=== PATIENT | male | born 1950 | race Caucasian/White ===

== ENCOUNTER 2022-04-19 06:43 | Day surgery (SDC) | payer MEDICARE, BC, SELFPAY ==
[2022-04-19] VITALS (8 sets, daily range): BP systolic 148–176; BP diastolic 84–102; PULSE 58–73; RESP 16; TEMP 36.7–36.9; O2SAT 95–98; BMI 40.1
[2022-04-19] MEDS: BUPIVACAINE 0.5% 30 ML 10 ML INJECTION (08:18)
[2022-04-19] MEDS: lidocaine HCL 2 % MULTIDOSE 20 ML VIAL 10 ML INJECTION (08:18)
--- NOTE | 2022-04-19 08:44 | PM.ORPRC ---
Procedure Note Date of procedure: 04/19/22 Procedure: Preop diagnosis: Right hand middle finger stenosing tenosynovitis Postop diagnosis: Right hand middle finger stenosing tenosynovitis Procedure: Right hand middle finger A1 rob release Anesthesia: Local Surgeon: Timbo Santacruz MD plant attendant or assistant operator: SADI Ronquillo EBL: 0 mL Complications: None Specimens: None Drains: None Preoperative antibiotics: None Indications: The patient has a history of right upper extremity middle finger painful catching and locking. Despite appropriate non operative management including flexor tendon sheath corticosteroid injections they continue to have symptoms. Operative intervention was recommended. The risks, benefits alternatives and expected outcomes were discussed in detail. These included but were not limited to: Infection, bleeding, injury to blood vessel or nerve, venous thromboembolism. All questions were answered to their satisfaction. The patient was placed supine on the operating room table. Local anesthesia was established with 0.5% Marcaine without epinephrine and 2% lidocaine without epinephrine. The hand was prepped and draped in usual sterile fashion. The limb was elevated the forearm pneumatic tourniquet was inflated to 250 mm of mercury. A transverse incision was made centered over the base of the middle finger in the distal palmar crease. Subcutaneous dissection was taken through the palmar fascia to the flexor tendons with the tenotomy scissors. The A1 rob was released with the 15 blade and a tenotomy scissors. Its edges were excised with the 15 blade. Active flexion and extension of the finger shows no catching or locking, no bowstringing of the flexor tendons. The wound was closed with interrupted nylon sutures. A dry dressing was applied the tourniquet was released. Sponge and needle counts were correct x 2. The patient tolerated the procedure well, there were no apparent complications. They were sent to same day surgery in satisfactory condition. Plan: Use of the hand as tolerates. Discontinue the intraoperative dressing on postoperative day 3 and may get the wound wet as tolerates. Follow up in the office in 2 weeks for a wound check and suture removal.
== END 2022-04-19 08:58 | disposition home or self-care (01) ==
PROVIDERS: PCP Physician Assistant Medical; Visit Provider Orthopaedic Surgery
PROC: (CPT 26055; principal; 2022-04-19 07:45)
DX: M65.841 Other synovitis and tenosynovitis, right hand (principal)
CPT/HCPCS: 26055; J3490

== ENCOUNTER 2022-11-08 13:07 | Outpatient (CLI) | payer MEDICARE, BC, SELFPAY | END 2022-11-08 13:08 | disposition home or self-care (01) | LOC: RAD 13:08 | PROVIDERS: PCP Family Medicine; Visit Provider Family Medicine | DX: I48.91 Unspecified atrial fibrillation (principal) | CPT/HCPCS: 93306 ==

== ENCOUNTER 2023-02-05 12:30 | Emergency (ER) | payer MEDICARE, BC, SELFPAY ==
[2023-02-05 12:33] VITALS: BP 156/83; PULSE 82; RESP 16; TEMP 36.1; O2SAT 95; BMI 39.5
[2023-02-05 12:46] LABS: Appearance Urine Cloudy (Clear); Bilirubin Urine Negative (Negative); Blood Urine 3+ (Negative); Color Urine Yellow (Yellow); Glucose Urine Negative (Negative); Ketones Urine Negative (Negative); Leukocyte Esterase Urine 3+ (Negative); Nitrite Urine Negative (Negative); Protein Urine 2+ (Negative); pH Urine 8.5 (5.0-8.5)
[2023-02-05 12:54] LABS: Bacteria Urine Moderate; RBC Urine 50-100 (0-2); WBC Urine >100 (0-5)
--- NOTE | 2023-02-05 14:02 | CRLHL7_ITS ---
For Patients: As a result of the Century Cures Act, medical imaging exams and procedure reports are released immediately into your electronic medical record. You may view this report before your referring provider. If you have questions, please contact your health care provider. INDICATION: Right-sided abdominal pain, infected urine. TECHNIQUE: CT abdomen and pelvis without contrast. COMPARISON: August 18, 2018. FINDINGS: Lower chest: Scattered atelectasis Liver: Normal in size and attenuation. No suspicious masses. Gallbladder and bile ducts: No stones or inflammation. No biliary dilatation. Pancreas: Unremarkable. No mass or inflammation. Spleen: Normal in size. No masses. Adrenal glands: Normal in size. No nodules. Kidneys: Tiny bilateral nonobstructing renal stones. Normal in size. No suspicious masses, or hydronephrosis. GI tract: Colonic diverticulosis without diverticulitis. Normal in caliber. No sign of mass or inflammation. Normal appendix. Vasculature: Abdominal aorta is normal in caliber. Lymph nodes: No lymphadenopathy. Peritoneum/Abdominal Wall: Small fat containing umbilical hernia. No sign of mass or infiltration. No free air or significant free fluid. Pelvis: Mildly distended bladder with circumferential wall thickened. Mild prostatomegaly. No pelvic masses. Bones: Bilateral hip arthroplasty causing streak artifact. Tiny peripherally sclerotic right iliac lesion, more pronounced than prior study. IMPRESSION: Circumferential bladder wall thickening consistent with known urinary tract infection. Prostatomegaly. Tiny bilateral nonobstructing renal stones. Colonic diverticulosis without diverticulitis. Otherwise, no acute intra-abdominal/pelvic abnormality including obstructive uropathy. Please note that all CT scans at this facility use dose modulation, iterative reconstruction, and/or weight-based dosing when appropriate to reduce radiation dose to as low as reasonably achievable. Dictated by Rodo Fiore MD @ 02/05/2023 3:59:59 PM (Electronically Signed)
--- NOTE | 2023-02-05 14:06 | ED_ITS ---
HPI - Abdominal Pain General Time Seen by Provider: 14:06 Date Seen: 02/05/23 Chief Complaint: Abdominal Pain Stated Complaint: R side abdominal pain Time Seen by Provider: 02/05/23 13:56 Source: patient and RN notes reviewed Mode of arrival: ambulatory Limitations: no limitations History of Present Illness HPI narrative: Patient is presenting with dysuria and right-sided abdominal pain. He has not had any fevers. He has history of kidney stones. No nausea or vomiting. Urinalysis was already collected by nursing staff and I am able to review it before talking to him, am able to share with him that it is showing urinary tract infection. Does have a sense of some obstructive symptoms or difficulty urinating. He still is able to urinate. Some discomfort with it. He does know that he has enlarged prostate issues as well. The urinary symptoms may be started about 2 days ago. MD elicited complaint: abdominal pain and flank pain Related Data Home Medications Medication Instructions Recorded Confirmed lisinopril 20 mg tablet 20 mg PO BID 03/15/22 02/05/23 metoprolol succinate 50 mg 50 mg PO DAILY 03/15/22 02/05/23 tablet,extended release 24 hr omeprazole 20 mg capsule,delayed 20 mg PO DAILY 03/15/22 02/05/23 release tadalafil 20 mg tablet 20 mg PO .as Direc as needed PRN 03/15/22 02/05/23 tamsulosin 0.4 mg capsule 0.8 mg PO DAILY 03/15/22 02/05/23 prazosin 2 mg capsule 2 mg PO QHS 12/14/22 02/05/23 sertraline 100 mg tablet 200 mg PO QDAY 12/14/22 02/05/23 Previous Rx's Medication Instructions Recorded ipratropium 20 mcg-albuterol 100 1 puff inhalation QID #4 grams 05/31/22 mcg/actuation mist for inhalation (Combivent Respimat) cephalexin 500 mg tablet 500 mg PO TID #21 tabs 02/05/23 Allergies Allergy/AdvReac Type Severity Reaction Status Date / Time doxycycline Allergy Severe Itching Verified 02/05/23 12:39 codeine Allergy Unknown Verified 02/05/23 12:39 Review of Systems Status of ROS Reports: 6 or more systems reviewed and unremarkable except as noted in History and below [facility] Medical History Knee osteoarthritis ?M17.9 - Osteoarthritis of knee, unspecified (ICD-10) Surgical History H/O arthroscopy of left knee (04/17/13) ?Z98.890 - Other specified postprocedural states (ICD-10) History of repair of right rotator cuff (03/14/18) ?Z98.890 - Other specified postprocedural states (ICD-10) Trigger finger, left little finger (06/20/21) ?M65.352 - Trigger finger, left little finger (ICD-10) History of total right hip replacement (02/24/13) ?Z96.641 - Presence of right artificial hip joint (ICD-10) History of total left hip replacement (08/27/14) ?Z96.642 - Presence of left artificial hip joint (ICD-10) History of tonsillectomy and adenoidectomy ?Z90.89 - Acquired absence of other organs (ICD-10) History of colonoscopy with polypectomy ?Z98.890 - Other specified postprocedural states (ICD-10) ?Z86.010 - Personal history of colonic polyps (ICD-10) History of arthroscopy of right shoulder (04/18/18) ?Z98.890 - Other specified postprocedural states (ICD-10) History of arthroscopy of right knee (06/21/17) ?Z98.890 - Other specified postprocedural states (ICD-10) Family History Mother Ovarian cancer Father Pancreatic cancer Uncle Testicular cancer Social History Narrative: alcohol ingestion, 1-4 drinks/week does not use illicit drugs nonsmoker Smoking Status: Former smoker What tobacco products do you use: cigarettes Smoking quit date/years: >15 years ago Do you use any of these nicotine containing products: None Second hand tobacco smoke exposure: No Exam Const: Vital Signs, click to edit/add: Vital Signs - 24 hr 02/05/23 12:33 02/05/23 15:39 Temperature 97.0 F L Pulse Rate [Right Pulse Oximeter] 82 83 Respiratory Rate 16 18 Blood Pressure [Ri ght Upper Arm] 156/83 H 156/94 H Pulse Oximetry 95 94 Oxygen Delivery Me thod Room Air Room Air Timbo is a 72-year-old male that is alert interactive no apparent distress. Saw him ambulating into room 8, gait is normal, no difficulty. Skin is frausto, no rash. Sclera clear, conjugate gaze. Lungs are clear with good air entry, no tachypnea, no wheezing. CV regular rate and rhythm, no murmur, normal S1-S2, no S3-S4. Abdomen is mildly obese but soft, nondistended. He has some mild right mid abdominal tenderness without rebound or guarding, do not feel any underlying mass. He has no CVA tenderness. No lower extremity edema noted. Documenting provider has reviewed patient's vital signs: yes Course Course Hospital Course: This is an afebrile hemodynamically stable patient with urine showing infection, history kidney stones. Reviewed with Rony that it is imperative that we rule out an infected obstructive kidney stone is that becomes a urologic emergency. Patients can get quite ill from that. Otherwise, this suggest infected urine with the possibility of Hale up into his kidney or pyelonephritis. Again, he is stable and I do think would tolerate trial of oral antibiotics outpatient if this is the case. He is aware that we would need transfer if he does need urologic intervention. Reevaluation(s) Time of Reevaluation #1: 16:10 Reevaluation #1: Have reviewed with patient the CT findings, lab reports. He is having symptoms of complicated UTI but is hemodynamically stable. I do think he meets discharge criteria for trial of outpatient management. Have reviewed with me needs to watch his symptoms closely and if any worsening return. There could be ascending infection given he is getting some right-sided symptoms. There is no definitive evidence on CT of pyelonephritis but this is done with out contrast. Clinically he does look stable in do feel confident that decision for outpatient management is appropriate at this time. Time of Reevaluation #2: 16:17 Reevaluation #2: Reviewed CT imaging with patient and given copy of report. Discussed ascending infection which would be pyelonephritis, he needs to watch for worsening with increased abdominal pain, fevers or vomiting. Needs to seek re-evaluation if he has worsening. Will start him on oral Keflex the morning, did get IV Rocephin here. We will let him know if the antibiotic selection is not adequate and he needs to be changed based on the urine culture. Vital Signs Vital signs: Initial Vital Signs Temperature 97.0 F L 02/05/23 12:33 Temperature Source Temporal Artery Scan 02/05/23 12:33 Pulse Rate 82 02/05/23 12:33 Respiratory Rate 16 02/05/23 12:33 Blood Pressure 156/83 H 02/05/23 12:33 Blood Pressure Mean 107 H 02/05/23 12:33 Blood Pressure Position Sitting 02/05/23 12:33 Pulse Oximetry 95 02/05/23 12:33 Oxygen Delivery Method Room Air 02/05/23 12:33 Vital Signs Temperature 97.0 F L 02/05/23 12:33 Pulse Rate 82 02/05/23 12:33 Respiratory Rate 16 02/05/23 12:33 Blood Pressure 156/83 H 02/05/23 12:33 Pulse Oximetry 95 02/05/23 12:33 Oxygen Delivery Method Room Air 02/05/23 12:33 Temperature 97.0 F L 02/05/23 12:33 Pulse Rate 83 02/05/23 15:39 Respiratory Rate 18 02/05/23 15:39 Blood Pressure 156/94 H 02/05/23 15:39 Pulse Oximetry 94 02/05/23 15:39 Oxygen Delivery Method Room Air 02/05/23 15:39 MDM - Abdominal Pain Lab Data Attestation: I reviewed the patient's lab results. Labs: Lab Results 02/05/23 02/05/23 Range/Units 12:35 14:14 WBC 12.57 H (4.50-11.00) K/uL RBC 5.06 (4.30-5.90) m/uL Hgb 14.8 (13.5-17.5) gm/dL Hct 46.4 (37.0-53.0) % MCV 92 (80-100) fL MCH 29 (26-34) pg MCHC 32 (32-36) gm/dL RDW Coeff of Silva 14.6 (11.5-15.5) % Plt Count 183 (140-440) K/uL Neut % (Auto) 76.4 H (42.0-72.0) % Lymph % (Auto) 13.6 L (20-44) % Richardson % (Auto) 8.2 (0.0-11.0) % Eos % (Auto) 1.4 (0.0-7.0) % Baso % (Auto) 0.2 (0.0-3.0) % Neut # (Auto) 9.60 H (1.7-7.0) K/uL Lymph # (Auto) 1.70 (0.90-2.90) K/uL Richardson # (Auto) 1.00 H (0.00-0.90) K/UL Eos # (Auto) 0.20 (0.00-0.50) K/uL Baso # (Auto) 0.00 (0.00-0.30) K/uL Abs Immat Gran (auto) 0.00 (0.00-0.30) K/uL Imm/Tot Granulo (auto) 0.2 % Sodium 137 (135-149) mmol/L Potassium 4.5 (3.6-5.1) mmol/L Chloride 100 (96-114) mmol/L Carbon Dioxide 29 (20-32) mmol/L Anion Gap 8 (7-15) mEq/L BUN 19 (7-30) mg/dL Creatinine 0.9 (0.5-1.5) mg/dL Estimated Creat Clear 67.93 Estimated GFR 90 ml/min Glucose 116 H (60-115) mg/dL Calcium 9.7 (8.4-10.6) mg/dL C-Reactive Protein 1.2 H (0.5-1.0) mg/dL Urine Color Yellow (Yellow) Urine Appearance Cloudy A (Clear) Urine pH 8.5 (5.0-8.5) Ur Specific Cameron 1.020 (1.000-1.030) Urine Protein 2+ A (Negative) Urine Glucose (UA) Negative (Negative) Urine Ketones Negative (Negative) Urine Blood 3+ A (Negative) Urine Nitrite Negative (Negative) Urine Bilirubin Negative (Negative) Urine Urobilinogen 1.0 (0.2-1.0) Ur Leukocyte Esterase 3+ A (Negative) Urine RBC 50-100 A (0-2) Urine WBC >100 A (0-5) Ur Squamous Epith Cells None (None-Few) Urine Bacteria Moderate A (None) Imaging Data CT scan - abdomen: Attestation: I have reviewed the pertinent imaging results. My impression: I do see bladder wall thickening, intraparenchymal kidney stones but no obstructive stones in my preliminary review. Certainly will be awaiting Radiology over-read. Radiologist's impression: IMPRESSION: Circumferential bladder wall thickening consistent with known urinary tract infection. Prostatomegaly. Tiny bilateral nonobstructing renal stones. Colonic diverticulosis without diverticulitis. Otherwise, no acute intra-abdominal/pelvic abnormality including obstructive uropathy. Please note that all CT scans at this facility use dose modulation, iterative reconstruction, and/or weight-based dosing when appropriate to reduce radiation dose to as low as reasonably achievable. Dictated by Rodo Fiore MD @ 02/05/2023 3:59:59 PM (Electronic Signature) Discharge Plan Discharge Clinical Impression: Complicated urinary tract infection Patient Disposition: Home, Self-Care Condition: Stable Instructions: Urinary Tract Infection in Men (ED), Kidney Infection (ED) Additional Instructions: Start oral antibiotics and take as prescribed in the morning. Need to monitor symptoms closely. If you develop increasing abdominal pain, have fever or vomiting with it, do need to be re-evaluated. If with treatment of the bladder infection you do not note improvement in your sense of obstructive urinary sy mptoms, need to be further evaluated by Urology. It is possible for people to develop urinary strictures which can put patient is at risk for infection. A cystoscopy with urology would need to be done to further evaluate this. I hope that your symptoms are coming from the bladder infection and resolve with treatment with antibiotics. If your urine culture does grow a bacteria that is not covered by the initial antibiotic selection, we will contact you and get you switch to an appropriate antibiotic. Activity Level: Activity as Tolerated Prescriptions: New cephalexin 500 mg tablet 500 mg PO TID Qty: 21 0RF No Action tadalafil 20 mg tablet 20 mg PO .as Direc as needed PRN omeprazole 20 mg capsule,delayed release(DR/EC) 20 mg PO DAILY tamsulosin 0.4 mg capsule 0.8 mg PO DAILY lisinopril 20 mg tablet 20 mg PO BID metoprolol succinate 50 mg tablet extended release 24 hr 50 mg PO DAILY sertraline 100 mg tablet 200 mg PO QDAY prazosin 2 mg capsule 2 mg PO QHS Combivent Respimat 20-100 mcg/actuation mist 1 puff inhalation QID Qty: 4 2RF Rx Instructions: space evenly during waking hours Follow Up/Referrals: Ilan Atwood MD [Primary Care Provider] - Stand Alone Forms: MyHealth Info Instructions
--- OUTSIDE RECORDS SUMMARY | 2023-02-05 14:35 | XMS_ITS | Continuity of Care Document ---
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 Role Phone Sophiris Bio Unavailable Unavailable Problems Problem Status Onset Date Classification Date Reported Comments Source Pain of joint of knee 03/18/2022 [facility] Essential hypertension (disorder) 03/18/2022 [facility] Osteoarthritis of knee (disorder) 03/18/2022 [facility] Care Benign prostatic hypertroph without outflow obstruction (disorder) 03/18/2022 [facility] Care Hip joint prosthesis present 03/18/2022 [facility] Medications Medication Details Route Status Patient Instructions Ordering Provider Order Date Source Percocet-5/325 oral tablet See Instructions, Tab, PRN, Pain, Qty: 15 Tab, Refills: 0, 1 Tab PO Q 4-6 hours, Maintenance, Route to Pharmacy Electronically , [facility]/pharmacy #[id number] Active 03/10/20 [facility] tamsulosin 0.4 mg oral capsule 1 Cap Cap, PO, qDay, Qty: 30 Cap, Refills: 0, Maintenance Active 03/10/20 22 [facility] Care lisinopril 10 mg, Tab, PO, qDay, Qty: 30 Tab, Refills: 0, Maintenance Active 03/10/20 [facility] Consultation Notes Results Value Date Source Discharge Instructions Document [facility] [address] [place] [address] TABITHA SANCHEZ :1950 (EV) Visit Date:03/10/2022 [facility] PRESCRIBING We care about you. Our goal is to treat your medical conditions, including pain, effectively, safely and in the right way. Pain relief treatment can be complicated. Mistakes or abuse of pain medicine can cause serious health problems and . Our emergency department will only provide pain relief options that are safe and correct. For your SAFETY, we routinely follow these rules when helping you with your pain. We look for and treat emergencies. We use our best judgement when treating pain. These recommendations follow legal and ethical advice. You should have only ONE provider and ONE pharmacy helping you with pain. We do not usually prescribe pain medication if you already receive pain medicine from another health care provider. If pain prescriptions are needed for pain, we will only give you a limited amount. We do not refill stolen or lost prescriptions for pain medication. We do not prescribe long-acting pain medicines such as: OxyContin, MSContin, Fentanyl (Duragesic), Methadone, Opana ER, Exalgo, and others. We do not provide missed doses of Methadone. We do not usually give shots for flare-ups of chronic pain. Health care laws, including HIPAA, allow us to ask for all of your medical records. These laws allow us to share information with other health providers who are treating you. We may ask you to show a photo ID when you receive a prescription for pain medicines. In [place], we use the [place] Prescription Drug Monitoring Program called [employer]. In [place] and [place], we use the Prescription Monitoring Program that has oversight by the [place] and [facility] boards of pharmacy. These statewide computer systems track opioid pain medications and other controlled substance prescriptions. If you need help with substance abuse or addiction, please call [phone] ([phone]) for confidential referral and treatment. Sponsored by: [employer] [facility] [employer] Safe Practice, Safe Care [facility] Emergency Department Patient Discharge Instructions If your symptoms continue or worsen, return to the emergency department or contact your physician. If you have questions about your discharge instructions, call the phone number above. Providers Attending Physician - Wiley Sanches MD Lifetime Physician(PCP) - PCP, No Provider Role Wiley Sanches MD ED Provider Reason for Visit UC - Knee Pain or Swelling Discharge Diagnosis Acute knee pain Discharge Vitals T: 36.5 ?C (Oral) HR: 76 RR: 18 BP: 157/91 SpO2: 98% HT: 177.8 cm WT: 128.798 kg WT: 284 lbs BMI: 40.74 Time patient left the ED These instructions are intended to provide general information and guidelines to follow at home to properly care for your particular medical problem. The following diagnostic tests and/or procedures were performed during your stay. Tests Performed Most Recent Lab Results Follow-up Instructions: All referrals for follow up medical care may require approval by your insurance carrier. Any provider contact information (below) is provided to assist you in getting the follow up we recommend. However, it's important that you first check with your insurance provider to assure that the provider is in yourinsurance provider to assure that the provider is in your network and such a visit will be covered. Some plans may require a Primary Care doctor to provide a referral for specialist appointments. You May Need to Schedule the Following Appointments Follow Up with Rest. Ice. You may continue the ibuprofen. Follow-up with your orthopedist in [place] as soon as possible. When Within 3 to 5 days We encourage you to sign up for My Portal, where you can easily access your medical records and test results from all [facility]. Please sign up in one of the following ways: 1. Email invitation. You may have a message in your inbox. Please click the link provided to create an account. OR 2. Request an invitation at your next clinic or hospital visit. Please ask a staff member and they will be happy to assist you. Medications What How Much When Instructions Next Dose New acetaminophen-oxyCODONE (Percocet-5/ 325 oral tablet) See instructions 1 Tab PO Q 4-6 hours Pickup at [facility]/pharmacy #[id number] Unchanged lisinopril 10 Milligram By mouth Once daily Unchanged tamsulosin (tamsulosin 0.4 mg oral capsule) 1 cap By mouth Once daily Pharmacy Information [facility]/pharmacy #[id number]: [address] [place], [place] [phone] Discharge Orders Discharge Orders: Discharge Now, Home or self care Education Materials Chronic Knee Pain, Adult Chronic knee pain is pain in one or both knees that lasts longer than 3 months. Symptoms of chronic knee pain may include swelling, stiffness, and discomfort. Age-related wear and tear (osteoarthritis) of the knee joint is the most common cause of chronic knee pain. Other possible causes include: A long-term immune-related disease that causes inflammation of the knee (rheumatoid arthritis). This usually affects both knees. Inflammatory arthritis, such as gout or pseudogout. An injury to the knee that causes arthritis. An injury to the knee that damages the ligaments. Ligaments are strong tissues that connect bones to each other. Runner's knee or pain behind the kneecap. Treatment for chronic knee pain depends on the cause. The main treatments for chronic knee pain are physical therapy and weight loss. This condition may also be treated with medicines, injections, a knee sleeve or brace, and by using crutches. Rest, ice, pressure (compression), and elevation, also known as RICE therapy, may also be recommended. Follow these instructions at home: If you have a knee sleeve or brace: Wear the knee sleeve or brace as told by your health care provider. Remove it only as told by your health care provider. Loosen it if your toes tingle, become numb, or turn cold and blue. Keep it clean. If the sleeve or brace is not waterproof: Do not let it get wet. Remove it if allowed by your health care provider, or cover it with a watertight covering when you take a bath or a shower. Managing pain, stiffness, and swelling If directed, apply heat to the affected area as often as told by your health care provider. Use the heat source that your health care provider recommends, such as a moist heat pack or a heating pad. If you have a removable knee sleeve or brace, remove it as told by your health care provider. Place a towel between your skin and the heat source. Leave the heat on for 20 3 0 minutes. Remove the heat if your skin turns bright red. This is especially important if you are unable to feel pain, heat, or cold. You may have a greater risk of getting burned. If directed, put ice on the affected area. To do this: If you have a removable knee sleeve or brace, remove it as told by your health care provider. Put ice in a plastic bag. Place a towel between your skin and the bag. Leave the ice on for 20 minutes, 2 3 times a day. Remove the ice if your skin turns bright red. This is very important. If you cannot feel pain, heat, or cold, you have a greater risk of damage to the area. Move your toes often to reduce stiffness and swelling. Raise (elevate) the injured area above the level of your heart while you are sitting or lying down. Activity Avoid high-impact activities or exercises, such as running, jumping rope, or doing jumping jacks. Follow the exercise plan that your health care provider designed for you. Your health care provider may suggest that you: Avoid activities that make knee pain worse. This may require you to change your exercise routines, sport participation, or job duties. Wear shoes with cushioned soles. Avoid sports that require running and sudden changes in direction. Do physical therapy. Physical therapy is planned to match your needs and abilities. It may include exercises for strength, flexibility, stability, and endurance. Do exercises that increase balance and strength, such as cuca chi and yoga. Do not use the injured limb to support your body weight until your health care provider says that you can. Use crutches as told by your health care provider. Return to your normal activities as told by your health care provider. Ask your health care provider what activities are safe for you. General instructions Take azcd-hzj-[id number] and prescription medicines only as told by your health care provider. Lose weight if you are overweight. Losing even a little weight can reduce knee pain. Ask your health care provider what your ideal weight is, and how to safely lose extra weight. A dietitian may be able to help you plan your meals. Do not use any products that contain nicotine or tobacco, such as cigarettes, e-cigarettes, and chewing tobacco. These can delay healing. If you need help quitting, ask your health care provider. Keep all follow-up visits. This is important. Contact a health care provider if: You have knee pain that is not getting better or gets worse. You are unable to do your physical therapy exercises due to knee pain. Get help right away if: Your knee swells and the swelling becomes worse. You cannot move your knee. You have severe knee pain. Summary Knee pain that lasts more than 3 months is considered chronic knee pain. The main treatments for chronic knee pain are physical therapy and weight loss. You may also need to take medicines, wear a knee sleeve or brace, use crutches, and apply ice or heat. Losing even a little weight can reduce knee pain. Ask your health care provider what your ideal weight is, and how to safely lose extra weight. A dietitian may be able to help you plan your meals. Follow the exercise plan that your health care provider designed for you. This information is not intended to replace advice given to you by your health care provider. Make sure you discuss any questions you have with your health care provider. Document Revised: 11/02/2020 Document Reviewed: 11/02/2020 Elsevier Patient Education ? 2021 [employer] I understand that [facility] is not responsible for any personal belongings/effects or valuables that have not been identified on the valuables and belongings list. Any personal effects brought into the facility and not recorded on the valuables and belongings form are the responsibility of the patient/family/significant other. I have received the indicated patient education materials/instructions and medication list and have verbalized understanding. Patient Name: TABITHA SANCHEZ Patient/Responsible Adult Signature: Date/Time: Provider Signature: Date/Time: 03/10/2022 [facility] ED Physician Notes Patient: TABITHA SANCHEZ (EV) Age: 71 years Sex: M : 1950 Associated Diagnoses: None Author: Wiley Sanches MD Basic Information Time seen: Provider Initial Contact Time 03/10/2022 12:13. Additional information: Chief Complaint (ST) Chief Complaint ED: left knee pain since yesterday. pt states 'stretching in bedand left knee started hurting' 03/10/22 12:11, Subjective Nursing Assessment: pt ao, resp even/unlabored 03/10/22 12:11 . History of Present Illness The patient presents with knee pain and This is a 71-year-old white male with a previous history of hypertension and BPH who presents for evaluation of left knee pain. He has a long history of left knee issues for which she is normally cared for in [place]. He has bilateral hip replacements and has significant arthritis of the knees. He has had multiple MRI scans in the past. He is typically treated with injections of corticosteroids. He flew to the [facility] days ago and felt entirely well. Yesterday morning, when he was going to get up, he stretched. He did this while laying down and noted some slight discomfort in the left knee which probably worsened when he attempted to move the knee. He now has persisting/worsening pain in the left knee with motion. There is no pain at rest. The pain is global and that it is both medially, laterally, posteriorly, and anteriorly. He notes no acute grinding. In the past he normally takes ibuprofen 800 mg and Tylenol for his symptoms. This is 'not touching' his pain. He will return to [place] in 2 days (Saturday, 03/12) and has an orthopedist who knows his case well. He primarily is seeking pain relief and an x-ray if indicated. He has no known medication allergies.. Review of Systems Constitutional symptoms: Negative except as documented in HPI. Skin symptoms: Negative except as documented in HPI. ENMT symptoms: Negative except as documented in HPI. Respiratory symptoms: Negative except as documented in HPI. Cardiovascular symptoms: Hypertension. Gastrointestinal symptoms: Negative except as documented in HPI. Musculoskeletal symptoms: Degenerative joint disease with bilateral knee arthritis. Status post bilateral hip replacement.. Neurologic symptoms: Negative except as documented in HPI. Endocrine symptoms: Negative except as documented in HPI. Hematologic/Lymphatic symptoms: Negative except as documented in HPI. Allergy/immunologic symptoms: Negative except as documented in HPI. Health Status Allergies: Allergic Reactions (Selected) No Known Medication Allergies. Medications: Include Documented Meds (Selected) Documented Medications Documented lisinopril: 10 mg, PO, qDay, 30 Tab, 0 Refill(s) tamsulosin 0.4 mg oral capsule: 1 Cap, PO, qDay, 30 Cap, 0 Refill(s). Past Medical/ Family/ Social History Surgical history: No active procedure history items have been selected or recorded.. Family history: No family history items have been selected or recorded.. Social history: Social and Psychosocial Habits Alcohol 03/10/2022 Use: Current Frequency: 1-2 times per month Home/Environment 03/10/2022 Yazidi restrictions/concerns: None Substance Abuse 03/10/2022 Use: Denies Tobacco 03/10/2022 Tobacco Use: Never (less than 100 in l . Physical Examination Vital Signs Vital-Signs 03/10/2022 12:11 MST SPO2 98 % Normal Heart Rate 76 bpm Normal NIBP Systolic 157 mm Hg H NIBP Diastolic 91 mm Hg H Resp Rate (Monitor) 18 Breaths/Min Normal Temperature PO 36.5 deg C Normal Pain Intensity 0 Pain Scale Used Numeric Rating Scale . Measurements 03/10/2022 12:11 MST Rattan Body Weight 73 kg Drug Calc Weight (kg) 128.798 kg BMI 40.74 kg/m2 Height 177.8 cm Height In 70 Inch Weight lb 284 lbs . SPO2 03/10/2022 12:11 [facility] SPO2 98 % Normal . General: Alert, He is in no obvious distress at rest. Motion is slow, careful, with attempts to not move the knee. He has less pain if it is kept in complete extension. He does have access to crutches but is not currently using them.. Skin: Warm, dry, pink. Musculoskeletal: No swelling, warmth, or significant tenderness is noted to exam of the left knee. Passive range of motion is minimally painful whereas similar active range of motion is markedly painful. No palpable grinding or grating is noted.. Neurological: Alert and oriented to person, place, time, and situation, normal speech observed. Psychiatric: Cooperative. Medical Decision Making Rationale: This is a 71-year-old male presenting with severe left knee pain. Clinically there is no acute injury other than 'stretching'. Whether or not he has fractured a bone spur or done something else is unclear. It is not felt that an x-ray is going to be beneficial given his previous issues. He will continue ibuprofen 600 to 800 mg 3 times daily/4 times daily and be prescribed Percocet to take 1 every 4-6 hours.. Impression and Plan Acute knee pain ([id number] M25.569, Discharge, Medical) Plan Condition: Stable. Prescriptions: [facility]: Percocet-5/325 oral tablet (Prescribe): See Instructions, 1 Tab PO Q 4-6 hours, PRN: Pain, 15 Tab, 0 Refill(s). Patient was given the following educational materials: Chronic Knee Pain, Adult, Chronic Knee Pain, Adult. Follow up with: Rest. Ice. You may continue the ibuprofen. Follow-up with your orthopedist in [place] as soon as possible. Within 3 to 5 days. Counseled: Patient, Regarding diagnosis, Regarding treatment plan, Regarding prescription, Patient indicated understanding of instructions. Orders: Launch Orders Admit/Transfer/Discharge: Discharge (Order Processing): 03/10/2022 13:10 MST, Now, Home or self care. Electronically Signed By: Wiley Sanches MD On 03/10/22 13:10 Co Signature By: Modify Signature By: Wiley Sanches MD On 03/10/22 13:10 03/10/2022 [facility] Triage - Text Urgent Care Tr iage Entered On: 03/10/2022 12:22 MST Performed On: 03/10/2022 12:11 MST by Apoorva Steele RN UC Triage (v2) PNED Chief Complaint ED : left knee pain since yesterday. pt states 'stretching in bedand left knee started hurting' Mode of Arrival : Ambulatory Arrival Time : 03/10/2022 12:09 MST Triage Assessment : pt ao, resp even/unlabored Reason for visit : Pain Historian : Patient Accompanied By - ED : Alone Sensory Deficits : None Assistive Device for Communication : No Preferred Language for Healthcare Discussions : [place] Temperature PO : 36.5 deg C(Converted to: 97.7 deg F) NIBP Systolic : 157 mm Hg (H) NIBP Diastolic : 91 mm Hg (H) Heart Rate : 76 bpm Respiratory Rate (Monitor) : 18 Breaths/Min SPO2 : 98 % Pain Intensity : 0 Pain Scale Used : Numeric Rating Scale Status : N/A Apoorva Steele RN - 03/10/2022 12:11 MST DCP GENERIC CODE Tracking Acuity : 4 - Non-urgent Tracking Group : [facility] ED Tracking Apoorva Steele RN - 03/10/2022 12:11 MST Pediatric Patient : N/A Height (cm) : 177.8 cm Height Measurement Used : inches Height in : 70 Inch Drug Calc Weight (kg) : 128.798 kg Weight Measurement Used : pounds Weight lb : 284 lbs BMI : 40.74 kg/m2 Rattan Body Weight : 73 kg Adjusted Body Weight : 95.32 kg Additional Info - ED : poc. mask on patient ABW Calc : 95.32 kg ABW Calc2 : 128.8 kg Apoorva Steele RN - 03/10/2022 12:11 MST (As Of: 03/10/2022 12:22:45 MST) [place] Suicide Severity Rating Scale (C-SSRS) 1. In the past 30 days have you wished you were or wished you could go to sleep and not wake up : No 2. In the past 30 days, have you had any actual thoughts about killing yourself : No 6. In your lifetime, have you ever done anything, started anything, or prepared to do anything to end your life : No Suicide Severity Rating Stratification : 0 Suicide Severity Rating : No additional care required at this time Suicide Prevention Interventions : No additional care required at this time Apoorva Steele RN - 03/10/2022 12:11 MST Allergies and Current Meds (v2) New 07/20 Polypharmacy (greater than 7 meds) : No Apoorva Steele RN - 03/10/2022 12:11 MST (As Of: 03/10/2022 12:22:45 [facility]) Allergies (Active) No Known Medication Allergies Estimated Onset Date: Unspecified ; Created By: Apoorva Steele RN; Reaction Status: Active ; Category: Drug ; Substance: No Known Medication Allergies ; Type: Allergy ; Updated By: Apoorva Steele RN; Reviewed Date: 03/10/2022 12:21 [facility] Medication List (As Of: 03/10/2022 12:22:45 [facility]) Home Meds lisinopril : lisinopril ; Status: Documented ; Ordered As Mnemonic: lisinopril ; Simple Display Line: 10 mg, PO, qDay, 30 Tab, 0 Refill(s) ; Catalog Code: lisinopril ; Order Dt/Tm: 03/10/2022 12:21:53 MST tamsulosin : tamsulosin ; Status: Documented ; Ordered As Mnemonic: tamsulosin 0.4 mg oral capsule ; Simple Display Line: 1 Cap, PO, qDay, 30 Cap, 0 Refill(s) ; Catalog Code: tamsulosin ; Order Dt/Tm: 03/10/2022 12:22:01 [facility] Social History Suicide Risk Screen : Yes Abuse Signs : Denies Red Flags of Human Trafficking : None observed Activated Human Trafficking Protocol : No Immunization Opt Out : Allow Apoorva Steele RN - 03/10/2022 12:11 [facility] Social History (As Of: 03/10/2022 12:22:45 MST) Tobacco: Never (less than 100 in lifetime) (Last Updated: 03/10/2022 12:22:05 MST by Apoorva Steele RN) Alcohol: Current, 1-2 times per month (Last Updated: 03/10/2022 12:22:10 MST by Apoorva Steele RN) Substance Abuse: Denies (Last Updated: 03/10/2022 12:22:14 MST by Apoorva Steele RN) Home/Environment: Yazidi restrictions/concerns: None. (Last Updated: 03/10/2022 12:22:18 MST by Apoorva Steele RN) Infectious Disease Risk Screening COVID19 Link to CDC Symptoms : Right click to and select reference text Does Pt Have Symptoms of COVID 19 : No Tested for COVID19 in the past 14 days : No, Patient stated Does the Patient state known exposure to a COVID-19 positive case in the last 14 days : No Patient Vaccinated for COVID-19 : Partially vaccinated or need booster Does Patient want a COVID-19 Vaccine : No Apoorva Steele RN - 03/10/2022 12:11 [facility] Infectious Disease Risk Screening Grid Cough < 2 wks of unknown origin : NO Cough > 2 weeks : NO Blood in Sputum : NO Fever or self-reported Fever : NO Rash of unknown origin : NO Headache : NO Stiff neck : NO Night Sweats : NO Unexplained Weight Loss : NO Diarrhea (3 episode per day) : NO Apoorva Steele RN - 03/10/2022 12:11 [facility] INF Disease Living Situation ST : Living Situation No qualifying data available. Patient Masked : Yes Travel to foreign country last 30 days : No INF Disease TB Screening Calc : 0 Apoorva Steele RN - 03/10/2022 12:11 [facility] Urgent Care Fall Risk Mental Status ED : Alert and oriented Physical/Clinical Status : No defects Current Treatments ED : None Apoorva Steele RN - 03/10/2022 12:11 MST 03/10/2022 [facility] Vital Signs Vital Sign Value Date Comments Source Sensory Deficits None (03/10/22 12:11 PM) 03/10/2022 [facility] Temperature (c) 36.5 03/10/2022 [facility] Systolic (mm Hg) 157 03/10/2022 [facility] Diastolic (mm Hg) 91 03/10/2022 [facility] Heart Rate (bpm) 76 03/10/2022 [facility] Respiratory Rate 18 Breaths/Min 03/10/2022 [facility] SPO2 98 03/10/2022 [facility] Height (cm) 177.8 03/10/2022 [facility] Drug Calc Weight (kg) 128.798 03/10/2022 [facility] BMI 40.74 03/10/2022 [facility] Encounters Location Location Details Encounter Type Encounter Number Reason For Visit Attending Provider ADM Date DC Date Status Source [facility] Emergency [id number] [facility] 03/10 [facility] Social History Social History Date Source Social History TypeResponse Smoking Status Never (less than 100 in lifetime) entered on: 03/10/22 Sex 03/10/2022 [facility] Assessment and Plan Result Assessment and Plan Date Source Assessment and Plan No data available for this section 03/10/2022 [facility]
[2023-02-05 14:57] LABS: Basophils Percent Auto 0.2 % (0.0-3.0); Eosinophils Percent Auto 1.4 % (0.0-7.0); Hematocrit 46.4 % (37.0-53.0); Hemoglobin* 14.8 gm/dL (13.5-17.5); Immature Granulocytes Pct Auto 0.2 %; Lymphocytes Percent Auto 13.6 % (20-44); Mean Corpuscular HGB Conc 32 gm/dL (32-36); Mean Corpuscular Hemoglobin 29 pg (26-34); Mean Corpuscular Volume 92 fL (80-100); Monocytes Percent Auto 8.2 % (0.0-11.0); Neutrophils Percent Auto 76.4 % (42.0-72.0); Platelet Count* 183 K/uL (140-440); RDW Coefficient of Variation % 14.6 % (11.5-15.5); Red Blood Count 5.06 m/uL (4.30-5.90); White Blood Count* 12.57 K/uL (4.50-11.00)
[2023-02-05 14:58] LABS: Slide Review Reflex No
[2023-02-05 15:09] LABS: Chloride* 100 mmol/L (96-114); Potassium* 4.5 mmol/L (3.6-5.1); Sodium* 137 mmol/L (135-149)
[2023-02-05 15:11] LABS: Creatinine* 0.9 mg/dL (0.5-1.5); Est. Creatinine Clearance* 67.93; Estimated Glomerular Filt Rate 90 ml/min
[2023-02-05 15:12] LABS: Anion Gap 8 mEq/L (7-15); Blood Urea Nitrogen* 19 mg/dL (7-30); Carbon Dioxide* 29 mmol/L (20-32)
[2023-02-05 15:13] LABS: Calcium* 9.7 mg/dL (8.4-10.6); Glucose* 116 mg/dL (60-115)
[2023-02-05 15:15] LABS: C Reactive Protein* 1.2 mg/dL (0.5-1.0)
[2023-02-05] MEDS: cefTRIAXone 1 GM in 0.9 % SODIUM CHLORIDE Mini-bag 100 ML IVPB (15:38)
[2023-02-05 15:39] VITALS: BP 156/94; PULSE 83; RESP 18; O2SAT 94
[2023-02-05 16:32] VITALS: BP 139/85; RESP 18; TEMP 36.6; O2SAT 95
== END 2023-02-05 16:30 | disposition home or self-care (01) ==
PROVIDERS: Emergency Provider Family Medicine; PCP Family Medicine
DX: N39.0 Urinary tract infection, site not specified (principal)
CPT/HCPCS: 36415; 74176; 80048; 81001; 85025; 86140; 87086; 87186; 96365; 99284; J0696

== ENCOUNTER 2023-02-21 04:40 | Observation (INO) | payer MEDICARE, BC, SELFPAY ==
[2023-02-21] VITALS (8 sets, daily range): BP systolic 102–183; BP diastolic 64–99; PULSE 81–106; RESP 16–18; TEMP 36.2–38.1; O2SAT 93–98; BMI 38.7
--- NOTE | 2023-02-21 04:51 | ED_ITS ---
HPI - General Adult General Time Seen by Provider: 04:51 Date Seen: 02/21/23 Chief complaint: Urogenital Problems, Male Stated complaint: poss bladder infection Time Seen by Provider: 02/21/23 04:42 History of Present Illness HPI narrative: This is a very pleasant 72-year-old gentleman with a past medical history including atrial fibrillation, osteoarthritis, previous joint replacements, hypertension, hyperlipidemia, hep B infection, and recent urinary tract infection. He presents to the ER tonight with his . He has been sick for about 2 or 3 days with symptoms of UTI including urinary urgency and frequency. He is feeling the need to void about every hour so but when he urinates only a few tsp or tbsp of urine,. No hematuria. He is having mild abdominal discomfort in the suprapubic region. Also since that he is also having right upper quadrant pain. Overnight tonight he began to run fever that have chills. He was nauseous but not vomiting. Most of these symptoms are similar to a couple of weeks ago when he was seen in the ER for UTI. However last time he did not have a fever. Was in the ER on 02/05. He was diagnosed with UTI. He was treated with a 7 day course of cephalexin. Results of the workup during that visit included: UA showed 50-100 RBC, greater than 100 WBC Urine culture grew E coli, pansensitive. Creatinine 0.9 [address]BC [address] abdomen pelvisIMPRESSION: Circumferential bladder wall thickening consistent with known urinary tract infection. Prostatomegaly. Tiny bilateral nonobstructing renal stones. Colonic diverticulosis without diverticulitis. Otherwise, no acute intra-abdominal/pelvic abnormality including obstructive uropathy. Related Data Home Medications Medication Instructions Recorded Confirmed lisinopril 20 mg tablet 20 mg PO BID 03/15/22 02/05/23 metoprolol succinate 50 mg 50 mg PO DAILY 03/15/22 02/05/23 tablet,extended release 24 hr omeprazole 20 mg capsule,delayed 20 mg PO DAILY 03/15/22 02/05/23 release tadalafil 20 mg tablet 20 mg PO .as Direc as needed PRN 03/15/22 02/05/23 tamsulosin 0.4 mg capsule 0.8 mg PO DAILY 03/15/22 02/05/23 prazosin 2 mg capsule 2 mg PO QHS 12/14/22 02/05/23 sertraline 100 mg tablet 200 mg PO QDAY 12/14/22 02/05/23 Previous Rx's Medication Instructions Recorded ipratropium 20 mcg-albuterol 100 1 puff inhalation QID #4 grams 05/31/22 mcg/actuation mist for inhalation (Combivent Respimat) cephalexin 500 mg tablet 500 mg PO TID #21 tabs 02/05/23 Allergies Allergy/AdvReac Type Severity Reaction Status Date / Time doxycycline Allergy Severe Itching Verified 02/05/23 12:39 codeine Allergy Unknown Verified 02/05/23 12:39 [facility] Medical History Knee osteoarthritis ?M17.9 - Osteoarthritis of knee, unspecified (ICD-10) Surgical History H/O arthroscopy of left knee (04/17/13) ?Z98.890 - Other specified postprocedural states (ICD-10) History of repair of right rotator cuff (03/14/18) ?Z98.890 - Other specified postprocedural states (ICD-10) Trigger finger, left little finger (06/20/21) ?M65.352 - Trigger finger, left little finger (ICD-10) History of total right hip replacement (02/24/13) ?Z96.641 - Presence of right artificial hip joint (ICD-10) History of total left hip replacement (08/27/14) ?Z96.642 - Presence of left artificial hip joint (ICD-10) History of tonsillectomy and adenoidectomy ?Z90.89 - Acquired absence of other organs (ICD-10) History of colonoscopy with polypectomy ?Z98.890 - Other specified postprocedural states (ICD-10) ?Z86.010 - Personal history of colonic polyps (ICD-10) History of arthroscopy of right shoulder (04/18/18) ?Z98.890 - Other specified postprocedural states (ICD-10) History of arthroscopy of right knee (06/21/17) ?Z98.890 - Other specified postprocedural states (ICD-10) Family History Mother Ovarian cancer Father Pancreatic cancer Uncle Testicular cancer Social History Narrative: alcohol ingestion, 1-4 drinks/week does not use illicit drugs nonsmoker Smoking Status: Former smoker What tobacco products do you use: cigarettes Smoking quit date/years: >15 years ago Do you use any of these nicotine containing products: None Second hand tobacco smoke exposure: No How often do you have a drink containing alcohol: never AUDIT-C Alcohol total score: 0 Non-prescribed substance use: denies use Exam Narrative: Exam Narrative: Constitutional: Appears well-developed and well-nourished. Alert. Conversant. Feels warm to the touch but is not febrile here. Had taken Aleve at home. Non toxic. HENT: Head: Atraumatic. Nose: Nose normal. Mouth/Throat: Oral mucosa is clear and moist. no trismus. Pharynx normal. Tonsils symmetric. No tonsillar enlargement, erythema, or exudate. Eyes: Conjunctivae normal. EOM normal. Pupils equal, round, and reactive to light. No scleral icterus. Neck: Normal range of motion. Neck supple. No tracheal deviation present. Cardiovascular: Normal rate, regular rhythm. No gallop. No friction rub. No murmur heard. Symmetric radial artery pulses Pulmonary/Chest: Effort normal. No stridor. No respiratory distress. No wheezes. No rales. No rhonchi . No tenderness. Abdominal: Soft. Bowel sounds normal. No distension. No mass. He had been endorsing some right upper quadrant pain at home but has not resolved. No CVA or right upper quadrant or epigastric tenderness. He does have mild suprapubic tender No rebound. No guarding. Musculoskeletal: RUE: Normal range of motion. No tenderness. No deformity LUE: Normal range of motion. No tenderness. No deformity RLE: Normal range of motion. No edema. No tenderness. No deformity LLE: Normal range of motion. No edema. No tenderness. No deformity Neurological: Alert and oriented to person, place, and time. Normal strength. CN II-VII intact. No sensory deficit. GCS eye subscore is 4. GCS verbal subscore is 5. GCS motor subscore is 6. Normal coordination Skin: Skin is warm and dry. No rash noted. No pallor. Normal capillary refill. Psychiatric: Normal mood. Normal affect. Const: Vital Signs, click to edit/add: Vital Signs - 24 hr 02/21/23 04:48 02/21/23 06:43 Temperature 97.1 F L Pulse Rate [Left P ulse Oximeter] 106 H Respiratory Rate 16 Blood Pressure [Ri ght Upper Arm] 183/99 H Pulse Oximetry 96 98 Oxygen Delivery Me thod Room Air Course Vital Signs Vital signs: Initial Vital Signs Temperature 97.1 F L 02/21/23 04:48 Temperature Source Temporal Artery Scan 02/21/23 04:48 Pulse Rate 106 H 02/21/23 04:48 Respiratory Rate 16 02/21/23 04:48 Blood Pressure 183/99 H 02/21/23 04:48 Blood Pressure Mean 127 H 02/21/23 04:48 Blood Pressure Position Sitting 02/21/23 04:48 Pulse Oximetry 96 02/21/23 04:48 Oxygen Delivery Method Room Air 02/21/23 04:48 Vital Signs Temperature 97.1 F L 02/21/23 04:48 Pulse Rate 106 H 02/21/23 04:48 Respiratory Rate 16 02/21/23 04:48 Blood Pressure 183/99 H 02/21/23 04:48 Pulse Oximetry 96 02/21/23 04:48 Oxygen Delivery Method Room Air 02/21/23 04:48 Temperature 97.1 F L 02/21/23 04:48 Pulse Rate 106 H 02/21/23 04:48 Respiratory Rate 16 02/21/23 04:48 Blood Pressure 183/99 H 02/21/23 04:48 Pulse Oximetry 98 02/21/23 06:43 Oxygen Delivery Method Room Air 02/21/23 04:48 Medical Decision Making MDM Narrative Medical decision making narrative: This is a pleasant 72-year-old gentleman presenting to the ER with 3 day history of recurring urinary tract infection symptoms now evolving into fever, chills, and nausea overnight tonight. He was recently treated for another urinary tract infection (pansensitive E coli treated with 7 days of cephalexin beginning on 02/05, finishing on 02/13). Urinalysis tonight is again abnormal and symptoms would be indicative of UTI, probably also complicated by right-sided pyelonephritis. He was febrile at home but is not febrile here. He presented with tachycardia but has had stable blood pressure here in the ER. Venous lactate is normal at 1.5. Given the patient's presenting symptoms were concerned about possible early sepsis or possible bacteremia. He is started on IV Rocephin to treat for likely urinary pathogens. Urine and blood cultures were obtained prior to antibiotic initiation here in the ER. He received 1L of saline here in the ER and Zofran. He is symptomatically improved and heart rate is improved after fluids. Lab workup today shows leukocytosis with a white count of 18. This is an increase from on the 5th when his white count was 12. With fever and chills, leukocytosis, tachycardia, or concerned about potential for evolving sepsis. We will admit the patient for hemodynamic monitoring and ongoing antibiotics, pending culture results. Patient and his are agreeable. Differential for his right upper quadrant pain would also include other pathology such as gallstones. He has a history of H pylori many years ago but no other recent stomach upset. No symptoms of GI bleeding. No anemia. Recent CT scan of his abdomen pelvis is reviewed. There was no sign of any radiopaque gallstones or other gallbladder inflammation on that imaging. At this point low likelihood for cholecystitis or biliary colic. Patient may require gallbladder ultrasound if he does have recurrent right upper quadrant pain while in the hospital. Discussed with our overnight tele hospitalist at 6:40 a.m. who accepts for admission. Lab Data Labs: Lab Results 02/21/23 02/21/23 02/21/23 Range/Units 04:49 05:05 05:10 WBC 18.84 H (4.50-11.00) K/uL RBC 5.19 (4.30-5.90) m/uL Hgb 15.3 (13.5-17.5) gm/dL Hct 46.6 (37.0-53.0) % MCV 90 (80-100) fL MCH 30 (26-34) pg MCHC 33 (32-36) gm/dL RDW Coeff of Silva 15.0 (11.5-15.5) % Plt Count 198 (140-440) K/uL Neut % (Auto) 85.8 H (42.0-72.0) % Lymph % (Auto) 7.4 L (20-44) % [place] % (Auto) 5.9 (0.0-11.0) % Eos % (Auto) 0.4 (0.0-7.0) % Baso % (Auto) 0.2 (0.0-3.0) % Neut # (Auto) 16.20 H (1.7-7.0) K/uL Lymph # (Auto) 1.40 (0.90-2.90) K/uL [place] # (Auto) 1.10 H (0.00-0.90) K/UL Eos # (Auto) 0.10 (0.00-0.50) K/uL Baso # (Auto) 0.00 (0.00-0.30) K/uL Abs Immat Gran (auto) 0.10 (0.00-0.30) K/uL Imm/Tot Granulo (auto) 0.3 % Sodium 139 (135-149) mmol/L Potassium 4.3 (3.6-5.1) mmol/L Chloride 102 (96-114) mmol/L Carbon Dioxide 29 (20-32) mmol/L Anion Gap 8 (7-15) mEq/L BUN 22 (7-30) mg/dL Creatinine 1.1 (0.5-1.5) mg/dL Estimated Creat Clear 61.76 Estimated GFR 71 ml/min Glucose 159 H (60-115) mg/dL Lactate 1.5 (0.5-1.9) mmol/L Calcium 9.8 (8.4-10.6) mg/dL Urine Color Yellow (Yellow) Urine Appearance Cloudy A (Clear) Urine pH 6.5 (5.0-8.5) Ur Specific [place] 1.020 (1.000-1.030) Urine Protein 1+ A (Negative) Urine Glucose (UA) Negative (Negative) Urine Ketones Negative (Negative) Urine Blood 2+ A (Negative) Urine Nitrite Positive A (Negative) Urine Bilirubin Negative (Negative) Urine Urobilinogen 1.0 (0.2-1.0) Ur Leukocyte Esterase 3+ A (Negative) Urine RBC 5-10 A (0-2) Urine WBC 25-50 A (0-5) Ur Squamous Epith Cells Few (None-Few) Urine Bacteria Moderate A (None) Discharge Plan Discharge Prescriptions: No Action tadalafil 20 mg tablet 20 mg PO .as Direc as needed PRN omeprazole 20 mg capsule,delayed release(DR/EC) 20 mg PO DAILY tamsulosin 0.4 mg capsule 0.8 mg PO DAILY lisinopril 20 mg tablet 20 mg PO BID metoprolol succinate 50 mg tablet extended release 24 hr 50 mg PO DAILY sertraline 100 mg tablet 200 mg PO QDAY prazosin 2 mg capsule 2 mg PO QHS cephalexin 500 mg tablet 500 mg PO TID Qty: 21 0RF Combivent Respimat 20-100 mcg/actuation mist 1 puff inhalation QID Qty: 4 2RF Rx Instructions: space evenly during waking hours Follow Up/Referrals: Ilan Atwood MD [Primary Care Provider] -
[2023-02-21 04:53] LABS: Appearance Urine Cloudy (Clear); Bilirubin Urine Negative (Negative); Blood Urine 2+ (Negative); Color Urine Yellow (Yellow); Glucose Urine Negative (Negative); Ketones Urine Negative (Negative); Leukocyte Esterase Urine 3+ (Negative); Nitrite Urine Positive (Negative); Protein Urine 1+ (Negative); pH Urine 6.5 (5.0-8.5)
[2023-02-21 05:19] LABS: Bacteria Urine Moderate; Squamous Epithelial Cell Urine Few (None-Few); WBC Urine 25-50 (0-5)
[2023-02-21] MEDS: 0.9 % SODIUM CHLORIDE 1000 ml 1,000 ML IV (05:20)
[2023-02-21] MEDS: ONDANSETRON 2 MG/ML inj 4 MG IVP (05:20)
[2023-02-21 05:21] LABS: Basophils Percent Auto 0.2 % (0.0-3.0); Eosinophils Percent Auto 0.4 % (0.0-7.0); Hematocrit 46.6 % (37.0-53.0); Hemoglobin* 15.3 gm/dL (13.5-17.5); Immature Granulocytes Pct Auto 0.3 %; Lymphocytes Percent Auto 7.4 % (20-44); Mean Corpuscular HGB Conc 33 gm/dL (32-36); Mean Corpuscular Hemoglobin 30 pg (26-34); Mean Corpuscular Volume 90 fL (80-100); Monocytes Percent Auto 5.9 % (0.0-11.0); Neutrophils Percent Auto 85.8 % (42.0-72.0); Platelet Count* 198 K/uL (140-440); Red Blood Count 5.19 m/uL (4.30-5.90); White Blood Count* 18.84 K/uL (4.50-11.00)
[2023-02-21 05:29] LABS: Lactate* 1.5 mmol/L (0.5-1.9)
--- OUTSIDE RECORDS SUMMARY | 2023-02-21 05:39 | XMS_ITS | Continuity of Care Document ---
Author Name [employer] Care Team Providers Care Rent And Housing Investigator Name Role Phone [employer] Unavailable Unavailable Problems Problem Status Onset Date Classification Date Reported Comments Source Pain of joint of knee 03/18/2022 [facility] Essential hypertension (disorder) 03/18/2022 [facility] Osteoarthritis of knee (disorder) 03/18/2022 [facility] Care Benign prostatic hypertroph without outflow obstruction (disorder) 03/18/2022 [facility] Care Hip joint prosthesis present 03/18/2022 [facility] Medications Medication Details Route Status Patient Instructions Ordering Provider Order Date Source Percocet-5/325 oral tablet See Instructions, Tab, PRN, Pain, Qty: 15 Tab, Refills: 0, 1 Tab PO Q 4-6 hours, Maintenance, Route to Pharmacy Electronically , [facility]/pharmacy #[id number] Active 03/10/20 [facility] tamsulosin 0.4 mg oral capsule 1 Cap Cap, PO, qDay, Qty: 30 Cap, Refills: 0, Maintenance Active 03/10/20 22 [facility] Care lisinopril 10 mg, Tab, PO, qDay, Qty: 30 Tab, Refills: 0, Maintenance Active 03/10/20 [facility] Consultation Notes Results Value Date Source Discharge Instructions Document [facility] [address] [place] [address] TABITHA SANCHEZ :1950 (EV) Visit Date:03/10/2022 [facility] [...] receive a prescription for pain medicines. In [place], we use the [place] Prescription Drug Monitoring Program called [employer]. In [place] and [place], we use the Prescription Monitoring Program that has oversight by the [place] [facility] boards of pharmacy. These statewide computer systems track opioid pain medications and other controlled substance prescriptions. If you need help with substance abuse or addiction, please call [phone] ([phone] for confidential referral and treatment. Sponsored by: [employer] [facility] [employer] [facility] [employer] Safe Practice, Safe Care [facility] Emergency Department Patient Discharge Instructions If your [...] the ibuprofen. Follow-up with your orthopedist in [place] as soon as possible. When Within 3 to 5 days We encourage you to sign up for My Portal, where you can easily access your medical records and test results from all [facility]. Please sign up in one [...] Tab PO Q 4-6 hours Pickup at [facility]/pharmacy #[id number] Unchanged lisinopril 10 Milligram By mouth Once daily Unchanged tamsulosin (tamsulosin 0.4 mg oral capsule) 1 cap By mouth Once daily Pharmacy Information [facility]/pharmacy #[id number]: [address] [place], [place] [phone] Discharge Orders Discharge Orders: Discharge Now, Home [...] are safe for you. General instructions Take [id number]-mjinibm and prescription medicines only as told by [...] Reviewed: 11/02/2020 [employer] Patient Education ? 2021 [employer] I understand that [facility] is not responsible for any personal belongings/effects [...] Adult Signature: Date/Time: Provider Signature: Date/Time: 03/10/2022 [facility] ED Physician Notes Patient: [...] which she is normally cared for in [place]. He has bilateral hip replacements and has significant arthritis of the knees. He has had multiple MRI scans in the past. He is typically treated with injections of corticosteroids. He flew to the [facility] 2 days ago and felt [...] touching' his pain. He will return to [place] in 2 days (Saturday, 03/12) and has [...] Frequency: 1-2 times per month Home/Environment 03/10/2022 [facility] restrictions/concerns: None Substance Abuse 03/10/2022 Use: Denies [...] Rating Scale . Measurements 03/10/2022 12:11 [facility] [place] Body Weight 73 kg Drug Calc Weight (kg) 128.798 kg BMI 40.74 kg/m2 Height 177.8 cm Height In 70 Inch Weight lb 284 lbs . SPO2 03/10/2022 12:11 [facility] SPO2 98 % Normal . General: Alert, [...] hours.. Impression and Plan Acute knee pain (GID50-NP M25.569, Discharge, Medical) Plan Condition: Stable. Prescriptions: [facility] Pharmacy: Percocet-5/325 oral tablet (Prescribe): See Instructions, 1 Tab PO Q 4-6 hours, PRN: Pain, 15 Tab, 0 Refill(s). Patient was given the following educational materials: Chronic Knee Pain, Adult, Chronic Knee Pain, Adult. Follow up with: Rest. Ice. You may continue the ibuprofen. Follow-up with your orthopedist in [place] as soon as possible. Within 3 to 5 days. Counseled: Patient, Regarding diagnosis, Regarding treatment plan, Regarding prescription, Patient indicated understanding of instructions. Orders: Launch Orders Admit/Transfer/Discharge: Discharge (Order Processing): 03/10/2022 13:10 MST, Now, Home or self care. Electronically Signed By: Wiley Sanches MD On 03/10/22 13:10 Co Signature By: Modify Signature By: Wiley Sanches MD On 03/10/22 13:10 03/10/2022 [facility] [place] [facility] Triage [...] No Preferred Language for Healthcare Discussions : [place] Temperature PO : 36.5 deg C(Converted to: [...] : 4 - Non-urgent Tracking Group : [facility] [place] ED Tracking Apoorva Steele RN - 03/10/2022 12:11 MST Pediatric Patient : N/A Height (cm) : 177.8 cm Height Measurement Used : inches Height in : 70 Inch Drug Calc Weight (kg) : 128.798 kg Weight Measurement Used : pounds Weight lb : 284 lbs BMI : 40.74 kg/m2 [place] Body Weight : 73 kg Adjusted Body Weight : 95.32 kg Additional Info - ED : poc. mask on patient ABW Calc : 95.32 kg ABW Calc2 : 128.8 kg Apoorva Steele RN - 03/10/2022 12:11 MST (As Of: 03/10/2022 12:22:45 MST) [place] Suicide Severity Rating Scale (C-SSRS) 1. In [...] 03/10/2022 12:11 MST (As Of: 03/10/2022 12:22:45 [facility]) Allergies (Active) No Known Medication Allergies Estimated Onset Date: Unspecified ; Created By: Apoorva Steele RN; Reaction Status: Active ; Category: Drug ; Substance: No Known Medication Allergies ; Type: Allergy ; Updated By: Apoorva Steele RN; Reviewed Date: 03/10/2022 12:21 [facility] Medication List (As Of: 03/10/2022 12:22:45 [facility]) Home Meds lisinopril : lisinopril ; Status: [...] Code: tamsulosin ; Order Dt/Tm: 03/10/2022 12:22:01 [facility] Social History Suicide Risk Screen : Yes Abuse Signs : Denies Red Flags of Human Trafficking : None observed Activated Human Trafficking Protocol : No Immunization Opt Out : Allow Apoorva Steele RN - 03/10/2022 12:11 [facility] Social History (As Of: 03/10/2022 12:22:45 MST) Tobacco: Never (less than 100 in lifetime) (Last Updated: 03/10/2022 12:22:05 MST by Apoorva Steele RN) Alcohol: Current, 1-2 times per month (Last Updated: 03/10/2022 12:22:10 MST by Apoorva Steele RN) Substance Abuse: Denies (Last Updated: 03/10/2022 12:22:14 MST by Apoorva Steele RN) Home/Environment: [place] restrictions/concerns: None. (Last Updated: 03/10/2022 12:22:18 MST [...] No Apoorva Steele RN - 03/10/2022 12:11 [facility] Infectious Disease Risk Screening Grid Cough < [...] NO Apoorva Steele RN - 03/10/2022 12:11 [facility] INF Disease Living Situation ST : Living Situation No qualifying data available. Patient Masked : Yes Travel to foreign country last 30 days : No INF Disease TB Screening Calc : 0 Apoorva Steele RN - 03/10/2022 12:11 [facility] Urgent Care Fall Risk Mental Status ED : Alert and oriented Physical/Clinical Status : No defects Current Treatments ED : None Apoorva Steele RN - 03/10/2022 12:11 MST 03/10/2022 [facility] Vital Signs Vital Sign Value Date Comments Source Sensory Deficits None (03/10/22 12:11 PM) 03/10/2022 [facility] Temperature (c) 36.5 03/10/2022 [facility] Systolic (mm Hg) 157 03/10/2022 [facility] Diastolic (mm Hg) 91 03/10/2022 [facility] Heart Rate (bpm) 76 03/10/2022 [facility] Respiratory Rate 18 Breaths/Min 03/10/2022 [facility] SPO2 98 03/10/2022 [facility] Height (cm) 177.8 03/10/2022 [facility] Drug Calc Weight (kg) 128.798 03/10/2022 [facility] BMI 40.74 03/10/2022 [facility] Encounters Location Location Details Encounter Type Encounter Number Reason For Visit Attending Provider ADM Date DC Date Status Source [facility] Emergency [id number] [facility] 03/10 [facility] Social History Social History Date Source Social History TypeResponse Smoking Status Never (less than 100 in lifetime) entered on: 03/10/22 Sex 03/10/2022 [facility] Assessment and Plan Result Assessment and Plan Date Source Assessment and Plan No data available for this section 03/10/2022 [facility]
--- OUTSIDE RECORDS SUMMARY | 2023-02-21 05:39 | XMS_ITS | Continuity of Care Document ---
Author Name Unknown Organization [facility] Address [address] [address] [place] [address] Phone Care Team Providers Care Salary And Wage Administrator Name Role Phone Damián Allison MD Unavailable Unavailable Allergies, Adverse Reactions, Alerts Substance Reaction Status Criticality No Known allergies Medications Medication Instructions Dosage Effective Dates (start - stop) Status Comments omeprazole 20 mg Cap, Delayed Release Take one capsule by mouth daily - Active Prilosec 20 mg Cap Take one tablet by mouth twice a day - Active omeprazole 20 mg Cap, Delayed Release Take one capsule by mouth daily - No Longer Active Procedures Procedure Date Ugi Endo; W/bx /mx Level Iv-surg Path Gross/micro 09 Ugi Endo; W/bx /mx Init Inpt Cons New/est Mod-hi 9 Advance Directives Directive Yes / No Effective Date File Name No Information Encounters Encounter Description Practice Location Reason(s) For Visit Diagnoses Date Provider Providers Copied on Encounter [facility], [address] [address], [place], [place], [id number], [place] tel:[phone] [facility] No Information 0 Keegan Steel. [address] [facility] [facility] [address], [place], [place], [id number], [place]. tel:[phone] [facility], [address] [address], [place], [place], [id number], [place] tel:[phone] [facility] Hiatal HerniaPolyp- intes/rect/s yesika-unc BehGastric Polyp-benign Hiatal Hernia 0 9 Keegan Steel. [address] [facility] [facility] [address], [place], [place], [id number], [place]. tel:[phone] Referring Provider: Emmanuel Fortune MD D, [address] [facility] [address], [place], [address]. tel:[phone] [facility], [address] [address], [place], [place], [id number], [place] tel:[phone] [place] [address] No Information Feb-0 9 Keegan Steel. [address] [facility] [facility] [address], [place], [place], [id number], [place]. tel:[phone] Referring Provider: Selin Covarrubias, [address] [place], [address]. tel:[phone] Init Inpt Cons New/est Mod-hi [facility], [address] [address], [place], [place], [address], [place] tel:[phone] [facility] No Information 0 9 No Information Referring Provider: Selin Covarrubias, [address] [place], [address]. tel:[phone] Family History Family Member Type Diagnosis Age At Onset No Information Payers Payer name Insurance type Covered republican ID Authorbk head(s) Axel Cross [facility] CI [id number] Social History Type Description Quantity Date Captured Comments Sex Male Smoking Status No Information Chief Complaint And Reason For Visit No Information Reason For Referral Reason For Referral No Information History Of Present Illness Encounter Date Complaint History Of Prese nt Illness No Information Functional Status Date Functional Assessmen t No Information Instructions Date Instruction Additional Infor mation No Information Assessments Type Assessment Date No Information Patient Care Teams Name Effective Dates (start - stop) Status Members No Information
[2023-02-21 05:45] LABS: Chloride* 102 mmol/L (96-114); Potassium* 4.3 mmol/L (3.6-5.1); Sodium* 139 mmol/L (135-149)
[2023-02-21] MEDS: cefTRIAXone 1 GM in 0.9 % SODIUM CHLORIDE Mini-bag 100 ML IVPB ×2 (05:46→10:18)
[2023-02-21 05:47] LABS: Creatinine* 1.1 mg/dL (0.5-1.5); Est. Creatinine Clearance* 61.76; Estimated Glomerular Filt Rate 71 ml/min
[2023-02-21 05:48] LABS: Anion Gap 8 mEq/L (7-15); Blood Urea Nitrogen* 22 mg/dL (7-30); Calcium* 9.8 mg/dL (8.4-10.6); Carbon Dioxide* 29 mmol/L (20-32); Glucose* 159 mg/dL (60-115)
[2023-02-21 06:14] LABS: Slide Review Reflex No
[2023-02-21] MEDS: ACETAMINOPHEN 500 MG TABLET 1000 MG PO (07:19)
[2023-02-21 07:22] LABS: PCR FLU A Negative PCR FLU A (Negative); PCR FLU B Negative PCR FLU B (Negative); PCR RSV Negative PCR RSV (Negative)
[2023-02-21 07:37] LABS: Albumin* 3.9 g/dL (3.3-5.0)
[2023-02-21 07:40] LABS: Alkaline Phosphatase* 59 U/L (40-150); Aspartate Amino Transferase* 34 U/L (12-35); Bilirubin Direct* 0.2 mg/dL (0.0-0.5); Bilirubin Total* 0.7 mg/dL (0.1-1.5); Lipase* 79 U/L (23-300); Total Protein* 6.9 g/dL (6.0-8.3)
[2023-02-21 07:41] LABS: Alanine Aminotransferase* 34 U/L (4-50)
[2023-02-21 07:43] LABS: C Reactive Protein* 1.6 mg/dL (0.5-1.0)
[2023-02-21 07:57] LABS: Procalcitonin* 0.12 ng/mL (<0.50)
[2023-02-21 08:03] LABS: SARS PCR* Negative SARS-CoV-2 (Negative)
--- NOTE | 2023-02-21 08:22 | CRLHL7_ITS ---
For Patients: As a result of the Century Cures Act, medical imaging exams and procedure reports are released immediately into your electronic medical record. You may view this report before your referring provider. If you have questions, please contact your health care provider. INDICATION: Urinary tract infection, concern for pyelonephritis COMPARISON: CT 02/05/2023 TECHNIQUE: CT of the abdomen and pelvis after the administration of intravenous contrast. Multiplanar axial, coronal, and sagittal reformats were reconstructed. Contrast: 132 mL Isovue 370 intravenously. Oral contrast was not administered. FINDINGS: Lung bases: Normal. Liver: Few subcentimeter low-attenuation hepatic lesions, likely. These are similar compared to previous. No worrisome hepatic masses. Patent hepatic vasculature. Gallbladder and biliary tree: Normal gallbladder. No biliary duct dilation. Pancreas: Normal. Spleen: Normal. Normal size. Adrenal glands: Normal. No nodules. Kidneys and bladder: Normal size and position. Normal parenchymal enhancement. No cyst or mass. Few small nonobstructing calculi. No urinary tract dilation. The urinary bladder is normal. GI: Diverticulosis. No dilated segments. No abnormal bowel wall thickening or hyperenhancement. Small stool burden. The appendix is normal. Vessels: Aorta and major branches, including the mesenteric vessels: Patent. Normal caliber. Few atherosclerotic plaques. IVC and tributaries: Normal. Mesenteric and portal veins: Normal. Peritoneum: No free fluid. Lymph nodes: No adenopathy. Pelvis: Bladder is only partially filled. However there is severe circumferential bladder wall thickening with some adjacent inflammatory edema.. Bones: No fractures. No focal bone lesions. Normal for age. Bilateral total hip arthroplasty. Abdominal wall: Benign subcutaneous nodule right lower back. IMPRESSION: Cystitis. No pyelonephritis. Unchanged nephrolithiasis without urinary tract dilatation/obstruction. Please note that all CT scans at this facility use dose modulation, iterative reconstruction, and/or weight-based dosing when appropriate to reduce radiation dose to as low as reasonably achievable. Dictated by Jennie Randolph MD @ 02/21/2023 11:28:11 AM (Electronically Signed)
--- OUTSIDE RECORDS SUMMARY | 2023-02-21 08:35 | XMS_ITS | Continuity of Care Document ---
Author Name [facility] Care Team Providers Care Carpentry Specialist Name Role Phone VuCOMP Unavailable Unavailable Problems Problem Status Onset Date Classification Date Reported Comments Source Pain of joint of knee 03/18/2022 [facility] Essential hypertension (disorder) 03/18/2022 [facility] Osteoarthritis of knee (disorder) 03/18/2022 [facility] Benign prostatic hypertroph without outflow obstruction (disorder) 03/18/2022 [facility] Hip joint prosthesis present 03/18/2022 [facility] Medications Medication Details Route Status Patient Instructions Ordering Provider Order Date Source Percocet-5/325 oral tablet See Instructions, Tab, PRN, Pain, Qty: 15 Tab, Refills: 0, 1 Tab PO Q 4-6 hours, Maintenance, Route to Pharmacy Electronically , [facility]/pharmacy #[id number] Active 03/10/20 [facility] tamsulosin 0.4 mg oral capsule 1 Cap Cap, PO, qDay, Qty: 30 Cap, Refills: 0, Maintenance Active 03/10/20 22 [facility] Care lisinopril 10 mg, Tab, PO, qDay, Qty: 30 Tab, Refills: 0, Maintenance Active 03/10/20 [facility] Consultation Notes Results Value Date Source Discharge Instructions Document [facility] [address] [place] [address] TABITHA SANCHEZ :1950 (EV) Visit Date:03/10/2022 [facility] [...] receive a prescription for pain medicines. In [place], we use the [place] Prescription Drug Monitoring Program called [employer]. In [place] and [place], we use the Prescription Monitoring Program that has oversight by the [place] and [facility] boards of pharmacy. These statewide computer systems track opioid pain medications and other controlled substance prescriptions. If you need help with substance abuse or addiction, please call 5-698-341-EOTM ([phone]) for confidential referral and treatment. Sponsored by: [employer] [facility] STAMP REDEMPTION CLERK [facility] [employer] Safe Practice, Safe Care [facility] Emergency Department Patient Discharge Instructions [...] the ibuprofen. Follow-up with your orthopedist in [place] as soon as possible. When Within 3 to 5 days We encourage you to sign up for My Portal, where you can easily access your medical records and test results from all [facility]. Please sign up in one [...] Tab PO Q 4-6 hours Pickup at [facility]/pharmacy #[id number] Unchanged lisinopril 10 Milligram By mouth Once daily Unchanged tamsulosin (tamsulosin 0.4 mg oral capsule) 1 cap By mouth Once daily Pharmacy Information [facility]/pharmacy #[id number]: [address] [place], [place] [id number] [phone] Discharge Orders Discharge Orders: Discharge Now, Home [...] are safe for you. General instructions Take [id number] and prescription medicines only as told by [...] Reviewed: 11/02/2020 Elsevier Patient Education ? 2021 [employer] I understand that [facility] is not responsible for any personal [...] Adult Signature: Date/Time: Provider Signature: Date/Time: 03/10/2022 [facility] ED Physician Notes Patient: TABITHA [...] which she is normally cared for in [place]. He has bilateral hip replacements and has significant arthritis of the knees. He has had multiple MRI scans in the past. He is typically treated with injections of corticosteroids. He flew to the [facility] days ago and felt [...] touching' his pain. He will return to [place] in 2 days (Saturday, 03/12) and has [...] Frequency: 1-2 times per month Home/Environment 03/10/2022 [facility] restrictions/concerns: None Substance Abuse 03/10/2022 Use: Denies [...] Rating Scale . Measurements 03/10/2022 12:11 [facility] [place] Body Weight 73 kg Drug Calc Weight (kg) 128.798 kg BMI 40.74 kg/m2 Height 177.8 cm Height In 70 Inch Weight lb 284 lbs . SPO2 03/10/2022 12:[address] [facility] SPO2 98 % Normal [...] hours.. Impression and Plan Acute knee pain ([id number] M25.569, Discharge, Medical) Plan Condition: Stable. Prescriptions: [facility] Chemical Unit Operator Pharmacy: Percocet-5/325 oral tablet (Prescribe): See Instructions, 1 Tab PO Q 4-6 hours, PRN: Pain, 15 Tab, 0 Refill(s). Patient was given the following educational materials: Chronic Knee Pain, Adult, Chronic Knee Pain, Adult. Follow up with: Rest. Ice. You may continue the ibuprofen. Follow-up with your orthopedist in [place] as soon as possible. Within 3 to 5 days. Counseled: Patient, Regarding diagnosis, Regarding treatment plan, Regarding prescription, Patient indicated understanding of instructions. Orders: Launch Orders Admit/Transfer/Discharge: Discharge (Order Processing): 03/10/2022 13:10 [facility], Now, Home or self care. Electronically Signed By: Wiley Sanches MD On 03/10/22 13:10 Co Signature By: Modify Signature By: Wiley Sanches MD On 03/10/22 13:10 03/10/2022 [facility] Care Triage [...] No Preferred Language for Healthcare Discussions : Nauruan Temperature PO : 36.5 deg C(Converted to: [...] : 4 - Non-urgent Tracking Group : [facility] Apoorva Steele RN - 03/10/2022 12:11 [facility] Pediatric Patient : N/A Height (cm) : 177.8 cm Height Measurement Used : inches Height in : 70 Inch Drug Calc Weight (kg) : 128.798 kg Weight Measurement Used : pounds Weight lb : 284 lbs BMI : 40.74 kg/m2 [place] Body Weight : 73 kg Adjusted Body Weight : 95.32 kg Additional Info - ED : poc. mask on patient ABW Calc : 95.32 kg ABW Calc2 : 128.8 kg Apoorva Steele RN - 03/10/2022 12:11 [facility] (As Of: 03/10/2022 12:22:45 MST) [place] Suicide Severity Rating Scale (C-SSRS) 1. In [...] 03/10/2022 12:11 [facility] (As Of: 03/10/2022 12:22:[address] [facility]) Allergies (Active) No Known Medication Allergies Estimated Onset Date: Unspecified ; Created By: Apoorva Steele RN; Reaction Status: Active ; Category: Drug ; Substance: No Known Medication Allergies ; Type: Allergy ; Updated By: Apoorva Steele RN; Reviewed Date: 03/10/2022 12:[address] [facility] Medication List (As Of: 03/10/2022 12:22:[address] [facility]) Home Meds lisinopril : [...] Code: tamsulosin ; Order Dt/Tm: 03/10/2022 12:22:[address] [facility] Social History Suicide Risk Screen : Yes Abuse Signs : Denies Red Flags of Human Trafficking : None observed Activated Human Trafficking Protocol : No Immunization Opt Out : Allow Apoorva Steele RN - 03/10/2022 12:[address] [facility] Social History (As Of: 03/10/2022 12:22:45 MST) Tobacco: Never (less than 100 in lifetime) (Last Updated: 03/10/2022 12:22:05 MST by Apoorva Steele RN) Alcohol: Current, 1-2 times per month (Last Updated: 03/10/2022 12:22:10 MST by Apoorva Steele RN) Substance Abuse: Denies (Last Updated: 03/10/2022 12:22:14 [facility]ST by Apoorva Steele RN) Home/Environment: [facility] restrictions/concerns: None. (Last Updated: 03/10/2022 12:22:18 MST [...] No Apoorva Steele RN - 03/10/2022 12:[address] [facility] Infectious Disease Risk Screening [...] NO Apoorva Steele RN - 03/10/2022 12:[address] [facility] INF Disease Living Situation ST : Living Situation No qualifying data available. Patient Masked : Yes Travel to foreign country last 30 days : No INF Disease TB Screening Calc : 0 Apoorva Steele RN - 03/10/2022 12:[address] [facility] Urgent Care Fall Risk Mental Status ED : Alert and oriented Physical/Clinical Status : No defects Current Treatments ED : None Apoorva Steele RN - 03/10/2022 12:11 MST 03/10/2022 [facility] Vital Signs Vital Sign Value Date Comments Source Sensory Deficits None (03/10/22 12:11 PM) 03/10/2022 [facility] Temperature (c) 36.5 03/10/2022 [facility] Systolic (mm Hg) 157 03/10/2022 [facility] Diastolic (mm Hg) 91 03/10/2022 [facility] Heart Rate (bpm) 76 03/10/2022 [facility] Respiratory Rate 18 Breaths/Min 03/10/2022 [facility] SPO2 98 03/10/2022 [facility] Height (cm) 177.8 03/10/2022 [facility] Drug Calc Weight (kg) 128.798 03/10/2022 [facility] BMI 40.74 03/10/2022 [facility] Encounters Location Location Details Encounter Type Encounter Number Reason For Visit Attending Provider ADM Date DC Date Status Source [facility] Emergency [id number] [facility] 03/10 [facility] Social History Social History Date Source Social History TypeResponse Smoking Status Never (less than 100 in lifetime) entered on: 03/10/22 Sex 03/10/2022 [facility] Assessment and Plan Result Assessment and Plan Date Source Assessment and Plan No data available for this section 03/10/2022 [facility]
[2023-02-21] MEDS: LACTATED RINGERS 1000 ML 1,000 ML 125 ML IV ×2 (10:55→18:32)
--- NOTE | 2023-02-21 13:54 | PM.IMHP1 ---
Hospitalist- H&P: HPI History of Present Illness Date Seen: 02/21/23 Chief complaint: poss bladder infection Narrative: ADMISSION HISTORY AND PHYSICAL - HOSPITALIST Chief Complaint: I feel terrible. I feel like I have the flu and I am weak and feverish HPI: Rony is 72 years old and presents to the emergency room with the acute onset of weakness, chills, fever. He has been treated most recently for UTI, his 1st. He was treated appropriately with a sensitive antibiotic. He grew pansensitive E coli and was given Keflex. He stated that he never felt 100% he felt much better pain he completed his antibiotics a couple days ago. Then this hit him last night kind of out of the blue. He is reporting nausea, weakness, chills. He is having dysuria. Hematuria. ER COURSE: Labs, IV fluids, Zofran and 1 g of ceftriaxone. Given the close proximity of infections this is likely a failure of outpatient oral antibiotics. Hospital medicine team was asked to evaluate and admit for inpatient care. CODE STATUS: Full code EMERGENCY CONTACT PLAN: Primary Contact? Rainer,Romana? ?Rel to Merged With [facility]? [phone]?Cell Phone? I've updated the PFSH, medications and allergies in the Expanse tabs. INVESTIGATIONS: LABS/MICRO/ECG/IMAGING T-max 100.6?, current 97.7. 102/64, 115/74 Heart rate initially was 106 in the ED. Currently 81. Respiratory rate 16 Pulse ox 95% on room air CBC reflects a up trending white blood cell count. When he was initially diagnosed with his UTI back on the 05 of February his white count was 12.5, today is 18.8. 85.8% neutrophils. Electrolytes are all normal. Glucose is 159. LFTs are normal, lipase is normal. C reactive protein has only jumped a little from the initial infection. UA this morning shows positive nitrite, 2+ blood, 3+ leukocyte esterase and 5-10 red blood cells. Negative quad screen. CT abdomen pelvis Cystitis. No pyelonephritis. Unchanged nephrolithiasis without urinary tract dilatation/obstruction. Blood culture x2 pending Urine culture is pending REVIEW OF SYSTEMS: 12-point ROS completed with patient and negative unless otherwise stated in HPI or below. PHYSICAL EXAM: CONSTITUTIONAL: Conversive, good historian. A/O. Knows setting and context. VITAL SIGNS: see record. HEENT: Normocephalic, atraumatic. PERRL, EOMI, conjunctivae pink, no scleral icterus. Ears and nose externally normal. Pharynx normal. NECK: No JVD. No carotid bruit, no thyromegaly, no adenopathy. CHEST: Clear to auscultation bilaterally HEART: S1 and S2 normal. No harsh murmurs. Edema MUSCULOSKELETAL: No gross joint deformity or swelling. NEURO: Cranial nerves intact. Grossly intact. No asymmetric findings. SKIN: No rashes, petechiae, concerning changes PSYCHIATRIC: Euthymic. ADMIT TO MEDSURG: FLOOR CARE DVT: Lovenox GI: PO intake Time spent: Today I spent 75 minutes seeing the patient, discussing the patient with ER staff, reviewing Expanse and EPIC notes/diagnostics, discussing the care plan with our care time that includes social work, PT/OT, pharmacy, RT, [place] [facility] and documenting my impressions and plan in the medical record. [facility] Medical History (Updated 02/21/23 @ 14:13 by Alexia Raymundo MD) Complicated urinary tract infection ?N39.0 - Urinary tract infection, site not specified (ICD-10) Benign prostatic hyperplasia ?N40.0 - Benign prostatic hyperplasia without lower urinary tract symptoms (ICD-10) Paroxysmal A-fib ?I48.0 - Paroxysmal atrial fibrillation (ICD-10) Bilateral primary osteoarthritis of knee ?M17.0 - Bilateral primary osteoarthritis of knee (ICD-10) Tubular adenoma ?D36.9 - Benign neoplasm, unspecified site (ICD-10) Peptic ulcer associated with Helicobacter pylori infection ?K27.9 - Peptic ulcer, site unspecified, unspecified as acute or chronic, without hemorrhage or perforation (ICD-10) ?B96.81 - Helicobacter pylori [H. pylori] as the cause of diseases classified elsewhere (ICD-10) Lipoma of abdominal wall ?D17.1 - Benign lipomatous neoplasm of skin and subcutaneous tissue of trunk (ICD-10) Hyperlipidemia ?E78.5 - Hyperlipidemia, unspecified (ICD-10) History of renal calculi ?Z87.442 - Personal history of urinary calculi (ICD-10) Hepatitis B virus infection ?B19.10 - Unspecified viral hepatitis B without hepatic coma (ICD-10) Anxiety and depression ?F41.9 - Anxiety disorder, unspecified (ICD-10) ?F32.A - Depression, unspecified (ICD-10) Allergic rhinitis ?J30.9 - Allergic rhinitis, unspecified (ICD-10) Abscess or cellulitis of shoulder Surgical History (Updated 02/21/23 @ 14:06 by Alexia Raymundo MD) S/P trigger finger release (04/19/22) ?Z98.890 - Other specified postprocedural states (ICD-10) H/O arthroscopy of left knee (04/17/13) ?Z98.890 - Other specified postprocedural states (ICD-10) History of repair of right rotator cuff (03/14/18) ?Z98.890 - Other specified postprocedural states (ICD-10) Trigger finger, left little finger (06/20/21) ?M65.352 - Trigger finger, left little finger (ICD-10) History of total right hip replacement (02/24/13) ?Z96.641 - Presence of right artificial hip joint (ICD-10) History of total left hip replacement (08/27/14) ?Z96.642 - Presence of left artificial hip joint (ICD-10) History of tonsillectomy and adenoidectomy ?Z90.89 - Acquired absence of other organs (ICD-10) History of colonoscopy with polypectomy ?Z98.890 - Other specified postprocedural states (ICD-10) ?Z86.010 - Personal history of colonic polyps (ICD-10) History of arthroscopy of right shoulder (04/18/18) ?Z98.890 - Other specified postprocedural states (ICD-10) History of arthroscopy of right knee (06/21/17) ?Z98.890 - Other specified postprocedural states (ICD-10) Family History Mother Ovarian cancer Father Pancreatic cancer Uncle Testicular cancer Social History Narrative: alcohol ingestion, 1-4 drinks/week does not use illicit drugs nonsmoker What is your current living situation?: I presently have a place to live Problems where you live: no known problems Problems where you live details: none In the past 12 months, utilities in danger of being shut off: no In past 12 months, lack of transportation kept you from medical appts, meetings, work, or getting things needed for daily living: no In the past 12 mos, have been you worried that your food would run out before you had money to buy more?: never true In the past 12 mos, the food you bought just didn't last and you didn't have money to buy more?: never true Highest level of school completed/degree received: Associate degree: occupational, technical, vocational program Smoking Status: Former smoker What tobacco products do you use: cigarettes Smoking quit date/years: >15 years ago Do you use any of these nicotine containing products: None Second hand tobacco smoke exposure: No How often do you have a drink containing alcohol: never AUDIT-C Alcohol total score: 0 Non-prescribed substance use: denies use Caffeine: Yes (Coffee in AM) How often does anyone, including family, friends and others, physically hurt you: never How often does anyone, including family, friends and others, insult or talk down to you: never How often does anyone, including family, friends and others, threaten you with harm: never How often does anyone, including family, friends and others, scream or curse at you: never service: Yes Meds Home Medications and Allergies Home Medications Medication Instructions Recorded Confirmed Type lisinopril 20 mg tablet 20 mg PO BID 03/15/22 02/21/23 History metoprolol succinate 50 mg 50 mg PO DAILY 03/15/22 02/21/23 History tablet,extended release 24 hr omeprazole 20 mg capsule,delayed 20 mg PO DAILY 03/15/22 02/21/23 History release tadalafil 20 mg tablet 20 mg PO .as Direc as needed PRN 03/15/22 02/21/23 History tamsulosin 0.4 mg capsule 0.8 mg PO DAILY 03/15/22 02/21/23 History prazosin 2 mg capsule 2 mg PO QHS 12/14/22 02/21/23 History sertraline 100 mg tablet 200 mg PO DAILY 12/14/22 02/21/23 History Allergies Allergy/AdvReac Type Severity Reaction Status Date / Time doxycycline Allergy Severe Itching Verified 02/05/23 12:39 codeine Allergy Unknown Verified 02/05/23 12:39 Exam Const: Vital Signs, click to edit/add: Vital Signs - 24 hr 02/21/23 04:48 02/21/23 06:43 02/21/23 06:49 Temperature 97.1 F L 100.6 F H Pulse Rate [Left P ulse Oximeter] 106 H 81 Respiratory Rate 16 16 Blood Pressure [Ri ght Arm] Blood Pressure [Ri ght Upper Arm] 183/99 H 124/71 Pulse Oximetry 96 98 96 Oxygen Delivery Me thod Room Air Room Air 02/21/23 08:09 02/21/23 08:09 02/21/23 08:43 Temperature 98 F 98 F Pulse Rate [Left P ulse Oximeter] Respiratory Rate 16 16 16 Blood Pressure [Ri ght Arm] 115/74 115/74 Blood Pressure [Ri ght Upper Arm] Pulse Oximetry 98 98 98 Oxygen Delivery Me thod Room Air Room Air Room Air 02/21/23 11:00 Temperature 97.7 F Pulse Rate [Left P ulse Oximeter] Respiratory Rate 16 Blood Pressure [Ri ght Arm] 102/64 Blood Pressure [Ri ght Upper Arm] Pulse Oximetry 95 Oxygen Delivery Me thod Room Air Hospitalist - H&P: Result Labs Labs: Short CBC 02/21/23 Range/Units 05:10 WBC 18.84 H (4.50-11.00) K/uL Hgb 15.3 (13.5-17.5) gm/dL Hct 46.6 (37.0-53.0) % Plt Count 198 (140-440) K/uL BMP 02/21/23 05:10 Sodium 139 Potassium 4.3 Chloride 102 Carbon Dioxide 29 BUN 22 Creatinine 1.1 Glucose 159 H Calcium 9.8 Liver Function 02/21/23 Range/Units 05:10 Total Bilirubin 0.7 (0.1-1.5) mg/dL Direct Bilirubin 0.2 (0.0-0.5) mg/dL AST 34 (12-35) U/L ALT 34 (4-50) U/L Alkaline Phosphatase 59 (40-150) U/L Albumin 3.9 (3.3-5.0) g/dL Urine 02/21/23 Range/Units 04:49 Urine Color Yellow (Yellow) Urine Appearance Cloudy A (Clear) Urine pH 6.5 (5.0-8.5) Ur Specific Gordon 1.020 (1.000-1.030) Urine Protein 1+ A (Negative) Urine Glucose (UA) Negative (Negative) Assessment and Plan Assessment and plan (1) Complicated UTI (urinary tract infection): Problem comment: -Rocephin 2 g on admission, 1 g Q 24 until we have new cultures. -IV fluids Status: Acute (2) Paroxysmal A-fib: Problem comment: -p.o. Scheduled and p.o. p.r.n. metoprolol for rate control -continue anticoagulation november 2022 echo Final Impressions: 1. Normal LV size, mildly increased wall thickness, normal function with an estimated EF of 55 - 60%. 2. Right ventricular cavity size is normal, global systolic RV function is normal. 3. No significant valve disease detected. Status: Acute (3) Benign prostatic hyperplasia: Problem comment: -continue home meds Status: Acute (4) Hypertension: Problem comment: -blood pressures are soft secondary to being ill. I will continue his metoprolol but hold lisinopril at this time. Status: Acute
[2023-02-21] MEDS: TAMSULOSIN HCL 0.4 MG CAPSULE 0.8 MG PO (13:57)
[2023-02-21] MEDS: METOPROLOL SUCCINATE (XL) 50 MG TAB PO (13:57)
[2023-02-21] MEDS: SERTRALINE 100 MG TABLET 200 MG PO (13:57)
[2023-02-21] MEDS: OMEPRAZOLE 20 MG CAPSULE DR PO (13:57)
--- NOTE | 2023-02-21 19:23 | PC.NURSE ---
End of Shift: Pt admitted to unit via ED for tx of a UTI. Pleasant and cooperative. Tolerating regular diet well. Denies pain, slept on and off throughout shift. Independent in room, continent with bladder, no BM during shift. Reports last BM this AM. at bedside for most of shift. IV patent.
[2023-02-21] MEDS: PRAZOSIN HCL 1 MG CAPSULE 2 MG PO (21:27)
[2023-02-21] MEDS: ENOXAPARIN 40 MG/0.4 ML INJ SUBCUT (21:27)
[2023-02-21] MEDS: SODIUM CHLORIDE 0.9 % (FLUSH) 10 ML SYRINGE 5 ML IVF (21:27)
--- NOTE | 2023-02-21 22:49 | PC.NURSE ---
Shift [id number]- Patient up independently. He notes some right side/abdominal discomfort, but denies need for pain medication. He is voiding.
[2023-02-22 00:15] VITALS: PULSE 72; RESP 18
[2023-02-22] MEDS: LACTATED RINGERS 1000 ML 1,000 ML 125 ML IV ×3 (00:23→17:04)
[2023-02-22 03:00] VITALS: BP 105/67; PULSE 61; RESP 16; TEMP 36.4; O2SAT 93
[2023-02-22 06:11] LABS: HCO3 VBG 29 mmol/L (21-28); PCO2 VBG 52 mmHG (40-50); PO2 VBG 54.3 mmHG (25-47)
--- NOTE | 2023-02-22 06:20 | PC.NURSE ---
END OF SHIFT NOTE: PT PLEASANT AND COOPERATIVE. A&Ox3. DENIES CP, SOB, N/V. AMBULATES WITHIN ROOM INDEPENDENTLY. VSS ON RA; AFEBRILE. IV PATENT WITH LR@125ML/HR. BED ALARM ON AND CALL LIGHT WITHIN PT?S REACH.?UNEVENTFUL NIGHT.
[2023-02-22 06:26] LABS: Basophils Percent Auto 0.2 % (0.0-3.0); Eosinophils Percent Auto 1.3 % (0.0-7.0); Hemoglobin* 12.9 gm/dL (13.5-17.5); Lymphocytes Percent Auto 20.4 % (20-44); Mean Corpuscular HGB Conc 32 gm/dL (32-36); Mean Corpuscular Hemoglobin 30 pg (26-34); Mean Corpuscular Volume 93 fL (80-100); Monocytes Percent Auto 8.4 % (0.0-11.0); Neutrophils Percent Auto 68.7 % (42.0-72.0); Platelet Count* 166 K/uL (140-440); RDW Coefficient of Variation % 15.2 % (11.5-15.5); Red Blood Count 4.32 m/uL (4.30-5.90); White Blood Count* 11.37 K/uL (4.50-11.00)
[2023-02-22 06:27] LABS: Slide Review Reflex No
[2023-02-22 07:00] VITALS: BP 113/71; PULSE 61; PULSE 69; RESP 18; TEMP 36.5; O2SAT 93
[2023-02-22 07:10] LABS: Albumin* 3.5 g/dL (3.3-5.0)
[2023-02-22 07:11] LABS: Chloride* 105 mmol/L (96-114); Potassium* 4.4 mmol/L (3.6-5.1); Sodium* 138 mmol/L (135-149)
[2023-02-22 07:13] LABS: Alkaline Phosphatase* 49 U/L (40-150); Anion Gap 4 mEq/L (7-15); Aspartate Amino Transferase* 27 U/L (12-35); Bilirubin Total* 0.6 mg/dL (0.1-1.5); Carbon Dioxide* 29 mmol/L (20-32); Creatinine* 0.9 mg/dL (0.5-1.5); Est. Creatinine Clearance* 67.93; Estimated Glomerular Filt Rate 90 ml/min; Total Protein* 6.4 g/dL (6.0-8.3)
[2023-02-22 07:14] LABS: Alanine Aminotransferase* 28 U/L (4-50); Blood Urea Nitrogen* 21 mg/dL (7-30); Calcium* 9.1 mg/dL (8.4-10.6); Glucose* 108 mg/dL (60-115); Lipase* 104 U/L (23-300)
[2023-02-22 07:30] LABS: Procalcitonin* 0.65 ng/mL (<0.50)
[2023-02-22] MEDS: cefTRIAXone 1 GM in 0.9 % SODIUM CHLORIDE Mini-bag 100 ML IVPB (07:48)
[2023-02-22] MEDS: TAMSULOSIN HCL 0.4 MG CAPSULE 0.8 MG PO (08:16)
[2023-02-22] MEDS: OMEPRAZOLE 20 MG CAPSULE DR PO (08:16)
[2023-02-22] MEDS: SERTRALINE 100 MG TABLET 200 MG PO (08:16)
[2023-02-22] MEDS: METOPROLOL SUCCINATE (XL) 50 MG TAB PO (08:16)
[2023-02-22 08:27] LABS: C Reactive Protein* 7.3 mg/dL (0.5-1.0)
[2023-02-22 11:00] VITALS: BP 107/68; PULSE 75; RESP 18; TEMP 36.3; O2SAT 92
--- NOTE | 2023-02-22 11:55 | P.IMPN_ITS ---
Progress Note: A&P Assessment and plan (1) Complicated UTI (urinary tract infection): Problem details: -Rocephin 2 g on admission, 1 g Q 24 until we have new cultures. -IV fluids Status: Acute (2) Paroxysmal A-fib: Problem details: -p.o. Scheduled and p.o. p.r.n. metoprolol for rate control -continue anticoagulation november 2022 echo Final Impressions: 1. Normal LV size, mildly increased wall thickness, normal function with an estimated EF of 55 - 60%. 2. Right ventricular cavity size is normal, global systolic RV function is normal. 3. No significant valve disease detected. Status: Acute (3) Benign prostatic hyperplasia: Problem details: -continue home meds Status: Acute (4) Hypertension: Problem details: -blood pressures are soft secondary to being ill. I will continue his metoprolol but hold lisinopril at this time. Status: Acute Subjective Date Seen: 02/22/23 Interval history: Daily Progress Note - Hospital Medicine Day #: 2 CC: UTI, weakness OVERNIGHT UPDATES FROM STAFF & MED, LAB, IMAGING UPDATES Rony is much improved overnight. He did not rest well but otherwise feels well. He received 2 g of IV Rocephin yesterday and 1 g this morning which will now be Q 24 Last fever was 0 7 yesterday morning at 100.6 otherwise he has been afebrile Blood pressures are still little soft 107/68,105/67, 113/71 Pulse is 60s to 70s Pulse ox 92% on room air with respiratory rate 16 to 18 and unlabored. Leukocytosis continues to down trend. 18.8 down to 11.3. Electrolytes are all within normal limits. CRP and procalcitonin did bump up overnight. Procalcitonin is 0.6 and C reactive protein is up to 7.3. A CT abdomen pelvis yesterday did not demonstrate any evidence of pyelonephritis or impacted obstructing stones. Two blood cultures are negative to date. Greater than 100,000 gram-negative rods are growing in his urine culture, not surprisingly. Id and sensitivities are pending. Objective: Vitals: see above Lungs: Clear. Cardiac: S1S2. Disposition/Potential discharge - Likely to return to previous living situation. Today I spent 50minutes seeing the patient, reviewing Expanse and EPIC notes/diagnostics, discussing the care plan with our care time that includes social work, PT/OT, pharmacy, RT, intermediate and documenting my impressions and plan in the medical record. Prolonged Physician Services [id number] ([facility]) in conjunction with: 70528 (subsequent visit; 50 mins + 15 mins prolonged services = 65 mins total) I then went back for 15 mins to discuss the findings of ..... Alcohol 93228 >30 mins. We went over all the stigmata of alcoholism I see in this patient. I discussed the effects of chronic alcohol on the brain, liver, and heart. I recommended complete abstinence from alcohol and instructed on programs available at discharge from acute care. Smoking/Tobacco 32188 >10 mins. I went over the clinical stigmata of chronic tobacco use on the body. I explained the effect on the vasculature, lungs, heart, skin. I recommended complete abstinence from tobacco products and instructed on programs available at discharge from acute care. ACP first 30 mins 94522 I went over options for care during this current hospitalization and explained the difference between palliative care and hospice care. I described the likelihood of returning to previous functioning and what the options are going forward for care. Exam Const: Vital Signs, click to edit/add: Vital Signs - 24 hr 02/21/23 15:00 02/21/23 15:00 02/21/23 21:20 Temperature 97.6 F 97.8 F Pulse Rate [Pulse Oximeter] 82 Respiratory Rate 16 16 18 Blood Pressure [Ri ght Arm] 128/81 146/75 H Pulse Oximetry 94 93 Oxygen Delivery Me thod Room Air Room Air 02/22/23 00:15 02/22/23 03:00 02/22/23 07:00 Temperature 97.5 F L Pulse Rate [Pulse Oximeter] 72 61 61 Respiratory Rate 18 16 18 Blood Pressure [Ri ght Arm] 105/67 Pulse Oximetry 93 Oxygen Delivery Me thod Room Air 02/22/23 07:00 02/22/23 11:00 Temperature 97.7 F 97.4 F L Pulse Rate [Pulse Oximeter] 69 75 Respiratory Rate 18 18 Blood Pressure [Ri ght Arm] 113/71 107/68 Pulse Oximetry 93 92 Oxygen Delivery Me thod Room Air Room Air Labs Labs: Laboratory Results - last 24 hr 02/22/23 05:40 WBC 11.37 H RBC 4.32 Hgb 12.9 L Hct 40.0 MCV 93 MCH 30 MCHC 32 RDW Coeff of Silva 15.2 Plt Count 166 Neut % (Auto) 68.7 Lymph % (Auto) 20.4 [place] % (Auto) 8.4 Eos % (Auto) 1.3 Baso % (Auto) 0.2 Neut # (Auto) 7.80 H Lymph # (Auto) 2.30 [place] # (Auto) 1.00 H Eos # (Auto) 0.10 Baso # (Auto) 0.00 Abs Immat Gran (auto) 0.10 Imm/Tot Granulo (auto) 1.0 VBG pH 7.350 VBG pCO2 52 H VBG pO2 54.3 H VBG HCO3 29 H Sodium 138 Potassium 4.4 Chloride 105 Carbon Dioxide 29 Anion Gap 4 L BUN 21 Creatinine 0.9 Estimated Creat Clear 67.93 Estimated GFR 90 Glucose 108 Calcium 9.1 Total Bilirubin 0.6 AST 27 ALT 28 Alkaline Phosphatase 49 C-Reactive Protein 7.3 H Total Protein 6.4 Albumin 3.5 Lipase 104 Procalcitonin 0.65 H Lab Acknowledgement Test Added
[2023-02-22 15:00] VITALS: BP 127/77; PULSE 84; RESP 18; TEMP 36.5; O2SAT 92
[2023-02-22 19:07] LABS: Hemoglobin* 13.2 gm/dL (13.5-17.5)
--- NOTE | 2023-02-22 19:37 | PC.NURSE ---
Nursing Care Hours: [id number] Pt this shift calm and cooperative with cares, independent in room. VSS. Drinking and voiding frequently. C/o pain to RLQ 310, no treatment given. Pt reported scant amount of bright red blood coming from urethra post void. Spouter observed blood in pad of underwear. No trauma or wound present on penis, no active bleeding noted. Hospitalist informed, labs ordered and enoxaparin held. SCD's started.
[2023-02-22 20:45] VITALS: BP 151/85; PULSE 75; RESP 18; TEMP 36.7; O2SAT 92
[2023-02-22] MEDS: PRAZOSIN HCL 1 MG CAPSULE 2 MG PO (20:51)
[2023-02-22] MEDS: SODIUM CHLORIDE 0.9 % (FLUSH) 10 ML SYRINGE 5 ML IVF (20:51)
[2023-02-22] MEDS: ACETAMINOPHEN 500 MG TABLET 1000 MG PO (22:42)
[2023-02-23] VITALS: BP 165/76; PULSE 78; RESP 18; TEMP 36.7; O2SAT 92
[2023-02-23] MEDS: LACTATED RINGERS 1000 ML 1,000 ML 125 ML IV (00:08)
[2023-02-23] MEDS: MELATONIN 3 MG TABLET PO (00:27)
[2023-02-23 03:52] VITALS: BP 126/80; PULSE 60; RESP 16; TEMP 36.4; O2SAT 95
--- NOTE | 2023-02-23 06:25 | PC.NURSE ---
END OF SHIFT NOTE: PT PLEASANT AND COOPERATIVE. A&Ox3. DENIES CP, SOB, N/V. AMBULATES INDEPENDENTLY WITHIN ROOM. VSS ON RA; AFEBRILE. C/O HEADACHE THAT WAS RELIEVED WITH PRN TYLENOL. CALL LIGHT WITHIN PT?S REACH.?
[2023-02-23 06:58] LABS: Hemoglobin* 12.6 gm/dL (13.5-17.5); Mean Corpuscular HGB Conc 32 gm/dL (32-36); Mean Corpuscular Hemoglobin 30 pg (26-34); Mean Corpuscular Volume 92 fL (80-100); Platelet Count* 184 K/uL (140-440); Red Blood Count 4.23 m/uL (4.30-5.90); White Blood Count* 7.57 K/uL (4.50-11.00)
[2023-02-23 07:06] LABS: Chloride* 104 mmol/L (96-114); Sodium* 140 mmol/L (135-149)
[2023-02-23 07:08] LABS: Est. Creatinine Clearance* 67.93; Estimated Glomerular Filt Rate 79 ml/min
[2023-02-23 07:09] LABS: Anion Gap 5 mEq/L (7-15); Blood Urea Nitrogen* 20 mg/dL (7-30); Carbon Dioxide* 31 mmol/L (20-32); Glucose* 124 mg/dL (60-115)
[2023-02-23 07:10] LABS: Calcium* 9.3 mg/dL (8.4-10.6)
[2023-02-23 07:12] LABS: C Reactive Protein* 4.6 mg/dL (0.5-1.0)
[2023-02-23 07:14] LABS: Slide Review Reflex No
[2023-02-23 07:25] LABS: Procalcitonin* 0.41 ng/mL (<0.50)
[2023-02-23 08:44] VITALS: BP 130/89; PULSE 71; RESP 16; TEMP 36.6; O2SAT 92
[2023-02-23] MEDS: METOPROLOL SUCCINATE (XL) 50 MG TAB PO (08:50)
[2023-02-23] MEDS: SERTRALINE 100 MG TABLET 200 MG PO (08:50)
[2023-02-23] MEDS: TAMSULOSIN HCL 0.4 MG CAPSULE 0.8 MG PO (08:50)
[2023-02-23] MEDS: cefTRIAXone 1 GM in 0.9 % SODIUM CHLORIDE Mini-bag 100 ML IVPB (08:51)
[2023-02-23] MEDS: SODIUM CHLORIDE 0.9 % (FLUSH) 10 ML SYRINGE 5 ML IVF (08:51)
[2023-02-23] MEDS: OMEPRAZOLE 20 MG CAPSULE DR PO (08:51)
--- NOTE | 2023-02-23 13:32 | PC.NURSE ---
Discharge note: Pt is pleasant, all discharge instructions were reviewed with him and his . Ambulated out of the unit. No reports of UTI symptoms. No pain reported this shift. Discharged home on PO ABX. IV was removed. Follow up appointment scheduled.
--- NOTE | 2023-02-23 16:53 | P.DS_ITS ---
DS: Providers Provider Time Seen by Provider: 10:30 Date Seen: 02/23/23 Date of admission: 02/21/23 08:05 Primary care physician: Ilan Atwood MD Admitting Clinician: lAexia Raymundo MD Attending Physician on discharge: Edison Cuellar MD Date of Discharge: 02/23/23 DS: Diagnosis Discharge Diagnosis (1) Complicated UTI (urinary tract infection): Status: Acute Problem details: -Rocephin 2 g on admission, 1 g Q 24 until we have new cultures. -IV fluids (2) Benign prostatic hyperplasia: Status: Acute Problem details: -continue home meds (3) Hypertension: Status: Acute Problem details: -blood pressures are soft secondary to being ill. I will continue his metoprolol but hold lisinopril at this time. (4) Paroxysmal A-fib: Status: Acute Problem details: -p.o. Scheduled and p.o. p.r.n. metoprolol for rate control -continue anticoagulation november 2022 echo Final Impressions: 1. Normal LV size, mildly increased wall thickness, normal function with an estimated EF of 55 - 60%. 2. Right ventricular cavity size is normal, global systolic RV function is normal. 3. No significant valve disease detected. DS: Summary Hospital Course Hospital Course: Chief Complaint: I feel terrible. I feel like I have the flu and I am weak and feverish HPI: Rony is 72 years old and presents to the emergency room with the acute onset of weakness, chills, fever. He has been treated most recently for UTI, his 1st. He was treated appropriately with a sensitive antibiotic. He grew pansensitive E coli and was given Keflex. He stated that he never felt 100% he felt much better pain he completed his antibiotics a couple days ago. Then this hit him last night kind of out of the blue. He is reporting nausea, weakness, chills. He is having dysuria. Hematuria. ER COURSE: Labs, IV fluids, Zofran and 1 g of ceftriaxone. Given the close proximity of infections this is likely a failure of outpatient oral antibiotics. Hospital medicine team was asked to evaluate and admit for inpatient care. In the hospital he responded very well to the antibiotics that were administered in IV fluids. Urine culture again grew out pansensitive E coli. This time patient was discharged on ciprofloxacin 250 mg twice daily for a 2 week course, hopefully with better tissue penetration than the cephalexin that he had received previously. Urged patient to work on maintaining adequate hydration for the remainder of his life. Discussed follow-up with his primary care physician and consider follow-up with Urology in regard to his ongoing, evolving benign prostatic hyperplasia with lower urinary tract symptoms. Status at Discharge Functional status at discharge: independent ambulation Overall status at discharge: patient is back to baseline Time Spent with Patient Time attestation: Total time spent providing and/or coordinating discharge services: Time spent: Greater than 30 minutes Exam Narrative: Exam Narrative: Objective: Vitals: see above Lungs: Clear. Cardiac: S1S2. Independent transfer, station, and gait. No focal motor neurologic deficits. Back to baseline. Const: Vital Signs, click to edit/add: Vital Signs - 24 hr 02/22/23 20:45 02/23/23 00:00 02/23/23 00:00 Temperature 98.1 F 98.1 F Pulse Rate [Pulse Oximeter] 75 78 78 Respiratory Rate 18 18 18 Blood Pressure [Ri ght Arm] 151/85 H 165/76 H Pulse Oximetry 92 92 Oxygen Delivery Me thod Room Air Room Air 02/23/23 03:52 02/23/23 08:44 Temperature 97.5 F L 97.9 F Pulse Rate [Pulse Oximeter] 60 71 Respiratory Rate 16 16 Blood Pressure [Ri ght Arm] 126/80 130/89 Pulse Oximetry 95 92 Oxygen Delivery Me thod Room Air Room Air Documenting provider has reviewed patient's vital signs: yes DS: Data Data Completed and Pending Labs on day of discharge: Labs from last 24 hours 02/23/23 02/22/23 06:03 17:00 WBC 7.57 RBC 4.23 L Hgb 12.6 L 13.2 L Hct 39.0 MCV 92 MCH 30 MCHC 32 Plt Count 184 Sodium 140 Potassium 4.0 Chloride 104 Carbon Dioxide 31 Anion Gap 5 L BUN 20 Creatinine 1.0 Estimated Creat Clear 67.93 Estimated GFR 79 Glucose 124 H Calcium 9.3 C-Reactive Protein 4.6 H Procalcitonin 0.41 Preliminary micro results at discharge 02/21/23 05:05 Blood Culture - Preliminary Blood - Venipuncture NO GROWTH AFTER 48 HOURS 02/21/23 05:10 Blood Culture - Preliminary Blood - Venipuncture NO GROWTH AFTER [address] scan of abdomen and pelvis: Attestation: I have reviewed the pertinent imaging results. Radiologist's impression: IMPRESSION: Cystitis. No pyelonephritis. Unchanged nephrolithiasis without urinary tract dilatation/obstruction. Discharge Plan Discharge Disposition: Home, Self-Care Date of Admission: 02/21/23 08:05 Attending Provider on Discharge: Edison Cuellar Primary Care Provider: Ilan Atwood Condition: Improved Anticipated Discharge Date/Time: 02/23/23 13:30 Discharge Medications: New ciprofloxacin HCl 250 mg tablet 250 mg PO BID Qty: 28 0RF Continued tadalafil 20 mg tablet 20 mg PO .as Direc as needed PRN omeprazole 20 mg capsule,delayed release(DR/EC) 20 mg PO DAILY tamsulosin 0.4 mg capsule 0.8 mg PO DAILY lisinopril 20 mg tablet 20 mg PO BID metoprolol succinate 50 mg tablet extended release 24 hr 50 mg PO DAILY sertraline 100 mg tablet 200 mg PO DAILY prazosin 2 mg capsule 2 mg PO QHS Discharge Orders: Discharge Order (Routine); Ordered 02/23/23 Ordered By: Edison Cuellar Patient Education: Ciprofloxacin (By mouth), Dehydration (DC), Enlarged Prostate (BPH) (DC), Urinary Tract Infection in Men (DC) Additional Instructions: 1. Follow-up in clinic with Dr. Atwood in 10-14 days, with pre-visit urine analysis and urine culture and to discuss additional assessment and treatment options for benign prostatic hyperplasia. 2. Adequate hydration during the course of every day. Activity Level: No Restrictions and Activity as Tolerated Discharge Diet: Regular Follow Up Appointments: Ilan Atwood MD [Primary Care Provider] - 03/04/23 11:15 am ([facility] for follow up.) Forms: [facility] Info Instructions
== END 2023-02-23 13:21 | disposition home or self-care (01) ==
LOC: ED 05:37 → MEDSURG 08:34
PROVIDERS: Hospitalist; Admitting Provider Family Medicine; Emergency Provider Emergency Medicine; PCP Family Medicine; Visit Provider Family Medicine
DX: N39.0 Urinary tract infection, site not specified (principal); N40.1 Benign prostatic hyperplasia with lower urinary tract symptoms; D72.829 Elevated white blood cell count, unspecified; B96.20 Unspecified Escherichia coli [E. coli] as the cause of diseases classified elsewhere; K21.9 Gastro-esophageal reflux disease without esophagitis; I48.0 Paroxysmal atrial fibrillation; I10 Essential (primary) hypertension; R39.15 Urgency of urination; R39.12 Poor urinary stream; R35.0 Frequency of micturition; E78.5 Hyperlipidemia, unspecified; R00.0 Tachycardia, unspecified; E86.0 Dehydration; R31.9 Hematuria, unspecified; R30.0 Dysuria; R68.83 Chills (without fever); R11.0 Nausea; R53.1 Weakness; R10.11 Right upper quadrant pain; Z98.890 Other specified postprocedural states; Z96.643 Presence of artificial hip joint, bilateral; Z90.89 Acquired absence of other organs; Z86.010 Personal history of colon polyps; Z87.891 Personal history of nicotine dependence
CPT/HCPCS: 36415; 74177; 80048; 80053; 80076; 81001; 82803; 83605; 83690; 84145; 85018; 85025; 85027; 86140; 87040; 87086; 87186; 87631; 94761; 96361; 96365; 96366; 96368; 96372; 96375; 99283; 99284; A9270; G0378; J0696; J1650; J2405; J7030; J7120; Q9967

== ENCOUNTER 2023-03-07 14:03 | Outpatient (CLI) | payer MEDICARE, BC, SELFPAY ==
--- OUTSIDE RECORDS SUMMARY | 2023-03-07 14:05 | XMS_ITS | Continuity of Care Document ---
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 Name Role Phone IR Diagnostyx Unavailable Unavailable Problems Problem Status Onset Date Classification Date Reported Comments Source Pain of joint of knee 03/18/2022 [facility] Essential hypertension (disorder) 03/18/2022 [facility] Osteoarthritis of knee (disorder) 03/18/2022 [facility] Benign prostatic hypertroph without outflow obstruction (disorder) 03/18/2022 [facility] Hip joint prosthesis present 03/18/2022 [facility] [place] [facility] Medications Medication Details Route Status Patient Instructions Ordering Provider Order Date Source Percocet-5/325 oral tablet See Instructions, Tab, PRN, Pain, Qty: 15 Tab, Refills: 0, 1 Tab PO Q 4-6 hours, Maintenance, Route to Pharmacy Electronically , [facility]/pharmacy #[id number] Active 03/10/20 [facility] tamsulosin 0.4 mg oral capsule 1 Cap Cap, PO, qDay, Qty: 30 Cap, Refills: 0, Maintenance Active 03/10/20 22 [facility] Care lisinopril 10 mg, Tab, PO, qDay, Qty: 30 Tab, Refills: 0, Maintenance Active 03/10/20 [facility] Consultation Notes Results Value Date Source Discharge Instructions Document [facility] [address] [place] [address] TABITHA SANCHEZ :1950 (EV) Visit Date:03/10/2022 SAFE [...] the [place] Prescription Drug Monitoring Program called [employer]. In [place] and [place], we use the Prescription Monitoring Program that has oversight by the [place] and [facility] boards of pharmacy. These statewide computer systems track opioid pain medications and other controlled substance prescriptions. If you need help with substance abuse or addiction, please call [phone] ([phone] for confidential referral and treatment. Sponsored by: [employer] [facility] [employer] [facility] [employer] Safe Practice, Safe Care [facility] Emergency Department Patient Discharge Instructions If [...] the ibuprofen. Follow-up with your orthopedist in [place] as soon as possible. When Within 3 to 5 days We encourage you to sign up for My Portal, where you can easily access your medical records and test results from all [facility]. Please sign up in one of [...] Tab PO Q 4-6 hours Pickup at [facility]/pharmacy #[id number] Unchanged lisinopril 10 Milligram By mouth Once daily Unchanged tamsulosin (tamsulosin 0.4 mg oral capsule) 1 cap By mouth Once daily Pharmacy Information [facility]/pharmacy #[id number]: [address] [place], [place] [phone] Discharge Orders Discharge Orders: Discharge Now, Home [...] are safe for you. General instructions Take [id number] and prescription medicines only as told by [...] Reviewed: 11/02/2020 Else[employer] Patient Education ? 2021 [employer] I understand that [facility] is not responsible for any personal belongings/effects [...] Adult Signature: Date/Time: Provider Signature: Date/Time: 03/10/2022 [facility] ED Physician Notes Patient: [...] which she is normally cared for in [place]. He has bilateral hip replacements and has significant arthritis of the knees. He has had multiple MRI scans in the past. He is typically treated with injections of corticosteroids. He flew to the [facility] 2 days ago and [...] touching' his pain. He will return to [place] in 2 days (Saturday, 03/12) and has [...] Frequency: 1-2 times per month Home/Environment 03/10/2022 [employer]ae[employer] restrictions/concerns: None Substance Abuse 03/10/2022 Use: Denies [...] Rating Scale . Measurements 03/10/2022 12:11 [facility] [place] Body Weight 73 kg Drug Calc Weight (kg) 128.798 kg BMI 40.74 kg/m2 Height 177.8 cm Height In 70 Inch Weight lb 284 lbs . SPO2 03/10/2022 12:11 [facility] SPO2 98 % Normal [...] hours.. Impression and Plan Acute knee pain ([id number] M25.569, Discharge, Medical) Plan Condition: Stable. Prescriptions: [facility] [employer] Pharm[facility]: Percocet-5/325 oral tablet (Prescribe): See Instructions, 1 Tab PO Q 4-6 hours, PRN: Pain, 15 Tab, 0 Refill(s). Patient was given the following educational materials: Chronic Knee Pain, Adult, Chronic Knee Pain, Adult. Follow up with: Rest. Ice. You may continue the ibuprofen. Follow-up with your orthopedist in [place] as soon as possible. Within 3 to 5 days. Counseled: Patient, Regarding diagnosis, Regarding treatment plan, Regarding prescription, Patient indicated understanding of instructions. Orders: Launch Orders Admit/Transfer/Discharge: Discharge (Order Processing): 03/10/2022 13:10 MST, Now, Home or self care. Electronically Signed By: Wiley Sanches MD On 03/10/22 13:10 Co Signature By: Modify Signature By: Wiley Sanches MD On 03/10/22 13:10 03/10/2022 [facility] [place] [...] No Preferred Language for Healthcare Discussions : [place]i Temperature PO : 36.5 deg C(Converted to: [...] : 4 - Non-urgent Tracking Group : [facility] [place] Apoorva Steele RN - 03/10/2022 12:11 [facility] Pediatric Patient : N/A Height (cm) : 177.8 cm Height Measurement Used : inches Height in : 70 Inch Drug Calc Weight (kg) : 128.798 kg Weight Measurement Used : pounds Weight lb : 284 lbs BMI : 40.74 kg/m2 [place] Body Weight : 73 kg Adjusted Body Weight : 95.32 kg Additional Info - ED : poc. mask on patient ABW Calc : 95.32 kg ABW Calc2 : 128.8 kg Apoorva Steele RN - 03/10/2022 12:11 MST (As Of: 03/10/2022 12:22:45 MST) [place] Suicide Severity Rating Scale (C-SSRS) 1. In [...] 03/10/2022 12:11 MST (As Of: 03/10/2022 12:22:45 [facility]) Allergies (Active) No Known Medication Allergies Estimated Onset Date: Unspecified ; Created By: Apoorva Steele RN; Reaction Status: Active ; Category: Drug ; Substance: No Known Medication Allergies ; Type: Allergy ; Updated By: Apoorva Steele RN; Reviewed Date: 03/10/2022 12:21 [facility] Medication List (As Of: 03/10/2022 12:22:45 [facility]) Home Meds lisinopril : [...] Code: tamsulosin ; Order Dt/Tm: 03/10/2022 12:22:01 [facility] Social History Suicide Risk Screen : Yes Abuse Signs : Denies Red Flags of Human Trafficking : None observed Activated Human Trafficking Protocol : No Immunization Opt Out : Allow Apoorva Steele RN - 03/10/2022 12:11 [facility] Social History (As Of: 03/10/2022 12:22:45 MST) Tobacco: Never (less than 100 in lifetime) (Last Updated: 03/10/2022 12:22:05 MST by Apoorva Steele RN) Alcohol: Current, 1-2 times per month (Last Updated: 03/10/2022 12:22:10 MST by Apoorva Steele RN) Substance Abuse: Denies (Last Updated: 03/10/2022 12:22:14 MST by Apoorva Steele RN) Home/Environment: Mandaeism restrictions/concerns: None. (Last Updated: 03/10/2022 12:22:18 MST [...] No Apoorva Steele RN - 03/10/2022 12:11 [facility] Infectious Disease Risk Screening [...] NO Apoorva Steele RN - 03/10/2022 12:11 [facility] INF Disease Living Situation ST : Living Situation No qualifying data available. Patient Masked : Yes Travel to foreign country last 30 days : No INF Disease TB Screening Calc : 0 Apoorva Steele RN - 03/10/2022 12:11 [facility] Urgent Care Fall Risk Mental Status ED : Alert and oriented Physical/Clinical Status : No defects Current Treatments ED : None Apoorva Steele RN - 03/10/2022 12:11 MST 03/10/2022 [id number] Vital Signs Vital Sign Value Date Comments Source Sensory Deficits None (03/10/22 12:11 PM) 03/10/2022 [facility] Temperature (c) 36.5 03/10/2022 [facility] Systolic (mm Hg) 157 03/10/2022 [facility] Diastolic (mm Hg) 91 03/10/2022 [facility] Heart Rate (bpm) 76 03/10/2022 [facility] Respiratory Rate 18 Breaths/Min 03/10/2022 [facility] SPO2 98 03/10/2022 [facility] Height (cm) 177.8 03/10/2022 [facility] Drug Calc Weight (kg) 128.798 03/10/2022 [facility] BMI 40.74 03/10/2022 [facility] Encounters Location Location Details Encounter Type Encounter Number Reason For Visit Attending Provider ADM Date DC Date Status Source [facility] Emergency [id number] [facility] 03/10 [facility] Social History Social History Date Source Social History TypeResponse Smoking Status Never (less than 100 in lifetime) entered on: 03/10/22 Sex 03/10/2022 [facility] Assessment and Plan Result Assessment and Plan Date Source Assessment and Plan No data available for this section 03/10/2022 [facility]
== END 2023-03-07 14:04 | disposition home or self-care (01) ==
LOC: LKVREF 14:03
PROVIDERS: PCP Family Medicine; Visit Provider Family Medicine
DX: N39.0 Urinary tract infection, site not specified (principal); I48.0 Paroxysmal atrial fibrillation
CPT/HCPCS: 84443; 87086

== ENCOUNTER 2024-01-16 15:46 | Outpatient (CLI) | payer MEDICARE, BC, SELFPAY ==
--- OUTSIDE RECORDS SUMMARY | 2024-01-16 15:51 | XMS_ITS | Encounter Summary ---
Author Name [facility] [place] [facility] [place] Address [address] [place] [address] Care Team Providers Care Boot Trimmer Name Role Phone LUCRETIA HUGHES Primary Care Provider SHIRLEY Javier Unavailable Unavailable Insurance Providers: All historical and current Section Date Range: From patient's date of to the date document was created. This section includes the names of all active insurance providers for the patient. Insurance Provider Type of Coverage Plan Name Start of Policy Coverage End of Policy Coverage Group Number Member ID Insurance Provider's Telephone Number Policy Gross's Name Patient's Relationship to Policy Gross [facility] MEDICARE SUPPLEMEN AMANDA MEDIC ARE SUPPL EMENT Jun 03, 2018 [id number] [phone] ANALI SANCHEZ PATIENT [facility] MEDICARE SUPPLEMEN AMANDA MEDIC ARE SUPPL EMENT Jun 03, 2018 [id number] [phone] ANALI SANCHEZ PATIENT MEDICARE (WNR) MEDICARE (M) PART B Nov 01, 2017 PART B [id number] [phone] ANALI SANCHEZ PATIENT MEDICARE (WNR) MEDICARE (M) PART B Nov 01, 2017 PART B [id number] ANALI SANCHEZ PATIENT MEDICARE (WNR) MEDICARE (M) PART A Mar 03, 2015 PART A [id number] [phone] ANALI SANCHEZ PATIENT MEDICARE (WNR) MEDICARE (M) PART A Mar 03, 2015 PART A [id number] ANALI SANCHEZ PATIENT MEDICARE PART D (WNR) MEDICARE (M) PART D Nov 01, 2017 PART D [id number] ANALI SANCHEZ PATIENT Selected Encounter This section includes the information on record at [place] for the Encounter. Date/Time Encounter Type Encounter Description Reason Provider Source Apr 08, 2023 09:00 AM OFFICE O/P NEW LOW 30-44 MIN PRIMARY CARE/MEDICINE ICD-10-CM Z77.028 Contact w and exposure to oth hazardous aromatic compounds SHIRLEY LOAIZA JR [facility] Encounter Template Text not used by [place] Assessments - Encounter Diagnoses This section includes the primary and secondary diagnoses documented for the Encounter. Date/Time Primary/Secondary Diagnosis Diagnosis Name Provider Source Apr 08, 2023 12:18 PM PRIMARY Contact w and exposure to oth hazardous aromatic compounds SHIRLEY LOAIZA JR [facility] Apr 08, 2023 12:18 PM SECONDARY Encounter for immunization DELFINOHIREN GAYLE [facility] Plan of Treatment: Future Appointments (+ 6 months) and Future Tests (+/- 45 days) The Plan of Treatment section includes future care activities for the [facility] [place] [facility] This section includes future appointments and future orders which are active, pending or scheduled. Future Appointments This section includes appointments that were scheduled to occur 6 months from the date of the Encounter, up to a maximum of 20 appointments. The data comes from all [place] treatment facilities. Appointment Date/Time Appointment Type Appointme nt Facility Name Apr 09, 2023 01:15 PM AMBULATORY - NONE [place] [facility] Apr 09, 2023 02:00 PM AMBULATORY - PS[place]CHIATRY [place] [facility] Apr 22, 2023 07:30 AM AMBUL[place]ORY - [place] [facility] May 28, 2023 02:00 PM [facility] May 28, 2023 03:00 PM AMBULATORY - NONE [place] [facility] Jun 26, 2023 08:30 AM AMBULATORY - NONE [facility] Jun 26, 2023 12:00 PM [facility] [place] [place] [facility] Jul 23, 2023 10:00 AM [facility] [place] [facility] [facility] Sep 12, 2023 07:20 PM AMBULATORY - NONE [facility] Lab Results: +/- 30 days of the encounter This section includes the Chemistry and Hematology Lab Results on record with [place] for the patient. Radiology Reports and Pathology Reports are provided separately, in subsequent sections. Lab Results This section contains the Chemistry/Hematology Results that were resulted 30 days before or 30 daysafter the date of the Encounter. Date/Time Source Result Type Result - Unit Interpretation Reference Range Comment Apr 09, 2023 01:20 PM [facility] CBC Specimen Type: BLOOD No comment entered. Ordering Provider: KELLY KERR Report Released Date/Time: Apr 16, 2022 03:03 PM Reporting Lab: [facility] [id number] Performing Lab: [facility] [id number] WBC 7.69 10*3/uL 4.0-11.0 RBC 5.01 10*6/uL 4.6-6.2 HGB 14.9 g/dL 13.5-17.9 HCT 45.3 41-54 MCV 90.4 fL 80-100 MCH 29.7 pg 27-33 MCHC 32.9 g/dL 32.0-37.5 PLT 202 10*3/uL 150-400 MPV 10.4 fL 7.4-10.4 RDW 14.6 H 11.5-14.5 Apr 09, 2023 01:20 PM [facility] LIPID PANEL,NON-FASTING Specimen Type: PLASMA No comment entered. Ordering Provider: KELLY KERR Report Released Date/Time: Apr 16, 2022 03:03 PM Reporting Lab: [facility] [id number] Performing Lab: [facility] [id number] CHOLESTEROL 135 mg/dL <199 .HDL 37 mg/dL L >40 LDL CALCULATION 78 mg/dL <99 VLDL CALCULATION 20 mg/dL <29 NON HDL CHOLESTEROL 98 mg/dL <129 TRIG(NON FASTING) 100 mg/dL <149 Apr 09, 2023 01:20 PM [facility] COMPREHENSIVE METABOLIC PANEL+MG Specimen Type: PLASMA No comment entered. Ordering Provider: KELLY KERR Report Released Date/Time: Apr 16, 2022 03:03 PM Reporting Lab: [facility] [id number] Performing Lab: [facility] [id number] CREATININE 1.1 mg/dL 0.7-1.2 UREA NITROGEN 17 mg/dL 8-26 GLUCOSE 112 mg/dL H 70-100 SODIUM 140 mmol/L 136-145 POTASSIUM 4.2 mmol/L 3.5-5.1 CHLORIDE 106 mmol/L 98-107 CO2 25 mmol/L 22-29 CALCIUM 9.4 mg/dL 8.4-10.2 PROTEIN,TOTAL 7.6 g/dL 6.0-8.3 ALBUMIN 4.3 g/dL 3.5-5.2 BILIRUBIN, TOTAL 0.7 mg/dL 0.2-1.2 MAGNESIUM 1.9 mg/dL 1.6-2.6 ANION GAP 9 mmol/L 5-15 ALKALINE PHOSPHATASE 75 U/L 40-150 ALT/SGPT 29 U/L <55 AST/SGOT 26 U/L <34 .CREAT EGFR(CKD-EPI) 71 >60 Vital Signs: All taken on the encounter date This section contains inpatient and outpatient Vital Signs collected on the date of the Encounter. Date/Time Temperature Pulse Blood Pressure Respiratory Rate SP02 Pain Height Weight Body Mass Index Source Apr 08, 2023 08:33 AM 121/79 mm[Hg] [facility] Apr 08, 2023 08:18 AM 72 /min 143/85 mm[Hg] 16 /min 92 % 0 70 in 278 lb 40 [facility] Immunizations: All administered on the encounter date This section contains immunizations associated to the Encounter. Immunization Series Date Issued Reaction Comments COVID-19 (PFIZER), MRNA, LNP -S, PF, CARLOS-SUCROSE, 30 MCG/0.3 ML (AGES 12+ YEARS) 1 Apr 08, 2023 Social History: Smoking Status (Most current) and Tobacco Use (All prior to encounter date) This section includes the most current, and the historical, smoking and tobacco- related health factors from the [place] facility where the Encounter took place. Current Smoking Status This section includes the most current smoking, or tobacco-related health factor, from the [place] facility where the Encounter took place. Date/Time Current Smoking Status Comment Denilson vargas Apr 08, 2023 09:00 AM VA-TOBACCO FORMER USER [facility] Tobacco Use History This section includes a history of the smoking, or tobacco-related health factors, that were collected on or before the date of the Encounter. The data comes from the [place] facility where the Encounter took place. Date/Time Smoking Status/Tobacco Use Comment Tanja ackam Apr 08, 2023 09:00 AM VA-TOBACCO QUIT 15 YRS OR MORE [facility] Mar 15, 2022 08:30 AM VA-TOBACCO FORMER USER [facility] Mar 15, 2022 08:30 AM VA-TOBACCO QUIT 15 YRS OR MORE [facility] Jan 24, 2021 10:00 AM VA-TOBACCO FORMER USER [facility] Jan 24, 2021 10:00 AM VA-TOBACCO QUIT 15 YRS OR MORE [facility] Aug 10, 2018 06:09 PM VA-TOBACCO FORMER USER [facility] Aug 10, 2018 06:09 PM VA-TOBACCO QUIT 15 YRS OR MORE [facility] Encounter Notes: All associated encounter notes This section contains the clinical notes associated to the Encounter. Date/Time Encounter Note(s) Provider Source May 29, 2023 08:43 AM ADDENDUM: LOCAL TITLE: Addendum STANDARD TITLE: ADDENDUM DATE OF NOTE: MAY 29, 2023@08:43:50 ENTRY DATE: MAY 29, 2023@08:43:51 AUTHOR: GABRIEL MUSE EXP COSIGNER: URGENCY: STATUS: COMPLETED flagging PCP for tamsulosin refill request /stephan/ GABRIEL MUSE RESIDENT PHYSICIAN Signed: 05/29/2023 08:44 Receipt Acknowledged By: 06/13/2023 07:42 /es/ Lucretia Hughes MD STAFF PHYSICIAN for SHIRLEY LOAIZA --- Original Document --- 04/08/23 MEDICINE CLINIC NOTE: ANALI SANCHEZ is a 72 year old MALE with the following chief complaint: Nurse's Note Reviewed. Follow up for anual exam. HPI/ROS:Mr. Sanchez is a 72 yoM presenting for his annual wellness visit. He has a CC of HBV antigen + labs of unknown etiology, along w/ multiple skin lesions on his back. 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 He has attempted to have these service covered in the past, and is reattempting to have them covered at this time. He is concerned about HBV transmission and if he could pass it to his family, as well as if it increases his risk for malignancy. He is followed by GI w/ regular 6 month abdominal ultrasounds. Most recent US in 10/2022 was notable for hepatic steatosis, with no other significant findings. He also endorses a 3 month hx of numbnes on his middle 3 toes of his right foot. There is sensation to pressure, but no pain. He has no hx of vitamin insufficiency, DM, alcohol abuse, or anemia. He has no fall history, and no numbness or paresthesia anywhere else. He is followed by non-VA dermatology for annual skin exams for his BCC. He said when he left [place] there was a rash on his back. Since then, the rash has progressed to multiple outbreaks of sebhorreic keratoses and BCC, which have been confirmed via Derm biopsy. He is looking to establish w/ [facility]. He also endorses tinnitues, and is encouraegd to see audiology. Past medical history/Active Problems: Active problems - Computerized Problem List is the source for the followin. HTN - Hypertension ([facility] [id number]) 2. GERD - Gastro-Esophageal Reflux Disease ([facility] [id number]) 3. Anxiety ([facility] [id number]) 4. Benign Prostatic Hypertrophy With Outflow Obstruction ([facility] [id number]) 5. Hepatitis B 6. Polyp of colon - 2mm TA 2017; due 2022 7. Exposure to potentially hazardous substance 8. Asthma 9. Obstructive sleep apnea of adult EXAM: VS: Temp: 96.3 F [35.7 C] (11/22/2022 15:09) BP: 121/79 (04/08/2023 08:33) Pulse:72 (04/08/2023 08:18) Resp: 16 (04/08/2023 08:18) Pain: 0 (04/08/2023 08:18) Weight: WEIGHTS IN LAST 6 MONTHS: 278 (APR 08, 2023@08:18:47) 278.1 (NOV 22, 2022@15:09:05) O2 sat: 92% (04/08/2023 08:18) General: well appearing Lungs: clear to auscultation, no crackles wheezes, rales CV: normal s1 s2, no murmurs rubs gallops Abdomen: soft, nontender. non distended Extremities: strength 5/5 Skin: multiple seborrheic keratoses and skin tags noted on back, along w/ scars from past excisions Neuro: NFD Data/Labs: LAB RESULTS LAST 48 HRS - NONE FOUND Assessment and Plan: Mr. Diaz is a 72 yoM presenting for his annual wellness exam. He has a hx of HBV ab+ that he is concerned about, along with multiple skin lesions on his back that he attributes to his service and agent orange exposure. #HTN - Hypertension ([facility] [id number]) Continue lisinopril 20mg/d and metoprolol 50mg/d #GERD - Gastro-Esophageal Reflux Disease ([facility] [id number]) Continue omeprazole 20mg/d #Anxiety ([facility] [id number]) Continue sertraline 200mg/d #Benign Prostatic Hypertrophy With Outflow Obstruction ([facility] [id number]) Continue 0.4mg tamsulosin and 2mg prazosin #Hepatitis B 6. Polyp of colon - 2mm TA 2017; due 2022 7. Exposure to potentially hazardous substance Patient instructed and encouraged to reach out to [facility] to re-attempt service connected coverage #Asthma #Obstructive sleep apnea of adult Continue symibcort prn #BCC [facility]ed [facility] care #Tinnitus Consulted audiology Patient staffed with Dr. Flores Education on Treatment Plan: Patient indicates readiness to learn, verbalizes understanding, agreement and satisfaction with the treatment plan. Denies further questions. Patient indicates readiness to learn and has been instructed on action, dose, frequency, and side effects of medications. Patient verbalizes understanding. The medication list above was reviewed with the patient at today's visit. I have indicated discrepancies under each medication that is not being taken as prescribed. I have updated the medicines under the med tab as appropriate. Medication Reconciliation: Education Evaluations *Was medication education provided for NEW medications or CHANGES to medications? (including medication name, dose, route, reason for use, and potential side effects). No new medications or medication changes during this encounter. TERATOGENIC MED & CONTRACEPTION REVIEW (Optional)... ======= MEDICATION RECONCILIATION ======= Review Done: The medication list shown below was verified for accuracy and it includes all pending medications/active medications/all medications or discontinued within the last 90 days/all remote medications and non-VA medications. If a given category (i.e. remote meds) is not shown, that means that a patient doesn't have a medication(s) in that category. Allergies listed below were also reviewed/updated for accuracy. Allergies/ADR from [facility] may not display in CPRS. Use JLV MRT5 - Allergies/ADRs FACILITY ALLERGY/ADR -------- No Remote Allergy/ADR Data available for this patient [place] [facility] CODEINE Active and Recently Outpatient Medications (including Supplies): Issue Date Status Last Fill Active Outpatient Medications Refills Expiration 1) BUDESONIDE 160/FORMOTER 4.5MCG 120D INH ACTIVE Issu:05-31-22 Qty: 3 for 90 days Sig: INHALE 1 PUFF Refills: 2 Last:11-05-22 BY INHALATION EVERY 2 HOURS NEEDED Expr:06-01-23 FOR ASTHMA MAX 12 PUFFS PER DAY 2) CETIRIZINE HCL 10MG TAB Qty: 90 for 90 ACTIVE (S) Issu:02-28-23 days Sig: TAKE ONE TABLET BY MOUTH Refills: 2 Last:05-19-23 EVERY DAY Expr:02-29-24 3) LISINOPRIL 20MG TAB Qty: 90 for 90 days ACTIVE Issu:05-01-22 Sig: TAKE ONE TABLET BY MOUTH EVERY Refills: 0 Last:02-11-23 DAY FOR BLOOD PRESSURE Expr:05-02-23 4) METOPROLOL SUCCINATE 50MG SA TAB Qty: ACTIVE Issu:05-07-22 90 for 90 days Sig: TAKE ONE TABLET Refills: 0 Last:02-11-23 BY MOUTH EVERY MORNING FOR BLOOD Expr:05-08-23 PRESSURE 5) OMEPRAZOLE 20MG EC CAP Qty: 90 for 90 ACTIVE Issu:11-12-22 days Sig: TAKE ONE CAPSULE BY MOUTH Refills: 3 Last:01-01-23 EVERY DAY TO DECREASE STOMACH ACID Expr:11-13-23 -TAKE ON AN EMPTY STOMACH, AT LEAST 30 MINUTES BEFORE A MEAL 6) PRAZOSIN HCL 2MG CAP Qty: 30 for 30 ACTIVE Issu:11-20-22 days Sig: TAKE ONE CAPSULE BY MOUTH Refills: 0 Last:03-11-23 AT BEDTIME FOR NIGHTMARES Expr:11-21-23 7) SERTRALINE HCL 100MG TAB Qty: 180 for ACTIVE Issu:07-26-22 90 days Sig: TAKE TWO TABLETS BY Refills: 1 Last:03-22-23 MOUTH EVERY MORNING FOR MOOD Expr:07-27-23 8) TAMSULOSIN HCL 0.4MG CAP Qty: 30 for 30 ACTIVE Issu:02-12-23 days Sig: TAKE ONE CAPSULE BY MOUTH Refills: 4 Last:03-22-23 EVERY DAY FOR URINARY SYMPTOMS OF BPH Expr:02-13-24 Issue Date Status Last Fill Inactive Outpatient Medications Refills Expiration 1) ATORVASTATIN CALCIUM 80MG TAB Qty: 45 Issu:03-11-22 for 90 days Sig: TAKE ONE-HALF TABLET Refills: 0 Last:01-01-23 BY MOUTH AT BEDTIME FOR CHOLESTEROL Expr:03-12-23 2) CETIRIZINE HCL 10MG TAB Qty: 90 for 90 DISCONTINUED Issu:11-22-22 days Sig: TAKE ONE TABLET BY MOUTH Refills: 2 Last:02-14-23 EVERY DAY FOR ALLERGIES Expr:11-23-23 3) FLUOXETINE HCL 20MG CAP Qty: 263 for 90 DISCONTINUED Issu:03-15-22 days Sig: TAKE TWO CAPSULES BY MOUTH Refills: 3 Last:03-18-22 EVERY MORNING FOR 7 DAYS, THEN TAKE Expr:03-16-23 THREE CAPSULES EVERY MORNING FOR ANXIETY 4) FLUOXETINE HCL 20MG CAP Qty: 90 for 90 DISCONTINUED Issu:03-11-22 days Sig: TAKE ONE CAPSULE BY MOUTH (EDIT) Last:03-15-22 EVERY MORNING FOR ANXIETY Refills: 3 Expr:03-12-23 5) METOPROLOL SUCCINATE 100MG SA TAB Qty: DISCONTINUED Issu:05-03-22 45 for 90 days Sig: TAKE ONE-HALF (EDIT) Last:05-07-22 TABLET BY MOUTH EVERY MORNING FOR Refills: 3 Expr:05-04-23 BLOOD PRESSURE 6) NYSTATIN [id number] UNT/ML SUSP Qty: 480 Issu:02-28-23 for 7 days Sig: TAKE 1 TEASPOONFUL Refills: 0 Last:03-01-23 (500,000 UNITS) BY MOUTH FOUR TIMES A Expr:03-30-23 DAY FOR ORAL THRUSH 7) OMEPRAZOLE 20MG EC CAP Qty: 90 for 90 DISCONTINUED Issu:02-07-22 days Sig: TAKE ONE CAPSULE BY MOUTH Refills: 0 Last:10-26-22 EVERY DAY TO DECREASE STOMACH ACID Expr:02-08-23 -TAKE ON AN EMPTY STOMACH, AT LEAST 30 MINUTES BEFORE A MEAL 8) PREDNISONE 20MG TAB Qty: 10 for 5 days Issu:11-22-22 Sig: TAKE TWO TABLETS BY MOUTH EVERY Refills: 0 Last:11-26-22 MORNING FOR ASTHMA EXACERBATION Expr:12-22-22 9) SERTRALINE HCL 100MG TAB Qty: 42 for 30 DISCONTINUED Issu:05-03-22 days Sig: TAKE ONE TABLET BY MOUTH (EDIT) Last:05-07-22 EVERY DAY FOR 7 DAYS, THEN TAKE ONE Refills: 4 Expr:05-04-23 AND ONE-HALF TABLETS EVERY DAY 10) TAMSULOSIN HCL 0.4MG CAP Qty: 90 for 90 DISCONTINUED Issu:06-25-22 days Sig: TAKE ONE CAPSULE BY MOUTH Refills: 1 Last:03-02-23 EVERY DAY FOR URINARY SYMPTOMS OF BPH Expr:06-26-23 18 Total Medications /stephan/ SHIRLEY LOAIZA JR RESIDENT PHYSICIAN Signed: 04/08/2023 12:18 Receipt Acknowledged By: 04/08/2023 14:00 /stephan/ LUNA AARON MD Staff Physician GABRIEL MUSE [facility] Apr 08, 2023 09:25 AM INTERNAL MEDICINE NOTE: LOCAL TITLE: MEDICINE CLINIC NOTE STANDARD TITLE: INTERNAL MEDICINE NOTE DATE OF NOTE: APR 08, 2023@09:25 ENTRY DATE: APR 08, 2023@09:25:27 AUTHOR: LUNA AARON EXP COSIGNER: URGENCY: STATUS: COMPLETED I have reviewed this patient's history, pertinent physical examination, laboratory, and (when obtained) radiologic or other diagnostic tests with the Internal Medicine Resident evaluating this patient. I agree with the treatment plan as outlined. This plan was reviewed with the resident on the date of this note. History of positive Hep B + in the past - not sure when he is reapplying for service connection. followed by GI clinic Rash on his back- back lesions wants to transition to [place] dermat[place] tinnitus: audiology evaluation /stephan/ LUNA AARON MD Staff Physician Signed: 04/08/2023 09:30 LUNA AARON [facility] Apr 08, 2023 09:00 AM INTERNAL MEDICINE NOTE: LOCAL TITLE: MEDICINE CLINIC NOTE STANDARD TITLE: INTERNAL MEDICINE NOTE DATE OF NOTE: APR 08, 2023@09:00 ENTRY DATE: APR 08, 2023@09:00:37 AUTHOR: SHIRLEY LOAIZA JR EXP COSIGNER: URGENCY: STATUS: COMPLETED MEDICINE CLINIC NOTE Has ADDENDA ANALI SANCHEZ is a 72 year old MALE with the following chief complaint: Nurse's Note Reviewed. Follow up for anual exam. HPI/ROS:Mr. Sanchez is a 72 yoM presenting for his annual wellness visit. He has a CC of HBV antigen + labs of unknown etiology, along w/ multiple skin lesions on his back. 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 He has attempted to have these service covered in the past, and is reattempting to have them covered at this time. He is concerned about HBV transmission and if he could pass it to his family, as well as if it increases his risk for malignancy. He is followed by GI w/ regular 6 month abdominal ultrasounds. Most recent US in 10/2022 was notable for hepatic steatosis, with no other significant findings. He also endorses a 3 month hx of numbnes on his middle 3 toes of his right foot. There is sensation to pressure, but no pain. He has no hx of vitamin insufficiency, DM, alcohol abuse, or anemia. He has no fall history, and no numbness or paresthesia anywhere else. He is followed by non-[facility] dermatology for annual skin exams for his BCC. He said when he left [place] there was a rash on his back. Since then, the rash has progressed to multiple outbreaks of sebhorreic keratoses and BCC, which have been confirmed via Derm biopsy. He is [facility]. He also endorses tinnitues, and is encouraegd to see audiology. Past medical history/Active Problems: Active problems - Computerized Problem List is the source for the followin. HTN - Hypertension ([facility] [id number]) 2. GERD - Gastro-Esophageal Reflux Disease ([facility] [id number]) 3. Anxiety ([facility] [id number]) 4. Benign Prostatic Hypertrophy With Outflow Obstruction ([facility] [id number]) 5. Hepatitis B 6. Polyp of colon - 2mm TA 2017; due 2022 7. Exposure to potentially hazardous substance 8. Asthma 9. Obstructive sleep apnea of adult EXAM: VS: Temp: 96.3 F [35.7 C] (11/22/2022 15:09) BP: 121/79 (04/08/2023 08:33) Pulse:72 (04/08/2023 08:18) Resp: 16 (04/08/2023 08:18) Pain: 0 (04/08/2023 08:18) Weight: WEIGHTS IN LAST 6 MONTHS: 278 (APR 08, 2023@08:18:47) 278.1 (NOV 22, 2022@15:09:05) O2 sat: 92% (04/08/2023 08:18) General: well appearing Lungs: clear to auscultation, no crackles wheezes, rales CV: normal s1 s2, no murmurs rubs gallops Abdomen: soft, nontender. non distended Extremities: strength 5/5 Skin: multiple seborrheic keratoses and skin tags noted on back, along w/ scars from past excisions Neuro: NFD Data/Labs: LAB RESULTS LAST 48 HRS - NONE FOUND Assessment and Plan: Mr. Diaz is a 72 yoM presenting for his annual wellness exam. He has a hx of HBV ab+ that he is concerned about, along with multiple skin lesions on his back that he attributes to his service and agent orange exposure. #HTN - Hypertension ([facility] [id number]) Continue lisinopril 20mg/d and metoprolol 50mg/d #GERD - Gastro-Esophageal Reflux Disease ([facility] [id number]) Continue omeprazole 20mg/d #Anxiety ([facility] [id number]) Continue sertraline 200mg/d #Benign Prostatic Hypertrophy With Outflow Obstruction ([facility] [id number]) Continue 0.4mg tamsulosin and 2mg prazosin #Hepatitis B 6. Polyp of colon - 2mm TA 2017; due 2022 7. Exposure to potentially hazardous substance Patient instructed and encouraged to reach out to [facility] to re-attempt service connected coverage #Asthma #Obstructive sleep apnea of adult Continue symibcort prn #BCC [facility] #Tinnitus Consulted audiology Patient staffed with Dr. Flores Education on Treatment Plan: Patient indicates readiness to learn, verbalizes understanding, agreement and satisfaction with the treatment plan. Denies further questions. Patient indicates readiness to learn and has been instructed on action, dose, frequency, and side effects of medications. Patient verbalizes understanding. The medication list above was reviewed with the patient at today's visit. I have indicated discrepancies under each medication that is not being taken as prescribed. I have updated the medicines under the med tab as appropriate. Medication Reconciliation: Education Evaluations *Was medication education provided for NEW medications or CHANGES to medications? (including medication name, dose, route, reason for use, and potential side effects). No new medications or medication changes during this encounter. TERATOGENIC MED & CONTRACEPTION REVIEW (Optional)... ======= MEDICATION RECONCILIATION ======= Review Done: The medication list shown below was verified for accuracy and it includes all pending medications/active medications/all medications or discontinued within the last 90 days/all remote medications and non-VA medications. If a given category (i.e. remote meds) is not shown, that means that a patient doesn't have a medication(s) in that category. Allergies listed below were also reviewed/updated for accuracy. Allergies/ADR from [facility] may not display in CPRS. Use JLV MRT5 - Allergies/ADRs FACILITY ALLERGY/ADR -------- No Remote Allergy/ADR Data available for this patient [facility] CODEINE Active and Recently Outpatient Medications (including Supplies): Issue Date Status Last Fill Active Outpatient Medications Refills Expiration 1) BUDESONIDE 160/FORMOTER 4.5MCG 120D INH ACTIVE Issu:05-31-22 Qty: 3 for 90 days Sig: INHALE 1 PUFF Refills: 2 Last:11-05-22 BY INHALATION EVERY 2 HOURS NEEDED Expr:06-01-23 FOR ASTHMA MAX 12 PUFFS PER DAY 2) CETIRIZINE HCL 10MG TAB Qty: 90 for 90 ACTIVE (S) Issu:02-28-23 days Sig: TAKE ONE TABLET BY MOUTH Refills: 2 Last:05-19-23 EVERY DAY Expr:02-29-24 3) LISINOPRIL 20MG TAB Qty: 90 for 90 days ACTIVE Issu:05-01-22 Sig: TAKE ONE TABLET BY MOUTH EVERY Refills: 0 Last:02-11-23 DAY FOR BLOOD PRESSURE Expr:05-02-23 4) METOPROLOL SUCCINATE 50MG SA TAB Qty: ACTIVE Issu:05-07-22 90 for 90 days Sig: TAKE ONE TABLET Refills: 0 Last:02-11-23 BY MOUTH EVERY MORNING FOR BLOOD Expr:05-08-23 PRESSURE 5) OMEPRAZOLE 20MG EC CAP Qty: 90 for 90 ACTIVE Issu:11-12-22 days Sig: TAKE ONE CAPSULE BY MOUTH Refills: 3 Last:01-01-23 EVERY DAY TO DECREASE STOMACH ACID Expr:11-13-23 -TAKE ON AN EMPTY STOMACH, AT LEAST 30 MINUTES BEFORE A MEAL 6) PRAZOSIN HCL 2MG CAP Qty: 30 for 30 ACTIVE Issu:11-20-22 days Sig: TAKE ONE CAPSULE BY MOUTH Refills: 0 Last:03-11-23 AT BEDTIME FOR NIGHTMARES Expr:11-21-23 7) SERTRALINE HCL 100MG TAB Qty: 180 for ACTIVE Issu:07-26-22 90 days Sig: TAKE TWO TABLETS BY Refills: 1 Last:03-22-23 MOUTH EVERY MORNING FOR MOOD Expr:07-27-23 8) TAMSULOSIN HCL 0.4MG CAP Qty: 30 for 30 ACTIVE Issu:02-12-23 days Sig: TAKE ONE CAPSULE BY MOUTH Refills: 4 Last:03-22-23 EVERY DAY FOR URINARY SYMPTOMS OF BPH Expr:02-13-24 Issue Date Status Last Fill Inactive Outpatient Medications Refills Expiration 1) ATORVASTATIN CALCIUM 80MG TAB Qty: 45 Issu:03-11-22 for 90 days Sig: TAKE ONE-HALF TABLET Refills: 0 Last:01-01-23 BY MOUTH AT BEDTIME FOR CHOLESTEROL Expr:03-12-23 2) CETIRIZINE HCL 10MG TAB Qty: 90 for 90 DISCONTINUED Issu:11-22-22 days Sig: TAKE ONE TABLET BY MOUTH Refills: 2 Last:02-14-23 EVERY DAY FOR ALLERGIES Expr:11-23-23 3) FLUOXETINE HCL 20MG CAP Qty: 263 for 90 DISCONTINUED Issu:03-15-22 days Sig: TAKE TWO CAPSULES BY MOUTH Refills: 3 Last:03-18-22 EVERY MORNING FOR 7 DAYS, THEN TAKE Expr:03-16-23 THREE CAPSULES EVERY MORNING FOR ANXIETY 4) FLUOXETINE HCL 20MG CAP Qty: 90 for 90 DISCONTINUED Issu:03-11-22 days Sig: TAKE ONE CAPSULE BY MOUTH (EDIT) Last:03-15-22 EVERY MORNING FOR ANXIETY Refills: 3 Expr:03-12-23 5) METOPROLOL SUCCINATE 100MG SA TAB Qty: DISCONTINUED Issu:05-03-22 45 for 90 days Sig: TAKE ONE-HALF (EDIT) Last:05-07-22 TABLET BY MOUTH EVERY MORNING FOR Refills: 3 Expr:05-04-23 BLOOD PRESSURE 6) NYSTATIN [id number] UNT/ML SUSP Qty: 480 Issu:02-28-23 for 7 days Sig: TAKE 1 TEASPOONFUL Refills: 0 Last:03-01-23 (500,000 UNITS) BY MOUTH FOUR TIMES A Expr:03-30-23 DAY FOR ORAL THRUSH 7) OMEPRAZOLE 20MG EC CAP Qty: 90 for 90 DISCONTINUED Issu:02-07-22 days Sig: TAKE ONE CAPSULE BY MOUTH Refills: 0 Last:10-26-22 EVERY DAY TO DECREASE STOMACH ACID Expr:02-08-23 -TAKE ON AN EMPTY STOMACH, AT LEAST 30 MINUTES BEFORE A MEAL 8) PREDNISONE 20MG TAB Qty: 10 for 5 days Issu:11-22-22 Sig: TAKE TWO TABLETS BY MOUTH EVERY Refills: 0 Last:11-26-22 MORNING FOR ASTHMA EXACERBATION Expr:12-22-22 9) SERTRALINE HCL 100MG TAB Qty: 42 for 30 DISCONTINUED Issu:05-03-22 days Sig: TAKE ONE TABLET BY MOUTH (EDIT) Last:05-07-22 EVERY DAY FOR 7 DAYS, THEN TAKE ONE Refills: 4 Expr:05-04-23 AND ONE-HALF TABLETS EVERY DAY 10) TAMSULOSIN HCL 0.4MG CAP Qty: 90 for 90 DISCONTINUED Issu:06-25-22 days Sig: TAKE ONE CAPSULE BY MOUTH Refills: 1 Last:03-02-23 EVERY DAY FOR URINARY SYMPTOMS OF BPH Expr:06-26-23 18 Total Medications /es/ SHIRLEY LOAIZA JR RESIDENT PHYSICIAN Signed: 04/08/2023 12:18 Receipt Acknowledged By: 04/08/2023 14:00 /es/ LUNA AARON MD Staff Physician 05/29/2023 ADDENDUM STATUS: COMPLETED flagging PCP for tamsulosin refill request /es/ GABRIEL MUSE RESIDENT PHYSICIAN Signed: 05/29/2023 08:44 Receipt Acknowledged By: * AWAITING SIGNATURE * SHIRLEY LOAIZA JR, KEITH B JR [facility] Apr 08, 2023 08:20 AM INTERNAL MEDICINE OUTPATIENT NOTE: LOCAL TITLE: MEDICINE CLINIC NURSING NOTE STANDARD TITLE: INTERNAL MEDICINE OUTPATIENT NOTE DATE OF NOTE: APR 08, 2023@08:20 ENTRY DATE: APR 08, 2023@08:21:04 AUTHOR: SHENG SALEH COSIGNER: URGENCY: STATUS: COMPLETED TYPE OF VISIT: Appointment Check In Type of appointment: In-person appointment REASON FOR VISIT: Annual check up. ALLERGIES: CODEINE (Aug 11, 2018) VITAL SIGNS: Blood Pressure: 143/85 (04/08/2023 08:18) re check 121/79 Pulse: 72 (04/08/2023 08:18) Respiration: 16 (04/08/2023 08:18) Temperature: 96.3 F [35.7 C] (11/22/2022 15:09) Weight: 278 lb [126.10 kg] (04/08/2023 08:18) Height: 70 in [177.8 cm] (04/08/2023 08:18) BMI: 40.0 O2 Sat: 92% (04/08/2023 08:18) Pain: 0 (04/08/2023 08:18) PAIN SCREEN: Patient is not having significant pain that they wish to discuss with their provider today. MEDICATION Over the Counter/Herbal Medications: The patient states that they take some outside medications and/or herbals. Suicide Screen: C-SSRS Screening [place] Suicide Severity Rating Scale (C-SSRS) screener 1. Over the past month, have you wished you were or wished you could go to sleep and not wake up? Yes 2. Over the past month, have you had any actual thoughts of killing yourself? No 3. Over the past month, have you been thinking about how you might do this? Response not required due to responses to other questions. 4. Over the past month, have you had these thoughts and had some intention of acting on them? Response not required due to responses to other questions. 5. Over the past month, have you started to work out or worked out the details of how to kill yourself? Response not required due to responses to other questions. 6. If yes, at any time in the past month did you intend to carry out this plan? Response not required due to responses to other questions. 7. In your lifetime, have you ever done anything, started to do anything, or prepared to do anything to end your life (for example, collected pills, obtained a gun, gave away valuables, went to the roof but didn't jump)? Yes 8. If YES, was this within the past 3 months? No Alcohol Use Screen (AUDIT-C): Alcohol Screen: SCREEN FOR ALCOHOL (AUDIT-C) An alcohol screening test (AUDIT-C) was positive (score=5). 1. How often did you have a drink containing alcohol in the past year? Two to four times a month 2. How many drinks containing alcohol did you have on a typical day when you were drinking in the past year? Three or four drinks 3. How often did you have six or more drinks on one occasion in the past year? Monthly Nursing Annual Screening: Fall History Screen During the past 12 months, have you had any falls? Patient does not report any falls in the past 12 months. MEDICATIONS: Patient is on one of the following medication classes: Antihypertensives, Antidepressants, Antipsychotics, Diuretics, or Controlled substance medication used for pain. FALL RISK ADVICE: Fall Risk Advice provided. Handout entitled Fall Prevention At Home reviewed and given to patient and/or significant other. Script Talk Screen Are you able to read your prescription bottles with your glasses, magnifiers or other aids? Yes or patient not taking any prescriptions. Skin Screen Patient reports any current pressure ulcers, a history of pressure ulcers, or a wound from a product manager medical device or Patient is bed-confined or a wheelchair-user or Patient requires assistance to transfer/change position No, Skin Screen is Negative Home Abuse/Violence Screen Is your home free of abuse and violence? Yes MOVE! Program Screen Body Mass Index (BMI)= 40.0 [place]: Collection DT Specimen Test Name Result Units Ref Range 10/08/2022 09:54 BLOOD !! HEMOGLOBIN A1C 5.8 % 4.0 - 6.0 !! Indicates COMMENTS AVAILABLE...Refer to Interim Lab Report. [place] Hgb A1C: No data available [place] Hgb A1C: No data available Point of Care Hgb A1C: POC HGB A1C____ Outpatient Nutrition Screen Body Mass Index (BMI)= 40.0 [place]: Collection DT Specimen Test Name Result Units Ref Range 10/08/2022 09:54 BLOOD !! HEMOGLOBIN A1C 5.8 % 4.0 - 6.0 !! Indicates COMMENTS AVAILABLE...Refer to Interim Lab Report. [place] Hgb A1C: No data available [place] Hgb A1C: No data available Point of Care Hgb A1C: POC HGB A1C____ Is patient's BMI less than 18.5? No Does patient have swallowing, coughing, or chewing problems affecting oral intake? No Has patient experienced unplanned weight loss or gain greater than 10 pounds over the last 2 months? No Is patient's Hgb A1C (Glycosylated Hemoglobin) greater than 9.5? No Is patient receiving Total Parenteral Nutrition (TPN) or Tube Feedings? No Patient Health Education Screen BARRIERS/SPECIAL NEEDS: No barriers identified PREFERRED STYLE OF LEARNING: No preference stated Client Assistive Service (CARMELA) Screen Does the patient require assistance with outpatient visit? No Tobacco Use Screening: The patient is a former tobacco user. The patient quit fifteen or more years ago. COVID-19 Immunization: Pfizer Monovalent (Comirnaty) Vaccine information reviewed with the patient. The patient denied any prior severe reaction to this vaccine or its components or a severe allergic reaction such as anaphylaxis to any vaccine or to any injectable therapy. The patient gave verbal consent to receive vaccine. Administered: COVID-19 (PFIZER), MRNA, LNP-S, PF, CARLOS-SUCROSE, 30 MCG/0.3 ML (AGES 12+ YEARS) Date Administered: Apr 08, 2023 08:30 Series: Series 1 Director Of Event Marketing: [employer] Lot: [id number] Exp Date: Jul 03, 2024 [facility]: [id number] Admin Route/Site: INTRAMUSCULAR/RIGHT DELTOID Dosage: 0.3mL Vaccine Information Statement(s): COVID-19 MRNA VACCINE (12+ YRS) VACCINE VIS Mar 21, 2023 (BELARUSIAN) Order By: Shirley Loaiza Jr Administered By: Sheng Saleh Vaccine administered without complications. The patient was advised to remain in the facility for 15 minutes post vaccination. /stephan/ SHENG SALEH LPN STAFF MALTED MILK SUPERVISOR Signed: 04/08/2023 08:33 SHENG SALEH [facility]
--- OUTSIDE RECORDS SUMMARY | 2024-01-16 15:51 | XMS_ITS | Encounter Summary ---
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 Name Role Phone NICANOR HUGHES Primary Care Provider SHIRLEY Javier Unavailable [...] Gross's Name Patient's Relationship to Policy Gross [facility] MEDICARE SUPPLEMEN AMANDA MEDIC ARE SUPPL EMENT Jun 03, 2018 [id number] [phone] ANALI SANCHEZ PATIENT [facility] MEDICARE SUPPLEMEN AMANDA MEDIC ARE SUPPL EMENT Jun 03, 2018 [id number] [phone] ANALI SANCHEZ PATIENT MEDICARE (WNR) MEDICARE (M) PART B Nov 01, 2017 PART B [id number] [phone] ANLAI SANCHEZ PATIENT MEDICARE (WNR) MEDICARE (M) PART B Nov 01, 2017 PART B [id number] [phone] ANALI SANCHEZ PATIENT MEDICARE (WNR) MEDICARE (M) PART A Mar 03, 2015 PART A [id number] [phone] ANALI SANCHEZ PATIENT MEDICARE (WNR) MEDICARE (M) PART A Mar 03, 2015 PART A [id number] [phone] ANALI SANCHEZ PATIENT MEDICARE PART D (WNR) MEDICARE (M) PART D Nov 01, 2017 PART D [id number] ANALI SANCHEZ PATIENT Selected Encounter This section includes the information on record at OR for the Encounter. Date/Time Encounter Type Encounter Description Reason Provider Source Feb 28, 2023 02:00 PM OFFICE O/P EST MOD 30-39 MIN PULMONARY/CHEST ICD-10-CM J45.40 Moderate persistent asthma, uncomplicated RUBINA CASTILLO IHBettina Encounter Template Text not used by OR Assessments - Encounter Diagnoses This section includes the primary and secondary diagnoses documented for the Encounter. 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 This section includes future appointments and future orders which are active, pending or scheduled. Future Appointments This section includes appointments that were scheduled to occur 6 months from the date of the Encounter, up to a maximum of 20 appointments. The data comes from all [place] treatment facilities. Appointment Date/Time Appointment Type Appointme nt Facility Name Apr 08, 2023 09:00 AM [facility] Apr 09, 2023 01:15 PM [facility] - NONE [facility] Apr 09, 2023 02:00 PM AMBULATORY - PSYCHIATRY [facility] Apr 22, 2023 07:30 AM AMBULATORY - [place] [facility] May 28, 2023 02:00 PM [facility] May 28, 2023 03:00 PM AMBUL[place]ORY - NONE [place] [facility] Jun 26, 2023 08:30 AM [place]UL[place]ORY - NONE [place] [facility] Jun 26, 2023 12:00 PM [facility] Jul 23, 2023 10:00 AM AMBULATORY - PSYCHIATRY [facility] Social History: Smoking Status (Most current) and Tobacco Use (All prior to encounter date) This section includes the most current, and the historical, smoking and tobacco- related health factors from the VA facility where the Encounter took place. Current Smoking Status This section includes the most current smoking, or tobacco-related health factor, from the [facility] where the Encounter took place. Date/Time Current Smoking Status Comment Denilson sainiy Mar 15, 2022 08:30 AM VA-TOBACCO QUIT 15 YRS OR MORE [facility] Tobacco Use History This section includes a history of the smoking, or tobacco-related health factors, that were collected on or before the date of the Encounter. The data comes from the [facility] where the Encounter took place. Date/Time Smoking Status/Tobacco Use Comment F sharath Mar 15, 2022 08:30 AM VA-TOBACCO QUIT 15 YRS OR MORE [facility] Jan 24, 2021 10:00 AM VA-TOBACCO FORMER USER [facility] Jan 24, 2021 10:00 AM VA-TOBACCO QUIT 15 YRS OR MORE [facility] Aug 10, 2018 06:09 PM VA-TOBACCO FORMER USER [facility] Aug 10, 2018 06:09 PM VA-TOBACCO QUIT 15 YRS OR MORE [facility] Encounter Notes: All associated encounter notes This section contains the clinical notes associated to the Encounter. Date/Time Encounter Note(s) Provider Source Feb 28, 2023 02:15 PM INTERNAL MEDICINE OUTPATIENT NOTE: LOCAL TITLE: MEDICINE CLINIC NURSING NOTE STANDARD TITLE: INTERNAL MEDICINE OUTPATIENT NOTE DATE OF NOTE: FEB 28, 2023@14:15 ENTRY DATE: FEB 28, 2023@14:15:35 AUTHOR: KATLYN GRAF EXP COSIGNER: URGENCY: STATUS: COMPLETED TYPE OF VISIT: Appointment Check In Type of appointment: In-person appointment REASON FOR VISIT: Pulmonary visit ALLERGIES: CODEINE (Aug 11, 2018) VITAL SIGNS: Blood Pressure: 110/74 (11/22/2022 15:09) Pulse: 79 (11/22/2022 15:09) Respiration: 16 (11/22/2022 15:09) Temperature: 96.3 F [35.7 C] (11/22/2022 15:09) Weight: 278.1 lb [126.14 kg] (11/22/2022 15:09) Height: 70 in [177.8 cm] (05/31/2022 09:57) BMI: 40.0 O2 Sat: 95% (11/22/2022 15:09) Pain: 0 (11/22/2022 15:09) PAIN SCREEN: Patient is not having significant pain that they wish to discuss with their provider today. MEDICATION Active Outpatient Medications (including Supplies): ATORVASTATIN CALCIUM 80MG TAB TAKE ONE-HALF TABLET BY ACTIVE MOUTH AT BEDTIME FOR CHOLESTEROL BUDESONIDE 160/FORMOTER 4.5MCG 120D INH INHALE 1 PUFF BY ACTIVE INHALATION EVERY 2 HOURS NEEDED FOR ASTHMA MAX 12 PUFFS PER DAY CETIRIZINE HCL 10MG TAB TAKE ONE TABLET BY MOUTH EVERY DAY ACTIVE FOR ALLERGIES LISINOPRIL 20MG TAB TAKE ONE TABLET BY MOUTH EVERY DAY FOR ACTIVE BLOOD PRESSURE METOPROLOL SUCCINATE 50MG SA TAB TAKE ONE TABLET BY MOUTH ACTIVE EVERY MORNING FOR BLOOD PRESSURE OMEPRAZOLE 20MG EC CAP TAKE ONE CAPSULE BY MOUTH EVERY DAY ACTIVE TO DECREASE STOMACH ACID -TAKE ON AN EMPTY STOMACH, AT LEAST 30 MINUTES BEFORE A MEAL PRAZOSIN HCL 2MG CAP TAKE ONE CAPSULE BY MOUTH AT BEDTIME ACTIVE FOR NIGHTMARES SERTRALINE HCL 100MG TAB TAKE TWO TABLETS BY MOUTH EVERY ACTIVE MORNING FOR MOOD TAMSULOSIN HCL 0.4MG CAP TAKE ONE CAPSULE BY MOUTH EVERY ACTIVE DAY FOR URINARY SYMPTOMS OF BPH Over the Counter/Herbal Medications: The patient denies taking any outside medications or herbals. Pulmonary Clinic General Appearance: No acute distress Respiratory Assessment Is this a change from your last visit to Pulmonary? No /es/ KATLYN GRAF LPN LICENSED PRACTICAL NURSE Signed: 02/28/2023 14:18 KATLYN GRAF [facility] Feb 28, 2023 11:23 AM PULMONARY ATTENDIN G OUTPATIENT NOTE: LOCAL TITLE: PULMONARY CLINIC NOTE STANDARD TITLE: PULMONARY ATTENDING OUTPATIENT NOTE DATE OF NOTE: FEB 28, 2023@11:23 ENTRY DATE: FEB 28, 2023@11:23:20 AUTHOR: APOORVA GONZALEZ EXP COSIGNER: URGENCY: STATUS: COMPLETED PULMONARY CLINIC NOTE Has ADDENDA PULMONARY CLINIC NOTE HPI: 72 yom w/ hx of HTN, BPH, hepatitis B, allergic rhinitis and chronic wheezing/productive cough 2/2 likely moderate persistent asthma presenting for follow-up. Last visit 11/2022 notable for patient being diagnosed with moderate persistent asthma as his chronic cough/exertional wheezing/dyspnea improved with symbicort use, however, he stopped these medications and his symptoms recurred. His symptoms at last visit were consistent with acute exacerbation, he was prescribed a steroid burst, and switched to symbicort for scheduled and as needed use. Today he reports that his respiratory symptoms related to asthma have completely resolved with symbicort use. However, he has been having issues with burning sensation on the roof of his mouth while using only water to rinse his mouth after initiation of symbicort. He also notes issues with post nasal drainage that slightly improves with flonase, but does not completely go away. Past medical history: Computerized Problem List is the source for the followin. HTN - Hypertension ([facility] [id number]) ACTIVE 2. GERD - Gastro-Esophageal Reflux Disease ([facility] [id number] ACTIVE 3. Anxiety ([facility] [id number]) ACTIVE 4. Benign Prostatic Hypertrophy With Outflow Obstruct ACTIVE 5. Hepatitis B ACTIVE 6. Polyp of colon ACTIVE 2mm TA 2017; due 2022 7. Exposure to potentially hazardous substance ACTIVE 8. Asthma ACTIVE 9. Obstructive sleep apnea of adult ACTIVE Medications: Active Outpatient Medications (including Supplies): Active Outpatient Medications Status 1) ATORVASTATIN CALCIUM 80MG TAB TAKE ONE-HALF TABLET BY ACTIVE MOUTH AT BEDTIME FOR CHOLESTEROL 2) BUDESONIDE 160/FORMOTER 4.5MCG 120D INH INHALE 1 PUFF ACTIVE BY INHALATION EVERY 2 HOURS NEEDED FOR ASTHMA MAX 12 PUFFS PER DAY 3) CETIRIZINE HCL 10MG TAB TAKE ONE TABLET BY MOUTH ACTIVE EVERY DAY FOR ALLERGIES 4) LISINOPRIL 20MG TAB TAKE ONE TABLET BY MOUTH EVERY ACTIVE DAY FOR BLOOD PRESSURE 5) METOPROLOL SUCCINATE 50MG SA TAB TAKE ONE TABLET BY ACTIVE MOUTH EVERY MORNING FOR BLOOD PRESSURE 6) OMEPRAZOLE 20MG EC CAP TAKE ONE CAPSULE BY MOUTH ACTIVE EVERY DAY TO DECREASE STOMACH ACID -TAKE ON AN EMPTY STOMACH, AT LEAST 30 MINUTES BEFORE A MEAL 7) PRAZOSIN HCL 2MG CAP TAKE ONE CAPSULE BY MOUTH AT ACTIVE BEDTIME FOR NIGHTMARES 8) SERTRALINE HCL 100MG TAB TAKE TWO TABLETS BY MOUTH ACTIVE EVERY MORNING FOR MOOD 9) TAMSULOSIN HCL 0.4MG CAP TAKE ONE CAPSULE BY MOUTH ACTIVE EVERY DAY FOR URINARY SYMPTOMS OF BPH Allergies: CODEINE (Aug 11, 2018) IM - Immunizations Immunization Series Date Facility Reaction Info COVID-19 ([place]), MRNA, LNP-S, B* 1 03/02/2022 [place] <C> COVID-19 (PFIZER), MRNA, LNP-S, P* 3 03/27/2021 [place] <C> 2 07/17/2020 [place] <C> 1 06/26/2020 [place] <C> HEP A, ADULT 02/13/2019 [place] 08/14/2018 [place] INFLUENZA VACCINE, QUADRIVALENT,* 02/28/2022 [place] INFLUENZA, HIGH DOSE SEASONAL 03/06/2018 [facility] [facility] [employer] 02/15/2017 [facility] [facility] 03/05/2016 [facility] [facility] INFLUENZA, HIGH-DOSE, QUADRIVALEN* 03/09/2021 [facility] [facility] 03/21/2020 [facility] [facility] INFLUENZA, INJECTABLE, QUADRIVALE* 03/24/2015 [facility] [facility] INFLUENZA, INJECTABLE, QUADRIVALE* 06/14/2009 [facility] [facility] INFLUENZA, SEASONAL, INJECTABLE 06/22/2013 [facility] [facility] 03/05/2011 [facility] [facility] 03/16/2010 [facility] [facility] 02/18/2009 [facility] [facility] INFLUENZA, UNSPECIFIED FORMULATIO* Employer NOVEL [id number], ALL FORM* 06/14/2009 [facility] [facility] PNEUMOCOCCAL CONJUGATE PCV 13 [employer] 02/15/2017 [facility] [facility] 03/17/2014 [facility] [facility] PNEUMOCOCCAL POLYSACCHARIDE PPV23 01/24/2021 [place] 03/20/2016 [facility] [facility] TD (ADULT), 2 LF TETANUS TOXOID,* 12/10/1997 [facility] [facility] 08/19/1995 [facility] [facility] TDAP 01/24/2021 [place] 10/12/2016 [facility] [facility] 06/18/2007 [facility] [facility] ZOSTER LIVE 02/07/2012 [facility] [facility] ZOSTER RECOMBINANT 2 10/15/2018 [place] 1 08/11/2018 [place] Family history: Noncontributory Physical exam: Vitals: Blood pressure: 110/74 (11/22/2022 15:09) Pulse: 79 (11/22/2022 15:09) Respiration: 16 (11/22/2022 15:09) Temperature: 96.3 F [35.7 C] (11/22/2022 15:09) Weight: 278.1 lb [126.14 kg] (11/22/2022 15:09) Pulse Oximetry: 95% (11/22/2022 15:09) Gen: nondistressed ENT: no rhinorrhea Pulm: normal work of breathing, no wheezing CV: RRR Abd: nondistended Ext: no peripheral edema Neuro: no gross focal deficits Psych: appropriate mood Impression/diagnosis: MODERATE PERSISTENT ASTHMA (well controlled) ACTIVE ORAL THRUSH 2/2 ICS USE ALLERGIC RHINITIS W/ POST NASAL DRAINAGE At this point in time the patient's asthma is well controlled with scheduled and prn symbicort. He has ongoing symptoms of post nasal drainage so will plan to start cetirizine today in addition to prn flonase. He is having symptoms of oral thrush so will treat this and recommend oral hygeine w/ an OTC mouth wash after each symbicort use. - Continue symbicort use 2 puffs BID and up to 12 additional puffs PRN - Recommend starting daily cetirizine - Continue PRN flonase - Start nystatin solution swish/swallow for oral thrush 2/2 ICS - Start OTC mouth wash for oral rinse after each symbicort use - Follow-up PRN I have discussed the patient with my supervising/collaborating practitioner, Dr. Sai Castillo, and they agree with my assessment/plan. If you have questions or urgent need to contact the pulmonary service, please refer to the transmission engineer-calendar. For pertinent literature, please refer to Pulmonary in [address]. /es/ APOORVA GONZALEZ MD PACCS FELLOW Signed: 02/28/2023 17:07 Receipt Acknowledged By: 03/01/2023 16:20 /es/ SAI CASTILLO MD Pulmonary Nailing Machine Operator Automatic 03/01/2023 ADDENDUM STATUS: COMPLETED Patient was seen, examined, and discussed with the fellow and the above note reflects our mutual assessment and recommendations. Patient was informed of all the above labs during this visit. Pt with good control of his asthma with symbicort, but has thrush - will treat thrush and instructed on oral hygiene with inhaler. If worsens then needs eos and IgE measured. total time 30 min /es/ SAI CASTILLO MD Pulmonary Nailing Machine Operator Automatic Signed: 03/01/2023 16:21 APOORVA GONZALEZ [facility]
--- OUTSIDE RECORDS SUMMARY | 2024-01-16 15:51 | XMS_ITS | Continuity of Care Document ---
Author Name [facility] Organization [facility] Care Team Providers Care Mine Engineering Manager Name Role Phone [facility] Unavailable Unavailable Problems Combined list of problems from Department of Defense and [facility] Affairs facilities. It does not include entries that were removed or entered in error. Problem Status Onset Date Problem Type Date of Resolution Comments Source Anxiety ([facility] [id number]) Active Condition [facility] Asthma Active Condition [facility] Benign Prostatic Hypertrophy With Outflow Obstruction ([facility] [id number]) Active Condition [facility] Exposure to potentially hazardous substance Active Condition [facility] - Gastro-Esophageal Reflux Disease ([facility] [id number]) Active Condition [facility] Hepatitis B Active Condition [facility] HTN - Hypertension ([facility] [id number]) Active Condition [facility] Obstructive sleep apnea of adult Active Condition [facility] Polyp of colon Active Condition Jan 022020 Entered By: SHASTA ORTIZ Comment: 2mm TA 2017; due 2022 [facility] Diagnosis: ICD-10-CM F41.9 Anxiety disorder, unspecified Active Diagnosis [facility] Diagnosis: ICD-10-CM N40.1 Benign prostatic hyperplasia with lower urinary tract symp Active Diagnosis [facility] Diagnosis: ICD-10-CM L02.424 Furuncle of left upper limb Active Diagnosis [facility] Diagnosis: ICD-10-CM F43.12 Post-traumatic stress disorder, chronic Active Diagnosis [facility] Diagnosis: ICD-10-CM Z71.9 Counseling, unspecified Active Diagnosis [facility] Diagnosis: ICD-10-CM B16.9 Acute hepatitis B w/o delta-agent and without hepatic coma Active Diagnosis [facility] Diagnosis: ICD-10-CM L57.0 Actinic keratosis Active Diagnosis [facility] Diagnosis: ICD-10-CM Z77.028 Contact w and exposure to oth hazardous aromatic compounds Active Diagnosis [facility] Diagnosis: ICD-10-CM J45.40 Moderate persistent asthma, uncomplicated Active Diagnosis [facility] Diagnosis: ICD-10-CM Z23 Encounter for immunization Active Diagnosis [facility] Diagnosis: ICD-10-CM G47.33 Obstructive sleep apnea (adult) (pediatric) Active Diagnosis [facility] Diagnosis: ICD-10-CM J45.41 Moderate persistent asthma with (acute) exacerbation Active Diagnosis [facility] Diagnosis: ICD-10-CM R06.83 Snoring Active Diagnosis [facility] Diagnosis: ICD-10-CM F33.1 Major depressive disorder, recurrent, moderate Active Diagnosis [facility] Diagnosis: ICD-10-CM I10 Essential (primary) hypertension Active Diagnosis [facility] Diagnosis: ICD-10-CM Z12.11 Encounter for screening for malignant neoplasm of colon Active Diagnosis [facility] Medications Combined list of outpatient medications from Department of Defense and Veterans Affairs facilities.Medications provided include 1) outpatient medications from the last 15 months, and 2) patient-reported medications. Medication Details Route Status Patient Instructions Prescription Expires Prescription Number Last Dispense Date Ordering Provider Order Date Order Qty Source ATORVASTATI N CA 40MG TAB ATORVAST ATIN CA 40MG TAB Active TAKE ONE TABLET BY MOUTH AT BEDTIME FOR CHOLESTE ROL October 16, 2023 90 Jun 11, 2024 [id number] Dec 16, 2023 NICHOLE HUGHES [facility] ORAL ACTIVE 06/11/2024 [id number] NICANOR HUGHES 2023 90 [facility] ATORVASTATI N CA 80MG TAB ATORVAST ATIN CA 80MG TAB Disconti nued TAKE ONE-HALF TABLET BY MOUTH AT BEDTIME FOR CHOLESTE ROL Jun 11, 2023 45 Jun 11, 2024 [id number] D Sep 16, 2023 NICHOLE HUGHES [facility] ORAL DISCONT INUED 06/11/2024 [id number] NICANOR HUGHES 2023 45 [facility] ATORVASTATI N CA 80MG TAB ATORVAST ATIN CA 80MG TAB Disconti nued TAKE ONE-HALF TABLET BY MOUTH AT BEDTIME FOR CHOLESTE ROL Mar 09, 2022 45 Mar 12, 2023 [id number] C Jan 01, 2023 MEHNAZ,AD INAN A [facility] ORAL DISCONT INUED 03/12/2023 [id number] MEHNAZ,SUJATHA NAN A 2021 45 [place] BUDESONIDE 160MCG/FORM OTEROL FUM 4.5MCG/SPRA Y INHL,ORAL,1 0.2GM BUDESONI DE 160MCG/F ORMOTERO L FUM 4.5MCG/S PRAY INHL,ORA L,10.2GM INHALE 1 PUFF BY INHALATI ON EVERY 2 HOURS NEEDED FOR ASTHMA MAX 12 PUFFS PER DAY FOR ASTHMA May 31, 2022 3 Jun 01, 2023 [id number] Nov 05, 2022 BERNADETTE SHOEMAKER [facility] RESPIR ATORY (INHAL ATION) 06/01/2023 [id number] BERNADETTE SHOEMAKER 2021 3 [place] [facility] CETIRIZINE HCL 10MG TAB CETIRIZI NE HCL 10MG TAB Active TAKE ONE TABLET BY MOUTH EVERY DAY RHINITIS AND POST NASAL DRAINAGE Feb 28, 2023 90 Feb 29, 2024 [id number] May 19, [address] [facility] ORAL ACTIVE 02/29/2024 [id number] NICKO GONZALEZ 2022 90 [facility] CETIRIZINE HCL 10MG TAB CETIRIZI NE HCL 10MG TAB Disconti nued TAKE ONE TABLET BY MOUTH EVERY DAY FOR ALLERGIE S FOR ALLERGIE S Nov 22, 2022 90 Nov 23, 2023 [id number] Feb 14, [address] [facility] ORAL DISCONT INUED 11/23/2023 [id number] NICKO GONZALEZ 2022 90 [facility] HYDROCORTIS ONE 2.5% CREAM,TOP HYDROCOR TISONE 2.5% CREAM,TO P Active APPLY THIN LAYER TOPICALL Y TWICE A DAY FOR RASH *CAN MIX WITH KETOCONA ZOLE CREAM FOR RASH Apr 22, 2023 30 Apr 22, 2024 [id number] Apr 22, 2023 PRANAV MARSHALL [facility] TOPICA L ACTIVE 04/22/2024 [id number] Safia MARSHALL 2022 30 [place] [facility] KETOCONAZOL E 2% CREAM,TOP KETOCONA ZOLE 2% CREAM,TO P Active APPLY THIN LAYER TOPICALL Y TWICE A DAY FOR RASH CAN MIX WITH HYDROCOR TISONE FOR RASH Apr 22, 2023 60 Apr 22, 2024 [id number] Apr 23, [address] [facility] TOPICA L ACTIVE 04/22/2024 [id number] Safai MARSHALL 2022 60 [place] [facility] LISINOPRIL 20MG TAB LISINOPR [place] 20MG TAB Active TAKE ONE TABLET BY MOUTH EVERY DAY FOR BLOOD PRESSURE May 29, 2023 90 May 29, 2024 [id number] Sep 16, [address] [facility] ORAL ACTIVE 05/29/2024 [id number] Cookie AARON 2022 90 [place] [facility] LISINOPRIL 20MG TAB LISINOPR [place] 20MG TAB TAKE ONE TABLET BY MOUTH EVERY DAY FOR BLOOD PRESSURE May 01, 2022 90 May 02, 2023 [id number] Feb 11, [address] [facility] ORAL 05/02/2023 [id number] SANDI VU 2021 90 [facility] METOPROLOL SUCCINATE 100MG TAB,SA METOPROL OL SUCCINAT E 100MG TAB,SA Disconti nued TAKE ONE-HALF TABLET BY MOUTH EVERY MORNING FOR BLOOD PRESSURE May 29, 2023 45 May 29, 2024 [id number] Sep 16, [address] [facility] ORAL DISCONT INUED 05/29/2024 [id number] Cookie AARON 2022 45 [place] [facility] METOPROLOL SUCCINATE 50MG TAB,SA METOPROL OL SUCCINAT E 50MG TAB,SA Active TAKE ONE TABLET BY MOUTH EVERY MORNING FOR BLOOD PRESSURE October 16, 2023 90 May 29, 2024 [id number] Dec 16, [address] [facility] ORAL ACTIVE 05/29/2024 [id number] Cookie AARON EUT 2023 90 [place] [facility] METOPROLOL SUCCINATE 50MG TAB,SA METOPROL OL SUCCINAT E 50MG TAB,SA Disconti nued TAKE ONE TABLET BY MOUTH EVERY MORNING FOR BLOOD PRESSURE May 07, 2022 90 May 08, 2023 [id number] Feb 11, 2023 ROSEMARY KERRE-AUD TANJA ALLEN [facility] ORAL DISCONT INUED 05/08/2023 [id number] MARY KERR WILLAM-ANN-MARIERE Y ALLEN 2021 90 [place] [facility] NYSTATIN 205383DIT/M L SUSP,ORAL NYSTATIN [id number] T/ML SUSP,ORA L TAKE 1 TEASPOON FUL (500,000 UNITS) BY MOUTH FOUR TIMES A DAY FOR ORAL THRUSH FOR ORAL THRUSH Feb 28, 2023 480 Mar 30, 2023 [id number] Mar 01, 2023 Gianluca GONZALEZ [facility] ORAL 03/30/2023 [id number] NICKO GONZALEZ 2022 480 [place] [facility] OMEPRAZOLE 20MG CAP,EC OMEPRAZO LE 20MG CAP,EC Active TAKE ONE CAPSULE BY MOUTH EVERY DAY TO DECREASE STOMACH ACID -TAKE ON AN EMPTY STOMACH, AT LEAST 30 MINUTES BEFORE A MEAL Dec 17, 2023 90 Dec 17, 2024 [id number] E Dec 18, 2023 CANDY,AM Y E [facility] ORAL ACTIVE 12/17/2024 [id number] CANDY,NICANOR E 2023 90 [facility] [facility] OMEPRAZOLE 20MG CAP,EC OMEPRAZO LE 20MG CAP,EC Disconti nued TAKE ONE CAPSULE BY MOUTH EVERY DAY TO DECREASE STOMACH ACID -TAKE ON AN EMPTY STOMACH, AT LEAST 30 MINUTES BEFORE A MEAL Nov 12, 2022 90 Nov 13, 2023 [id number] D Sep 16, 2023 CANDY,AM Y E [place] [facility] ORAL DISCONT INUED 11/13/2023 [id number] CANDY,NICANOR E 2022 90 [facility] OMEPRAZOLE 20MG CAP,EC OMEPRAZO LE 20MG CAP,EC Disconti nued TAKE ONE CAPSULE BY MOUTH EVERY DAY TO DECREASE STOMACH ACID -TAKE ON AN EMPTY STOMACH, AT LEAST 30 MINUTES BEFORE A MEAL Jan 31, 2022 90 Feb 08, 2023 [id number] C October 26, 2022 MEHNAZ,AD INAN A [facility] ORAL DISCONT INUED 02/08/2023 [id number] MEHNAZ,SUJATHA NAN A 2021 90 [facility] PRAZOSIN HCL 2MG CAP PRAZOSIN HCL 2MG CAP Active TAKE TWO CAPSULES BY MOUTH AT BEDTIME FOR NIGHTMAR ES FOR NIGHTMAR ES Nov 05, 2023 180 Nov 05, 2024 [id number] Nov 05, 2023 DASIA KILGORE [facility] ORAL ACTIVE 11/05/2024 [id number] Lynn KILGORE R 2023 180 [facility] PRAZOSIN HCL 2MG CAP PRAZOSIN HCL 2MG CAP Disconti nued TAKE TWO CAPSULES BY MOUTH AT BEDTIME FOR NIGHTMAR ES FOR NIGHTMAR ES Apr 09, 2023 60 Apr 09, 2024 [id number] May 28, 2023 DASIA KILGORE [facility] ORAL DISCONT INUED (EDIT) 04/09/2024 [id number] Lynn KILGORE R 2022 60 [facility] PRAZOSIN HCL 2MG CAP PRAZOSIN HCL 2MG CAP Disconti nued TAKE ONE CAPSULE BY MOUTH AT BEDTIME FOR NIGHTMAR ES FOR NIGHTMAR ES Nov 20, 2022 30 Nov 21, 2023 [id number] Mar 11, 2023 DASIA KILGORE [facility] ORAL DISCONT INUED (EDIT) 11/21/2023 [id number] Lynn KILGORE R 2022 30 [facility] PREDNISONE 20MG TAB PREDNISO NE 20MG TAB TAKE TWO TABLETS BY MOUTH EVERY MORNING FOR ASTHMA EXACERBA TION ASTHMA EXACERBA TION Nov 22, 2022 10 Dec 22, 2022 [id number] Nov 26, [address] [facility] ORAL 12/22/2022 [id number] NICKO GONZALEZ BABATUNDE Hough 2022 10 [facility] SERTRALINE HCL 100MG TAB SERTRALI NE HCL 100MG TAB Active: Susp TAKE 2 TABLETS (200 MG) BY MOUTH EVERY MORNING FOR PTSD FOR PTSD Dec 17, 2023 180 Dec 17, 2024 [id number] Mar 07, [address] [facility] ORAL SUSPEND ED 12/17/2024 [id number] Lynn KILGORE R 2023 180 [facility] SERTRALINE HCL 100MG TAB SERTRALI NE HCL 100MG TAB Disconti nued TAKE ONE-HALF TABLET BY MOUTH EVERY MORNING FOR 7 DAYS, THEN TAKE ONE TABLET (100 MG) EVERY MORNING FOR 7 DAYS, THEN TAKE 2 TABLETS (200 MG) EVERY MORNING FOR PTSD FOR PTSD Nov 05, 2023 43 Nov 05, 2024 [id number] Nov 05, [address] [facility] ORAL DISCONT INUED 11/05/2024 [id number] Lynn KILGORE R 2023 43 [facility] SERTRALINE HCL 100MG TAB SERTRALI NE HCL 100MG TAB Disconti nued TAKE 2 TABLETS (200 MG) BY MOUTH EVERY MORNING FOR PTSD FOR PTSD Dec 17, 2023 60 Nov 05, 2024 [id number] Dec 17, [address] [facility] ORAL DISCONT INUED (EDIT) 11/05/2024 [id number] Lynn KILGORE R 2023 60 [facility] SERTRALINE HCL 100MG TAB SERTRALI NE HCL 100MG TAB Disconti nued TAKE TWO TABLETS BY MOUTH EVERY MORNING FOR MOOD FOR MOOD Apr 09, 2023 180 Apr 09, 2024 [id number] A Jun 10, [address] [facility] ORAL DISCONT INUED BY PROVIDE R 04/09/2024 [id number] Lynn KILGORE R 2023 180 [facility] SERTRALINE HCL 100MG TAB SERTRALI NE HCL 100MG TAB Disconti nued TAKE TWO TABLETS BY MOUTH EVERY MORNING FOR MOOD FOR MOOD Jul 26, 2022 180 Jul 27, 2023 [id number] Mar 22, 2023 DASIA KILGOREO [facility] ORAL DISCONT INUED 07/27/2023 [id number] Lynn KILGORE 2022 180 [place] [facility] TAMSULOSIN HCL 0.4MG CAP TAMSULOS IN HCL 0.4MG CAP Active: Susp TAKE ONE CAPSULE BY MOUTH EVERY DAY FOR URINARY SYMPTOMS FOR URINARY SYMPTOMS Nov 06, 2023 90 Nov 06, 2024 [id number] Feb 11, 2024 NICHOLE HUGHES [facility] ORAL SUSPEND ED 11/06/2024 [id number] NICANOR HUGHES 2023 90 [place] [facility] TAMSULOSIN HCL 0.4MG CAP TAMSULOS IN HCL 0.4MG CAP Disconti nued TAKE ONE CAPSULE BY MOUTH EVERY DAY FOR URINARY SYMPTOMS October 25, 2023 30 October 25, 2024 [id number] A October 27, 2023 NICHOLE HUGHES [facility] ORAL DISCONT INUED (EDIT) 10/25/2024 [id number] NICANOR HUGHES 2023 30 [place] [facility] TAMSULOSIN HCL 0.4MG CAP TAMSULOS IN HCL 0.4MG CAP Disconti nued TAKE ONE CAPSULE BY MOUTH EVERY DAY FOR URINARY SYMPTOMS OF BPH Feb 12, 2023 30 Feb 13, 2024 [id number] Sep 16, [address] [facility] ORAL DISCONT INUED 02/13/2024 [id number] NETTIE CHEEMA 2022 30 [place] [facility] TAMSULOSIN HCL 0.4MG CAP TAMSULOS IN HCL 0.4MG CAP Disconti nued TAKE ONE CAPSULE BY MOUTH EVERY DAY FOR URINARY SYMPTOMS OF BPH Jun 25, 2022 90 Jun 26, 2023 [id number] Mar 02, [address] [facility] ORAL DISCONT INUED 06/26/2023 [id number] ANETTE,NETTIE GARCIA 2022 90 [facility] VENLAFAXINE HCL 75MG 24HR CAP,SA VENLAFAX INE HCL 75MG 24HR CAP,SA Disconti nued TAKE ONE CAPSULE BY MOUTH EVERY MORNING FOR 7 DAYS, THEN TAKE TWO CAPSULES EVERY MORNING FOR PTSD FOR PTSD Jul 23, 2023 53 Jul 23, 2024 [id number] Jul 24, [address] [facility] ORAL DISCONT INUED BY PROVIDE R 07/23/2024 [id number] Lynn KILGORE R 2023 53 [facility] Allergies, Adverse Reactions, Alerts Combined list of allergies from Department of Defense and Veterans Affairs facilities. It does not include entries that were removed or entered in error. Substance Category Reaction Severity Reaction type Status Date Reported Comments Source CODEINE Propensity to adverse reactions to drug (finding) Eruption active 9 [facility] CODEINE Propensity to adverse reactions to drug (finding) Eruption MILD active 4 [facility] Immunizations Combined list of available immunizations from the Department of Defense and Veterans Affairs facilities. Immunization Series Date Given Administered By Site Reaction Lot Number CVX Code Drug Esthetician Makeup Artist Status Comments Source COVID-19 (Validroid), MRNA, LNP-S, PF, CARLOS-SUCROSE, 30 MCG/0.3 ML (AGES 12+ YEARS) 1 2022 HIREN SALEH RIGHT DELTO ID [id number] 309 complet ed [facility] INFLUENZA, HIGH-DOSE, QUADRIVALENT 2022 HUNTER COREA LEFT DELTO ID [id number] A 197 complet ed [facility] COVID-19, MRNA, LNP-S, BIVALENT BOOSTER, PF, 30 MCG/0.3 ML DOSE 1 2021 300 complet ed PFR; [id number]; 3 [facility] INFLUENZA VACCINE, QUADRIVALENT, ADJUVANTED 2021 205 complet ed [facility] COVID-19 (PFIZER), MRNA, LNP-S, PF, 30 MCG/0.3 ML DOSE 3 2020 208 complet ed PFR; [id number]; 2 [facility] INFLUENZA, HIGH-DOSE, QUADRIVALENT 2020 197 complet ed [facility] PNEUMOCOCCAL POLYSACCHARID E PPV23 2020 33 complet ed [facility] TDAP 2020 115 complet ed [facility] COVID-19 (PFIZER), MRNA, LNP-S, PF, 30 MCG/0.3 ML DOSE 2 2020 208 complet ed PFR; [id number]; 1 [facility] COVID-19 (PFIZER), MRNA, LNP-S, PF, 30 MCG/0.3 ML DOSE 1 2020 208 complet ed PFR; [id number]; 1 [facility] INFLUENZA, HIGH-DOSE, QUADRIVALENT 2019 197 complet ed [facility] INFLUENZA, UNSPECIFIED FORMULATION 2019 88 complet ed [facility] HEP A, ADULT 2018 52 complet ed [facility] ZOSTER RECOMBINANT 2 2018 187 complet ed [facility] HEP A, ADULT 2018 52 complet ed [facility] ZOSTER RECOMBINANT 1 2018 187 complet ed [facility] INFLUENZA, HIGH DOSE SEASONAL 2017 135 complet ed [facility] INFLUENZA, HIGH DOSE SEASONAL 2017 135 complet ed [facility] PNEUMOCOCCAL CONJUGATE PCV 13 2017 133 complet ed [facility] INFLUENZA, HIGH DOSE SEASONAL 2016 135 complet ed [facility] PNEUMOCOCCAL CONJUGATE PCV 13 2016 133 complet ed [facility] TDAP 2016 115 complet ed [facility] PNEUMOCOCCAL POLYSACCHARID E PPV23 2015 33 complet ed [facility] INFLUENZA, HIGH DOSE SEASONAL 2015 135 complet ed [facility] INFLUENZA, INJECTABLE, QUADRIVALENT 2014 158 complet ed [facility] PNEUMOCOCCAL CONJUGATE PCV 13 2013 133 complet ed [facility] INFLUENZA, SEASONAL, INJECTABLE 2013 141 complet [facility] ZOSTER LIVE 2011 121 complet ed [facility] INFLUENZA, SEASONAL, INJECTABLE 2010 141 complet ed [facility] INFLUENZA, SEASONAL, INJECTABLE 2009 141 complet [facility] INFLUENZA, INJECTABLE, QUADRIVALENT, PRESERVATIVE FREE 2009 150 complet [facility] NOVEL INFLUENZA-H1N 1-09, ALL FORMULATIONS 2009 128 complet [facility] INFLUENZA, SEASONAL, INJECTABLE 2008 141 complet [facility] TDAP 2007 115 complet [facility] TD (ADULT), 2 LF TETANUS TOXOID, PRESERVATIVE FREE, ADSORBED 1997 09 complet [facility] TD (ADULT), 2 LF TETANUS TOXOID, PRESERVATIVE FREE, ADSORBED 1995 09 complet [facility] Results Combined list of recent chemistry, hematology and other laboratory results from Department of Defense and Veterans Affairs, ranging from 15 months to all on record, depending upon the facility. Order Name Results Value Reference Range Date Interpretation Specimen Comments Source CT PANEL CREATININE [MASS/VOLU ME] IN SERUM OR PLASMA 1.0 mg/dL 0.7 - 1.3 09/08 Specimen Type: PLASMA No comment entered. Ordering Provider: KELLY AYERS Report Released Date/Time: Sep 09, 2023 02:12 PM Reporting Lab: [place] [phone] Performing Lab: [place] [phone] [place] [address] CT PANEL UREA NITROGEN [MASS/VOLU ME] IN SERUM OR PLASMA 17 mg/dL 7 - 20.6 09/08 Specimen Type: PLASMA No comment entered. Ordering Provider: KELLY AYERS Report Released Date/Time: Sep 09, 2023 02:12 PM Reporting Lab: [address] [address] Performing Lab: [place] [phone] [facility] CT PANEL GLOMERULAR FILTRATION RATE/1.73 SQ M.PREDICTE D [VOLUME RATE/AREA] IN SERUM, PLASMA OR BLOOD BY CREATININE -BASED FORMULA (CKD-EPI 2020) 79 mL/min 90 09/08 Specimen Type: PLASMA No comment entered. Ordering Provider: KELLY AYERS Report Released Date/Time: Sep 09, 2023 02:12 PM Reporting Lab: [address] [address] Performing Lab: [address] [address] [facility] HBsAg HEPATITIS B VIRUS SURFACE AG [PRESENCE] IN SERUM POSITIVE 05/28 H Specimen Type: SERUM No comment entered. Ordering Provider: OPAL JOSEPH Report Released Date/Time: May 28, 2023 02:45 PM Reporting Lab: [facility] [address] Performing Lab: [facility] [id number] [place] [facility] HEPATITI S B e ANTIBODY HEPATITIS B VIRUS E AB [PRESENCE] IN SERUM Reactive 05/28 Specimen Type: SERUM Comment: normalcy status - Abnormal NOTE: THIS RESULT IS FLAGGED ABNORMAL Reference range: Nonreactive For additional information , please refer to https://[employer]/faq/F AQ202 (This link is being provided for information al/ educational purposes only.) Test Performed by [facility], [facility][1], [address] [place] [address] Bryan Patel M.D., Ph.D., Director of Laboratorie s , CLIA [id number] Ordering Provider: OPAL JOSEPH Report Released Date/Time: May 28, 2023 02:45 PM Reporting Lab: [facility] [phone] Performing Lab: [address] [place] [facility] HEPATITI S B e ANTIGEN HEPATITIS B VIRUS E AG [PRESENCE] IN SERUM Nonreact ana maria 05/28 Specimen Type: SERUM Comment: Reference range: Nonreactive For additional information , please refer to [email or web address]/faq/F AQ202 (This link is being provided for information al/ educational purposes only.) Test Performed by [employer], [address] [place] [address] Bryan Patel M.D., Ph.D., Director of Laboratorie s , CLIA [id number] Ordering Provider: OPAL JOSEPH Report Released Date/Time: May 28, 2023 02:45 PM Reporting Lab: [facility] [phone] Performing Lab: [address] [facility] IS [facility] HEPATITI S B VIRAL LOAD HEPATITIS B VIRUS DNA [#/VOLUME] (VIRAL LOAD) IN SERUM OR PLASMA BY AMINTA WITH PROBE DETECTION [facility] 05/28 Specimen Type: SERUM Comment: Test not performed. Initial testing necessitate d a repeat, but there was insufficien t sample to perform repeat. Test Performed by [email or web address], [address] [place] [address] Bryan Patel M.D., Ph.D., Director of Laboratorie s , CLIA [id number] Cancellatio n reported to: Dr. Yara Joseph @0949 06/04/2023 [facility] Ordering Provider: OPAL JOSEPH Report Released Date/Time: May 28, 2023 02:45 PM Reporting Lab: [facility] [phone] Performing Lab: [address] [facility] IS [facility] HEPATITI S B VIRAL LOAD HEPATITIS B VIRUS DNA [UNITS/VOL UME] (VIRAL LOAD) IN SERUM OR PLASMA BY AMINTA WITH PROBE DETECTION [facility] 05/28 Specimen Type: SERUM Comment: Test not performed. Initial testing necessitate d a repeat, but there was insufficien t sample to perform repeat. Test Performed by [facility], [employer], [address] [place] [address] Bryan Patel M.D., Ph.D., Director of Laboratorie s , CLIA [id number] Cancellatio n reported to: Dr. Yara Joseph @0949 06/04/2023 DJ Ordering Provider: OPAL JOSEPH Report Released Date/Time: May 28, 2023 02:45 PM Reporting Lab: [facility] [address] Performing Lab: [address] [place] [facility] CBC LEUKOCYTES [#/VOLUME] IN BLOOD BY AUTOMATED COUNT 7.69 10*3/uL 4.0 - 11.0 04/09 Specimen Type: BLOOD No comment entered. Ordering Provider: ZOE KERR Report Released Date/Time: Apr 16, 2022 03:03 PM Reporting Lab: [facility] [address] Performing Lab: [facility] [address] [place] [facility] CBC ERYTHROCYT ES [#/VOLUME] IN BLOOD BY AUTOMATED COUNT 5.01 10*6/uL 4.6 - 6.2 04/09 Specimen Type: BLOOD No comment entered. Ordering Provider: ZOE KERR Report Released Date/Time: Apr 16, 2022 03:03 PM Reporting Lab: [facility] [address] Performing Lab: [facility] [address] [place] [facility] CBC HEMOGLOBIN [MASS/VOLU ME] IN BLOOD 14.9 g/dL 13.5 - 17.9 04/09 Specimen Type: BLOOD No comment entered. Ordering Provider: ZOE KERR Report Released Date/Time: Apr 16, 2022 03:03 PM Reporting Lab: [facility] [address] Performing Lab: [facility] [address] [place] [facility] CBC HEMATOCRIT [VOLUME FRACTION] OF BLOOD BY AUTOMATED COUNT 45.3 41 - 54 04/09 Specimen Type: BLOOD No comment entered. Ordering Provider: ZOE KERR Report Released Date/Time: Apr 16, 2022 03:03 PM Reporting Lab: [facility] [address] Performing Lab: [facility] [address] [place] [facility] CBC MCV [ENTITIC VOLUME] BY AUTOMATED COUNT 90.4 fL 80 - 100 04/09 Specimen Type: BLOOD No comment entered. Ordering Provider: ZEO KERR Report Released Date/Time: Apr 16, 2022 03:03 PM Reporting Lab: [facility] [address] Performing Lab: [facility] [address] [place] [facility] CBC MCH [ENTITIC MASS] BY AUTOMATED COUNT 29.7 pg 27 - 33 04/09 Specimen Type: BLOOD No comment entered. Ordering Provider: ZOE KERR Report Released Date/Time: Apr 16, 2022 03:03 PM Reporting Lab: [facility] [address] Performing Lab: [facility] [address] [place] [facility] CBC MCHC [MASS/VOLU ME] BY AUTOMATED COUNT 32.9 g/dL 32.0 - 37.5 04/09 Specimen Type: BLOOD No comment entered. Ordering Provider: ZOE KERR Report Released Date/Time: Apr 16, 2022 03:03 PM Reporting Lab: [facility] [address] Performing Lab: [facility] [address] [place] [facility] CBC PLATELETS [#/VOLUME] IN BLOOD BY AUTOMATED COUNT 202 10*3/uL 150 - 400 04/09 Specimen Type: BLOOD No comment entered. Ordering Provider: ZOE KERR Report Released Date/Time: Apr 16, 2022 03:03 PM Reporting Lab: [facility] [address] Performing Lab: [facility] [address] [place] [facility] CBC PLATELET MEAN VOLUME [ENTITIC VOLUME] IN BLOOD BY AUTOMATED COUNT 10.4 fL 7.4 - 10.4 04/09 Specimen Type: BLOOD No comment entered. Ordering Provider: ZOE KERR Report Released Date/Time: Apr 16, 2022 03:03 PM Reporting Lab: [facility] [address] Performing Lab: [facility] [address] [place] [facility] CBC ERYTHROCYT E DISTRIBUTI ON WIDTH [RATIO] BY AUTOMATED COUNT 14.6 11.5 - 14.5 04/09 H Specimen Type: BLOOD No comment entered. Ordering Provider: ZOE KERR Report Released Date/Time: Apr 16, 2022 03:03 PM Reporting Lab: [facility] [address] Performing Lab: [facility] [address] [place] [facility] COMPREHE NSIVE METABOLI C PANEL+MG CREATININE [MASS/VOLU ME] IN SERUM OR PLASMA 1.1 mg/dL 0.7 - 1.2 04/09 Specimen Type: PLASMA No comment entered. Ordering Provider: ZOE KERR Report Released Date/Time: Apr 16, 2022 03:03 PM Reporting Lab: [facility] [address] Performing Lab: [facility] [address] [place] [facility] COMPREHE NSIVE METABOLI C PANEL+MG UREA NITROGEN [MASS/VOLU ME] IN SERUM OR PLASMA 17 mg/dL 8 - 26 04/09 Specimen Type: PLASMA No comment entered. Ordering Provider: ZOE KERR Report Released Date/Time: Apr 16, 2022 03:03 PM Reporting Lab: [facility] [address] Performing Lab: [facility] [address] [place] [facility] COMPREHE NSIVE METABOLI C PANEL+MG GLUCOSE [MASS/VOLU ME] IN SERUM OR PLASMA 112 mg/dL 70 - 100 04/09 H Specimen Type: PLASMA No comment entered. Ordering Provider: ZOE KERR Report Released Date/Time: Apr 16, 2022 03:03 PM Reporting Lab: [facility] [address] Performing Lab: [facility] [address] [place] [facility] COMPREHE NSIVE METABOLI C PANEL+MG SODIUM [MOLES/VOL UME] IN SERUM OR PLASMA 140 mmol/L 136 - 145 04/09 Specimen Type: PLASMA No comment entered. Ordering Provider: ZOE KERR Report Released Date/Time: Apr 16, 2022 03:03 PM Reporting Lab: [facility] [address] Performing Lab: [facility] [address] [place] [facility] COMPREHE NSIVE METABOLI C PANEL+MG POTASSIUM [MOLES/VOL UME] IN SERUM OR PLASMA 4.2 mmol/L 3.5 - 5.1 04/09 Specimen Type: PLASMA No comment entered. Ordering Provider: ZOE KERR Report Released Date/Time: Apr 16, 2022 03:03 PM Reporting Lab: [facility] [address] Performing Lab: [facility] [address] [place] [facility] COMPREHE NSIVE METABOLI C PANEL+MG CHLORIDE [MOLES/VOL UME] IN SERUM OR PLASMA 106 mmol/L 98 - 107 04/09 Specimen Type: PLASMA No comment entered. Ordering Provider: ZOE KERR Report Released Date/Time: Apr 16, 2022 03:03 PM Reporting Lab: [facility] [address] Performing Lab: [facility] [address] [place] [facility] COMPREHE NSIVE METABOLI C PANEL+MG CARBON DIOXIDE, TOTAL [MOLES/VOL UME] IN SERUM OR PLASMA 25 mmol/L 22 - 29 04/09 Specimen Type: PLASMA No comment entered. Ordering Provider: ZOE KERR Report Released Date/Time: Apr 16, 2022 03:03 PM Reporting Lab: [facility] [address] Performing Lab: [facility] [address] [place] [facility] COMPREHE NSIVE METABOLI C PANEL+MG CALCIUM [MASS/VOLU ME] IN SERUM OR PLASMA 9.4 mg/dL 8.4 - 10.2 04/09 Specimen Type: PLASMA No comment entered. Ordering Provider: ZOE KERR Report Released Date/Time: Apr 16, 2022 03:03 PM Reporting Lab: [facility] [address] Performing Lab: [facility] [address] [place] [facility] COMPREHE NSIVE METABOLI C PANEL+MG PROTEIN [MASS/VOLU ME] IN SERUM OR PLASMA 7.6 g/dL 6.0 - 8.3 04/09 Specimen Type: PLASMA No comment entered. Ordering Provider: ZOE KERR Report Released Date/Time: Apr 16, 2022 03:03 PM Reporting Lab: [facility] [address] Performing Lab: [facility] [address] [place] [facility] COMPREHE NSIVE METABOLI C PANEL+MG ALBUMIN [MASS/VOLU ME] IN SERUM OR PLASMA 4.3 g/dL 3.5 - 5.2 04/09 Specimen Type: PLASMA No comment entered. Ordering Provider: ZOE KERR Report Released Date/Time: Apr 16, 2022 03:03 PM Reporting Lab: [facility] [address] Performing Lab: [facility] [address] [place] [facility] COMPREHE NSIVE METABOLI C PANEL+MG BILIRUBIN. TOTAL [MASS/VOLU ME] IN SERUM OR PLASMA 0.7 mg/dL 0.2 - 1.2 04/09 Specimen Type: PLASMA No comment entered. Ordering Provider: ZOE KERR Report Released Date/Time: Apr 16, 2022 03:03 PM Reporting Lab: [facility] [address] Performing Lab: [facility] [address] [place] [facility] COMPREHE NSIVE METABOLI C PANEL+MG MAGNESIUM [MASS/VOLU ME] IN SERUM OR PLASMA 1.9 mg/dL 1.6 - 2.6 04/09 Specimen Type: PLASMA No comment entered. Ordering Provider: ZOE KERR Report Released Date/Time: Apr 16, 2022 03:03 PM Reporting Lab: [facility] [address] Performing Lab: [facility] [address] [place] [facility] COMPREHE NSIVE METABOLI C PANEL+MG ANION GAP IN SERUM OR PLASMA 9 mmol/L 5 - 15 04/09 Specimen Type: PLASMA No comment entered. Ordering Provider: ZOE KERR Report Released Date/Time: Apr 16, 2022 03:03 PM Reporting Lab: [facility] [address] Performing Lab: [facility] [address] [place] [facility] COMPREHE NSIVE METABOLI C PANEL+MG ALKALINE PHOSPHATAS E [ENZYMATIC ACTIVITY/V OLUME] IN SERUM OR PLASMA 75 U/L 40 - 150 04/09 Specimen Type: PLASMA No comment entered. Ordering Provider: ZOE KERR Report Released Date/Time: Apr 16, 2022 03:03 PM Reporting Lab: [facility] [address] Performing Lab: [facility] [address] [place] [facility] COMPREHE NSIVE METABOLI C PANEL+MG ALANINE AMINOTRANS FERASE [ENZYMATIC ACTIVITY/V OLUME] IN SERUM OR PLASMA 29 U/L <55 - 55 04/09 Specimen Type: PLASMA No comment entered. Ordering Provider: ZOE KERR Report Released Date/Time: Apr 16, 2022 03:03 PM Reporting Lab: [facility] [address] Performing Lab: [facility] [address] [place] [facility] COMPREHE NSIVE METABOLI C PANEL+MG ASPARTATE AMINOTRANS FERASE [ENZYMATIC ACTIVITY/V OLUME] IN SERUM OR PLASMA 26 U/L <34 - 34 04/09 Specimen Type: PLASMA No comment entered. Ordering Provider: ZOE KERR Report Released Date/Time: Apr 16, 2022 03:03 PM Reporting Lab: [facility] [address] Performing Lab: [facility] [address] [place] [facility] COMPREHE NSIVE METABOLI C PANEL+MG GLOMERULAR FILTRATION RATE/1.73 SQ M.PREDICTE D [VOLUME RATE/AREA] IN SERUM, PLASMA OR BLOOD BY CREATININE -BASED FORMULA (CKD-EPI 2020) 71 60 04/09 Specimen Type: PLASMA No comment entered. Ordering Provider: ZOE KERR Report Released Date/Time: Apr 16, 2022 03:03 PM Reporting Lab: [facility] [address] Performing Lab: [facility] [address] [place] [facility] LIPID PANEL,NO N-FASTIN G CHOLESTERO L [MASS/VOLU ME] IN SERUM OR PLASMA 135 mg/dL <199 - 199 04/09 Specimen Type: PLASMA No comment entered. Ordering Provider: ZOE KERR Report Released Date/Time: Apr 16, 2022 03:03 PM Reporting Lab: [facility] [address] Performing Lab: [facility] [address] [place] [facility] LIPID PANEL,NO N-FASTIN G CHOLESTERO L IN HDL [MASS/VOLU ME] IN SERUM OR PLASMA 37 mg/dL 40 04/09 L Specimen Type: PLASMA No comment entered. Ordering Provider: ZOE KERR Report Released Date/Time: Apr 16, 2022 03:03 PM Reporting Lab: [facility] [address] Performing Lab: [facility] [address] [place] [facility] LIPID PANEL,NO N-FASTIN G CHOLESTERO L IN LDL [MASS/VOLU ME] IN SERUM OR PLASMA BY CALCULATIO N 78 mg/dL <99 - 99 04/09 Specimen Type: PLASMA No comment entered. Ordering Provider: ZOE KERR Report Released Date/Time: Apr 16, 2022 03:03 PM Reporting Lab: [facility] [address] Performing Lab: [facility] [address] [place] [facility] LIPID PANEL,NO N-FASTIN G CHOLESTERO L IN VLDL [MASS/VOLU ME] IN SERUM OR PLASMA BY CALCULAZURDO N 20 mg/dL <29 - 29 04/09 Specimen Type: PLASMA No comment entered. Ordering Provider: ZOE KERR Report Released Date/Time: Apr 16, 2022 03:03 PM Reporting Lab: [facility] [address] Performing Lab: [place] [address] [place] [facility] LIPID PANEL,NO N-FASTIN G CHOLESTERO L NON HDL [MASS/VOLU ME] IN SERUM OR PLASMA 98 mg/dL <129 - 129 04/09 Specimen Type: PLASMA No comment entered. Ordering Provider: ZOE KERR Report Released Date/Time: Apr 16, 2022 03:03 PM Reporting Lab: [facility] [address] Performing Lab: [place] [address] [place] [facility] LIPID PANEL,NO N-FASTIN G TRIGLYCERI DE [MASS/VOLU ME] IN SERUM OR PLASMA 100 mg/dL <149 - 149 04/09 Specimen Type: PLASMA No comment entered. Ordering Provider: ZOE KERR Report Released Date/Time: Apr 16, 2022 03:03 PM Reporting Lab: [facility] [address] Performing Lab: [facility] [address] [facility] HEPATITI S B e ANTIBODY HEPATITIS B VIRUS E AB [PRESENCE] IN SERUM Reactive 10/08 Specimen Type: SERUM Comment: normalcy status - Abnormal NOTE: THIS RESULT IS FLAGGED ABNORMAL Reference range: Nonreactive For additional information , please refer to [email or web address] Education Systems/faq/F [email or web address] (This link is being provided for information al/ educational purposes only.) Test Performed by [facility], [facility][1], [address] [place] [address] Bryan Patel M.D., Ph.D., Director of Laboratorie s , CLIA [id number] Ordering Provider: OPAL JOSEPH Report Released Date/Time: May 31, 2022 10:08 AM Reporting Lab: [facility] [address] Performing Lab: [address] [facility] HEPATITI S D AB TOTAL HEPATITIS D VIRUS AB [UNITS/VOL UME] IN SERUM BY IMMUNOASSA Y NEGATIVE 10/08 Specimen Type: SERUM Comment: REFERENCE RANGE: NEGATIVE INTERPRETIV E CRITERIA: NEGATIVE: Antibody not detected POSITIVE: Antibody detected HDV infection occurs only in association with HBV infection. Detection of HDV total antibody may indicate acute infection, chronic infection, or past infection with recovery. Measurement of HDV IgM may help distinguish among these three infection categories; however, because HDV IgM may persist in chronic infection, HDV RNA PCR testing can also be considered as an aid in the diagnosis and staging of infection. This test was developed and its analytical performance characteris tics have been determined by [employer] . It has not been cleared or approved by FDA. This assay has been validated pursuant to the CLIA regulations and is used for clinical purposes. Test performed by [facility] [address] [place] [address] Phone: [place] Attendant: Selma Storm MD,PHD,AVERY Test Reported by [facility], [facility], [address] [place] [address] Bryan Patel M.D., Ph.D., Director of Laboratorie s , CLIA [id number] Ordering Provider: OPAL JOSEPH Report Released Date/Time: May 31, 2022 02:15 PM Reporting Lab: [facility] [address] Performing Lab: [address] [facility] Vital Signs Combined list of inpatient and outpatient Vital Signs from Department of Defense and Veterans Affairs, ranging from 12 months to all on record, depending upon the facility. Vital Sign Value Date Comments Source Encounters Combined list of: 1) Encounters from Department of Veterans Affairs facilities going back up to thelast 18 months. 2) Encounters from the Department of Defense facilities going back up to 280 months. Location Location Details Encounter Type Encounter Number Reason For Visit Attending Provider ADM Date DC Date Status Disposition Source [facility] Outpatient Encounter [id number] Diagnos is: ICD-10- CM F43.12 Post-tr aumatic stress disorde r, chronic
ARTURO KILGORE ULO R 07/26 [facility] Outpatient Encounter [id number] 07/27 [facility] Outpatient Encounter [id number] Diagnos is: ICD-10- CM Z77.028 Contact w and exposur e to oth hazardo us aromati c compoun ds
TARYN CASTANEDA P 08/23 [facility] Outpatient Encounter [id number] 10/05 [facility] INJ [place] [id number] Diagnos is: ICD-10- CM Z12.11 Encount er for screeni ng for maligna nt neoplas m of colon<b r/> NOHEMI LEWIS 10/08 [facility] Outpatient Encounter [id number] NOAH GARCIA 10/11 [facility] Outpatient Encounter [id number] 10/12 [facility] Outpatient Encounter [id number] Diagnos is: ICD-10- CM I10 Essenti al (primar y) hyperte nsion<b r/> ALESSIO SOTELO 10/22 [facility] OFFICE O/P EST MOD 30-39 MIN [id number] Diagnos is: ICD-10- CM F33.1 Major depress ana maria disorde r, recurre nt, moderat e
ARTURO KILGORE ULO R 11/20 [facility] Outpatient Encounter [id number] Diagnos is: ICD-10- CM R06.83 Snoring
SAVAGE DUBON J 11/21 [facility] OFFICE O/P EST MOD 30-39 MIN [id number] Diagnos is: ICD-10- CM J45.41 Moderat e persist ent asthma with (acute) exacerb ation<b r/> SUSANABEATRIZ ALEX H 11/22 [facility] Outpatient Encounter [id number] 12/10 [facility] Outpatient Encounter [id number] 12/11 [facility] Outpatient Encounter [id number] 12/18 [facility] UNLISTED PULMONARY SVC/PX [id number] Diagnos is: ICD-10- CM G47.33 Obstruc tive sleep apnea (adult) (pediat sunitha)
NICANOR MITCHELL 12/21 [facility] Outpatient Encounter [id number] Diagnos is: ICD-10- CM G47.33 Obstruc tive sleep apnea (adult) (pediat sunitha)
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
Ko FARAH 01/04 [facility] PRO PHONE CALL 11-20 MIN [id number] Diagnos is: ICD-10- CM G47.33 Obstruc tive sleep apnea (adult) (pediat sunitha)
JUDY VASQUEZ ICA S 01/09 [facility] Outpatient Encounter [id number] JUDY VASQUEZ ICA S 01/09 [facility] HC PRO PHONE CALL 5-10 MIN [id number] Diagnos is: ICD-10- CM G47.33 Obstruc tive sleep apnea (adult) ([facility] sunitha)
JUDY VASQUEZ ICA S 01/16 [facility] IMMUNIZATI ON ADMIN [id number] Diagnos is: ICD-10- CM Z23 Encount er for immuniz ation<b r/> DE CRISTINA 02/28 [facility] OFFICE O/P EST MOD 30-39 MIN [id number] Diagnos is: ICD-10- CM J45.40 Moderat e persist ent asthma, uncompl icated< br/> BEATRIZ MEZA H 02/28 [facility] OFFICE O/P NEW LOW 30-44 MIN [id number] Diagnos is: ICD-10- CM Z77.028 Contact w and exposur e to oth hazardo us aromati c compoun ds
SHARRON MAGAÑA JR 04/08 [facility] OFFICE O/P EST MOD 30-39 MIN [id number] Diagnos is: ICD-10- CM F41.9 Anxiety disorde r, unspeci fied
SHIRARTURO ALCOCER ULO R 04/09 [facility] OFFICE O/P NEW MOD 45-59 MIN [id number] Diagnos is: ICD-10- CM L57.0 Actinic keratos is
EMIGDIO MARSHALL 04/22 [facility] OFFICE O/P EST MOD 30-39 MIN [id number] Diagnos is: ICD-10- CM B16.9 Acute hepatit is B w/o delta-a gent and without hepatic coma
NICKO JOSEPH W 05/28 [place] [facility] [place] [facility] Outpatient Encounter [id number] 06/26 [place] [place] [id number] Diagnos is: ICD-10- CM B16.9 Acute hepatit is B w/o delta-a gent and without hepatic coma
JESE DOUGLASS 06/26 [facility] Outpatient Encounter [id number] 07/04 [facility] Outpatient Encounter [id number] ABIOLA MILAGRO A 07/[address] [place] [facility] TARGETED CASE MANAGEMENT [id number] KAREN RODRIGUEZ 07/05 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
FLACO CANDELARIO 07/[address] [facility] Outpatient Encounter [id number] 07/10 [facility] TARGETED CASE MANAGEMENT [id number] MICHAELKAREN STEINER L 07/10 [facility] Outpatient Encounter [id number] 07/10 [facility] [place] [facility] Outpatient Encounter [id number] ROXANA CULVER MILAGRO A 07/12 [place] [facility] TARGETED CASE MANAGEMENT [id number] KAREN RODRIGUEZ JATIN L 07/12 [facility] [place] [facility] OFFICE O/P EST MOD 30 MIN [id number] Diagnos is: ICD-10- CM F43.12 Post-tr aumatic stress disorde r, chronic
SHIRARTURO ALCOCER ULO R 07/23 [facility] Outpatient Encounter [id number] MANI TORRES R 08/11 [place] [facility] Outpatient Encounter [id number] KELLY AYERS 09/08 [facility] Outpatient Encounter [id number] KELLY AYERS 09/08 [facility] Outpatient Encounter [id number] 09/11 [place] [facility] Outpatient Encounter [id number] 09/11 [facility] [place] [facility] Outpatient Encounter [id number] Gianluca RIDDLE 09/12 [place] [facility] Outpatient Encounter [id number] ROXANA CULVER A 09/15 [place] [facility] Outpatient Encounter [id number] KELLY AYERS 09/15 [facility] Outpatient Encounter [id number] ARMENSILVINAKELLY C 09/15 [facility] OFFICE O/P EST LOW 20 MIN [id number] Diagnos is: ICD-10- CM L02.424 Furuncl e of left upper limb
Fernando KELLY IMBERLY 10/09 [facility] Outpatient Encounter [id number] 10/21 [facility] Outpatient Encounter [id number] 10/24 [facility] PRO PHONE CALL 5-10 MIN [phone] Diagnos is: ICD-10- CM N40.1 Benign prostat ic hyperpl dash with lower urinary tract symp
FLACO LANDRY P 10/24 [facility] OFFICE O/P EST MOD 30 MIN [id number] [phone] Diagnos is: ICD-10- CM F41.9 Anxiety disorde r, unspeci fied
ARTURO KILGORE R 11/04 [facility] Social History Combined list of available smoking, tobacco, and other social history from Department of Defense and Veterans Affairs facilities. Social History Type Response Date Comment Sour e Tobacco smoking status HIIS VA-TOBACCO FORMER USER 04/08/2023 [facility] History of tobacco use AL-TOBACCO QUIT 1 5 YRS OR MORE 04/08/2023 [facility] History of tobacco use AL-TOBACCO QUIT 1 5 YRS OR MORE 03/15/2022 [facility] History of tobacco use AL-TOBACCO FORMER USER 01/24/2021 [facility] History of tobacco use AL-TOBACCO FORMER USER 08/10/2018 [facility] Plan of Care List of future care activities from Department of Veterans Affairs facilities. Additional future care activities may be listed in the Assessment and Plan section. Date/Time Care Activity Care Activity Detail Facili ty 02/11/2024 AMBULATORY - PSYCHIATRY AMBULATORY - PSYC HIATRY [facility] 04/06/2024 AMBULATORY - SURGERY AMBULATORY - SURGERY [facility]
--- OUTSIDE RECORDS SUMMARY | 2024-01-16 15:51 | XMS_ITS | Encounter Summary ---
Author Name [facility] [place] [facility] [place] Address [address] [place] [address] Care Team Providers Care Cafe Assistant Name Role Phone NICANOR HUGHES Primary Care [...] Gross's Name Patient's Relationship to Policy Gross [facility] MEDICARE SUPPLEMEN AMANDA MEDIC ARE SUPPL EMENT Jun 03, 2018 [id number] [phone] ANALI SANCHEZ PATIENT [facility] MEDICARE SUPPLEMEN AMANDA MEDIC ARE SUPPL EMENT Jun 03, 2018 [id number] [phone] ANALI SANCHEZ PATIENT MEDICARE (WNR) MEDICARE (M) PART B Nov 01, 2017 PART B [id number] ANALI SANCHEZ PATIENT MEDICARE (WNR) MEDICARE (M) PART B Nov 01, 2017 PART B [id number] ANALI SANCHEZ PATIENT MEDICARE (WNR) MEDICARE (M) PART A Mar 03, 2015 PART A [id number] ANALI SANCHEZ PATIENT MEDICARE (WNR) MEDICARE (M) PART A Mar 03, 2015 PART A [id number] [phone] ANALI SANCHEZ PATIENT MEDICARE PART D (WNR) MEDICARE (M) PART D Nov 01, 2017 PART D [id number] ANALI SANCHEZ PATIENT Selected Encounter This section includes the information on record at [place] for the Encounter. Date/Time Encounter Type Encounter Description Reason Provider Source Apr 09, 2023 02:00 PM OFFICE O/P EST MOD 30-39 MIN PSYCHOGERIATRIC - INDIVIDUAL ICD-10-CM F41.9 Anxiety disorder, unspecified SHIROMA,DASIA R IHE Encounter Template Text not used by [place] Assessments - Encounter Diagnoses This section includes the primary and secondary diagnoses documented for the Encounter. Date/Time Primary/Secondary Diagnosis Diagnosis Name Provider Source Apr 09, 2023 04:01 PM PRIMARY Anxiety disorder, unspecified SHIROMA,DASIA R [facility] Plan of Treatment: Future Appointments (+ 6 months) and Future Tests (+/- 45 days) The Plan of Treatment section includes future care activities for the [facility] [place] [facility] This section includes future appointments and future orders which are active, pending or scheduled. Future Appointments This section includes appointments that were scheduled to occur 6 months from the date of the Encounter, up to a maximum of 20 appointments. The data comes from all [place] treatment facilities. Appointment Date/Time Appointment Type Appointme nt Facility Name Apr 22, 2023 07:30 AM AMBULATORY - SURGERY [facility] May 28, 2023 02:00 PM AMBULATORY - MEDICINE [facility] May 28, 2023 03:00 PM AMBULATORY - NONE [facility] Jun 26, 2023 08:30 AM AMBULATORY - NONE [facility] Jun 26, 2023 12:00 PM AMBULATORY - MEDICINE [facility] Jul 23, 2023 10:00 AM AMBULATORY - PSYCHIATRY [facility] Sep 12, 2023 07:20 PM AMBULATORY - NONE [facility] Lab Results: +/- 30 days of the encounter This section includes the Chemistry and Hematology Lab Results on record with [place] for the patient. Radiology Reports and Pathology Reports are provided separately, in subsequent sections. Lab Results This section contains the Chemistry/Hematology Results that were resulted 30 days before or 30 daysafter the date of the Encounter. Date/Time Source Result Type Result - Unit Interpretation Reference Range Comment Apr 09, 2023 01:20 PM [facility] CBC Specimen Type: BLOOD No comment entered. Ordering Provider: KELLY KERR Report Released Date/Time: Apr 16, 2022 03:03 PM Reporting Lab: [facility] [id number] Performing Lab: [facility] [id number] WBC 7.69 10*3/uL 4.0-11.0 RBC 5.01 10*6/uL 4.6-6.2 HGB 14.9 g/dL 13.5-17.9 HCT 45.3 41-54 MCV 90.4 fL 80-100 MCH 29.7 pg 27-33 MCHC 32.9 g/dL 32.0-37.5 PLT 202 10*3/uL 150-400 MPV 10.4 fL 7.4-10.4 RDW 14.6 H 11.5-14.5 Apr 09, 2023 01:20 PM [facility] LIPID PANEL,NON-FASTING Specimen Type: PLASMA No comment entered. Ordering Provider: KELLY KERR Report Released Date/Time: Apr 16, 2022 03:03 PM Reporting Lab: [facility] [id number] Performing Lab: [facility] [id number] CHOLESTEROL 135 mg/dL <199 .HDL 37 mg/dL L >40 LDL CALCULATION 78 mg/dL <99 VLDL CALCULATION 20 mg/dL <29 NON HDL CHOLESTEROL 98 mg/dL <129 TRIG(NON FASTING) 100 mg/dL <149 Apr 09, 2023 01:20 PM [facility] COMPREHENSIVE METABOLIC PANEL+MG Specimen Type: PLASMA No comment entered. Ordering Provider: KELLY KERR Report Released Date/Time: Apr 16, 2022 03:03 PM Reporting Lab: [facility] [id number] Performing Lab: [facility] [id number] CREATININE 1.1 mg/dL 0.7-1.2 UREA NITROGEN 17 [...] 26 U/L <34 .CREAT EGFR(CKD-EPI) 71 >60 Social History: Smoking Status (Most current) and Tobacco Use (All prior to encounter date) This section includes the most current, and the historical, smoking and tobacco- related health factors from the [facility] where the Encounter took place. Current Smoking Status This section includes the most current smoking, or tobacco-related health factor, from the [place] facility where the Encounter took place. Date/Time Current Smoking Status Comment Facil ity Apr 08, 2023 09:00 AM VA-TOBACCO FORMER USER [facility] Tobacco Use History This section includes a history of the smoking, or tobacco-related health factors, that were collected on or before the date of the Encounter. The data comes from the [facility] where the Encounter took place. Date/Time Smoking Status/Tobacco Use Comment F acility Apr 08, 2023 09:00 AM VA-TOBACCO QUIT 15 YRS OR MORE [facility] Mar 15, 2022 08:30 AM VA-TOBACCO FORMER USER [facility] Mar 15, 2022 08:30 AM VA-TOBACCO QUIT 15 YRS OR MORE [facility] Jan 24, 2021 10:00 AM VA-TOBACCO FORMER USER [facility] Jan 24, 2021 10:00 AM VA-TOBACCO QUIT 15 YRS OR MORE [facility] Aug 10, 2018 06:09 PM VA-TOBACCO FORMER USER [facility] Aug 10, 2018 06:09 PM VA-TOBACCO QUIT 15 YRS OR MORE [facility] Encounter Notes: All associated encounter notes This section contains the clinical notes associated to the Encounter. Date/Time Encounter Note(s) Provider Source Apr 09, 2023 02:36 PM PSYCHIATRY E & M N OTE: LOCAL TITLE: PSYCHIATRIC EVALUATION & MANAGEMENT STANDARD TITLE: PSYCHIATRY E & M NOTE DATE OF NOTE: APR 09, 2023@14:36 ENTRY DATE: APR 09, 2023@14:36:17 AUTHOR: DASIA KILGORE COSIGNER: URGENCY: STATUS: COMPLETED PSYCHIATRIC EVALUATION AND MANAGEMENT FOLLOW UP VISIT MOST RECENT VITALS: Blood Pressure: 121/79 (04/08/2023 08:33) Pulse: 72 (04/08/2023 08:18) Temperature: 96.3 F [35.7 C] (11/22/2022 15:09) Weight: 278 lb [126.10 kg] (04/08/2023 08:18) Body Mass Index: 40.0 IDENTIFICATION: 72 yo retired male [place] who sought care for anxiety and depression. ACTIVE PROBLEMS: Active problems - Computerized Problem List is the source for the followin. HTN - Hypertension ([facility] [id number]) 2. GERD - Gastro-Esophageal Reflux Disease ([facility] [id number]) 3. Anxiety ([facility] [id number] 4. Benign Prostatic Hypertrophy With Outflow Obstruction ([facility] [id number]) 5. Hepatitis B 6. Polyp of colon - 2mm TA 2017; due 2022 INTERVAL HISTORY: Patient was seen for 30-min in person for med management regarding depression and PTSD. Patient is currently on sertraline 200 mg qd and prazosin 2 mg qhs for nightmares. Pt said he did not develop side effects from prazosin and has helped some in term of nightmares; still has at least once a week nightmare that wake him up. He reported reminders for intrusive memories that not always can be pushed away. He is for instance reading a book about chopper during VN and some of the pics bring unpleasant memories back. He is trying to desensitize himself. Not ready yet to commit to trauma based therapy. Pt also reported that he was diagnosed with severe MARILYN but is not wearing CPAP as he is having a hard time adjusting. He claimed he was not counseled on the medical consequences of untreated MARILYN. Pt has HTN,hyperlipidemia, and BMI 39.9 Pt also reported that he is trying to reapply for [place] regarding some medical conditions including B cell carcinoma, HTN and especially HBV. He claimed he never had risk factors to adquire HBV and suspected he got it when he was injected serum with a needleless pneumatic syringe during VN. He said the idea of potentially getting sick from HBV has created a lot of anxiety throughout the years. No psychosis, liz/hypomania or panic attacks. MENTAL STATUS EXAM: General: NAD Ambulation: normal Dress: appropriate Grooming: normal Eye Contact: good Psychomotor Activity: none Abnormal Involuntary Movements: none Speech: Latency: nl Rate: nl Other: Mood: intermittently dysphoric Affect: mildly constricted Thought Process: linear and logical Thought Content: Delusions: none Suicidal Ideation: none Homicidal Ideation: none Perceptual Disturbance: none Insight: fair about illness and need for treatment Judgment: fair Sensorium: intact Attention: normal Suicide risk assessment: Acute: low Chronic: low Risks: older, , male, chronic depression and PTSD. Protective factors: access to health care; support from family; able to follow recommendations and establish therapeutic alliance; on medications; financially stable; future oriented; cognitive intact. EDUCATION / SAFETY / MH TREATMENT PLAN: Treatment goals include minimizing and managing medication side effects, decreasing problematic symptoms and optimizing wellness. Patient's overall Mental Health Treatment reviewed. Patient continues to benefit from psychiatric medications as documented. Medication reconciliation for all medications managed by this prescriber was conducted at current visit. The patient has been told the purpose and side effects of the prescribed psychiatric medications. Informed consent obtained from patient and/or substitute medical decision maker where appropriate. Supportive therapy to optimize wellness, including medications, will be done as indicated during visits by MD, and RN. Patient agrees to contact this clinic with any concerns prior to next appointment. Patient is aware of additional MH services that are available, including emergency room and [facility] options. This plan will be reviewed yearly with patient, or sooner if needs change. This plan was discussed with the patient who acknowledges agreement and understanding. 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 Mood is better with sertraline 200 mg qd (good tolerability). Still intermittent. Tolerated prazosin 2 mg qhs with partial response. Side effects discussed again especially orthostatic hypotension. Continue with sertraline 200 mg qam. Increase prazosin to 4 mg qhs. Education provided about benefits of psychotherapy provided again. F/U in 3 months or PRN phone (pt will be in [place]). /stephan/ DASIA KILGORE MD STAFF PHYSICIAN Signed: 04/09/2023 16:01 DASIA KILGORE [facility]
--- OUTSIDE RECORDS SUMMARY | 2024-01-16 15:52 | XMS_ITS | Encounter Summary ---
Author Name [facility] [place] Organization [facility] [place] Address [address] [place] [address] Care Team Providers Care Body Builder Name Role Phone NICANOR HUGHES Primary Care [...] Gross's Name Patient's Relationship to Policy Gross [facility] MEDICARE SUPPLEMEN AMANDA MEDIC ARE SUPPL EMENT Jun 03, 2018 [id number] [phone] ANALI SANCHEZ PATIENT [facility] MEDICARE SUPPLEMEN AMANDA MEDIC ARE SUPPL EMENT Jun 03, 2018 [id number] [phone] ANALI SANCHEZ PATIENT MEDICARE (WNR) MEDICARE (M) PART B Nov 01, 2017 PART B [id number] ANALI SANCHEZ PATIENT MEDICARE (WNR) MEDICARE (M) PART B Nov 01, 2017 PART B [id number] ANALI SANCHEZ PATIENT MEDICARE (WNR) MEDICARE (M) PART A Mar 03, 2015 PART A [id number] ANALI SANCHEZ PATIENT MEDICARE (WNR) MEDICARE (M) PART A Mar 03, 2015 PART A [id number] ANALI SANCHEZ PATIENT MEDICARE PART D (WNR) MEDICARE (M) PART D Nov 01, 2017 PART D [id number] ANALI SANCHEZ PATIENT Selected Encounter This section includes the information on record at [place] for the Encounter. Date/Time Encounter Type Encounter Description Reason Provider Source Sep 13, 2023 07:54 AM Outpatient Encounter ADMIN PAT ACTIVTIES (RUSTYNONJACOBO) ESTEFANY RIDDLE Bettina Encounter Template Text not used by [place] Plan of Treatment: Future Appointments (+ 6 months) and Future Tests (+/- 45 days) The Plan of Treatment section includes future care activities for the patient from all [place] treatmentfacilities. This section includes future appointments and future orders which are active, pending or scheduled. Future Appointments This section includes appointments that were scheduled to occur 6 months from the date of the Encounter, up to a maximum of 20 appointments. The data comes from all [place] treatment facilities. Appointment Date/Time Appointment Type Appointme nt Facility Name October 10, 2023 03:40 PM AMBULATORY - SURGERY [facility] October 22, 2023 02:30 PM AMBULATORY - PSYCHIATRY [facility] Nov 05, 2023 02:30 PM AMBULATORY - PSYCHIATRY [facility] Feb 11, 2024 02:30 PM AMBULATORY - PSYCHIATRY [facility] Lab Results: +/- 30 days of the encounter This section includes the Chemistry and Hematology Lab Results on record with [place] for the patient. Radiology Reports and Pathology Reports are provided separately, in subsequent sections. Lab Results This section contains the Chemistry/Hematology Results that were resulted 30 days before or 30 daysafter the date of the Encounter. Date/Time Source Result Type Result - Unit Interpretation Reference Range Comment Sep 09, 2023 02:17 PM [facility] CT PANEL Specimen Type: PLASMA No comment entered. Ordering Provider: KELLY AYERS Report Released Date/Time: Sep 09, 2023 02:12 PM Reporting Lab: [facility] [address] [facility] [address] Performing Lab: [facility] [address] [facility] [address] CREATININE 1.0 mg/dL 0.7-1.3 UREA NITROGEN 17 mg/dL 7-20.6 EGFR (2020) 79 mL/min >90 Social History: Smoking Status (Most current) and Tobacco Use (All prior to encounter date) This section includes the most current, and the historical, smoking and tobacco- related health factors from the [place] facility where the Encounter took place. Current Smoking Status This section includes the most current smoking, or tobacco-related health factor, from the [place] facility where the Encounter took place. Date/Time Current Smoking Status Comment Denilson ity Apr 08, 2023 09:00 AM VA-TOBACCO FORMER USER [facility] Tobacco Use History This section includes a history of the smoking, or tobacco-related health factors, that were collected on or before the date of the Encounter. The data comes from the [place] facility where the Encounter took place. Date/Time Smoking Status/Tobacco Use Comment F acility Apr 08, 2023 09:00 AM VA-TOBACCO QUIT 15 YRS OR MORE [facility] Mar 15, 2022 08:30 AM VA-TOBACCO FORMER USER [facility] Mar 15, 2022 08:30 AM VA-TOBACCO QUIT 15 YRS OR MORE [facility] Jan 24, 2021 10:00 AM VA-TOBACCO FORMER USER [facility] Jan 24, 2021 10:00 AM VA-TOBACCO QUIT 15 YRS OR MORE [facility] Aug 10, 2018 06:09 PM VA-TOBACCO FORMER USER [facility] Aug 10, 2018 06:09 PM VA-TOBACCO QUIT 15 YRS OR MORE [facility] Radiology Reports: +/- 30 days of the encounter Radiology Reports For cases when an order for radiology services may have been completed prior to the date of the Encounter, the report list includes the Radiology Reports that were completed up to 30 days before dateof the Encounter. For cases when an order for radiology services may have been completed after the date of the Encounter, the report list also includes the Radiology Reports that were completed up to30 days after date of the Encounter. The data comes from all [place] treatment facilities. 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 NO Do you currently have or suspect you might have a metallic object or fragment in your eye(s) due to a previous occupational or combat related injury(e.g. from welding or grinding of metal)? NO Are you claustrophobic; have a fear of tight or enclosed spaces or need sedation for pain? NO Do you have any of the following in your body? -Cardiac (heart) pacemaker or implanted heart defibrillator NO -Implanted pacing leads, internal electrodes, or wires NO -Aneurysm clip(s)in brain (or prior surgery for cerebral aneurysm) NO -Any type of stimulator (neurostimulation, spinal cord, or bone growth/bone fusion, etc.) NO -Any electronic or magnetically activated implant, pump, or device inside you (e.g. insulin pump or other medication infusion pump) NO -Penile implant NO -Ocular (eye) implant, spring, or wire NO -Cochlear (ear) implant or implanted hearing device NO -Shrapnel, bullets, BBs, metallic object, or other foreign body NO Location: -[place] acupuncture or acupuncture needles NO -Coronary artery (heart) stents NO -Any other stent, filter, or coil NO -Shunt (spinal or intraventricular) NO -Vascular access port and/or catheter NO -Any other implanted device not listed above? NO Details: Has the [place] had a reaction to the MRI contrast/dye (Gadolinium)? NO Does the [place] have a systemic nephrogenic fibrosis/kidney disease? NO 1)Does the patient have any implanted electronic device (AICD, Pacemaker, spinal cord stimulator, pump or similar device): No 2)Does the patient have surgical brain aneurysm clip(s) or other metal in the brain: No 3)Does the patient have known metal fragments in the orbits/eyes: No 4)Does the patient have a history of allergy or adverse reaction to IV MRI contrast agents: No 5)Has the patient had any surgery or GI procedures in the past 6 weeks? No Patient Wt: Report Status: Verified Date Reported: SEP 16, 2023 Date Verified: SEP 16, 2023 Corrosion Control Fitter E-Sig:/ES/OUTSIDE SERVICE RADIOLOGY Report: MRI ABDOMEN Technique: Multiplanar, multisequence MR imaging of the abdomen before and after intravenous contrast administration. MRCP was also performed. Number of images: 1796 Intravenous contrast volume (mL): 9 Intravenous contrast type: Gadavist Comparison: 06/26/2023, 10/12/[address] or MRI available for comparison. History: US for hepatoma screening new liver mass FINDINGS: Liver is normal in size and morphology. There is fatty infiltration. Multiple cysts, the largest 1.1 cm in the lateral left lobe. A 0.9 cm lesion in segment 7 (series 401 image 27) shows T1-hypointense, T2-bright signal and follows blood pool, and is compatible with a hemangioma. A 0.6 cm enhancing lesion in segment 7/6 (series 903 image 63). No contrast washout or capsule. No intrinsic signal alteration or diffusion restriction. This is nonspecific. No suspicious liver mass. Gallbladder, biliary, pancreas, spleen, and adrenal glands are normal. Right kidney is normal. Left kidney contains small simple cysts and is otherwise normal. No ascites or lymphadenopathy. Large vessels are patent. No abdominal aortic aneurysm. Impression: No suspicious liver mass. Small enhancing focus is nonspecific. Hepatic steatosis. READING PHYSICIAN: Otilio Rios M.D. -[id number] 09/16/2023 11:54 PDT [facility] National Teleradiology Program [phone] (For Medical Practitioner Use Only) Attention Patients / Veterans: If you have questions or concerns about these test results, please contact your ordering provider or primary care team. 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 NO Do you currently have or suspect you might have a metallic object or fragment in your eye(s) due to a previous occupational or combat related injury(e.g. from welding or grinding of metal)? NO Are you claustrophobic; have a fear of tight or enclosed spaces or need sedation for pain? NO Do you have any of the following in your body? -Cardiac (heart) pacemaker or implanted heart defibrillator NO -Implanted pacing leads, internal electrodes, or wires NO -Aneurysm clip(s)in brain (or prior surgery for cerebral aneurysm) NO -Any type of stimulator (neurostimulation, spinal cord, or bone growth/bone fusion, etc.) NO -Any electronic or magnetically activated implant, pump, or device inside you (e.g. insulin pump or other medication infusion pump) NO -Penile implant NO -Ocular (eye) implant, spring, or wire NO -Cochlear (ear) implant or implanted hearing device NO -Shrapnel, bullets, BBs, metallic object, or other foreign body NO Location: -[place] acupuncture or acupuncture needles NO -Coronary artery (heart) stents NO -Any other stent, filter, or coil NO -Shunt (spinal or intraventricular) NO -Vascular access port and/or catheter NO -Any other implanted device not listed above? NO Details: Has the [place] had a reaction to the MRI contrast/dye (Gadolinium)? NO Does the [place] have a systemic nephrogenic fibrosis/kidney disease? NO 1)Does the patient have any implanted electronic device (AICD, Pacemaker, spinal cord stimulator, pump or similar device): No 2)Does the patient have surgical brain aneurysm clip(s) or other metal in the brain: No 3)Does the patient have known metal fragments in the orbits/eyes: No 4)Does the patient have a history of allergy or adverse reaction to IV MRI contrast agents: No 5)Has the patient had any surgery or GI procedures in the past 6 weeks? No Patient Wt: Report Status: Verified Date Reported: SEP 16, 2023 Date Verified: SEP 16, 2023 Corrosion Control Fitter E-Sig:/ES/OUTSIDE SERVICE RADIOLOGY Report: MRI ABDOMEN Technique: Multiplanar, multisequence MR imaging of the abdomen before and after intravenous contrast administration. MRCP was also performed. Number of images: 1796 Intravenous contrast volume (mL): 9 Intravenous contrast type: Gadavist Comparison: 06/26/2023, 10/12/[address] or MRI available for comparison. History: US for hepatoma screening new liver mass FINDINGS: Liver is normal in size and morphology. There is fatty infiltration. Multiple cysts, the largest 1.1 cm in the lateral left lobe. A 0.9 cm lesion in segment 7 (series 401 image 27) shows T1-hypointense, T2-bright signal and follows blood pool, and is compatible with a hemangioma. A 0.6 cm enhancing lesion in segment 7/6 (series 903 image 63). No contrast washout or capsule. No intrinsic signal alteration or diffusion restriction. This is nonspecific. No suspicious liver mass. Gallbladder, biliary, pancreas, spleen, and adrenal glands are normal. Right kidney is normal. Left kidney contains small simple cysts and is otherwise normal. No ascites or lymphadenopathy. Large vessels are patent. No abdominal aortic aneurysm. Impression: No suspicious liver mass. Small enhancing focus is nonspecific. Hepatic steatosis. READING PHYSICIAN: Otilio Rios M.D. -[id number] 09/16/2023 11:54 PDT [facility] [employer] Teleradiology Program [phone] (For Medical Practitioner Use Only) Attention Patients / Veterans: If you have questions or concerns about these test results, please contact your ordering provider or primary care team. Primary Diagnostic Code: NO ALERT REQUIRED Primary Interpreting Staff: OUTSIDE SERVICE RADIOLOGY, Staff Physician / RADIOLOGY,OUTSIDE SERVICE [facility] Encounter Notes: All associated encounter notes This section contains the clinical notes associated to the Encounter. Date/Time Encounter Note(s) Provider Source Sep 13, 2023 07:54 AM BED AND BREAKFAST COOK REFER RAL NOTE: LOCAL TITLE: TRAVELING/RELOCATING COORDINATOR NOTE STANDARD TITLE: BED AND BREAKFAST COOK REFERRAL NOTE DATE OF NOTE: SEP 13, 2023@07:54 ENTRY DATE: SEP 13, 2023@07:54:41 AUTHOR: ESTEFANY RIDDLE EXP COSIGNER: URGENCY: STATUS: COMPLETED Traveling Vet consult activity for: incoming/outgoing consult care coordination, communication &/or chart review. /stephan/ MICHAEL FRANK TRAVELING COORDINATOR Signed: 09/13/2023 07:55 ESTEFANY RIDDLE [facility]
--- OUTSIDE RECORDS SUMMARY | 2024-01-16 15:52 | XMS_ITS | Encounter Summary ---
Author Name [facility] [place] Organization [facility] [place] Address [address] [place] [address] Care Team Providers Care Rope Cutter Name Role Phone NICANOR HUGHES Primary Care [...] Gross's Name Patient's Relationship to Policy Gross BCBS [place] MEDICARE SUPPLEMEN AMANDA MEDIC ARE SUPPL EMENT Jun 03, 2018 [id number] [phone] ANALI SANCHEZ PATIENT [place] MED[place] SUPPLEMEN AMANDA MEDIC ARE SUPPL EMENT Jun 03, 2018 [id number] [phone] ANALI SANCHEZ PATIENT MEDICARE (WNR) MEDICARE (M) PART B Nov 01, 2017 PART B [id number] ANALI SANCHEZ PATIENT MEDICARE (WNR) MEDICARE (M) PART B Nov 01, 2017 PART B [id number] ANALI SANCHEZ PATIENT MEDICARE (WNR) MEDICARE (M) PART A Mar 03, 2015 PART A [id number] ANALI SANCHEZ PATIENT MEDICARE (WNR) MEDICARE (M) PART A Mar 03, 2015 PART A [id number] ANALI SANCHEZ PATIENT MEDICARE PART D (WNR) MEDICARE (M) PART D Nov 01, 2017 PART D [id number] DANIEL, ANALI PATIENT Selected Encounter This section includes the information on record at [place] for the Encounter. Date/Time Encounter Type Encounter Description Reason Provider Source Jul 12, 2023 01:37 PM TARGETED CASE MANAGEMENT ADMIN SOLE PACE (ANAMARIA) RUCHI RODRIGUEZ Bettina Encounter Template Text not used by [place] Plan of Treatment: Future Appointments (+ 6 months) and Future Tests (+/- 45 days) The Plan of Treatment section includes future care activities for the [facility] [place] [facility] This section includes future appointments and future orders which are active, pending or scheduled. Future Appointments This section includes appointments that were scheduled to occur 6 months from the date of the Encounter, up to a maximum of 20 appointments. The data comes from all [facility]. Appointment Date/Time Appointment Type Appointme nt Facility Name Jul 23, 2023 10:00 AM AMBULATORY - PSYCHIATRY [facility] Sep 12, 2023 07:20 PM AMBULATORY - NONE [facility] October 10, 2023 03:40 PM AMBULATORY - SURGERY [facility] October 22, 2023 02:30 PM AMBULATORY - PSYCHIATRY [facility] Nov 05, 2023 02:30 PM AMBULATORY - PSYCHIATRY [facility] Radiology Reports: +/- 30 days of the [...] the Encounter. The data comes from all [facility]. Date/Time Radiology Report Provider Source Jun 26, 2023 08:29 AM HCC SCREENING US A BDOMEN LTD: DANIELANALI Chhaya [id number] -1950 M Exm Date: JUN 26, 2023@08:29 Req Phys: DOROTHY ALDRIDGE Loc: [facility] GI LIVER ELZBIETA 3V (Req'g Img Loc: Ultrasound Imaging Service: Unknown (Case [id number] COMPLETE) HCC SCREENING US ABDOMEN LTD (US Detailed) CPT:73439 Reason for Study: [facility] hepatoma screening + met-ALD Clinical History: IS NOT under investigation for COVID-19 or is COVID-19 negative hepatoma screening [facility] Responsible provider name and phone number to notify for critical findings if other than user placing the order and pager listed below: User placing orders pager: [phone] elzbieta LAST CREATININE 1.1 (04/09/23) Report Status: Verified Date Reported: JUN 26, 2023 Date Verified: JUN 26, 2023 [facility] E-Sig:/ES/APOORVA FERNANDEZ MD Report: Right upper quadrant ultrasound for HCC screening 06/26/2023 History: [facility] hepatoma screening + met-ALD Comparison: 10/12/2022, 02/22/2022, 01/26/2021 Technique: Ultrasound of the right upper abdominal quadrant, including color Doppler evaluation of the main portal vein. Findings: Liver: Visualization score: B - Moderate limitations. Limitations may obscure small masses. Overall appearance: Liver demonstrates a heterogeneous and coarsened appearance with diffuse increased echogenicity. Focal observation(s): Observation 1: Located within the inferolateral right hepatic lobe, there is an echogenic 1.0 x 1.4 x 1.3 cm observation. Echogenic focus within the inferolateral right hepatic lobe may correspond to a 9 mm echogenic focus on prior ultrasound 10/12/2022 (image 37, frame 304 on prior exam 10/12/2022). Observation 2: Stable 1.4 cm left hepatic lobe cyst. Main portal vein: Main portal vein is patent with flow towards the liver. Gallbladder: Stable 3 mm of bladder polyp. No shadowing gallstones. No gallbladder wall thickening or pericholecystic fluid. Biliary tree: No intra or extrahepatic biliary dilation. Common duct measures 4 mm. Pancreas: Visualized portions of pancreatic head and body appear within normal limits. Right Kidney: Stable 4 mm echogenic focus within the right lower pole. Otherwise, normal appearance of the right kidney measuring up to 12.0 cm. Ascites: None Impression: 1. US LI-RADS Category: 3 - Positive. Recommend further characterization with multiphase contrast-enhanced MRI or CT. Indeterminate 1.4 cm echogenic focus within the inferolateral right hepatic lobe. Recommend follow-up with MRI liver mass protocol for further characterization. 2. US LI-RADS Visualization Score: B - Moderate limitations. Limitations may obscure small masses. 3. Stable 3 mm gallbladder polyp, extremely low risk. No further follow up indicated. 4. Stable nonobstructing 4 mm right lower pole renal calculus. Primary Interpreting Staff: APOORVA FERNANDEZ MD, RADIOLOGIST ([facility]) /APOORVA RUFFIN [facility] Encounter Notes: All associated encounter notes This section contains the clinical notes associated to the Encounter. Date/Time Encounter Note(s) Provider Source Jul 12, 2023 01:37 PM CONSULT: LOCAL TITLE: TRAVELING CARE COORDINATION (TVC) CONSULT STANDARD TITLE: CONSULT DATE OF NOTE: JUL 12, 2023@13:37 ENTRY DATE: JUL 12, 2023@13:37:27 AUTHOR: RUCHI RODRIGUEZ EXP COSIGNER: URGENCY: STATUS: COMPLETED TVCC Update Scheduled 09/12/2023 19:20 [facility] RAD MRI AFTERNOON TV[facility] has been administratively completed, Results will be alerted on this consult when available. Preferred [place] Provider to manage results. TV[facility] care coordination completed /es/ RUCHI RODRIGUEZMSN,RN REGISTERED NURSE Signed: 07/12/2023 13:38 RUCHI RODRIGUEZ [facility]
--- OUTSIDE RECORDS SUMMARY | 2024-01-16 15:52 | XMS_ITS | Encounter Summary ---
Author Name [facility] [place] Organization [place] Address [address] [place] [address] Care Team Providers Care Development Representative Name Role Phone NICANOR HUGHES Primary Care [...] Gross's Name Patient's Relationship to Policy Gross [facility] MEDICARE SUPPLEMEN AMANDA MEDIC ARE SUPPL EMENT Jun 03, 2018 [id number] ANALI SANCHEZ PATIENT [facility] MEDICARE SUPPLEMEN AMANDA MEDIC ARE SUPPL EMENT Jun 03, 2018 [id number] [phone] ANALI SANCHEZ PATIENT MEDICARE (WNR) MEDICARE (M) PART B Nov 01, 2017 PART B [id number] ANALI SANCHEZ PATIENT MEDICARE (WNR) MEDICARE (M) PART B Nov 01, 2017 PART B [id number] ANALI SANCHEZ PATIENT MEDICARE (WNR) MEDICARE (M) PART A Mar 03, 2015 PART A [id number] ANALI SANCHEZ PATIENT MEDICARE (WNR) MEDICARE (M) PART A Mar 03, 2015 PART A [id number] ANALI SANCHEZ PATIENT MEDICARE PART D (WNR) MEDICARE (M) PART D Nov 01, 2017 PART D [id number] ANALI SANCHEZ PATIENT Selected Encounter This section includes the information on record at [place] for the Encounter. Date/Time Encounter Type Encounter Description Reason Provider Source May 28, 2023 02:00 PM OFFICE O/P EST MOD 30-39 MIN [facility]PATOLOGY CLINIC ICD-10-CM B16.9 Acute hepatitis B w/o delta-agent and without hepatic coma SUSAN JOSEPH Bettina Encounter Template Text not used by [place] Assessments - Encounter Diagnoses This section includes the primary and secondary diagnoses documented for the Encounter. Date/Time Primary/Secondary Diagnosis Diagnosis Name Provider Source Jun 07, 2023 07:37 AM PRIMARY Acute hepatitis B w/o delta-agent and without hepatic coma JESSICA JOSEPH [facility] Jun 07, 2023 07:37 AM SECONDARY Alcohol use, unspecified, uncomplicated [facility] Jun 07, 2023 07:37 AM SECONDARY Hepatic fibrosis, unspecified ELZBIETA,[facility] Jun 07, 2023 07:37 AM SECONDARY Metabolic syndrome ELZBIETA,[facility] Jun 07, 2023 07:37 AM SECONDARY Polyp of colon ELZBIETA,[facility] Plan of Treatment: Future Appointments (+ 6 months) and Future Tests (+/- 45 days) The Plan of Treatment section includes future care activities for the patient [facility] [place] [facility]. This section includes future appointments and future orders which are active, pending or scheduled. Future Appointments This section includes appointments that were scheduled to occur 6 months from the date of the Encounter, up to a maximum of 20 appointments. The data comes from all [place] treatment facilities. Appointment Date/Time Appointment Type Appointme nt Facility Name Jun 26, 2023 08:30 AM AMBULATORY - NONE [facility] Jun 26, 2023 12:00 PM [facility] Jul 23, 2023 10:00 AM [facility] Sep 12, 2023 07:20 PM AMBULATORY - NONE [facility] October 10, 2023 03:40 PM AMBULATORY - SURGERY [facility] October 22, 2023 02:30 PM AMBULATORY - PSYCHIATRY [facility] Nov 05, 2023 02:30 PM AMBULATORY - PSYCHIATRY [facility] Lab Results: +/- 30 days of the encounter This section includes the Chemistry and Hematology Lab Results on record with [place] for the patient. Radiology Reports and Pathology Reports are provided separately, in subsequent sections. Lab Results This section contains the Chemistry/Hematology Results that were resulted 30 days before or 30 daysafter the date of the Encounter. Date/Time Source Result Type Result - Unit Interpretation Reference Range Comment May 28, 2023 02:47 PM [facility] HEPATITIS B VIRAL LOAD Specimen Type: SERUM Comment: Test not performed. Initial testing necessitated a repeat, but there was insufficient sample to perform repeat. Test Performed by [facility], [address] [place] [address] Bryan Patel M.D., Ph.D., Director of Laboratories , CLIA [id number] Cancellation reported to: Dr. Yara Joseph @0949 06/04/2023 [facility] Ordering Provider: SUSAN JOSEPH Report Released Date/Time: May 28, 2023 02:45 PM Reporting Lab: [facility] [address] Performing Lab: [address] .HBV,PCR LOG IU/ML canc .HBV,PCR IU/ML TNP May 28, 2023 02:47 PM [facility] HEPATITIS B e ANTIBODY Specimen Type: SERUM Comment: normalcy status - Abnormal NOTE: THIS RESULT IS FLAGGED ABNORMAL Reference range: Nonreactive For additional information, please refer to https://educat ion.[email or web address]/faq /[email or web address] (This link is being provided for informational/ educational purposes only.) Test Performed by [facility], [address] [place] [address] Bryan Patel M.D., Ph.D., Director of Laboratories , CLIA [id number] Ordering Provider: SUSAN JOSEPH Report Released Date/Time: May 28, 2023 02:45 PM Reporting Lab: [facility] [address] Performing Lab: [address] [address] HEPATITIS B e ANTIBODY Reactive May 28, 2023 02:47 PM [facility] HEPATITIS B e ANTIGEN Specimen Type: SERUM Comment: Reference range: Nonreactive For additional information, please refer to https://educat [email or web address]/faq /[email or web address] (This link is being provided for informational/ educational purposes only.) Test Performed by [facility], [facility], [address] [place] [address] Bryan Patel M.D., Ph.D., Director of Laboratories , [place] [id number] Ordering Provider: SUSAN JOSEPH Report Released Date/Time: May 28, 2023 02:45 PM Reporting Lab: [facility] [address] Performing Lab: [address] HEPATITIS B e ANTIGEN Nonreactive May 28, 2023 02:47 PM [facility] HBsAg Specimen Type: SERUM No comment entered. Ordering Provider: SUSAN JOSEPH Report Released Date/Time: May 28, 2023 02:45 PM Reporting Lab: [facility] [address] Performing Lab: [facility] [address] HBsAg POSITIVE H NEGATIVE Vital Signs: All taken on the encounter date This section contains inpatient and outpatient Vital Signs collected on the date of the Encounter. Date/Time Temperature Pulse Blood Pressure Respiratory Rate SP02 Pain Height Weight Body Mass Index Source May 28, 2023 02:25 PM 132/92 mm[Hg] [facility] May 28, 2023 02:17 PM 96.5 F 72 /min 16 /min 96 % 0 275.6 lb 40 [facility] Social History: Smoking Status (Most current) and Tobacco Use (All prior to encounter date) This section includes the most current, and the historical, smoking and tobacco- related health factors from the [place] facility where the Encounter took place. Current Smoking Status This section includes the most current smoking, or tobacco-related health factor, from the [place] facility where the Encounter took place. Date/Time Current Smoking Status Comment Denilson vargas Apr 08, 2023 09:00 AM VA-TOBACCO FORMER USER [facility] Tobacco Use History This section includes a history of the smoking, or tobacco-related health factors, that were collected on or before the date of the Encounter. The data comes from the [place] facility where the Encounter took place. Date/Time Smoking Status/Tobacco Use Comment F acility Apr 08, 2023 09:00 AM VA-TOBACCO QUIT 15 YRS OR MORE [facility] Mar 15, 2022 08:30 AM VA-TOBACCO FORMER USER [facility] Mar 15, 2022 08:30 AM VA-TOBACCO QUIT 15 YRS OR MORE [facility] Jan 24, 2021 10:00 AM VA-TOBACCO FORMER USER [facility] Jan 24, 2021 10:00 AM VA-TOBACCO QUIT 15 YRS OR MORE [facility] Aug 10, 2018 06:09 PM VA-TOBACCO FORMER USER [facility] Aug 10, 2018 06:09 PM VA-TOBACCO QUIT 15 YRS OR MORE [facility] Radiology Reports: +/- 30 days of the [...] the Encounter. The data comes from all [place] treatment facilities. Date/Time Radiology Report Provider Source Jun 26, 2023 08:29 AM [facility] SCREENING US A BDOMEN LTD: ANALI SANCHEZ Chhaya [id number] -[id number] M Ex Date: JUN 26, 2023@08:29 Req Phys: YARA JOSEPH Pat Loc: [facility] GI LIVER ELZBIETA 3V (Req'g Img Loc: Ultrasound Imaging Service: Unknown (Case [id number] COMPLETE) HCC SCREENING US ABDOMEN LTD (US Detailed) CPT:13000 Reason for Study: CHB hepatoma screening + met-ALD Clinical History: [place] IS NOT under investigation for COVID-19 or is COVID-19 negative hepatoma screening CHB Responsible provider name and phone number to notify for critical findings if other than user placing the order and pager listed below: User placing orders pager: [phone] elzbieta LAST CREATININE 1.1 (04/09/23) Report Status: Verified Date Reported: JUN 26, 2023 Date Verified: JUN 26, 2023 Ratings Analyst E-Sig:/ES/APOORVA FERNANDEZ MD Report: Right upper quadrant [...] Primary Interpreting Staff: APOORVA FERNANDEZ MD, RADIOLOGIST (Ratings Analyst) /APOORVA RUFFIN [facility] Encounter Notes: All associated encounter notes This section contains the clinical notes associated to the Encounter. Date/Time Encounter Note(s) Provider Source Jul 04, 2023 02:41 PM LETTERS: LOCAL TITLE: FOLLOW UP RESULTS LETTER STANDARD TITLE: LETTERS DATE OF NOTE: JUL 04, 2023@14:41 ENTRY DATE: JUL 04, 2023@14:41:56 AUTHOR: YARA JOSEPH EXP COSIGNER: URGENCY: STATUS: COMPLETED [facility] [place] [address] Jul ANALI SANCHEZ [id number] [facility] [id number] Dear : I am writing to inform you of the results of testing that you had done recently at the [facility]. I am also trying to call you with these results. FIBROSCAN- non invasive assessment of scar tissue in liver FibroScan Value (median, kPa): 7.9 FibroScan IQR: 1.6 Liver Steatosis: Controlled Attenuation Parameter CAP Score: 378 This most recent estimate of scar tissue in your liver shows perhaps some progression of scar tissue to moderate amount- 2 out of 4. This also shows some fat (steatosis) in the liver. Both of these things are in part from the Hepatitis B, but also due to alcohol. *It is still recommended that you abstain completely from alcohol. ULTRASOUND FOR LIVER CANCER SCREENING Impression: 1. US LI-RADS Category: 3 - [...] low risk. No further follow up indicated. I recommend you get an MRI done. This area is most likely a nodule that we need to follow, but we should be sure it is not an (early) cancer. If you have any further questions or problems, please contact our nursing staff or provider at the following number: [phone]. Sincerely, Yara Joseph MD Hepatology Staff Physician YARA JOSEPH [facility] May 28, 2023 02:27 PM INTERNAL MEDICINE OUTPATIENT NOTE: LOCAL TITLE: MEDICINE CLINIC NURSING NOTE STANDARD TITLE: INTERNAL MEDICINE OUTPATIENT NOTE DATE OF NOTE: MAY 28, 2023@14:27 ENTRY DATE: MAY 28, 2023@14:27:20 AUTHOR: SANDRINE DOUGLASS EXP COSIGNER: URGENCY: STATUS: COMPLETED TYPE OF VISIT: Appointment Check In Type of appointment: In-person appointment REASON FOR VISIT: SCHEDULED VISIT ALLERGIES: CODEINE (Aug 11, 2018) VITAL SIGNS: Blood Pressure: 132/92 (05/28/2023 14:25) Pulse: 72 (05/28/2023 14:17) Respiration: 16 (05/28/2023 14:17) Temperature: 96.5 F [35.8 C] (05/28/2023 14:17) Weight: 275.6 lb [125.01 kg] (05/28/2023 14:17) Height: 70 in [177.8 cm] (04/08/2023 08:18) BMI: 39.6 O2 Sat: 96% (05/28/2023 14:17) Pain: 0 (05/28/2023 14:17) PAIN SCREEN: Patient is not having significant pain that they wish to discuss with their provider today. /stephan/ SANDRINE DOUGLASS LPN DENTAL THERAPIST Signed: 05/28/2023 14:28 SANDRINE DOUGLASS [facility] May 28, 2023 02:19 PM GASTROENTEROLOGY ATTENDING NOTE: LOCAL TITLE: GI CLINIC NOTE STANDARD TITLE: GASTROENTEROLOGY ATTENDING NOTE DATE OF NOTE: MAY 28, 2023@14:19 ENTRY DATE: MAY 28, 2023@14:19:27 AUTHOR: YARA JOSEPH EXP COSIGNER: URGENCY: STATUS: COMPLETED Type of Visit: Follow up Reason for Visit: eAg negative CHB Since we last saw Mr. Sanchez, he has been doing well from a liver standpoint. No hospitalizations. Questions regarding service connections. He continues to drink EtOH as below. He denies s/s referrable to liver disease. Last colon 10/2022 with 7 x <1cm polyps (3 x TAs). Recommended repeat 5 years. HPI: Please see prior notes for further details. Now 72yo M initially seen in consultation 2018, transferring care to [facility], for chronic HBV. Sounds as if contracted HBV at age 18 with asymptomatic acute infection, developing chronic infection (?). No prior liver bx. MR elastography ([facility]) c/w liver stiffness range: 2.0-2.4 kPa (normal/no fibrosis); and hepatic steatosis, with additional risk for other CLD (MASLD + EtOH). Never required antiviral therapy. Vital Signs: reviewed Medications: reviewed Alcohol use: drinks 3-4 beers 3+ times/week (total 9-16 beers/week) Physical Exam: General: No apparent distress, Well developed, well nourished HEENT: no scleral icterus Lymph: No cervical andenopathy Cardiac: RRR Chest/Lungs: non labored, no clubbing Abdominal: Soft, Non-tender, Non-distended no hernias Extremities: Skin:No Spider Angiomata, No Palmar Erythema Other exam: no asterixis, no tremor Labs: reviewed 04/2023 no HBV serologies IMAGING: no new IMPRESSION/PLAN: 1)eAg negative CHB, no fibrosis: somewhat unclear horizontal transmission likely age <20yo. Normal stiffnes by MR elastography ([facility]) 2019. Very low level viremia with historically normal ALT; never on antiviral therapy. Hep A- immune Hep C- negative HIV- negative Underlying liver function: intact Hepatoma Screening: screening for liver cancer in patients of descent (incl ) should begin at age 40 for men and 50 for women; for patients of descent, screening should begin at age 20 for both men and women, unless there is a family history of liver cancer (in which case it should begin immediately). - Overdue for hepatoma screening (April). - We discussed other RF for CLD, incl progression of fibrosis. - It is again recommended to completely abstain from EtOH. - Updated non invasive assessment of fibrosis (Fibroscan)- reports completed over the summer, but no documentation to this effect (in [facility], [facility], [facility]). 2)Routine Health Care in Patient with Chronic Liver Disease: - All patients with liver disease are at an increased risk for osteoporosis. We strongly recommend screening for Vitamin D deficiency with aggressive supplementation/replacement , as indicated. Screening for all fat soluble vitamin deficiencies should be performed in those patients with cholestatic liver disease. - Baseline DEXA scan should be performed to evaluate for decreased bone mineral density. If present, Ca/Vit D +/- bisphosphonate therapy should be considered. Follow up DEXA scans shall be based on prior scans as well as therapies. It is not uncommon for our patients to be referred to an Screw Driver Operator/bone health specialist. - The preferred analgesic in cirrhosis and liver disease is Tylenol, up to 2g daily. - Recommend age appropriate vaccination including yearly influenza and Pneumovax prior to OLT in cirrhotic patients. Follow Up: yearly with interval labs and imaging Labs: Hep B serologies, DNA Imaging/biopsy: US for hepatoma screening overdue now Fibroscan likely due HEP B EDUCATION- Family members and sexual contacts should be screened and vaccinated as appropriate. Patients should not share personal items that might have blood on them. We discussed safe sexual practice, including use of barrier protection. Risk factors for flare: Patients should avoid or report use of corticosteroids, immunosuppressive agents, chemotherapy or biologic response modifiers as these can lead to severe reactivation of Hepatitis B. Please contact our Hepatology Clinic immediately if you require any of these medications. /stephan/ Yara Joseph MD Hepatology Staff Physician Signed: 05/28/2023 14:44 YARA JOSEPH [facility]
--- OUTSIDE RECORDS SUMMARY | 2024-01-16 15:52 | XMS_ITS | Encounter Summary ---
Author Name [place] Address [address] [place] [address] Care Team Providers Care Psychologist Personnel Name Role Phone NICANOR HUGHES Primary Care [...] Gross's Name Patient's Relationship to Policy Gross [facility] MEDICARE SUPPLEMEN AMANDA MEDIC ARE SUPPL EMENT Jun 03, 2018 [id number] [phone] ANALI SANCHEZ PATIENT [facility] MEDICARE SUPPLEMEN AMANDA MEDIC ARE SUPPL EMENT Jun 03, 2018 [id number] [phone] ANALI SANCHEZ PATIENT MEDICARE (WNR) MEDICARE (M) PART B Nov 01, 2017 PART B [id number] ANALI SANCHEZ PATIENT MEDICARE (WNR) MEDICARE (M) PART B Nov 01, 2017 PART B [id number] ANALI SANCHEZ PATIENT MEDICARE (WNR) MEDICARE (M) PART A Mar 03, 2015 PART A [id number] ANALI SANCHEZ PATIENT MEDICARE (WNR) MEDICARE (M) PART A Mar 03, 2015 PART A [id number] ANALI SANCHEZ PATIENT MEDICARE PART D (WNR) MEDICARE (M) PART D Nov 01, 2017 PART D [id number] ANALI SANCHEZ PATIENT Selected Encounter This section includes the information on record at [place] for the Encounter. Date/Time Encounter Type Encounter Description Reason Provider Source Sep 16, 2023 02:19 PM Outpatient Encounter ADMIN PAT ACTIVTIES (MASNONCT) JOSE ANTONIO CULVER Bettina Encounter Template Text not used by [place] Plan of Treatment: Future Appointments (+ 6 months) and Future Tests (+/- 45 days) The Plan of Treatment section includes future care activities for the patient from all [place] treatmentfacilities. This section includes future appointments and future orders which are active, pending or scheduled. Future Appointments This section includes appointments that were scheduled to occur 6 months from the date of the Encounter, up to a maximum of 20 appointments. The data comes from all [place] treatment facilities. Appointment Date/Time Appointment Type Appointme nt Facility Name October 10, 2023 03:40 PM AMBULATORY - SURGERY [facility] October 22, 2023 02:30 PM AMBULATORY - PSYCHIATRY [facility] Nov 05, 2023 02:30 PM AMBULATORY - PSYCHIATRY [facility] Feb 11, 2024 02:30 PM AMBULATORY - PSYCHIATRY [facility] Lab Results: +/- 30 days of the encounter This section includes the Chemistry and Hematology Lab Results on record with [place] for the patient. Radiology Reports and Pathology Reports are provided separately, in subsequent sections. Lab Results This section contains the Chemistry/Hematology Results that were resulted 30 days before or 30 daysafter the date of the Encounter. Date/Time Source Result Type Result - Unit Interpretation Reference Range Comment Sep 09, 2023 02:17 PM [facility] CT PANEL Specimen Type: PLASMA No comment entered. Ordering Provider: KELLY AYERS Report Released Date/Time: Sep 09, 2023 02:12 PM Reporting Lab: [facility] [address] [facility] [address] Performing Lab: [facility] [address] [facility] [address] CREATININE 1.0 mg/dL 0.7-1.3 UREA NITROGEN 17 mg/dL 7-20.6 EGFR (2020) 79 mL/min >90 Social History: Smoking Status (Most current) and Tobacco Use (All prior to encounter date) This section includes the most current, and the historical, smoking and tobacco- related health factors from the [place] facility where the Encounter took place. Current Smoking Status This section includes the most current smoking, or tobacco-related health factor, from the [place] facility where the Encounter took place. Date/Time Current Smoking Status Comment Denilson ity Apr 08, 2023 09:00 AM VA-TOBACCO FORMER USER [facility] Tobacco Use History This section includes a history of the smoking, or tobacco-related health factors, that were collected on or before the date of the Encounter. The data comes from the [place] facility where the Encounter took place. Date/Time [...] 15 YRS OR MORE [facility] Radiology Reports: +/- 30 days of the [...] the Encounter. The data comes from all [place] treatment facilities. Date/Time Radiology Report Provider Source Sep 12, 2023 07:13 PM 3D RENDERING: ANALI SANCHEZ [id number] -1950 M Ex Date: SEP 12, 2023@19:13 Req Phys: KELLY AYERS Pat Loc: [facility]AMP [facility] (Req'g Loc) Img Loc: [facility] MRI 1 Service: Unknown (Case [id number] COMPLETE) 3D RENDERING (MRI Detailed) CPT:17992 Reason for Study: hepatoma screening new liver [...] object, or other foreign body NO Location: -[place] acupuncture or acupuncture needles NO -Coronary artery (heart) stents NO -Any other stent, filter, or coil NO -Shunt (spinal or intraventricular) NO -Vascular access port and/or catheter NO -Any other implanted device not listed above? NO Details: Has the [place] had a reaction to the MRI contrast/dye (Gadolinium)? NO Does the [place] have a systemic nephrogenic fibrosis/kidney disease? NO [...] 16, 2023 Date Verified: SEP 16, 2023 Author'S Agent E-Sig:/ES/OUTSIDE SERVICE RADIOLOGY Report: MRI ABDOMEN Technique: [...] Hepatic steatosis. READING PHYSICIAN: Otilio Rios M.D. -[id number] 09/16/2023 11:54 PDT [facility] National Teleradiology Program [phone] (For Medical Practitioner Use Only) Attention Patients / Veterans: If you have questions or concerns about these test results, please contact your ordering provider or primary care team. Primary Diagnostic Code: NO ALERT REQUIRED Primary Interpreting Staff: OUTSIDE SERVICE RADIOLOGY, Staff Physician / RADIOLOGY,OUTSIDE SERVICE [facility] Sep 12, 2023 07:13 PM MRI ABDOMEN W/C & W/O CON: ANALI SANCHEZ [id number] -1950 M [facility] Date: SEP 12, 2023@19:13 Req Phys: KELLY AYERS Pat Loc: [facility] TVC [facility]AMP [place] (Req'g Loc) Img Loc: [facility] MRI 1 Service: Unknown (Case [id number] COMPLETE) MRI ABDOMEN W/C & W/O CON (MRI Detailed) CPT:28704 Contrast Media : Gadolinium Reason for Study: [...] object, or other foreign body NO Location: -[place] acupuncture or acupuncture needles NO -Coronary artery (heart) stents NO -Any other stent, filter, or coil NO -Shunt (spinal or intraventricular) NO -Vascular access port and/or catheter NO -Any other implanted device not listed above? NO Details: Has the [place] had a reaction to the MRI contrast/dye (Gadolinium)? NO Does the [place] have a systemic nephrogenic fibrosis/kidney disease? NO [...] 16, 2023 Date Verified: SEP 16, 2023 Author'S Agent E-Sig:/ES/OUTSIDE SERVICE RADIOLOGY Report: MRI ABDOMEN Technique: [...] Hepatic steatosis. READING PHYSICIAN: Otilio Rios M.D. -[id number] 09/16/2023 11:54 PDT [facility] National Teleradiology Program [phone] (For Medical Practitioner Use Only) Attention Patients / Veterans: If you have questions or concerns about these test results, please contact your ordering provider or primary care team. Primary Diagnostic Code: NO ALERT REQUIRED Primary Interpreting Staff: OUTSIDE SERVICE RADIOLOGY, Staff Physician / RADIOLOGY,OUTSIDE SERVICE [facility] Encounter Notes: All associated encounter notes This section contains the clinical notes associated to the Encounter. Date/Time Encounter Note(s) Provider Source Sep 16, 2023 02:19 PM BATTERY PLATE REMOVER REFER RAL NOTE: LOCAL TITLE: TRAVELING/RELOCATING COORDINATOR NOTE STANDARD TITLE: BATTERY PLATE REMOVER REFERRAL NOTE DATE OF NOTE: SEP 16, 2023@14:19 ENTRY DATE: SEP 16, 2023@14:19:51 AUTHOR: JOSE ANTONIO CULVER EXP COSIGNER: URGENCY: STATUS: COMPLETED Traveling [place] Consult MRI request complete and results available in [employer]. /es/ JOSE ANTONIO CULVER RN UTILIZATIONMANAGEMENT Signed: 09/16/2023 14:20 Receipt Acknowledged By: 11/08/2023 16:23 /stephan/ Yara Joseph MD Hepatology Staff Physician JOSE ANTONIO CULVER [facility]
--- OUTSIDE RECORDS SUMMARY | 2024-01-16 15:52 | XMS_ITS | Encounter Summary ---
Author Name [facility] [place] Address [address] [place] [address] Care Team Providers Care Neurology Epilepsy Physician Name Role Phone NICANOR HUGHES Primary Care [...] Gross's Name Patient's Relationship to Policy Gross [facility] MEDICARE SUPPLEMEN AMANDA MEDIC ARE SUPPL EMENT Jun 03, 2018 [id number] ANALI SANCHEZ PATIENT [facility] MEDICARE SUPPLEMEN AMANDA MEDIC ARE SUPPL EMENT Jun 03, 2018 [id number] ANALI SANCHEZ PATIENT MEDICARE (WNR) MEDICARE (M) PART B Nov 01, 2017 PART B [id number] ANALI SANCHEZ PATIENT MEDICARE (WNR) MEDICARE (M) PART B Nov 01, 2017 PART B [id number] ANALI SANCHEZ PATIENT MEDICARE (WNR) MEDICARE (M) PART A Mar 03, 2015 PART A [id number] ANALI SANCHEZ PATIENT MEDICARE (WNR) MEDICARE (M) PART A Mar 03, 2015 PART A [id number] ANALI SANCHEZ PATIENT MEDICARE PART D (WNR) MEDICARE (M) PART D Nov 01, 2017 PART D [id number] ANALI SANCHEZ PATIENT Selected Encounter This section includes the information on record at [place] for the Encounter. Date/Time Encounter Type Encounter Description Reason Provider Source Jul 12, 2023 12:31 PM Outpatient Encounter ADMIN PAT ACTIVTIES (RUSTYNONCT) JOSE ANTONIO CULVER Bettina Encounter Template Text not used by [place] Plan of Treatment: Future Appointments (+ 6 months) and Future Tests (+/- 45 days) The Plan of Treatment section includes future care activities for the patient from all [place] [facility] This section includes future appointments and future orders which are active, pending or scheduled. Future Appointments This section includes appointments that were scheduled to occur 6 months from the date of the Encounter, up to a maximum of 20 appointments. The data comes from all [place] treatment facilities. Appointment Date/Time Appointment Type Appointme nt Facility Name Jul 23, 2023 10:00 AM AMBULATORY - [facility]RY [facility] Sep 12, 2023 07:20 PM AMBULATORY - NONE [facility] October 10, 2023 03:40 PM AMBULATORY - SURGERY [facility] October 22, 2023 02:30 PM AMBULATORY - PSYCHIATRY [facility] Nov 05, 2023 02:30 PM AMBULATORY - PSYCHIATRY [facility] Social History: Smoking Status (Most current) and Tobacco Use (All prior to encounter date) This section includes the most current, and the historical, smoking and tobacco- related health factors from the [place] facility where the Encounter took place. Current Smoking Status This section includes the most current smoking, or tobacco-related health factor, from the [place] facility where the Encounter took place. Date/Time Current Smoking Status Comment Denilson ity Apr 08, 2023 09:00 AM [place] 15 YRS OR MORE [facility] Tobacco Use History This section includes a history of the smoking, or tobacco-related health factors, that were collected on or before the date of the Encounter. The data comes from the [place] facility where the Encounter took place. Date/Time Smoking Status/Tobacco Use Comment F ackam Apr 08, 2023 09:00 AM [place] 15 YRS OR MORE [facility] Mar 15, 2022 08:30 AM VA-TOBACCO FORMER USER [facility] Mar 15, 2022 08:30 AM [place] 15 YRS OR MORE [facility] Jan 24, 2021 10:00 AM VA-TOBACCO FORMER USER [facility] Jan 24, 2021 10:00 AM VA-TOBACCO QUIT 15 YRS OR MORE [facility] Aug 10, 2018 06:09 PM VA-TOBACCO FORMER USER [facility] Aug 10, 2018 06:09 PM VA-TOBACCO QUIT 15 YRS OR MORE [facility] Radiology Reports: +/- 30 days of the [...] the Encounter. The data comes from all [place] treatment facilities. Date/Time Radiology Report Provider Source Jun 26, 2023 08:29 AM [facility] SCREENING US A BDOMEN LTD: ANALI SANCHEZ [id number] -1950 M Exm Date: JUN 26, 2023@08:29 Req Phys: DOROTHY ALDRIDGE Loc: [facility] GI LIVER ELZBIETA 3V (Req'g Img Loc: Ultrasound Imaging Service: Unknown (Case [id number] COMPLETE) [facility] SCREENING US ABDOMEN LTD (US Detailed) CPT:25176 Reason for Study: [facility] hepatoma screening + met-ALD Clinical History: IS NOT under investigation for COVID-19 or is COVID-19 negative hepatoma screening [facility] Responsible provider name and phone number to notify for critical findings if other than user placing the order and pager listed below: User placing orders pager: [phone] elzbieta LAST CREATININE 1.1 (04/09/23) Report Status: Verified Date Reported: JUN 26, 2023 Date Verified: JUN 26, 2023 Processing Archivist E-Sig:/ES/APOORVA FERNANDEZ MD Report: Right upper quadrant [...] Primary Interpreting Staff: APOORVA FERNANDEZ MD, RADIOLOGIST (Processing Archivist) /APOORVA RUFFIN [facility] Encounter Notes: All associated encounter notes This section contains the clinical notes associated to the Encounter. Date/Time Encounter Note(s) Provider Source Jul 12, 2023 12:31 PM PHYSICAL PLANT EMPLOYEE REFER RAL NOTE: LOCAL TITLE: TRAVELING COORDINATOR NOTE STANDARD TITLE: PHYSICAL PLANT EMPLOYEE REFERRAL NOTE DATE OF NOTE: JUL 12, 2023@12:31 ENTRY DATE: JUL 12, 2023@12:31:58 AUTHOR: JOSE ANTONIO CULVER EXP COSIGNER: URGENCY: STATUS: COMPLETED Traveling Vet consult activity for: incoming/outgoing consult care coordination, communication &/or chart review. /stephan/ JOSE ANTONIO CULVER RN UTILIZATIONMANAGEMENT Signed: 07/12/2023 12:32 JOSE ANTONIO CULVER [facility]
--- OUTSIDE RECORDS SUMMARY | 2024-01-16 15:52 | XMS_ITS | Encounter Summary ---
Author Name [facility] [place] [facility] Address [address] [place] [address] Care Team Providers Care Senior Business Intelligence Analyst Name Role Phone NICANOR HUGHES Primary Care [...] Name Patient's Relationship to Policy [place] SUPPLE[place] AMANDA MEDIC ARE SUPPL EMENT Jun 03, 2018 [id number] [phone] ANALI SANCHEZ PATIENT [employer] [place] MEDICARE SUPPLEMEN AMANDA MEDIC ARE SUPPL EMENT Jun 03, 2018 [id number] ANALI SANCHEZ PATIENT MEDICARE (WNR) MEDICARE (M) PART B Nov 01, 2017 PART B [id number] ANALI SANCHEZ PATIENT MEDICARE (WNR) MEDICARE (M) PART B Nov 01, 2017 PART B [id number] ANALI SANCHEZ PATIENT MEDICARE (WNR) MEDICARE (M) PART A Mar 03, 2015 PART A [id number] ANALI SANCHEZ PATIENT MEDICARE (WNR) MEDICARE (M) PART A Mar 03, 2015 PART A [id number] ANALI SANCHEZ PATIENT MEDICARE PART D (WNR) MEDICARE (M) PART D Nov 01, 2017 PART D [id number] DANIEL, ANALI PATIENT Selected Encounter This section includes the information on record at [place] for the Encounter. Date/Time Encounter Type Encounter Description Reason Provider Source Jul 10, 2023 11:58 AM TARGETED CASE MANAGEMENT ADMIN [place] (ANAMARIA) RUCHI RODRIGUEZ Bettina Encounter Template Text not used by [place] Plan of Treatment: Future Appointments (+ 6 months) and Future Tests (+/- 45 days) The Plan of Treatment section includes future care activities for the patient from all [place] [facility]. This section includes future appointments and future orders which are active, pending or scheduled. Future Appointments This section includes appointments that were scheduled to occur 6 months from the date of the Encounter, up to a maximum of 20 appointments. The data comes from all [facility]. Appointment Date/Time Appointment Type Appointme nt Facility Name Jul 23, 2023 10:00 AM AMBULATORY - PS[facility]CHIATRY [facility] Sep 12, 2023 07:20 PM AMBULATORY - NONE [facility] October 10, 2023 03:40 PM AMBULATORY - SURGERY [facility] October 22, 2023 02:30 PM AMBULATORY - PSYCHIATRY [facility] Nov 05, 2023 02:30 PM AMBULATORY - PSYCHIATRY [facility] Radiology Reports: +/- 30 days of [...] the Encounter. The data comes from all [facility]. Date/Time Radiology Report Provider Source Jun 26, 2023 08:29 AM HCC SCREENING US A BDOMEN LTD: DANIELANALI Chhaya [id number] -1950 M Exm Date: JUN 26, 2023@08:29 Req Phys: DOROTHY ALDRIDGE Loc: [facility] GI LIVER ELZBIETA 3V (Req'g Img Loc: Ultrasound Imaging Service: Unknown (Case [id number] COMPLETE) [facility] SCREENING US ABDOMEN LTD (US Detailed) CPT:23234 Reason for Study: [facility] hepatoma screening + met-ALD Clinical History: IS NOT under investigation for COVID-19 or is COVID-19 negative hepatoma screening [facility] Responsible provider name and phone number to notify for critical findings if other than user placing the order and pager listed below: User placing orders pager: [phone] elzbieta LAST CREATININE 1.1 (04/09/23) Report Status: Verified Date Reported: JUN 26, 2023 Date Verified: JUN 26, 2023 Shearing Machine Operator E-Sig:/ES/APOORVA FERNANDEZ MD Report: Right upper quadrant [...] Primary Interpreting Staff: APOORVA FERNANDEZ MD, RADIOLOGIST (Shearing Machine Operator) /APOORVA RUFFIN [facility] Encounter Notes: All associated encounter notes This section contains the clinical notes associated to the Encounter. Date/Time Encounter Note(s) Provider Source Jul 10, 2023 11:58 AM PRIMARY CARE NOTE: LOCAL TITLE: TRAVELING CARE COORDINATION (TVC) NOTE STANDARD TITLE: PRIMARY CARE NOTE DATE OF NOTE: JUL 10, 2023@11:58 ENTRY DATE: JUL 10, 2023@11:58:47 AUTHOR: RUCHI RODRIGUEZ EXP COSIGNER: URGENCY: STATUS: COMPLETED TEAMS and CPRS Alert received Vet requesting Derm Consult No TVCC received No TVCC in J[facility] TEAMS alert plced to PAVT Derm Provider and MIN TVC. ADDED COMMENT 07/10/23 11:37 DANILO SANCHEZ VERONICA Veteran is requesting Dermatology consult and would like to speak with TVC. Please call him at [phone] /es/ RUCHI RODRIGUEZ,MSN,RN REGISTERED NURSE Signed: 07/10/2023 12:01 RUCHI RODRIGUEZ [facility]
--- OUTSIDE RECORDS SUMMARY | 2024-01-16 15:52 | XMS_ITS | Encounter Summary ---
Author Name [place] Address [address] [place] [address] Care Team Providers Care Biology Teacher Name Role Phone NICANOR HUGHES Primary Care [...] Gross's Name Patient's Relationship to Policy Gross [facility] MEDICARE SUPPLEMEN AMANDA MEDIC ARE SUPPL EMENT Jun 03, 2018 [id number] [phone] ANALI SANCHEZ PATIENT [facility] MEDICARE SUPPLEMEN AMANDA MEDIC ARE SUPPL EMENT Jun 03, 2018 [id number] [phone] ANALI SANCHEZ PATIENT MEDICARE (WNR) MEDICARE (M) PART B Nov 01, 2017 PART B [id number] ANALI SANCHEZ PATIENT MEDICARE (WNR) MEDICARE (M) PART B Nov 01, 2017 PART B [id number] ANALI SANCHEZ PATIENT MEDICARE (WNR) MEDICARE (M) PART A Mar 03, 2015 PART A [id number] ANALI SANCHEZ PATIENT MEDICARE (WNR) MEDICARE (M) PART A Mar 03, 2015 PART A [id number] ANALI SANCHEZ PATIENT MEDICARE PART D (WNR) MEDICARE (M) PART D Nov 01, 2017 PART D [id number] ANALI SANCHEZ PATIENT Selected Encounter This section includes the information on record at [place] for the Encounter. Date/Time Encounter Type Encounter Description Reason Provider Source Jul 05, 2023 09:38 AM Outpatient Encounter ADMIN PAT ACTIVTIES (RUSTYNONCT) JOSE ANTONIO CULVER Bettina Encounter Template Text not used by [place] Plan of Treatment: Future Appointments (+ 6 months) and Future Tests (+/- 45 days) The Plan of Treatment section includes future care activities for the patient from all [place] [facility]. This section includes future appointments and future orders which are active, pending or scheduled. Future Appointments This section includes appointments that were scheduled to occur 6 months from the date of the Encounter, up to a maximum of 20 appointments. The data comes from all [place] treatment facilities. Appointment Date/Time Appointment Type Appointme nt Facility Name Jul 23, 2023 10:00 AM AMBULATORY - PSYCHIATRY [facility] Sep 12, 2023 07:20 PM AMBULATORY - NONE [facility] October 10, 2023 03:40 PM AMBULATORY - SURGERY [facility] October 22, 2023 02:30 PM AMBULATORY - PSYCHIATRY [facility] Nov 05, 2023 02:30 PM AMBULATORY - PSYCHIATRY [facility] Social History: Smoking Status (Most current) and Tobacco Use (All prior to encounter date) This section includes the most current, and the historical, smoking and tobacco- related health factors from the [place] facility where the Encounter took place. Current Smoking Status This section includes the most current smoking, or tobacco-related health factor, from the [place] facility where the Encounter took place. Date/Time Current Smoking Status Comment Denilson ity Apr 08, 2023 09:00 AM VA-TOBACCO FORMER USER [facility] Tobacco Use History This section includes a history of the smoking, or tobacco-related health factors, that were collected on or before the date of the Encounter. The data comes from the [place] facility where the Encounter took place. Date/Time Smoking Status/Tobacco Use Comment F acility Apr 08, 2023 09:00 AM VA-TOBACCO QUIT 15 YRS OR MORE [facility] Mar 15, 2022 08:30 AM VA-TOBACCO FORMER USER [facility] Mar 15, 2022 08:30 AM VA-TOBACCO QUIT 15 YRS OR MORE [facility] Jan 24, 2021 10:00 AM VA-TOBACCO FORMER USER [facility] Jan 24, 2021 10:00 AM VA-TOBACCO QUIT 15 YRS OR MORE [facility] Aug 10, 2018 06:09 PM VA-TOBACCO FORMER USER [facility] Aug 10, 2018 06:09 PM VA-TOBACCO QUIT 15 YRS OR MORE [facility] Radiology Reports: +/- 30 days of the [...] the Encounter. The data comes from all [place] treatment facilities. Date/Time Radiology Report Provider Source Jun 26, 2023 08:29 AM HCC SCREENING US A BDOMEN LTD: ANALI SANCHEZ Chhaya [id number] -1950 M Exm Date: JUN 26, 2023@08:29 Req Phys: DOROTHY ALDRIDGE Loc: [facility] GI LIVER ELZBIETA 3V (Req'g Img Loc: Ultrasound Imaging Service: Unknown (Case [id number] COMPLETE) HCC SCREENING US ABDOMEN LTD (US Detailed) CPT:64982 Reason for Study: [facility] hepatoma screening + met-ALD Clinical History: IS NOT under investigation for COVID-19 or is COVID-19 negative hepatoma screening [facility] Responsible provider name and phone number to notify for critical findings if other than user placing the order and pager listed below: User placing orders pager: [phone] elzbieta LAST CREATININE 1.1 (04/09/23) Report Status: Verified Date Reported: JUN 26, 2023 Date Verified: JUN 26, 2023 Vulcanizer Operator E-Sig:/ES/APOORVA FERNANDEZ MD Report: Right upper [...] Primary Interpreting Staff: APOORVA FERNANDEZ MD, RADIOLOGIST (Vulcanizer Operator) /APOORVA RUFFIN [facility] Encounter Notes: All associated encounter notes This section contains the clinical notes associated to the Encounter. Date/Time Encounter Note(s) Provider Source Jul 05, 2023 09:38 AM WIDE LOAD ESCORT REFER RAL NOTE: LOCAL TITLE: TRAVELING COORDINATOR NOTE STANDARD TITLE: WIDE LOAD ESCORT REFERRAL NOTE DATE OF NOTE: JUL 05, 2023@09:38 ENTRY DATE: JUL 05, 2023@09:39:05 AUTHOR: JOSE ANTONIO CULVER EXP COSIGNER: URGENCY: STATUS: COMPLETED Local consult received for this [place] requesting care coordination through the [facility] process. Consult reviewed by this coordinator and forwarded via [facility]. /stephan/ JOSE ANTONIO CULVER RN UTILIZATIONMANAGEMENT Signed: 07/05/2023 09:39 JOSE ANTONIO CULVER [facility]
--- OUTSIDE RECORDS SUMMARY | 2024-01-16 15:52 | XMS_ITS | Encounter Summary ---
Author Name Department [place] Organization [place] Address [address] [place] [address] Care Team Providers Care Police Justice Name Role Phone NICANOR HUGHES Primary Care [...] Gross's Name Patient's Relationship to Policy Gross [facility] MEDICARE SUPPLEMEN AMANDA MEDIC ARE SUPPL EMENT Jun 03, 2018 [id number] [phone] ANALI SANCHEZ PATIENT [facility] MEDICARE SUPPLEMEN AMANDA MEDIC ARE SUPPL EMENT Jun 03, 2018 [id number] [phone] ANALI SANCHEZ PATIENT MEDICARE (WNR) MEDICARE (M) PART B Nov 01, 2017 PART B [id number] ANALI SANCHEZ PATIENT MEDICARE (WNR) MEDICARE (M) PART B Nov 01, 2017 PART B [id number] ANALI SANCHEZ PATIENT MEDICARE (WNR) MEDICARE (M) PART A Mar 03, 2015 PART A [id number] ANALI SANCHEZ PATIENT MEDICARE (WNR) MEDICARE (M) PART A Mar 03, 2015 PART A [id number] ANALI SANCHEZ PATIENT MEDICARE PART D (WNR) MEDICARE (M) PART D Nov 01, 2017 PART D [id number] ANALI SANCHEZ PATIENT Selected Encounter This section includes the information on record at [place] for the Encounter. Date/Time Encounter Type Encounter Description Reason Provider Source Jul 09, 2023 10:49 AM Outpatient Encounter ADMIN PAT ACTIVTIES (RUSTYNONCT) JOSE ANTONIO CULVER Bettina Encounter Template Text not used by [place] Plan of Treatment: Future Appointments (+ 6 months) and Future Tests (+/- 45 days) The Plan of Treatment section includes future care activities for the patient from all [place] [facility] This section includes future appointments and future orders which are active, pending or scheduled. Future Appointments This section includes appointments that were scheduled to occur 6 months from the date of the Encounter, up to a maximum of 20 appointments. The data comes from all [place] treatment facilities. Appointment Date/Time Appointment Type Appointme nt Facility Name Jul 23, 2023 10:00 AM AMBULATORY - PSYCHIATRY [facility] Sep 12, 2023 07:20 PM AMBULATORY - NONE [facility] October 10, 2023 03:40 PM AMBULATORY - SURGERY [facility] October 22, 2023 02:30 PM AMBULATORY - PSYCHIATRY [facility] Nov 05, 2023 02:30 PM AMBULATORY - PSYCHIATRY [facility] Social History: Smoking Status (Most current) and Tobacco Use (All prior to encounter date) This section includes the most current, and the historical, smoking and tobacco- related health factors from the [place] facility where the Encounter took place. Current Smoking Status This section includes the most current smoking, or tobacco-related health factor, from the [place] facility where the Encounter took place. Date/Time Current Smoking Status Comment Denilson ity Apr 08, 2023 09:00 AM VA-TOBACCO FORMER USER [facility] Tobacco Use History This section includes a history of the smoking, or tobacco-related health factors, that were collected on or before the date of the Encounter. The data comes from the [place] facility where the Encounter took place. Date/Time Smoking Status/Tobacco Use Comment F acility Apr 08, 2023 09:00 AM VA-TOBACCO QUIT 15 YRS OR MORE [facility] Mar 15, 2022 08:30 AM VA-TOBACCO FORMER USER [facility] Mar 15, 2022 08:30 AM VA-TOBACCO QUIT 15 YRS OR MORE [facility] Jan 24, 2021 10:00 AM VA-TOBACCO FORMER USER [facility] Jan 24, 2021 10:00 AM VA-TOBACCO QUIT 15 YRS OR MORE [facility] Aug 10, 2018 06:09 PM VA-TOBACCO FORMER USER [facility] Aug 10, 2018 06:09 PM VA-TOBACCO QUIT 15 YRS OR MORE [facility] Radiology Reports: +/- 30 days [...] the Encounter. The data comes from all [place] treatment facilities. Date/Time Radiology Report Provider Source Jun 26, 2023 08:29 AM HCC SCREENING US A BDOMEN LTD: ANALI SANCHEZ Chhaya [id number] -1950 M Exm Date: JUN 26, 2023@08:29 Req Phys: DOROTHY ALDRIDGE Loc: [facility] GI LIVER ELZBIETA 3V (Req'g Img Loc: Ultrasound Imaging Service: Unknown (Case [id number] COMPLETE) HCC SCREENING US ABDOMEN LTD (US Detailed) CPT:90732 Reason for Study: [facility] hepatoma screening + met-ALD Clinical History: IS NOT under investigation for COVID-19 or is COVID-19 negative hepatoma screening [facility] Responsible provider name and phone number to notify for critical findings if other than user placing the order and pager listed below: User placing orders pager: [phone] elzbieta LAST CREATININE 1.1 (04/09/23) Report Status: Verified Date Reported: JUN 26, 2023 Date Verified: JUN 26, 2023 Systems Admin E-Sig:/ES/APOORVA FERNANDEZ MD Report: Right upper quadrant [...] Primary Interpreting Staff: APOORVA FERNANDEZ MD, RADIOLOGIST (Systems Admin) /APOORVA RUFFIN [facility] Encounter Notes: All associated encounter notes This section contains the clinical notes associated to the Encounter. Date/Time Encounter Note(s) Provider Source Jul 09, 2023 10:49 AM SENIOR DRUPAL DEVELOPER REFER RAL NOTE: LOCAL TITLE: TRAVELING COORDINATOR NOTE STANDARD TITLE: SENIOR DRUPAL DEVELOPER REFERRAL NOTE DATE OF NOTE: JUL 09, 2023@10:49 ENTRY DATE: JUL 09, 2023@10:49:57 AUTHOR: JOSE ANTONIO CULVER EXP COSIGNER: URGENCY: STATUS: COMPLETED Traveling Vet consult activity for: incoming/outgoing consult care coordination, communication &/or chart review. /stephan/ JOSE ANTONIO CULVER RN UTILIZATIONMANAGEMENT Signed: 07/09/2023 10:50 JOSE ANTONIO CULVER [facility]
--- OUTSIDE RECORDS SUMMARY | 2024-01-16 15:52 | XMS_ITS | Encounter Summary ---
Author Name [facility] Organization [facility] Address [address] [place] [address] Care Team Providers Care Courtesy Van Driver Name Role Phone LUCRETIA HUGHES Primary Care [...] Gross's Name Patient's Relationship to Policy Gross [facility] MEDICARE SUPPLEMEN AMANDA MEDIC ARE SUPPL EMENT Jun 03, 2018 [id number] [phone] ANALI SANCHEZ PATIENT [facility] MEDICARE SUPPLEMEN AMANDA MEDIC ARE SUPPL EMENT Jun 03, 2018 [id number] ANALI SANCHEZ PATIENT MEDICARE (WNR) MEDICARE (M) PART B Nov 01, 2017 PART B [id number] ANALI SANCHEZ PATIENT MEDICARE (WNR) MEDICARE (M) PART B Nov 01, 2017 PART B [id number] ANALI SANCHEZ PATIENT MEDICARE (WNR) MEDICARE (M) PART A Mar 03, 2015 PART A [id number] ANALI SANCHEZ PATIENT MEDICARE (WNR) MEDICARE (M) PART A Mar 03, 2015 PART A [id number] ANALI SANCHEZ PATIENT MEDICARE PART D (WNR) MEDICARE (M) PART D Nov 01, 2017 PART D [id number] ANALI SANCHEZ PATIENT Selected Encounter This section includes the information on record at [place] for the Encounter. Date/Time Encounter Type Encounter Description Reason Provider Source Jul 10, 2023 10:45 AM Outpatient Encounter ADMIN PAT ACTIVTIES (RUSTYNONCT) JOSE ANTONIO CULVER Bettina Encounter Template Text not used by [place] Plan of Treatment: Future Appointments (+ 6 months) and Future Tests (+/- 45 days) The Plan of Treatment section includes future care activities for the [facility] [place] [facility] This section includes future appointments and future orders which are active, pending or scheduled. Future Appointments This section includes appointments that were scheduled to occur 6 months from the date of the Encounter, up to a maximum of 20 appointments. The data comes from all [place] treatment facilities. Appointment Date/Time Appointment Type Appointme nt Facility Name Jul 23, 2023 10:00 AM AMBULATORY - PSYCHIATRY [facility] Sep 12, 2023 07:20 PM AMBULATORY - NONE [facility] October 10, 2023 03:40 PM AMBULATORY - SURGERY [facility] October 22, 2023 02:30 PM AMBULATORY - PSYCHIATRY [facility] Nov 05, 2023 02:30 PM AMBULATORY - PSYCHIATRY [facility] Social History: Smoking Status (Most current) and Tobacco Use (All prior to encounter date) This section includes the most current, and the historical, smoking and tobacco- related health factors from the [place] facility where the Encounter took place. Current Smoking Status This section includes the most current smoking, or tobacco-related health factor, from the [place] facility where the Encounter took place. Date/Time Current Smoking Status Comment Denilson ity Apr 08, 2023 09:00 AM VA-TOBACCO FORMER USER [facility] Tobacco Use History This section includes a history of the smoking, or tobacco-related health factors, that were collected on or before the date of the Encounter. The data comes from the [place] facility where the Encounter took place. Date/Time Smoking Status/Tobacco Use Comment F acility Apr 08, 2023 09:00 AM VA-TOBACCO QUIT [address] [facility] Mar 15, 2022 08:30 AM VA-TOBACCO FORMER USER [facility] Mar 15, 2022 08:30 AM VA-TOBACCO QUIT [address] [facility] Jan 24, 2021 10:00 AM VA-TOBACCO FORMER USER [facility] Jan 24, 2021 10:00 AM VA-TOBACCO QUIT [address] [facility] Aug 10, 2018 06:09 PM VA-TOBACCO FORMER USER [facility] Aug 10, 2018 06:09 PM VA-TOBACCO QUIT [address] [facility] Radiology Reports: +/- 30 days of [...] the Encounter. The data comes from all [place] treatment facilities. Date/Time Radiology Report Provider Source Jun 26, 2023 08:29 AM [facility] SCREENING US A BDOMEN LTD: ANALI SANCHEZ Chhaya [id number] -[id number] M Exm Date: JUN 26, 2023@08:29 Req Phys: DOROTHY ALDRIDGE Loc: [facility] GI LIVER ELZBIETA 3V (Req'g Img Loc: Ultrasound Imaging Service: Unknown (Case [id number] COMPLETE) [facility] SCREENING US ABDOMEN LTD (US Detailed) CPT:93736 Reason for Study: [facility] hepatoma screening + met-ALD Clinical History: Mckenna IS NOT under investigation for COVID-19 or is COVID-19 negative hepatoma screening [facility] Responsible provider name and phone number to notify for critical findings if other than user placing the order and pager listed below: User placing orders pager: [phone] elzbieta LAST CREATININE 1.1 (04/09/23) Report Status: Verified Date Reported: JUN 26, 2023 Date Verified: JUN 26, 2023 Textile Cutting Machine Operator E-Sig:/ES/APOORVA FERNANDEZ MD Report: Right [...] Primary Interpreting Staff: APOORVA FERNANDEZ MD, RADIOLOGIST (Textile Cutting Machine Operator) /APOORVA RUFFIN [facility] Encounter Notes: All associated encounter notes This section contains the clinical notes associated to the Encounter. Date/Time Encounter Note(s) Provider Source Jul 29, 2023 09:31 AM ADDENDUM: LOCAL TITLE: Addendum STANDARD TITLE: ADDENDUM DATE OF NOTE: JUL 29, 2023@09:31:41 ENTRY DATE: JUL 29, 2023@09:31:42 AUTHOR: DOROTHY ESTES EXP COSIGNER: URGENCY: STATUS: COMPLETED FYI to provider: Called vet to follow up on lesion. He reports it is largely healed over -- it formed a scab and the scab has since falled off. He can still see the outline and some small black dots but does not want to do anything at this time. His plan is to follow up in [place] once he's back in October. Advised that if it returns, reach back out so video visit can be scheduled. Vet agreeable to plan and appreciative of call. /es/ DOROTHY ESTES RN Signed: 07/29/2023 09:34 Receipt Acknowledged By: 07/29/2023 09:35 /stephan/ Lucretia Hughes MD STAFF PHYSICIAN === --- Original Document --- 07/10/23 TRAVELING COORDINATOR NOTE: reached out to [place]. Is requesting to be seen by dermatology. No reason/sx given. Please assess 's needs and if medically appropriate, a Traveling Consult may be placed. /es/ JOSE ANTONIO CULVER RN UTILIZATIONMANAGEMENT Signed: 07/10/2023 10:46 Receipt Acknowledged By: 07/10/2023 11:14 /stephan/ Lucretia Hughes MD STAFF PHYSICIAN 07/10/2023 11:43 /stephan/ FELIPE CANDELARIO RN REGISTERED NURSE 07/10/2023 ADDENDUM STATUS: COMPLETED patient was seen by dermatology here on 04/22/23 with RTC in 1 year. No indication at this time for a referral unless there is something new and urgent. ideally should follow-up in [place]. /stephan/ Lucretia Hughes MD STAFF PHYSICIAN Signed: 07/10/2023 11:14 Receipt Acknowledged By: 07/10/2023 11:43 /stephan/ FELIPE CANDELARIO RN REGISTERED NURSE 07/10/2023 ADDENDUM STATUS: COMPLETED Spoke w/ pt re: request for TVC - derm consult Per pt, he reports that he first noticed the affected area 10 days ago. At first I thought it was an ingrown hair on my stomach. It got larger and now it has a center core with a black dot that turned red. It oozed out some fluid. Since then, the blemish or cyst is still there, but I've never had anything like this before. It looks weird. I was afraid to squeeze it because it was very tender. The redness is smaller but it's still there. It still has the markings of [place] with a black dot in the middle of it. I asked pt if this could be a blood blister caused by pinching the affected area on a belt or zipper, he says no, it's higher than that. It's on the right side and higher than the navel. Will cosign pt's derm provider to this note. Other info: [facility] address in [place]: [address] [place] [address] [place] [id number] Return date: at the end of September 2023 /stephan/ FELIPE CANDELARIO RN REGISTERED NURSE Signed: 07/10/2023 11:40 Receipt Acknowledged By: 07/29/2023 08:28 /stephan/ PRANAV MARSHALL MD STAFF EGG CANDLER 07/29/2023 ADDENDUM STATUS: COMPLETED Do they have telederm in [place]? Could offer this. Otherwise reasonable to place traveling vet consult or we can set up f/u in [place] when he returns. /stephan/ PRANAV MARSHALL MD STAFF EGG CANDLER Signed: 07/29/2023 08:29 Receipt Acknowledged By: 07/29/2023 08:35 /stephan/ Lucretia Hughes MD STAFF PHYSICIAN 07/29/2023 09:33 /es/ DOROTHY ESTES RN for FELIPE CANDELARIO 07/29/2023 ADDENDUM STATUS: COMPLETED Consider VVC so we can see the lesion and place a consult if needed. Can we see if the lesion is still present and bothersome? /stephan/ Lucretia Hughes MD STAFF PHYSICIAN Signed: 07/29/2023 08:36 Receipt Acknowledged By: 07/29/2023 09:30 /stephan/ DOROTHY ESTES RN for DOROTHY ROLON [facility] Jul 29, 2023 08:35 AM ADDENDUM: LOCAL TITLE: Addendum STANDARD TITLE: ADDENDUM DATE OF NOTE: JUL 29, 2023@08:35:13 ENTRY DATE: JUL 29, 2023@08:35:14 AUTHOR: CANDY,LUCRETIA E EXP COSIGNER: URGENCY: STATUS: COMPLETED Consider VVC so we can see the lesion and place a consult if needed. Can we see if the lesion is still present and bothersome? /stephan/ Lucretia Hughes MD STAFF PHYSICIAN Signed: 07/29/2023 08:36 Receipt Acknowledged By: 07/29/2023 09:30 /stephan/ DOROTHY ESTES RN for FELIPE CANDELARIO === --- Original Document --- 07/10/23 TRAVELING COORDINATOR NOTE: Mckenna reached out to [place]. Is requesting to be seen by dermatology. No reason/sx given. Please assess 's needs and if medically appropriate, a Traveling Consult may be placed. /es/ JOSE ANTONIO CULVER RN UTILIZATIONMANAGEMENT Signed: 07/10/2023 10:46 Receipt Acknowledged By: 07/10/2023 11:14 /stephan/ Lucretia Hughes MD STAFF PHYSICIAN 07/10/2023 11:43 /stephan/ FELIPE CANDELARIO RN REGISTERED NURSE 07/10/2023 ADDENDUM STATUS: COMPLETED patient was seen by dermatology here on 04/22/23 with RTC in 1 year. No indication at this time for a referral unless there is something new and urgent. ideally should follow-up in [place]. /stephan/ Lucretia Hughes MD STAFF PHYSICIAN Signed: 07/10/2023 11:14 Receipt Acknowledged By: 07/10/2023 11:43 /stephan/ FELIPE CANDELARIO RN REGISTERED NURSE 07/10/2023 ADDENDUM STATUS: COMPLETED Spoke w/ pt re: request for TVC - derm consult Per pt, he reports that he first noticed the affected area 10 days ago. At first I thought it was an ingrown hair on my stomach. It got larger and now it has a center core with a black dot that turned red. It oozed out some fluid. Since then, the blemish or cyst is still there, but I've never had anything like this before. It looks weird. I was afraid to squeeze it because it was very tender. The redness is smaller but it's still there. It still has the markings of [place] with a black dot in the middle of it. I asked pt if this could be a blood blister caused by pinching the affected area on a belt or zipper, he says no, it's higher than that. It's on the right side and higher than the navel. Will cosign pt's derm provider to this note. Other info: [facility] address in [place]: [address] [place] [address] [place] [id number] Return date: at the end of September 2023 /stephan/ FELIPE CANDELARIO RN REGISTERED NURSE Signed: 07/10/2023 11:40 Receipt Acknowledged By: 07/29/2023 08:28 /stephan/ PRANAV MARSHALL MD STAFF EGG CANDLER 07/29/2023 ADDENDUM STATUS: COMPLETED Do they have telederm in [place]? Could offer this. Otherwise reasonable to place traveling vet consult or we can set up f/u in [place] when he returns. /stephan/ PRANAV MARSHALL MD STAFF EGG CANDLER Signed: 07/29/2023 08:29 Receipt Acknowledged By: 07/29/2023 08:35 /stephan/ Lucretia Hughes MD STAFF PHYSICIAN 07/29/2023 09:33 /stephan/ DOROTHY ESTES RN for FELIPE CANDELARIO 07/29/2023 ADDENDUM STATUS: COMPLETED FYI to provider: Called vet to follow up on lesion. He reports it is largely healed over -- it formed a scab and the scab has since falled off. He can still see the outline and some small black dots but does not want to do anything at this time. His plan is to follow up in [place] once he's back in October. Advised that if it returns, reach back out so video visit can be scheduled. Vet agreeable to plan and appreciative of call. /stephan/ DOROTHY ESTES RN Signed: 07/29/2023 09:34 Receipt Acknowledged By: 07/29/2023 09:35 /stephan/ Lucretia Hughes MD STAFF PHYSICIAN LUCRETIA HUGHES [facility] Jul 29, 2023 08:28 AM ADDENDUM: LOCAL TITLE: Addendum STANDARD TITLE: ADDENDUM DATE OF NOTE: JUL 29, 2023@08:28:47 ENTRY DATE: JUL 29, 2023@08:28:49 AUTHOR: PRANAV MARSHALL EXP COSIGNER: URGENCY: STATUS: COMPLETED Do they have telederm in [place]? Could offer this. Otherwise reasonable to place traveling vet consult or we can set up f/u in [place] when he returns. /es/ PRANAV MARSHALL MD STAFF EGG CANDLER Signed: 07/29/2023 08:29 Receipt Acknowledged By: 07/29/2023 08:35 /stephan/ Lucretia Hughes MD STAFF PHYSICIAN 07/29/2023 09:33 /stephan/ DOROTHY ESTES RN for FELIPE CANDELARIO === --- Original Document --- 07/10/23 TRAVELING COORDINATOR NOTE: reached out to [place]. Is requesting to be seen by dermatology. No reason/sx given. Please assess 's needs and if medically appropriate, a Traveling Consult may be placed. /es/ JOSE ANTONIO CULVER RN UTILIZATIONMANAGEMENT Signed: 07/10/2023 10:46 Receipt Acknowledged By: 07/10/2023 11:14 /stephan/ Lucretia Hughes MD STAFF PHYSICIAN 07/10/2023 11:43 /es/ FELIPE CANDELARIO, RN REGISTERED NURSE 07/10/2023 ADDENDUM STATUS: COMPLETED patient was seen by dermatology here on 04/22/23 with RTC in 1 year. No indication at this time for a referral unless there is something new and urgent. ideally should follow-up in [place]. /stephan/ Lucretia Hughes MD STAFF PHYSICIAN Signed: 07/10/2023 11:14 Receipt Acknowledged By: 07/10/2023 11:43 /es/ FELIPE CANDELARIO RN REGISTERED NURSE 07/10/2023 ADDENDUM STATUS: COMPLETED Spoke w/ pt re: request for TVC - derm consult Per pt, he reports that he first noticed the affected area 10 days ago. At first I thought it was an ingrown hair on my stomach. It got larger and now it has a center core with a black dot that turned red. It oozed out some fluid. Since then, the blemish or cyst is still there, but I've never had anything like this before. It looks weird. I was afraid to squeeze it because it was very tender. The redness is smaller but it's still there. It still has the markings of [place] with a black dot in the middle of it. I asked pt if this could be a blood blister caused by pinching the affected area on a belt or zipper, he says no, it's higher than that. It's on the right side and higher than the navel. Will cosign pt's derm provider to this note. Other info: [facility] address in [place]: [address] [place], [place] [id number] Return date: at the end of September 2023 /es/ FELIPE CANDELARIO RN REGISTERED NURSE Signed: 07/10/2023 11:40 Receipt Acknowledged By: 07/29/2023 08:28 /es/ PRANAV MARSHALL MD STAFF EGG CANDLER 07/29/2023 ADDENDUM STATUS: COMPLETED Consider VVC so we can see the lesion and place a consult if needed. Can we see if the lesion is still present and bothersome? /es/ Lucretia Hughes MD STAFF PHYSICIAN Signed: 07/29/2023 08:36 Receipt Acknowledged By: 07/29/2023 09:30 /es/ DOROTHY ESTES RN for FELIPE CANDELARIO 07/29/2023 ADDENDUM STATUS: COMPLETED FYI to provider: Called vet to follow up on lesion. He reports it is largely healed over -- it formed a scab and the scab has since falled off. He can still see the outline and some small black dots but does not want to do anything at this time. His plan is to follow up in [place] once he's back in October. Advised that if it returns, reach back out so video visit can be scheduled. Vet agreeable to plan and appreciative of call. /es/ DOROTHY ESTES RN Signed: 07/29/2023 09:34 Receipt Acknowledged By: 07/29/2023 09:35 /es/ Lucretia Hughes MD STAFF PHYSICIAN PRANAV MARSHALL [facility] Jul 10, 2023 11:29 AM ADDENDUM: LOCAL TITLE: Addendum STANDARD TITLE: ADDENDUM DATE OF NOTE: JUL 10, 2023@11:29:41 ENTRY DATE: JUL 10, 2023@11:29:41 AUTHOR: FELIPE CANDELARIO EXP COSIGNER: URGENCY: STATUS: COMPLETED Spoke w/ pt re: request for TVC - derm consult Per pt, he reports that he first noticed the affected area 10 days ago. At first I thought it was an ingrown hair on my stomach. It got larger and now it has a center core with a black dot that turned red. It oozed out some fluid. Since then, the blemish or cyst is still there, but I've never had anything like this before. It looks weird. I was afraid to squeeze it because it was very tender. The redness is smaller but it's still there. It still has the markings of [place] with a black dot in the middle of it. I asked pt if this could be a blood blister caused by pinching the affected area on a belt or zipper, he says no, it's higher than that. It's on the right side and higher than the navel. Will cosign pt's derm provider to this note. Other info: [facility] address in [place]: [address] [place] [id number] Return date: at the end of September 2023 /stephan/ FELIPE CANDELARIO RN REGISTERED NURSE Signed: 07/10/2023 11:40 Receipt Acknowledged By: 07/29/2023 08:28 /es/ PRANAV MARSHALL MD STAFF EGG CANDLER === --- Original Document --- 07/10/23 TRAVELING COORDINATOR NOTE: reached out to [place]. Is requesting to be seen by dermatology. No reason/sx given. Please assess 's needs and if medically appropriate, a Traveling Mck[place] Consult may be placed. /es/ JOSE ANTONIO CULVER RN UTILIZATIONMANAGEMENT Signed: 07/10/2023 10:46 Receipt Acknowledged By: 07/10/2023 11:14 /es/ Lucretia Hughes MD STAFF PHYSICIAN 07/10/2023 11:43 /es/ FELIPE CANDELARIO, RN REGISTERED NURSE 07/10/2023 ADDENDUM STATUS: COMPLETED patient was seen by dermatology here on 04/22/23 with RTC in 1 year. No indication at this time for a referral unless there is something new and urgent. ideally should follow-up in [place]. /stephan/ Lucretia Hughes MD STAFF PHYSICIAN Signed: 07/10/2023 11:14 Receipt Acknowledged By: 07/10/2023 11:43 /es/ FELIPE CANDELARIO RN REGISTERED NURSE 07/29/2023 ADDENDUM STATUS: COMPLETED Do they have telederm in [place]? Could offer this. Otherwise reasonable to place traveling vet consult or we can set up f/u in [place] when he returns. /es/ PRANAV MARSHALL MD STAFF EGG CANDLER Signed: 07/29/2023 08:29 Receipt Acknowledged By: * AWAITING SIGNATURE * LUCRETIA HUGHES * AWAITING SIGNATURE * FELIPE CANDELARIO KRISTINA P [facility] Jul 10, 2023 11:13 AM ADDENDUM: LOCAL TITLE: Addendum STANDARD TITLE: ADDENDUM DATE OF NOTE: JUL 10, 2023@11:13:41 ENTRY DATE: JUL 10, 2023@11:13:42 AUTHOR: LUCRETIA HUGHES EXP COSIGNER: URGENCY: STATUS: COMPLETED patient was seen by dermatology here on 04/22/23 with RTC in 1 year. No indication at this time for a referral unless there is something new and urgent. ideally should follow-up in [place]. /stephan/ Lucretia Hughes MD STAFF PHYSICIAN Signed: 07/10/2023 11:14 Receipt Acknowledged By: 07/10/2023 11:43 /es/ FELIPE CANDELARIO RN REGISTERED NURSE === --- Original Document --- 07/10/23 TRAVELING COORDINATOR NOTE: Mckenna reached out to [place]. Is requesting to be seen by dermatology. No reason/sx given. Please assess 's needs and if medically appropriate, a Traveling Consult may be placed. /es/ JOSE ANTONIO CULVER RN UTILIZATIONMANAGEMENT Signed: 07/10/2023 10:46 Receipt Acknowledged By: 07/10/2023 11:14 /es/ Lucretia Hughes MD STAFF PHYSICIAN 07/10/2023 11:43 /es/ FELIPE CANDELARIO RN REGISTERED NURSE 07/10/2023 ADDENDUM STATUS: COMPLETED Spoke w/ pt re: request for TVC - derm consult Per pt, he reports that he first noticed the affected area 10 days ago. At first I thought it was an ingrown hair on my stomach. It got larger and now it has a center core with a black dot that turned red. It oozed out some fluid. Since then, the blemish or cyst is still there, but I've never had anything like this before. It looks weird. I was afraid to squeeze it because it was very tender. The redness is smaller but it's still there. It still has the markings of [place] with a black dot in the middle of it. I asked pt if this could be a blood blister caused by pinching the affected area on a belt or zipper, he says no, it's higher than that. It's on the right side and higher than the navel. Will cosign pt's derm provider to this note. Other info: [facility] address in [place]: [address] [place] [address] [place] [id number] Return date: at the end of September 2023 /stephan/ FELIPE CANDELARIO RN REGISTERED NURSE Signed: 07/10/2023 11:40 Receipt Acknowledged By: * AWAITING SIGNATURE * PRANAV MARSHALL AMY E [facility] Jul 10, 2023 10:45 AM PROCESS EQUIPMENT OPERATOR REFER RAL NOTE: LOCAL TITLE: TRAVELING COORDINATOR NOTE STANDARD TITLE: PROCESS EQUIPMENT OPERATOR REFERRAL NOTE DATE OF NOTE: JUL 10, 2023@10:45 ENTRY DATE: JUL 10, 2023@10:45:42 AUTHOR: JOSE ANTONIO CULVER COSIGNER: URGENCY: STATUS: COMPLETED TRAVELING COORDINATOR NOTE Has ADDENDA reached out to [place]. Is requesting to be seen by dermatology. No reason/sx given. Please assess 's needs and if medically appropriate, a Traveling Mckenna Consult may be placed. /stephan/ JOSE ANTONIO CULVER RN UTILIZATIONMANAGEMENT Signed: 07/10/2023 10:46 Receipt Acknowledged By: 07/10/2023 11:14 /stephan/ Lucretia Hughes MD STAFF PHYSICIAN 07/10/2023 11:43 /stephan/ FELIPE CANDELARIO RN REGISTERED NURSE 07/10/2023 ADDENDUM STATUS: COMPLETED patient was seen by dermatology here on 04/22/23 with RTC in 1 year. No indication at this time for a referral unless there is something new and urgent. ideally should follow-up in [place]. /ayden Hughes MD STAFF PHYSICIAN Signed: 07/10/2023 11:14 Receipt Acknowledged By: 07/10/2023 11:43 /stephan/ FELIPE CANDELARIO RN REGISTERED NURSE 07/10/2023 ADDENDUM STATUS: COMPLETED Spoke w/ pt re: request for TVC - derm consult Per pt, he reports that he first noticed the affected area 10 days ago. At first I thought it was an ingrown hair on my stomach. It got larger and now it has a center core with a black dot that turned red. It oozed out some fluid. Since then, the blemish or cyst is still there, but I've never had anything like this before. It looks weird. I was afraid to squeeze it because it was very tender. The redness is smaller but it's still there. It still has the markings of [place] with a black dot in the middle of it. I asked pt if this could be a blood blister caused by pinching the affected area on a belt or zipper, he says no, it's higher than that. It's on the right side and higher than the navel. Will cosign pt's derm provider to this note. Other info: [facility] address in [place]: [address] [place] [address] [place] [id number] Return date: at the end of September 2023 /stephan/ FELIPE CANDELARIO RN REGISTERED NURSE Signed: 07/10/2023 11:40 Receipt Acknowledged By: 07/29/2023 08:28 /es/ PRANAV MARSHALL MD STAFF EGG CANDLER 07/29/2023 ADDENDUM STATUS: COMPLETED Do they have telederm in [place]? Could offer this. Otherwise reasonable to place traveling vet consult or we can set up f/u in [place] when he returns. /es/ PRANAV MARSHALL MD STAFF EGG CANDLER Signed: 07/29/2023 08:29 Receipt Acknowledged By: 07/29/2023 08:35 /es/ Lucretia Hughes MD STAFF PHYSICIAN 07/29/2023 09:33 /es/ DOROTHY ESTES RN for FELIPE CANDELARIO 07/29/2023 ADDENDUM STATUS: COMPLETED Consider VVC so we can see the lesion and place a consult if needed. Can we see if the lesion is still present and bothersome? /stephan/ Lucretia Hughes MD STAFF PHYSICIAN Signed: 07/29/2023 08:36 Receipt Acknowledged By: 07/29/2023 09:30 /es/ DOROTHY ESTES RN for FELIPE Lynn ANDREE 07/29/2023 ADDENDUM STATUS: COMPLETED FYI to provider: Called vet to follow up on lesion. He reports it is largely healed over -- it formed a scab and the scab has since falled off. He can still see the outline and some small black dots but does not want to do anything at this time. His plan is to follow up in [place] once he's back in October. Advised that if it returns, reach back out so video visit can be scheduled. Vet agreeable to plan and appreciative of call. /es/ DOROTHY ESTES RN Signed: 07/29/2023 09:34 Receipt Acknowledged By: 07/29/2023 09:35 /es/ Lucretia Hughes MD STAFF PHYSICIAN JOSE ANTONIO CULVER [facility] [facility]
--- OUTSIDE RECORDS SUMMARY | 2024-01-16 15:52 | XMS_ITS | Encounter Summary ---
Author Name Department of [place] Affairs ([place]) Organization [facility] ([place] Address [address] [place] [address] Care Team Providers Care Content Development Manager Name Role Phone NICANOR HUGHES Primary Care [...] Name Patient's Relationship to Policy Gross [place] SUPPLEMEN AMANDA MEDIC ARE SUPPL EMENT Jun 03, 2018 [id number] [phone] ANALI SANCHEZ PATIENT [place] MED[place] SUPPLEMEN AMANDA MEDIC ARE SUPPL EMENT Jun 03, 2018 [id number] [phone] ANALI SANCHEZ PATIENT MEDICARE (WNR) MEDICARE (M) PART B Nov 01, 2017 PART B [id number] ANALI SANCHEZ PATIENT MEDICARE (WNR) MEDICARE (M) PART B Nov 01, 2017 PART B [id number] ANALI SANCHEZ PATIENT MEDICARE (WNR) MEDICARE (M) PART A Mar 03, 2015 PART A [id number] ANALI SANCHEZ PATIENT MEDICARE (WNR) MEDICARE (M) PART A Mar 03, 2015 PART A [id number] ANALI SANCHEZ PATIENT MEDICARE PART D (WNR) MEDICARE (M) PART D Nov 01, 2017 PART D [id number] DANIEL, ANALI PATIENT Selected Encounter This section includes the information on record at [place] for the Encounter. Date/Time Encounter Type Encounter Description Reason Provider Source Jul 05, 2023 12:05 PM TARGETED CASE MANAGEMENT ADMIN [place] (ANAMARIA) RUCHI RODRIGUEZ Bettina Encounter Template Text not used by [place] Plan of Treatment: Future Appointments (+ 6 months) and Future Tests (+/- 45 days) The Plan of Treatment section includes future care activities for the [facility] [place] [facility] This section includes future appointments and future orders which are active, pending or scheduled. Future Appointments This section includes appointments that were scheduled to occur 6 months from the date of the Encounter, up to a maximum of 20 appointments. The data comes from all [facility]. Appointment Date/Time Appointment Type Appointme nt Facility Name Jul 23, 2023 10:00 AM AMBULATORY - PS[facility]ATRY [facility] Sep 12, 2023 07:20 PM AMBULATORY - NONE [facility] October 10, 2023 03:40 PM AMBULATORY - SURGERY [facility] October 22, 2023 02:30 PM AMBULATORY - PSYCHIATRY [facility] Nov 05, 2023 02:30 PM AMBULATORY - PSYCHIATRY [facility] Radiology Reports: +/- 30 days of [...] the Encounter. The data comes from all [facility]. Date/Time Radiology Report Provider Source Jun 26, 2023 08:29 AM HCC SCREENING US A BDOMEN LTD: DANIELANALI Chhaya [id number] M Exm Date: JUN 26, 2023@08:29 Req Phys: DOROTHY ALDRIDGE Loc: [facility] GI LIVER ELZBIETA 3V (Req'g Img Loc: Ultrasound Imaging Service: Unknown (Case [id number] COMPLETE) HCC SCREENING US ABDOMEN LTD (US Detailed) CPT:45987 Reason for Study: CHB hepatoma screening + met-ALD Clinical History: IS NOT under investigation for COVID-19 or is COVID-19 negative hepatoma screening CHB Responsible provider name and phone number to notify for critical findings if other than user placing the order and pager listed below: User placing orders pager: [phone] elzbieta LAST CREATININE 1.1 (04/09/23) Report Status: Verified Date Reported: JUN 26, 2023 Date Verified: JUN 26, 2023 Sports Director E-Sig:/ES/APOORVA FERNANDEZ MD Report: Right upper quadrant [...] Primary Interpreting Staff: APOORVA FERNANDEZ MD, RADIOLOGIST (Sports Director) /APOORVA RUFFIN [facility] Encounter Notes: All associated encounter notes This section contains the clinical notes associated to the Encounter. Date/Time Encounter Note(s) Provider Source Jul 05, 2023 12:14 PM PRIMARY CARE NOTE: LOCAL TITLE: TRAVELING CARE COORDINATION (TVC) NOTE STANDARD TITLE: PRIMARY CARE NOTE DATE OF NOTE: JUL 05, 2023@12:14 ENTRY DATE: JUL 05, 2023@12:14:10 AUTHOR: RUCHI RODRIGUEZ EXP COSIGNER: URGENCY: STATUS: COMPLETED TRAVELING CARE COORDINATION (TVC) NOTE Has ADDENDA TVCC received. traveling to [place], [place] Requesting ABD MRI w & W/o contrast Consult placed to [facility] for review, community care referral, or scheduling /stephan/ RUCHI RODRIGUEZMSN,RN REGISTERED NURSE Signed: 07/05/2023 12:15 07/05/2023 ADDENDUM STATUS: COMPLETED JL labs for MRI 04/09/23 BUN 17mg/dl Creatinine 1.1mg/dl CREAT EGFR(CKD-EPI) 71 /stephan/ RUCHI RODRIGUEZ,MSN,RN REGISTERED NURSE Signed: 07/05/2023 12:20 RUCHI RODRIGUEZ [facility]
--- OUTSIDE RECORDS SUMMARY | 2024-01-16 15:52 | XMS_ITS | Encounter Summary ---
Author Name Department [place] Organization [place] Address [address] [place] [address] Care Team Providers Care Retail Operations Specialist Name Role Phone NICANOR HUGHES Primary Care [...] Gross's Name Patient's Relationship to Policy Gross [facility] MEDICARE SUPPLEMEN AMANDA MEDIC ARE SUPPL EMENT Jun 03, 2018 [id number] [phone] ANALI SANCHEZ PATIENT BS [place] MED[place] SUPPLEMEN AMANDA MEDIC ARE SUPPL EMENT Jun 03, 2018 [id number] ANALI SANCHEZ PATIENT MEDICARE (WNR) MEDICARE (M) PART B Nov 01, 2017 PART B [id number] ANALI SANCHEZ PATIENT MEDICARE (WNR) MEDICARE (M) PART B Nov 01, 2017 PART B [id number] ANALI SANCHEZ PATIENT MEDICARE (WNR) MEDICARE (M) PART A Mar 03, 2015 PART A [id number] ANALI SANCHEZ PATIENT MEDICARE (WNR) MEDICARE (M) PART A Mar 03, 2015 PART A [id number] ANALI SANCHEZ PATIENT MEDICARE PART D (WNR) MEDICARE (M) PART D Nov 01, 2017 PART D [id number] ANALI SANCHEZ PATIENT Selected Encounter This section includes the information on record at [place] for the Encounter. Date/Time Encounter Type Encounter Description Reason Provider Source Sep 09, 2023 03:20 PM Outpatient Encounter ADMIN PAT ACTIVTIES (RUSTYNONJACOBO) KE[place] AYERS IHE Encounter Template Text not used by [place] Plan of Treatment: Future Appointments (+ 6 months) and Future Tests (+/- 45 days) The Plan of Treatment section includes future care activities for the patient from all [place] treatmentfacilities. This section includes future appointments and future orders which are active, pending or scheduled. Future Appointments This section includes appointments that were scheduled to occur 6 months from the date of the Encounter, up to a maximum of 20 appointments. The data comes from all [place] treatment facilities. Appointment Date/Time Appointment Type Appointme nt Facility Name Sep 12, 2023 07:20 PM AMBULATORY - NONE [facility] October 10, 2023 03:40 PM AMBULATORY - SURGERY [facility] October 22, 2023 02:30 PM AMBULATORY - PS[facility]CHIATRY [facility] Nov 05, 2023 02:30 PM AMBULATORY - PS[facility]CHIATRY [facility] Feb 11, 2024 02:30 PM AMBULATORY - PSYCHIATRY [facility] Lab Results: +/- 30 days of [...] Range Comment Sep 09, 2023 02:[address] [facility] [address] PANEL Specimen Type: PLASMA No comment entered. Ordering Provider: KE[place] AYERS Report Released Date/Time: Sep 09, 2023 02:12 PM Reporting Lab: [facility] [address] [facility] [id number] Performing Lab: [facility] [address] [facility] [id number] CREATININE 1.0 mg/dL 0.7-1.3 UREA NITROGEN 17 mg/dL 7-20.6 EGFR (2020) 79 mL/min >90 Radiology Reports: +/- 30 days of the [...] the Encounter. The data comes from all [place] treatment facilities. Date/Time Radiology Report Provider Source Sep 12, 2023 07:13 PM 3D RENDERING: ANALI SANCHEZ [id number] -1950 M Ex Date: SEP 12, 2023@19:13 Req Phys: [place] AYERS Loc: [facility] TVC MANAGER PEOPLE (Req'g Loc) Img Loc: [facility] MRI 1 Service: Unknown (Case [id number] COMPLETE) 3D RENDERING (MRI Detailed) CPT:89433 Reason for Study: hepatoma screening new liver [...] object, or other foreign body NO Location: -[place] acupuncture or acupuncture needles NO -Coronary artery (heart) stents NO -Any other stent, filter, or coil NO -Shunt (spinal or intraventricular) NO -Vascular access port and/or catheter NO -Any other implanted device not listed above? NO Details: Has the had a reaction to the MRI contrast/dye (Gadolinium)? NO Does the have a systemic nephrogenic fibrosis/kidney disease? NO [...] 16, 2023 Date Verified: SEP 16, 2023 Funeral Pre Arrangement Counselor E-Sig:/ES/OUTSIDE SERVICE RADIOLOGY Report: MRI ABDOMEN Technique: [...] Hepatic steatosis. READING PHYSICIAN: Otilio Rios M.D. -[id number] 09/16/2023 11:54 PDT [facility] FamilyAppradiology Program [phone] (For Medical Practitioner Use Only) Attention Patients / Veterans: If you have questions or concerns about these test results, please contact your ordering provider or primary care team. Primary Diagnostic Code: NO ALERT REQUIRED Primary Interpreting Staff: OUTSIDE SERVICE RADIOLOGY, Staff Physician / RADIOLOGY,OUTSIDE SERVICE [facility] Sep 12, 2023 07:13 PM MRI ABDOMEN W/C & W/O CON: ANALI SANCHEZ [id number] -1950 M Ex Date: SEP 12, 2023@19:13 Req Phys: [place] AYERS Pat Loc: [facility] TVC MANAGER PEOPLE (Req'g Loc) Img Loc: [facility] MRI 1 Service: Unknown (Case [id number] COMPLETE) MRI ABDOMEN W/C & W/O CON (MRI Detailed) CPT:02352 Contrast Media : Gadolinium Reason for Study: [...] object, or other foreign body NO Location: -[place] acupuncture or acupuncture needles NO -Coronary artery (heart) stents NO -Any other stent, filter, or coil NO -Shunt (spinal or intraventricular) NO -Vascular access port and/or catheter NO -Any other implanted device not listed above? NO Details: Has the Faith had a reaction to the MRI contrast/dye (Gadolinium)? NO Does the Faith have a systemic nephrogenic fibrosis/kidney disease? NO [...] 16, 2023 Date Verified: SEP 16, 2023 Funeral Pre Arrangement Counselor E-Sig:/ES/OUTSIDE SERVICE RADIOLOGY Report: MRI ABDOMEN Technique: [...] Hepatic steatosis. READING PHYSICIAN: Otilio Rios M.D. -[id number] 09/16/2023 11:54 PDT [facility] National Plug.djradiology Program [phone] (For Medical Practitioner Use Only) Attention Patients / Veterans: If you have questions or concerns about these test results, please contact your ordering provider or primary care team. Primary Diagnostic Code: NO ALERT REQUIRED Primary Interpreting Staff: OUTSIDE SERVICE RADIOLOGY, Staff Physician / RADIOLOGY,OUTSIDE SERVICE [facility] Encounter Notes: All associated encounter notes This section contains the clinical notes associated to the Encounter. Date/Time Encounter Note(s) Provider Source Sep 09, 2023 03:20 PM PRIMARY CARE NOTE: LOCAL TITLE: TRAVELING CARE COORDINATION (TVC) NOTE STANDARD TITLE: PRIMARY CARE NOTE DATE OF NOTE: SEP 09, 2023@15:20 ENTRY DATE: SEP 09, 2023@15:20:47 AUTHOR: [place] AYERS EXP COSIGNER: URGENCY: STATUS: COMPLETED ASSISTING ON TVCC 2.1.24 FOR ANTICIPATED CARE COORDINATION THAT HAS BEEN REVIEWED AND PROCESSED FOR REQUESTED SERVICES TO RESUME AT REMOTE SENDING/RECEIVING [place] MRI abdomen with/without contrast Future Appointments: Date Time Clinic 09/12/2023 19:20 [facility] MRI AFTERNOON AND ORDERING PCP NOTIFIED (POST TO ASSOCIATED CONSULT) OF RESULTS AVAILABLE AND VET DIRECTED TO CONTACT HOME [place] PCP FOR REVIEW OF ORDERING DIAGNOSTICS. Remote Facility: [facility] Ordering Provider: DOROTHY ALDRIDGE PREREQUISITE LABS FOR REVIEW CT PANEL LITHIUM HEPARIN SEPARATOR PLASMA STAT SP LB #[id number] Collection time: Sep 09, 2023@14:17 Test Name Result Units Range --------- ------ ----- ----- UREA NITROGEN 17 mg/dL 7 - 20.6 CREATININE 1.0 mg/dL 0.7 - 1.3 /stephan/ [place] AYERS APRN ADVANCED PRACTICE NURSE PRACTITIONER Signed: 09/09/2023 15:22 KE[place] AYERS [facility]
--- OUTSIDE RECORDS SUMMARY | 2024-01-16 15:52 | XMS_ITS | Encounter Summary ---
Author Name Department [place] Organization [place] Address [address] [place] [address] Care Team Providers Care Engineering Intern Name Role Phone NICANOR HUGHES Primary Care [...] Gross's Name Patient's Relationship to Policy Gross [facility] MEDICARE SUPPLEMEN AMANDA MEDIC ARE SUPPL EMENT Jun 03, 2018 [id number] [phone] ANALI SANCHEZ PATIENT BS [place] SUPPLE[place] AMANDA MEDIC ARE SUPPL EMENT Jun 03, 2018 [id number] [phone] ANALI SANCHEZ PATIENT MEDICARE (WNR) MEDICARE (M) PART B Nov 01, 2017 PART B [id number] ANALI SANCHEZ PATIENT MEDICARE (WNR) MEDICARE (M) PART B Nov 01, 2017 PART B [id number] ANALI SANCHEZ PATIENT MEDICARE (WNR) MEDICARE (M) PART A Mar 03, 2015 PART A [id number] ANALI SANCHEZ PATIENT MEDICARE (WNR) MEDICARE (M) PART A Mar 03, 2015 PART A [id number] ANALI SANCHEZ PATIENT MEDICARE PART D (WNR) MEDICARE (M) PART D Nov 01, 2017 PART D [id number] ANALI SANCHEZ PATIENT Selected Encounter This section includes the information on record at [place] for the Encounter. Date/Time Encounter Type Encounter Description Reason Provider Source Sep 09, 2023 03:20 PM Outpatient Encounter ADMIN PAT ACTIVTIES (RUSTYNONJACOBO) [place] AYERS IHE Encounter Template Text not used by [place] Plan of Treatment: Future Appointments (+ 6 months) and Future Tests (+/- 45 days) The Plan of Treatment section includes future care activities for the patient from all [place] treatmentfacilities. This section includes future appointments and future orders which are active, pending or scheduled. Future Appointments This section includes appointments that were scheduled to occur 6 months from the date of the Encounter, up to a maximum of 20 appointments. The data comes from all [place] treatment facilities. Appointment Date/Time Appointment Type Appointme nt Facility Name Sep 12, 2023 07:20 PM AMBULATORY - NONE [facility] October 10, 2023 03:40 PM AMBULATORY - SURGERY [facility] October 22, 2023 02:30 PM AMBULATORY - PSYCHIATRY [facility] Nov 05, 2023 02:30 PM AMBULATORY - PSYCHIATRY [facility] Feb 11, 2024 02:30 PM AMBULATORY - PSYCHIATRY [facility] Lab Results: +/- 30 days of the encounter This section includes the Chemistry and Hematology Lab Results on record with [place] for the patient. Radiology Reports and Pathology Reports are provided separately, in subsequent sections. Lab Results This section contains the Chemistry/Hematology Results that were resulted 30 days before or 30 daysafter the date of the Encounter. Date/Time Source Result Type Result - Unit Interpretation Reference Range Comment Sep 09, 2023 02:[address] [facility] CT PANEL Specimen Type: PLASMA No comment entered. Ordering Provider: KE[place] AYERS Report Released Date/Time: Sep 09, 2023 02:12 PM Reporting Lab: [facility] [address] [facility] [address] Performing Lab: [facility] [address] [facility] [address] CREATININE 1.0 mg/dL 0.7-1.3 UREA NITROGEN 17 [...] the Encounter. The data comes from all [place] treatment facilities. Date/Time Radiology Report Provider Source Sep 12, 2023 07:13 PM 3D RENDERING: ANALI SANCHEZ [id number] -1950 M Ex Date: SEP 12, 2023@19:13 Req Phys: [place] AYERS Loc: [facility] TVC MAKE UP WORKER (Req'g Loc) Img Loc: [facility] MRI 1 Service: Unknown (Case [id number] COMPLETE) 3D RENDERING (MRI Detailed) CPT:11267 Reason for Study: hepatoma screening new liver [...] object, or other foreign body NO Location: -[place] acupuncture or acupuncture needles NO -Coronary artery [...] 16, 2023 Date Verified: SEP 16, 2023 Tableau Administrator E-Sig:/ES/OUTSIDE SERVICE RADIOLOGY Report: MRI ABDOMEN Technique: [...] Hepatic steatosis. READING PHYSICIAN: Otilio Rios M.D. -[id number] 09/16/2023 11:54 PDT [facility] [employer] Softwareradiology Program [phone] (For Medical Practitioner Use Only) Attention Patients / Veterans: If you have questions or concerns about these test results, please contact your ordering provider or primary care team. Primary Diagnostic Code: NO ALERT REQUIRED Primary Interpreting Staff: OUTSIDE SERVICE RADIOLOGY, Staff Physician / RADIOLOGY,OUTSIDE SERVICE [facility] Sep 12, 2023 07:13 PM MRI ABDOMEN W/C & W/O CON: ANALI SANCHEZ [id number] -1950 M Ex Date: SEP 12, 2023@19:13 Req Phys: [place] AYERS Pat Loc: [facility] TVC MAKE UP WORKER (Req'g Loc) Img Loc: [facility] MRI 1 Service: Unknown (Case [id number] COMPLETE) MRI ABDOMEN W/C & W/O CON (MRI Detailed) CPT:72628 Contrast Media : Gadolinium Reason for Study: [...] object, or other foreign body NO Location: -[place] acupuncture or acupuncture needles NO -Coronary artery (heart) stents NO -Any other stent, filter, or coil NO -Shunt (spinal or intraventricular) NO -Vascular access port and/or catheter NO -Any other implanted device not listed above? NO Details: Has the [place] had a reaction to the MRI contrast/dye (Gadolinium)? NO Does the [place] have a systemic nephrogenic fibrosis/kidney disease? NO [...] 16, 2023 Date Verified: SEP 16, 2023 Tableau Administrator E-Sig:/ES/OUTSIDE SERVICE RADIOLOGY Report: MRI ABDOMEN Technique: [...] Hepatic steatosis. READING PHYSICIAN: Otilio Rios M.D. -[id number] 09/16/2023 11:54 PDT [facility] National Plenummediaradiology Program [phone] (For Medical Practitioner Use Only) Attention Patients / Veterans: If you have questions or concerns about these test results, please contact your ordering provider or primary care team. Primary Diagnostic Code: NO ALERT REQUIRED Primary Interpreting Staff: OUTSIDE SERVICE RADIOLOGY, Staff Physician / RADIOLOGY,OUTSIDE SERVICE [facility] Encounter Notes: All associated encounter notes This section contains the clinical notes associated to the Encounter. Date/Time Encounter Note(s) Provider Source Sep 09, 2023 03:23 PM ADMINISTRATIVE NOT E: LOCAL TITLE: TEST RESULTS NOTIFICATION LETTER - STANDARD MAIL STANDARD TITLE: ADMINISTRATIVE NOTE DATE OF NOTE: SEP 09, 2023@15:23 ENTRY DATE: SEP 09, 2023@15:23:38 AUTHOR: KELLY AYERS EXP COSIGNER: URGENCY: STATUS: COMPLETED [facility] [place] [address] [place] [address] Anali Sanchez [address] [place], [place] [address] SEP 09, 2023 Dear Anali Sanchez: RE: Test Results RE: labs from 4.824 as prerequisite for 09/12/2023 19:20 [facility] RAD MRI AFTERNOON Hope you are doing well. Your test results are available to ordering remote [place] provider for review. Please contact your home [facility] to discuss results and plan of care as indicated. Remote Facility: [facility] Ordering Provider: DOROTHY ALDRIDGE Plan/Recommendation: Please follow up as scheduled. Sincerely, [place] AYERS APRN ADVANCED PRACTICE NURSE PRACTITIONER Did you know the [facility] Clinical Contact Center (CCC) is available for your urgent and episodic health care needs? You can reach the [facility] by calling the toll free number 24/12 or utilizing the [place] amaysim magaly Saturday through Saturday, [phone]. The automated system is also available 24/12 at . *Remember: When your provider orders lab tests for you, a lab appointment is no longer necessary! Simply visit the lab during normal business hours, at your convenience. KELLY AYERS [facility]
--- OUTSIDE RECORDS SUMMARY | 2024-01-16 15:52 | XMS_ITS | Encounter Summary ---
Author Name [facility] [place] Organization [place] Address [address] [place] [address] Care Team Providers Care Portuguese Tutor Name Role Phone NICANOR HUGHES Primary Care [...] Gross's Name Patient's Relationship to Policy Gross [facility] MEDICARE SUPPLEMEN AMANDA MEDIC ARE SUPPL EMENT Jun 03, 2018 [id number] ANALI SANCHEZ PATIENT [place] MEDICARE SUPPLEMEN AMANDA MEDIC ARE SUPPL EMENT Jun 03, 2018 [id number] [id number] [phone] ANALI SANCHEZ PATIENT MEDICARE (WNR) MEDICARE (M) PART B Nov 01, 2017 PART B [id number] ANALI SANCHEZ PATIENT MEDICARE (WNR) MEDICARE (M) PART B Nov 01, 2017 PART B [id number] ANALI SANCHEZ PATIENT MEDICARE (WNR) MEDICARE (M) PART A Mar 03, 2015 PART A [id number] ANALI SANCHEZ PATIENT MEDICARE (WNR) MEDICARE (M) PART A Mar 03, 2015 PART A [id number] ANALI SANCHEZ PATIENT MEDICARE PART D (WNR) MEDICARE (M) PART D Nov 01, 2017 PART D [id number] ANALI SANCHEZ PATIENT Selected Encounter This section includes the information on record at [place] for the Encounter. Date/Time Encounter Type Encounter Description Reason Pro vider Source Jul 10, 2023 12:11 PM Outpatient Encounter ADMIN PAT ACTIVTIES (RUSTYNONCT) IHE Encounter Template Text not used by [place] Plan of Treatment: Future Appointments (+ 6 months) and Future Tests (+/- 45 days) The Plan of Treatment section includes future care activities for the patient from all [place] treatmentfacilities. This section includes future appointments and future orders which are active, pending or scheduled. Future Appointments This section includes appointments that were scheduled to occur 6 months from the date of the Encounter, up to a maximum of 20 appointments. The data comes from all [facility]. Appointment Date/Time Appointment Type Appointme nt Facility Name Jul 23, 2023 10:00 AM AMBULATORY - PSYCHIATRY [facility] Sep 12, 2023 07:20 PM AMBULATORY - NONE [facility] October 10, 2023 03:40 PM AMBULATORY - SURGERY [facility] October 22, 2023 02:30 PM AMBULATORY - PSYCHIATRY [facility] Nov 05, 2023 02:30 PM AMBULATORY - PSYCHIATRY [facility] Radiology Reports: +/- 30 days [...] the Encounter. The data comes from all [facility]. Date/Time Radiology Report Provider Source Jun 26, 2023 08:29 AM [facility] SCREENING US A BDOMEN LTD: ANALI SANCHEZ [id number] -[id number] M Exm Date: JUN 26, 2023@08:29 Req Phys: DOROTHY ALDRIDGE Loc: [facility] GI LIVER ELZBIETA 3V (Req'g Img Loc: Ultrasound Imaging Service: Unknown (Case [id number] COMPLETE) [facility] SCREENING US ABDOMEN LTD (US Detailed) CPT:85544 Reason for Study: [facility] hepatoma screening + met-ALD Clinical History: [place] IS NOT under investigation for COVID-19 or is COVID-19 negative hepatoma screening [facility] Responsible provider name and phone number to notify for critical findings if other than user placing the order and pager listed below: User placing orders pager: [phone] elzbieta LAST CREATININE 1.1 (04/09/23) Report Status: Verified Date Reported: JUN 26, 2023 Date Verified: JUN 26, 2023 Report Manager E-Sig:/ES/APOORVA FERNANDEZ MD Report: Right upper quadrant [...] Primary Interpreting Staff: APOORVA FERNANDEZ MD, RADIOLOGIST (Report Manager) /APOORVA [facility] [employer] Encounter Notes: All associated encounter notes This section contains the clinical notes associated to the Encounter. Date/Time Encounter Note(s) Provider Source Jul 10, 2023 12:13 PM RADIOLOGY ADMINIST RATIVE NOTE: LOCAL TITLE: RADIOLOGY ADMINISTRATIVE LETTER STANDARD TITLE: RADIOLOGY ADMINISTRATIVE NOTE DATE OF NOTE: JUL 10, 2023@12:13 ENTRY DATE: JUL 10, 2023@12:13:45 AUTHOR: JAZMYN CASTREJON EXP COSIGNER: URGENCY: STATUS: COMPLETED [facility]//[place]/[facility]/[place] [address] [place] [address] Anali Sanchez [address], [place] [address] JUL 10, 2023 Dear Anali Sanchez, The following is information for your upcoming radiology procedure(s) scheduled on: Sep@19:20 Location: [facility]) Type of Exam: MRI You will be asked to change into hospital provided scrubs or a gown prior to the MRI. Secure lockers and a changing area will be provided. PLEASE REMOVE ALL MAKE UP PRIOR TO ARRIVAL If you have a cardiac pacemaker or cardiac defibrillator STOP! Call [phone] and speak with an learning technologist. If you have any METALLIC DEVICES in your body including but not limited to: Stents Filters Coils Clips Please bring the information card/pamphlet or other material for that device with you to your appointment. If the card is not available, STOP! Call [phone] and speak with an learning technologist. Radiology Examination Preparation Instructions: BLOOD WORK: Blood Work is required within 45 days of your appointment. MRI ABDOMEN: Do NOT eat, drink, smoke, or chew gum for 4 hours before the start of your procedure. You MAY take your morning medications with a small amount of water. PLEASE NOTE: Children and family members are not permitted in the radiology department. There are no childcare services available. Please make necessary arrangements prior to your appointment. Service animals are not permitted in Radiology. Animals may be left in the main radiology waiting area, outside the examination areas, with a trained handler. You are responsible and liable for the animal's behavior and control. JAZMYN CASTREJON [facility] Jul 10, 2023 12:11 PM RADIOLOGY ADMINIST RATIVE NOTE: LOCAL TITLE: RADIOLOGY ADMINISTRATIVE NOTE STANDARD TITLE: RADIOLOGY ADMINISTRATIVE NOTE DATE OF NOTE: JUL 10, 2023@12:11 ENTRY DATE: JUL 10, 2023@12:11:21 AUTHOR: JAZMYN CASTREJON EXP COSIGNER: URGENCY: STATUS: COMPLETED Radiology Administrative Note Patient contacted for scheduling and is scheduled greater than 30 days from PID. Patient was scheduled using provider's original PID, however appointment date and time exceeded 30 days from PID. Patient was offered [facility] and declined. Patient scheduled on Sep@19:20. No new order is required. MRI Prep:MRI ABDOMEN W/WO + IV /es/ JAZMYN CASTREJON ADVANCED DRIVERS' CASH CLERK Signed: 07/10/2023 12:13 JAZMYN CASTREJONO [facility]
--- OUTSIDE RECORDS SUMMARY | 2024-01-16 15:53 | XMS_ITS | Encounter Summary ---
Author Name [facility] [place] [facility] Address [address] [place] [address] Care Team Providers Care Engineering Agent Name Role Phone NICANOR HUGHES Primary Care [...] Name Patient's Relationship to Policy Gross [place] SUPPLEMEN AMANDA MEDIC ARE SUPPL EMENT Jun 03, 2018 [id number] 1A [phone] ANALI SANCHEZ PATIENT [place] MEDICARE SUPPLEMEN AMANDA MEDIC ARE SUPPL EMENT Jun 03, 2018 [id number] [phone] ANALI SANCHEZ PATIENT MEDICARE (WNR) MEDICARE (M) PART B Nov 01, 2017 PART B [id number] ANALI SANCHEZ PATIENT MEDICARE (WNR) MEDICARE (M) PART B Nov 01, 2017 PART B [id number] ANALI SANCHEZ PATIENT MEDICARE (WNR) MEDICARE (M) PART A Mar 03, 2015 PART A [id number] ANALI SANCHEZ PATIENT MEDICARE (WNR) MEDICARE (M) PART A Mar 03, 2015 PART A [id number] ANALI SANCHEZ PATIENT MEDICARE PART D (WNR) MEDICARE (M) PART D Nov 01, 2017 PART D [id number] DANIEL, ANALI PATIENT Selected Encounter This section includes the information on record at [place] for the Encounter. Date/Time Encounter Type Encounter Description Reason Pro vider Source October 22, 2023 02:30 PM Outpatient Encounter PSYCHOGERIATRIC - INDIVIDUAL IHE Encounter Template Text not used by [place] Plan of Treatment: Future Appointments (+ 6 months) and Future Tests (+/- 45 days) The Plan of Treatment section includes future care activities for the [facility] [place] [facility] This section includes future appointments and future orders which are active, pending or scheduled. Future Appointments This section includes appointments that were scheduled to occur 6 months from the date of the Encounter, up to a maximum of 20 appointments. The data comes from all [place] treatment facilities. Appointment Date/Time Appointment Type Appointme nt Facility Name Nov 05, 2023 02:30 PM AMBULATORY - PSYCHIATRY [facility] Feb 11, 2024 02:30 PM AMBULATORY - PSYCHIATRY [facility] Apr 06, 2024 08:00 AM AMBULATORY - SURGERY [facility] Social History: Smoking Status (Most [...] 08, 2023 09:00 AM VA-TOBACCO FORMER USER [facility] Tobacco Use History This section includes a history of the smoking, or tobacco-related health factors, that were collected on or before the date of the Encounter. The data comes from the [place] facility where the Encounter took place. Date/Time Smoking Status/Tobacco Use Comment F acility Apr 08, 2023 09:00 AM VA-TOBACCO QUIT 15 YRS OR MORE [facility] Mar 15, 2022 08:30 AM VA-TOBACCO FORMER USER [facility] Mar 15, 2022 08:30 AM VA-TOBACCO QUIT 15 YRS OR MORE [facility] Jan 24, 2021 10:00 AM VA-TOBACCO FORMER USER [facility] Jan 24, 2021 10:00 AM VA-TOBACCO QUIT 15 YRS OR MORE [facility] Aug 10, 2018 06:09 PM VA-TOBACCO FORMER USER [facility] Aug 10, 2018 06:09 PM VA-TOBACCO QUIT 15 YRS OR MORE [facility] Encounter Notes: All associated encounter notes This section contains the clinical notes associated to the Encounter. Date/Time Encounter Note(s) Provider Source October 23, 2023 02:02 PM REPORT OF CONTACT: LOCAL TITLE: APPOINTMENT SCHEDULING NOTE STANDARD TITLE: REPORT OF CONTACT DATE OF NOTE: OCTOBER 23, 2023@14:02 ENTRY DATE: OCTOBER 23, 2023@14:02:07 AUTHOR: SHI BELTRE EXP COSIGNER: URGENCY: STATUS: COMPLETED Attempted to schedule Return to clinic (RTC) Left ms for pt to call [phone]. Sent letter. /stephan/ SHI BELTRE BUYER PLANNER Signed: 10/23/2023 14:02 SHI BELTRE [facility] October 22, 2023 02:43 PM NO SHOW NOTE: LOCAL TITLE: NO SHOW NOTE STANDARD TITLE: NO SHOW NOTE DATE OF NOTE: OCTOBER 22, 2023@14:43 ENTRY DATE: OCTOBER 22, 2023@14:43:19 AUTHOR: DASIA KILGORE EXP COSIGNER: URGENCY: STATUS: COMPLETED Patient did not appear for scheduled appointment. Acute: low Chronic: low Risks: older, , male, chronic depression and PTSD. Protective factors: access to health care; support from family; able to follow recommendations and establish therapeutic alliance; on medications; financially stable; future oriented; cognitive intact. Plan Based on Clinician Judgment of Risk: Spoke with pt. Got confused on the date. CC to Ms. Shi Beltre to call patient and set up a new appointment. Thanks. /stephan/ DASIA KILGORE MD STAFF PHYSICIAN Signed: 10/22/2023 14:44 Receipt Acknowledged By: 10/23/2023 14:01 /ayden BELTRE BUYER PLANNER DASIA KILGORE [facility]
--- OUTSIDE RECORDS SUMMARY | 2024-01-16 15:53 | XMS_ITS | Encounter Summary ---
Author Name [facility] [place] Address [address] [place] [address] Care Team Providers Care Manager Reimbursement Name Role Phone NICANOR HUGHES Primary Care [...] Gross's Name Patient's Relationship to Policy Gross [facility] MEDICARE SUPPLEMEN AMANDA MEDIC ARE SUPPL EMENT Jun 03, 2018 [id number] [phone] ANALI SANCHEZ PATIENT BS [place] MEDIC[place] SUPPLEMEN AMANDA MEDIC ARE SUPPL EMENT Jun 03, 2018 [id number] [phone] ANALI SANCHEZ PATIENT MEDICARE (WNR) MEDICARE (M) PART B Nov 01, 2017 PART B [id number] ANALI SANCHEZ PATIENT MEDICARE (WNR) MEDICARE (M) PART B Nov 01, 2017 PART B [id number] ANALI SANCHEZ PATIENT MEDICARE (WNR) MEDICARE (M) PART A Mar 03, 2015 PART A [id number] ANALI SANCHEZ PATIENT MEDICARE (WNR) MEDICARE (M) PART A Mar 03, 2015 PART A [id number] ANALI SANCHEZ PATIENT MEDICARE PART D (WNR) MEDICARE (M) PART D Nov 01, 2017 PART D [id number] ANALI SANCHEZ PATIENT Selected Encounter This section includes the information on record at [place] for the Encounter. Date/Time Encounter Type Encounter Description Reason Provider Source Sep 16, 2023 03:14 PM Outpatient Encounter ADMIN PAT ACTIVTIES (RUSTYNONCT) KELLY AYERS IHE Encounter Template Text not used by [place] Plan of Treatment: Future Appointments (+ 6 months) and Future Tests (+/- 45 days) The Plan of Treatment section includes future care activities for the patient from all [place] treatmentfacilities. This section includes future appointments and future orders which are active, pending or scheduled. Future Appointments This section includes appointments that were scheduled to occur 6 months from the date of the Encounter, up to a maximum of 20 appointments. The data comes from all [place] treatment facilities. Appointment Date/Time Appointment Type Appointme nt Facility Name October 10, 2023 03:40 PM AMBULATORY - SURGERY [facility] October 22, 2023 02:30 PM AMBULATORY - PSYCHIATRY [facility] Nov 05, 2023 02:30 PM AMBULATORY - PSYCHIATRY [facility] Feb 11, 2024 02:30 PM AMBULATORY - PSYCHIATRY [facility] Lab Results: +/- 30 days of the encounter This section includes the Chemistry and Hematology Lab Results on record with [place] for the patient. Radiology Reports and Pathology Reports are provided separately, in subsequent sections. Lab Results This section contains the Chemistry/Hematology Results that were resulted 30 days before or 30 daysafter the date of the Encounter. Date/Time Source Result Type Result - Unit Interpretation Reference Range Comment Sep 09, 2023 02:17 PM [facility] CT PANEL Specimen Type: PLASMA No comment entered. Ordering Provider: KELLY AYERS Report Released Date/Time: Sep 09, 2023 02:12 PM Reporting Lab: [facility] [id number] [facility] [id number] Performing Lab: [facility] [address] [facility] [id number] CREATININE 1.0 mg/dL 0.7-1.3 UREA NITROGEN 17 [...] the Encounter. The data comes from all [place] treatment facilities. Date/Time Radiology Report Provider Source Sep 12, 2023 07:13 PM 3D RENDERING: ANALI SANCHEZ [id number] -1950 M Exm Date: SEP 12, 2023@19:13 Req Phys: KELLY AYERS Pat Loc: [facility] TVC EQUIPMENT CLEANER (Req'g Loc) Img Loc: [facility] MRI 1 Service: Unknown (Case [id number] COMPLETE) 3D RENDERING (MRI Detailed) CPT:37067 Reason for Study: hepatoma screening new liver [...] object, or other foreign body NO Location: -[place] acupuncture or acupuncture needles NO -Coronary artery (heart) stents NO -Any other stent, filter, or coil NO -Shunt (spinal or intraventricular) NO -Vascular access port and/or catheter NO -Any other implanted device not listed above? NO Details: Has the [place] had a reaction to the MRI contrast/dye [...] 16, 2023 Date Verified: SEP 16, 2023 Forge Tender E-Sig:/ES/OUTSIDE SERVICE RADIOLOGY Report: MRI ABDOMEN Technique: [...] Hepatic steatosis. READING PHYSICIAN: Otilio Rios M.D. -[id number] 09/16/2023 11:54 PDT [facility] National Teleradiology Program [phone] (For Medical Practitioner Use Only) Attention Patients / Veterans: If you have questions or concerns about these test results, please contact your ordering provider or primary care team. Primary Diagnostic Code: NO ALERT REQUIRED Primary Interpreting Staff: OUTSIDE SERVICE RADIOLOGY, Staff Physician / RADIOLOGY,OUTSIDE SERVICE [facility] Sep 12, 2023 07:13 PM MRI ABDOMEN W/C & W/O CON: DANIELANALI D [id number] -1950 M Ex Date: SEP 12, 2023@19:13 Req Phys: KELLY AYERS Loc: [facility] TVC EQUIPMENT CLEANER (Req'g Loc) Img Loc: [facility] MRI 1 Service: Unknown (Case [id number] COMPLETE) MRI ABDOMEN W/C & W/O CON (MRI Detailed) CPT:36427 Contrast Media : Gadolinium Reason for Study: [...] object, or other foreign body NO Location: -[place] acupuncture or acupuncture needles NO -Coronary artery [...] 16, 2023 Date Verified: SEP 16, 2023 For[place] Tender E-Sig:/ES/OUTSIDE SERVICE RADIOLOGY Report: MRI ABDOMEN Technique: [...] Hepatic steatosis. READING PHYSICIAN: Otilio Rios M.D. -[id number] 09/16/2023 11:54 PDT [facility] National Teleradiology Program [phone] (For Medical Practitioner Use Only) Attention Patients / Veterans: If you have questions or concerns about these test results, please contact your ordering provider or primary care team. Primary Diagnostic Code: NO ALERT REQUIRED Primary Interpreting Staff: OUTSIDE SERVICE RADIOLOGY, Staff Physician / RADIOLOGY,OUTSIDE SERVICE [facility] Encounter Notes: All associated encounter notes This section contains the clinical notes associated to the Encounter. Date/Time Encounter Note(s) Provider Source Sep 16, 2023 03:15 PM PRIMARY CARE NOTE: LOCAL TITLE: TRAVELING CARE COORDINATION (TVC) NOTE STANDARD TITLE: PRIMARY CARE NOTE DATE OF NOTE: SEP 16, 2023@15:15 ENTRY DATE: SEP 16, 2023@15:15:12 AUTHOR: KELLY AYERS COSIGNER: URGENCY: STATUS: COMPLETED ASSISTING ON TVCC 2.1.24 FOR ANTICIPATED CARE COORDINATION THAT HAS BEEN REVIEWED AND PROCESSED FOR REQUESTED SERVICES TO RESUME AT REMOTE SENDING/RECEIVING [place] AND ORDERING PCP NOTIFIED (POST TO ASSOCIATED CONSULT) OF RESULTS AVAILABLE AND VET DIRECTED TO CONTACT HOME [place] PCP FOR REVIEW OF ORDERING DIAGNOSTICS. PCP CAN VIEW NOTED RESULTS BELOW AND/OR AT [facility] MRI abdomen with/without contrast Reason for Study: + US for hepatoma screening new liver mass Date Desired: Jul Contrast: With and Without Remote Facility: [facility] Ordering Provider: DOROTHY ALDRIDGE RESULTS ON REQUESTED DIAGNOSTICS MRI ABDOMEN W/C & W/O CON Exm Date: SEP 12, 2023@19:13 Req Phys: Pat Loc: [facility] TVC EQUIPMENT CLEANER (Req'g Loc) Img Loc: [facility] MRI 1 Service: Unknown (Case [id number] COMPLETE) MRI ABDOMEN W/C & W/O CON (MRI Detailed) CPT:71175 Contrast Media : Gadolinium Reason for Study: [...] object, or other foreign body NO Location: -[place] acupuncture or acupuncture needles NO -Coronary artery (heart) stents NO -Any other stent, filter, or coil NO -Shunt (spinal or intraventricular) NO -Vascular access port and/or catheter NO -Any other implanted device not listed above? NO Details: Has the [place] had a reaction to the MRI contrast/dye (Gadolinium)? NO Does the [place] have a systemic nephrogenic fibrosis/kidney disease? NO [...] 16, 2023 Date Verified: SEP 16, 2023 Forge Tender E-Sig:/ES/OUTSIDE SERVICE RADIOLOGY Report: MRI ABDOMEN Technique: [...] Hepatic steatosis. READING PHYSICIAN: Otilio Rios M.D. -[id number] 09/16/2023 11:54 PDT [facility] National Teleradiology Program [phone] (For Medical Practitioner Use Only) Attention Patients / Veterans: If you have questions or concerns about these test results, please contact your ordering provider or primary care team. /stephan/ KELLY AYERS APRN ADVANCED PRACTICE NURSE PRACTITIONER Signed: 09/16/2023 15:17 KELLY AYERS [facility]
--- OUTSIDE RECORDS SUMMARY | 2024-01-16 15:53 | XMS_ITS | Encounter Summary ---
Author Name [facility] [place] [facility] Address [address] [place] [address] Care Team Providers Care Atomic Process Engineer Name Role Phone NICANOR HUGHES Primary Care [...] Gross's Name Patient's Relationship to Policy Gross [facility] MEDICARE SUPPLEMEN AMANDA MEDIC ARE SUPPL EMENT Jun 03, 2018 [id number] [phone] ANALI SANCHEZ PATIENT BS [place] MEDICARE SUPPLEMEN AMANDA MEDIC ARE SUPPL EMENT Jun 03, 2018 [id number] [phone] ANALI SANCHEZ PATIENT MEDICARE (WNR) MEDICARE (M) PART B Nov 01, 2017 PART B [id number] ANALI SANCHEZ PATIENT MEDICARE (WNR) MEDICARE (M) PART B Nov 01, 2017 PART B [id number] ANALI SANCHEZ PATIENT MEDICARE (WNR) MEDICARE (M) PART A Mar 03, 2015 PART A [id number] ANALI SANCHEZ PATIENT MEDICARE (WNR) MEDICARE (M) PART A Mar 03, 2015 PART A [id number] ANALI SNACHEZ PATIENT MEDICARE PART D (WNR) MEDICARE (M) PART D Nov 01, 2017 PART D [id number] ANALI SANCHEZ PATIENT Selected Encounter This section includes the information on record at [place] for the Encounter. Date/Time Encounter Type Encounter Description Reason Provider Source October 10, 2023 03:40 PM OFFICE O/P EST LOW 20 MIN DERMATOLOGY ICD-10-CM L02.424 Furuncle of left upper limb RAMÍREZ KELLY RLLaurence IHE Encounter Template Text not used by [place] Assessments - Encounter Diagnoses This section includes the primary and secondary diagnoses documented for the Encounter. Date/Time Primary/Secondary Diagnosis Diagnosis Name Provider Source October 23, 2023 08:53 AM PRIMARY Furuncle of left upper limb YVETTE REDDY [facility] Plan of Treatment: Future Appointments (+ 6 months) and Future Tests (+/- 45 days) The Plan of Treatment section includes future care activities for the patient from all [place] [facility]. This section includes future appointments and future orders which are active, pending or scheduled. Future Appointments This section includes appointments that were scheduled to occur 6 months from the date of the Encounter, up to a maximum of 20 appointments. The data comes from all [place] treatment facilities. Appointment Date/Time Appointment Type Appointme nt Facility Name October 22, 2023 02:30 PM AMBULATORY - PSYCHIATRY [facility] Nov 05, 2023 02:30 PM AMBULATORY - PSYCHIATRY [facility] Feb 11, 2024 02:30 PM AMBULATORY - PSYCHIATRY [facility] Apr 06, 2024 08:00 AM AMBULATORY - SURGERY [facility] Social History: Smoking Status (Most current) and Tobacco Use (All prior to encounter date) This section includes the most current, and the historical, smoking and tobacco- related health factors from the [place] facility where the Encounter took place. Current Smoking Status This section includes the most current smoking, or tobacco-related health factor, from the [place] facility where the Encounter took place. Date/Time Current Smoking Status Comment Facil ity Apr 08, 2023 09:00 AM VA-TOBACCO FORMER USER [facility] Tobacco Use History This section includes a history of the smoking, or tobacco-related health factors, that were collected on or before the date of the Encounter. The data comes from the [place] facility where the Encounter took place. Date/Time Smoking Status/Tobacco Use Comment F acility Apr 08, 2023 09:00 AM VA-TOBACCO QUIT [address] [facility] Mar 15, 2022 08:30 AM VA-TOBACCO FORMER USER [facility] Mar 15, 2022 08:30 AM VA-TOBACCO QUIT [address] [facility] Jan 24, 2021 10:00 AM VA-TOBACCO FORMER USER [facility] Jan 24, 2021 10:00 AM VA-TOBACCO QUIT [address] [facility] Aug 10, 2018 06:09 PM VA-TOBACCO FORMER USER [facility] Aug 10, 2018 06:09 PM VA-TOBACCO QUIT [address] [facility] Radiology Reports: +/- 30 days of the [...] the Encounter. The data comes from all [facility] facilities. Date/Time Radiology Report Provider Source Sep 12, 2023 07:13 PM 3D RENDERING: ANALI SANCHEZ [id number] -1950 M Ex Date: SEP 12, 2023@19:13 Req Phys: KELLY AYERS Pat Loc: ORL TVC PROGRAM AIDE (Req'g Loc) Img Loc: ORL MRI 1 Service: Unknown (Case [id number] COMPLETE) 3D RENDERING (MRI Detailed) CPT:53970 Reason for Study: hepatoma screening new liver [...] object, or other foreign body NO Location: -[place] acupuncture or acupuncture needles NO -Coronary artery (heart) stents NO -Any other stent, filter, or coil NO -Shunt (spinal or intraventricular) NO -Vascular access port and/or catheter NO -Any other implanted device not listed above? NO Details: Has the had a reaction to the MRI contrast/dye (Gadolinium)? NO Does the [place] have a systemic nephrogenic fibrosis/kidney disease? NO [...] 16, 2023 Date Verified: SEP 16, 2023 Leaf Tier E-Sig:/ES/OUTSIDE SERVICE RADIOLOGY Report: MRI ABDOMEN Technique: [...] Hepatic steatosis. READING PHYSICIAN: Otilio Rios M.D. -[id number] 09/16/2023 11:54 PDT [facility] National Teleradiology Program [phone] (For Medical Practitioner Use Only) Attention Patients / Veterans: If you have questions or concerns about these test results, please contact your ordering provider or primary care team. Primary Diagnostic Code: NO ALERT REQUIRED Primary Interpreting Staff: OUTSIDE SERVICE RADIOLOGY, Staff Physician / RADIOLOGY,OUTSIDE SERVICE [facility] Sep 12, 2023 07:13 PM MRI ABDOMEN W/C & W/O CON: ANALI SANCHEZ [id number] -1950 M Ex Date: SEP 12, 2023@19:13 Req Phys: KELLY AYERS Pat Loc: ORL TVC PROGRAM AIDE (Req'g Loc) Img Loc: ORL MRI 1 Service: Unknown (Case [id number] COMPLETE) MRI ABDOMEN W/C & W/O CON (MRI Detailed) CPT:13230 Contrast Media : Gadolinium Reason for Study: [...] object, or other foreign body NO Location: -[place] acupuncture or acupuncture needles NO -Coronary artery (heart) stents NO -Any other stent, filter, or coil NO -Shunt (spinal or intraventricular) NO -Vascular access port and/or catheter NO -Any other implanted device not listed above? NO Details: Has the [place] had a reaction to the MRI contrast/dye [...] 16, 2023 Date Verified: SEP 16, 2023 Leaf Tier E-Sig:/ES/OUTSIDE SERVICE RADIOLOGY Report: MRI ABDOMEN Technique: [...] Hepatic steatosis. READING PHYSICIAN: Otilio Rios M.D. -[id number] 09/16/2023 11:54 PDT [facility] National Teleradiology Program [phone] (For Medical Practitioner Use Only) Attention Patients / Veterans: If you have questions or concerns about these test results, please contact your ordering provider or primary care team. Primary Diagnostic Code: NO ALERT REQUIRED Primary Interpreting Staff: OUTSIDE SERVICE RADIOLOGY, Staff Physician / RADIOLOGY,OUTSIDE SERVICE [facility] Encounter Notes: All associated encounter notes This section contains the clinical notes associated to the Encounter. Date/Time Encounter Note(s) Provider Source October 10, 2023 04:05 PM DERMATOLOGY ATTEND ING NOTE: LOCAL TITLE: DERMATOLOGY CLINIC NOTE STANDARD TITLE: DERMATOLOGY ATTENDING NOTE DATE OF NOTE: OCTOBER 10, 2023@16:05 ENTRY DATE: OCTOBER 10, 2023@16:06:06 AUTHOR: JEB REDDY COSIGNER: URGENCY: STATUS: COMPLETED Dr. KELLY saw and evaluated the patient with me, and agrees with the findings, assessment and plan as outlined. Clinic Note Dermatology Problem List: UBSE 04/22/23 # Furuncle, L upper arm - s/p ILK-10 0.3cc 10/07/23 # Multiple BCCs - treated at [facility] [place] (Dr. Jama Ruiz). # AKs. - Cryo # Intertrigo - Ketoconazole cream/hydrocortisone 2.5% cream CC: cyst on arm SUBJECTIVE: ANALI SANCHEZ is a 73 year old MALE who presents today for concern of a cyst on his arm. He reports this is painful when he pulls at the hairs on his arm. He had a similar appearing cyst on the abdomen a couple months ago that drained on its own and he is now unable to locate this. Prior to a couple months ago he has not had any similar spots. Review of systems: CONST: Otherwise in baseline state of health. SKIN: As above in HPI, no additional skin concerns. OBJECTIVE: GEN: No acute distress. SKIN: Focused exam of left arm: 1.5 cm red flunctuant subcutaneous nodule. No surrounding erythema or warmth. ASSESSMENT & PLAN: # Furuncle, L arm - No surrounding erythema or concern for cellulitis - ILK injection (see below) Risks and benefits of procedure discussed with patient. Lesion cleansed with alcohol wipe prior to injection with 0.3 cc of ILK-10 to left arm. Patient tolerated procedure well. RTC as scheduled in April for UBSE. Total encounter time (including chart review, counseling, documentation, ordering of labs/meds): 20-29 min /stephan/ JEB REDDY MD Resident Signed: 10/10/2023 16:13 JEB REDDY [facility]
--- OUTSIDE RECORDS SUMMARY | 2024-01-16 15:53 | XMS_ITS | Encounter Summary ---
Author Name [facility] [place] Organization [place] Address [address] [place] [address] Care Team Providers Care Video Tape Transferrer Name Role Phone NICANOR HUGHES Primary Care [...] Gross's Name Patient's Relationship to Policy Gross [facility] MEDICARE SUPPLEMEN AMANDA MEDIC ARE SUPPL EMENT Jun 03, 2018 [id number] [phone] ANALI SANCHEZ PATIENT BS [place] MEDICARE SUPPLEMEN AMANDA MEDIC ARE SUPPL EMENT Jun 03, 2018 [id number] [phone] ANALI SANCHEZ PATIENT MEDICARE (WNR) MEDICARE (M) PART B Nov 01, 2017 PART B [id number] ANALI SANCHEZ PATIENT MEDICARE (WNR) MEDICARE (M) PART B Nov 01, 2017 PART B [id number] ANALI SANCHEZ PATIENT MEDICARE (WNR) MEDICARE (M) PART A Mar 03, 2015 PART A [id number] ANALI SANCHEZ PATIENT MEDICARE (WNR) MEDICARE (M) PART A Mar 03, 2015 PART A [id number] ANALI SANCHEZ PATIENT MEDICARE PART D (WNR) MEDICARE (M) PART D Nov 01, 2017 PART D [id number] ANALI SANCHEZ PATIENT Selected Encounter This section includes the information on record at [place] for the Encounter. Date/Time Encounter Type Encounter Description Reason Provider Source Sep 16, 2023 03:14 PM Outpatient Encounter ADMIN PAT ACTIVTIES (RUSTYNONCT) KELLY AYERS IHE Encounter Template Text not used by [place] Plan of Treatment: Future Appointments (+ 6 months) and Future Tests (+/- 45 days) The Plan of Treatment section includes future care activities for the patient from all [place] treatmentfacilities. This section includes future appointments and [...] 10, 2023 03:40 PM AMBULATORY - SURGERY [facility] October 22, 2023 02:30 PM AMBULATORY - PSYCHIATRY [facility] Nov 05, 2023 02:30 PM AMBULATORY - PSYCHIATRY [facility] Feb 11, 2024 02:30 PM AMBULATORY - PSYCHIATRY [facility] Lab Results: +/- 30 days of the encounter This section includes the Chemistry and Hematology Lab Results on record with [place] for the patient. Radiology Reports and Pathology Reports are provided separately, in subsequent sections. Lab Results This section contains the Chemistry/Hematology Results that were resulted 30 days before or 30 daysafter the date of the Encounter. Date/Time Source Result Type Result - Unit Interpretation Reference Range Comment Sep 09, 2023 02:17 PM [facility] CT PANEL Specimen Type: PLASMA No comment entered. Ordering Provider: KELLY AYERS Report Released Date/Time: Sep 09, 2023 02:12 PM Reporting Lab: [facility] [address] [facility] [id number] Performing Lab: [facility] [address] [facility] [id number] CREATININE 1.0 mg/dL 0.7-1.3 UREA NITROGEN 17 [...] 2023 07:13 PM 3D RENDERING: ANALI SANCHEZ [id number] -1950 M Exm Date: SEP 12, 2023@19:13 Req Phys: KELLY AYERS Pat Loc: ORL TVC ENROBING MACHINE FEEDER (Req'g Loc) Img Loc: ORL MRI 1 Service: Unknown (Case [id number] COMPLETE) 3D RENDERING (MRI Detailed) CPT:73176 Reason for Study: hepatoma screening new liver [...] object, or other foreign body NO Location: -[place] acupuncture or acupuncture needles NO -Coronary artery (heart) stents NO -Any other stent, filter, or coil NO -Shunt (spinal or intraventricular) NO -Vascular access port and/or catheter NO -Any other implanted device not listed above? NO Details: Has the [place] had a reaction to the MRI contrast/dye [...] 16, 2023 Date Verified: SEP 16, 2023 Precision Machine Operator E-Sig:/ES/OUTSIDE SERVICE RADIOLOGY Report: MRI ABDOMEN Technique: [...] Hepatic steatosis. READING PHYSICIAN: Otilio Rios M.D. -[phone] 09/16/2023 11:54 PDT [facility] National Teleradiology Program [phone] (For Medical Practitioner Use Only) Attention Patients / Veterans: If you have questions or concerns about these test results, please contact your ordering provider or primary care team. Primary Diagnostic Code: NO ALERT REQUIRED Primary Interpreting Staff: OUTSIDE SERVICE RADIOLOGY, Staff Physician / RADIOLOGY,OUTSIDE SERVICE [facility] Sep 12, 2023 07:13 PM MRI ABDOMEN W/C & W/O CON: DANIELANALI D [id number] -1950 M Ex Date: SEP 12, 2023@19:13 Req Phys: KELLY AYERS Loc: ORL TVC ENROBING MACHINE FEEDER (Req'g Loc) Img Loc: ORL MRI 1 Service: Unknown (Case [id number] COMPLETE) MRI ABDOMEN W/C & W/O CON (MRI Detailed) CPT:64074 Contrast Media : Gadolinium Reason for Study: [...] object, or other foreign body NO Location: -[place] acupuncture or acupuncture needles NO -Coronary artery [...] 16, 2023 Date Verified: SEP 16, 2023 Precision Machine Operator E-Sig:/ES/OUTSIDE SERVICE RADIOLOGY Report: MRI ABDOMEN Technique: [...] Hepatic steatosis. READING PHYSICIAN: Otilio Rios M.D. -[id number] 09/16/2023 11:54 PDT [facility] National Teleradiology Program [phone] (For Medical Practitioner Use Only) Attention Patients / Veterans: If you have questions or concerns about these test results, please contact your ordering provider or primary care team. Primary Diagnostic Code: NO ALERT REQUIRED Primary Interpreting Staff: OUTSIDE SERVICE RADIOLOGY, Staff Physician / RADIOLOGY,OUTSIDE SERVICE [facility] Encounter Notes: All associated encounter notes This section contains the clinical notes associated to the Encounter. Date/Time Encounter Note(s) Provider Source Sep 16, 2023 03:18 PM ADMINISTRATIVE NOT E: LOCAL TITLE: TEST RESULTS NOTIFICATION LETTER - STANDARD MAIL STANDARD TITLE: ADMINISTRATIVE NOTE DATE OF NOTE: SEP 16, 2023@15:18 ENTRY DATE: SEP 16, 2023@15:18:32 AUTHOR: KELLY AYERS EXP COSIGNER: URGENCY: STATUS: COMPLETED [facility] [place] [facility]/[place] [address] [place] [address] Anali Sanchez [address] [place], [place] [address] SEP 16, 2023 Dear Anali Sanchez: RE: Test Results MRI abdomen with/without contrast 09.12.23 Hope you are doing well. Your test results are available to ordering remote [place] provider for review. Please contact your home [facility] to discuss results and plan of care as indicated. Remote Facility: [facility] Ordering Provider: DOROTHY ALDRIDGE Sincerely, KELLY AYERS APRN ADVANCED PRACTICE NURSE PRACTITIONER Did you know the [facility] Clinical Contact Center (CCC) is available for your urgent and episodic health care needs? You can reach the [facility] by calling the toll free number 24/12 or utilizing the [place] Primordial magaly Saturday through Saturday, [phone]. The automated system is also available 24/12 at . *Remember: When your provider orders lab tests for you, a lab appointment is no longer necessary! Simply visit the lab during normal business hours, at your convenience. KELLY AYERS [facility]
--- OUTSIDE RECORDS SUMMARY | 2024-01-16 15:54 | XMS_ITS | Encounter Summary ---
Author Name [facility] [place] Organization [facility] Address [address] [place] [address] Care Team Providers Care Personal Banking Representative Name Role Phone LUCRETIA HUGHES Primary Care [...] Name Patient's Relationship to Policy Gross [facility] MEDICARE SUPPLEMEN AMANDA MEDIC ARE SUPPL EMENT Jun 03, 2018 [id number] [phone] ANALI SANCHEZ PATIENT [place] MED[place] SUPPLEMEN AMANDA MEDIC ARE SUPPL EMENT Jun 03, 2018 [id number] [phone] ANALI SANCHEZ PATIENT MEDICARE (WNR) MEDICARE (M) PART B Nov 01, 2017 PART B [id number] ANALI SANCHEZ PATIENT MEDICARE (WNR) MEDICARE (M) PART B Nov 01, 2017 PART B [id number] ANALI SANCHEZ PATIENT MEDICARE (WNR) MEDICARE (M) PART A Mar 03, 2015 PART A [id number] ANALI SANCHEZ PATIENT MEDICARE (WNR) MEDICARE (M) PART A Mar 03, 2015 PART A [id number] ANALI SANCHEZ PATIENT MEDICARE PART D (WNR) MEDICARE (M) PART D Nov 01, 2017 PART D [id number] ANALI SANCHEZ PATIENT Selected Encounter This section includes the [place] for the [place]counter. Date/Time Encounter Type Encounter Description Reason Pro vider Source October 25, 2023 03:02 PM Outpatient Encounter PRIMARY CARE/MEDICINE IHE Encounter Template Text not used by [place] Plan of Treatment: Future Appointments (+ 6 months) and Future Tests (+/- 45 days) The Plan of Treatment section includes future care activities for the patient from all [place] [facility]. This section includes future appointments and future orders which are active, pending or scheduled. Future Appointments This section includes appointments that were scheduled to occur 6 months from the date of the Encounter, up to a maximum of 20 appointments. The data comes from all [place] treatment facilities. Appointment Date/Time Appointment Type Appointme nt Facility Name Nov 05, 2023 02:30 PM AMBULATORY - PSYCHIATRY [facility] Feb 11, 2024 02:30 PM AMBULATORY - PSYCHIATRY [facility] Apr 06, 2024 08:00 AM AMBULATORY - SURGERY [facility] Social History: Smoking Status (Most current) and Tobacco Use (All prior to encounter date) This section includes the most current, and the historical, smoking and tobacco- related health factors from the [place] facility where the Encounter took place. Current Smoking Status This section includes the most current smoking, or tobacco-related health factor, from the [place] facility where the Encounter took place. Date/Time Current Smoking Status Comment Denilson ity Apr 08, 2023 09:00 AM NE-TOBACCO QUIT 15 YRS OR MORE [facility] Tobacco Use History This section includes a history of the smoking, or tobacco-related health factors, that were collected on or before the date of the Encounter. The data comes from the [place] facility where the Encounter took place. Date/Time Smoking Status/Tobacco Use Comment F acility Apr 08, 2023 09:00 AM VA-TOBACCO QUIT 15 YRS OR MORE [facility] Mar 15, 2022 08:30 AM VA-TOBACCO FORMER USER [facility] Mar 15, 2022 08:30 AM VA-TOBACCO QUIT 15 YRS OR MORE [facility] Jan 24, 2021 10:00 AM VA-TOBACCO FORMER USER [facility] Jan 24, 2021 10:00 AM VA-TOBACCO QUIT 15 YRS OR MORE [facility] Aug 10, 2018 06:09 PM VA-TOBACCO FORMER USER [facility] Aug 10, 2018 06:09 PM VA-TOBACCO QUIT 15 YRS OR MORE [facility] Encounter Notes: All associated encounter notes This section contains the clinical notes associated to the Encounter. Date/Time Encounter Note(s) Provider Source October 25, 2023 03:02 PM REPORT OF CONTACT: LOCAL TITLE: PATIENT CONTACT NOTE STANDARD TITLE: REPORT OF CONTACT DATE OF NOTE: OCTOBER 25, 2023@15:02 ENTRY DATE: OCTOBER 25, 2023@15:02:51 AUTHOR: BECKY GLEZ COSIGNER: URGENCY: STATUS: COMPLETED PATIENT CONTACT NOTE Has ADDENDA Patient contact Name of Gordo: ANALI SANCHEZ Name/Relationship of Contact if other than : Date & Time of Contact: October@15:02 Type of Contact: In person Reason for Contact: Patient came in wanting a renewal TAMSULOSIN. I informed patient I would alert Provider/nurses. Patient was hoping to receive a call back at [phone] /stephan/ BECKY GLEZ JR., MSA Signed: 10/25/2023 15:04 Receipt Acknowledged By: 10/25/2023 15:12 /stephan/ Lucretia Hughes MD STAFF PHYSICIAN 11/06/2023 07:47 /ayden Hughes MD STAFF PHYSICIAN for SHIRLEY MAGAÑA 10/25/2023 15:28 /stephan/ FELIPE LANDRY REGISTERED NURSE 10/25/2023 ADDENDUM STATUS: COMPLETED called back to patient per his request. He wants to know about his RX for [facility], [facility] Pt was informed to discuss this with his provider, and he says he will do this on 11/05/23. Pt also wanted to know if his RX for tamsulosin was written for a 30 dy or a 90 day Rx, he was informed it is the former. Pt says he will be going to [place] in the fall and would like a 90day so doesn't run out. I encouraged pt to discuss with outpt pharmacy to let him know his travel plans as we approach that time of the year and inquire if they can help him fill a supply that meets his needs /ayden LANDRY REGISTERED NURSE Signed: 10/25/2023 15:26 BECKY GLEZ JR [facility]
--- OUTSIDE RECORDS SUMMARY | 2024-01-16 15:54 | XMS_ITS | Clinical Summary ---
Author Organization [email or web address] Address [address] [place] [address] Care Team Providers Care Muff Winder Name Role Phone Unassigned, Provider Primary Care Provider Unava ilable Source Comments You are receiving this document as you are listed as the primary care provider,follow-up provider, or the patient has been referred to you for consultation.This is in compliance with the Medicare and[facility] EHR Incentive Program,which states Providers who transition their patient to another setting of careor provider of care or refers their patient to another provider of care shouldprovide summary care record for each transition of care or referral. Iddiction Allergies Active Allergy Reactions Criticality Noted Date Comments Prednisone 08/05/2009 Medications Medication Sig Dispensed Refills Start Date End Date Status EPINEPHrine (EPIPEN) 0.3 MG/0.3ML injection Inject 1 Dose into the muscle as needed. LW Addl Instr:May repeat. Indicated for: Acute Allergic Reaction 1 3 01/27/2009 Active Additional Information Patient not taking.Reported on 04/11/2016 unknown medication Indications: PN: 08/05/2009 Active Glucosamine HCl-MSM (GLUCOSAMINE-MSM OR) Take 3 capsules by mouth daily (every 24 hours). 02/12/2012 Active fluticasone (AKA FLONASE) 50 MCG/ACT nasal solution Place 2 sprays into each nostril 1-2 TIMES DAILY PRN. Dose is for each nostril. 02/12/2012 Active guaiFENesin ([facility] MUCUS EXTENDED RELEASE) 600 MG 12 hour release tablet Take 1,200 mg by mouth 2 times daily. 01/22/2011 Active omeprazole (PRILOSEC) 20 MG capsule Take 20 mg by mouth daily (every 24 hours). 01/22/2011 Active fluoxetine (PROZAC) 40 MG capsule Take 40 mg by mouth daily (every 24 hours). Indications: DEPRESSION 01/22/2011 Active lisinopril (ZESTRIL) 10 MG tablet Take 10 mg by mouth. 02/15/2017 Active sildenafil (VIAGRA) 100 MG tablet Take 100 mg by mouth. 04/20/2014 Active omeprazole (PRILOSEC) 20 MG capsule Take 20 mg by mouth daily. Take 1 hour before a meal. Active guaifenesin-code ine (ROBITUSSINAC) 100-10 MG/5ML solution Take 5 mL by mouth every 4 hours as needed. 118 mL 09/11/2017 Active ALBUterol sulfate HFA 108 (90 Base) MCG/ACT inhaler Inhale 1-2 Puffs every 4 hours as needed for Wheezing. Pharmacy may substitute albuterol HFA inhalers based on insurance 1 Inhaler 09/11/2017 Active dexamethasone (DECADRON) 2 MG tablet 10 mg today and in 4 days 10 Tab 09/11/2017 Active [facility] OMEPRAZOLE CPDR Take 20 mg by mouth daily (every 24 hours). 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) Immunizations Name Administration Dates Next Due Td 12/10/1997,08/19/1995 Tdap 10/12/2016 Social History Tobacco Use Types Packs/Day Years Used Date Smoking Tobacco: Never Comments:Quit smoking: Sex and Gender Information Value Date Recorded Sex Assigned at Not on file Gender Identity Not on file Sexual Orientation Not on file Last Filed Vital Signs Vital Sign Reading Time Taken Comments Blood Pressure 110/70 09/11/2017 4:03 PM CDT Pulse 88 09/11/2017 4:03 PM CDT Temperature 36.8 ??C (98.2 ??F) 09/11/2017 4:03 PM CD T Respiratory Rate 20 09/11/2017 4:03 PM CDT Oxygen Saturation 96% 09/11/2017 4:03 PM CDT Inhaled Oxygen Concentration - - Weight - - Height - - Body Mass Index - - Plan of Treatment Health Maintenance Due Date Last Done Comments Colon Cancer Screening Plan Due 1950 Hep C Screening (Preventive Services) 1950 Adult Preventive Visit 08/17/1967 Cholesterol 1984 Zoster/Shingles (2 of 3) 04/03/2012 02/07/2012 Pneumococcal 65+ Yrs (2 - PPSV23 or PCV20) 02/15/2018 02/15/2017 COVID-19 Vaccine (1 - season) 2023 Influenza (#1) 2024 02/15/2017 DTaP/Tdap/Td (3 - Tdap) 10/12/2026 10/13/19 17, 06/18/2007, 12/10/1997, Additional history exists HepA Aged Out No longer eligi ble based on patient's age to complete this topic HepB Aged Out No longer eligi ble based on patient's age to complete this topic Hib Aged Out No longer eligi ble based on patient's age to complete this topic IPV (Polio) Aged Out No longer eligi ble based on patient's age to complete this topic MCV4 Aged Out No longer eligi ble based on patient's age to complete this topic Care Teams Muff Winder Relationship Specialty Start Date End Date Unassigned, Provider [address] [place] [address] PCP - General 05/10/00
--- OUTSIDE RECORDS SUMMARY | 2024-01-16 15:54 | XMS_ITS | Encounter Summary ---
Author Name [facility] [place] Organization [facility] Address [address] [place] [address] Care Team Providers Care Journalists And Other Writers Name Role Phone NICANOR HUGHES Primary Care [...] Gross's Name Patient's Relationship to Policy Gross [facility] MEDICARE SUPPLEMEN AMANDA MEDIC ARE SUPPL EMENT Jun 03, 2018 [id number] [phone] ANALI SANCHEZ PATIENT BS [place] MEDICARE SUPPLEMEN AMANDA MEDIC ARE SUPPL EMENT Jun 03, 2018 [id number] ANALI SANCHEZ PATIENT MEDICARE (WNR) MEDICARE (M) PART B Nov 01, 2017 PART B [id number] ANALI SANCHEZ PATIENT MEDICARE (WNR) MEDICARE (M) PART B Nov 01, 2017 PART B [id number] ANALI SANCHEZ PATIENT MEDICARE (WNR) MEDICARE (M) PART A Mar 03, 2015 PART A [id number] ANALI SANCHEZ PATIENT MEDICARE (WNR) MEDICARE (M) PART A Mar 03, 2015 PART A [id number] ANALI SANCHEZ PATIENT MEDICARE PART D (WNR) MEDICARE (M) PART D Nov 01, 2017 PART D [id number] ANALI SANCHEZ PATIENT Selected Encounter This section includes the information on record at [place] for the Encounter. Date/Time Encounter Type Encounter Description Reason Provider Source Nov 05, 2023 02:30 PM OFFICE O/P EST MOD 30 MIN PSYCHOGERIATRIC - INDIVIDUAL ICD-10-CM F41.9 Anxiety disorder, unspecified JAMAOMA,DASIA R IHE Encounter Template Text not used by [place] Assessments - Encounter Diagnoses This section includes the primary and secondary diagnoses documented for the Encounter. Date/Time Primary/Secondary Diagnosis Diagnosis Name Provider Source Nov 05, 2023 03:00 PM PRIMARY Anxiety disorder, unspecified SHIROMA,DASIA R [facility] Plan of Treatment: Future Appointments (+ 6 months) and Future Tests (+/- 45 days) The Plan of Treatment section includes future care activities for the patient from all [place] [facility]. This section includes future appointments and future orders which are active, pending or scheduled. Future Appointments This section includes appointments that were scheduled to occur 6 months from the date of the Encounter, up to a maximum of 20 appointments. The data comes from all [place] treatment facilities. Appointment Date/Time Appointment Type Appointme nt Facility Name Feb 11, 2024 02:30 PM AMBULATORY - PSYCHIATRY [facility] Apr 06, 2024 08:00 AM AMBULATORY - SURGERY [facility] Social History: Smoking Status (Most current) [...] 08, 2023 09:00 AM VA-TOBACCO FORMER USER [facility] Tobacco Use History This section includes a history of the smoking, or tobacco-related health factors, that were collected on or before the date of the Encounter. The data comes from the [place] facility where the Encounter took place. Date/Time Smoking Status/Tobacco Use Comment [facility] Apr 08, 2023 09:00 AM [place]-TOBACCO QUIT 15 YRS OR MORE [facility] Mar 15, 2022 08:30 AM VA-TOBACCO FORMER USER [facility] Mar 15, 2022 08:30 AM VA-TOBACCO QUIT 15 YRS OR MORE [facility] Jan 24, 2021 10:00 AM VA-TOBACCO FORMER USER [facility] Jan 24, 2021 10:00 AM HI-TOBACCO QUIT 15 YRS OR MORE [facility] Aug 10, 2018 06:09 PM VA-TOBACCO FORMER USER [facility] Aug 10, 2018 06:09 PM HI-TOBACCO QUIT 15 YRS OR MORE [facility] Encounter Notes: All associated encounter notes This section contains the clinical notes associated to the Encounter. Date/Time Encounter Note(s) Provider Source Nov 05, 2023 02:53 PM PSYCHIATRY E & M N OTE: LOCAL TITLE: PSYCHIATRIC EVALUATION & MANAGEMENT STANDARD TITLE: PSYCHIATRY E & M NOTE DATE OF NOTE: NOV 05, 2023@14:53 ENTRY DATE: NOV 05, 2023@14:53:21 AUTHOR: DASIA KILGORE COSIGNER: URGENCY: STATUS: COMPLETED PSYCHIATRIC EVALUATION AND MANAGEMENT FOLLOW UP VISIT MOST RECENT VITALS: Blood Pressure: 132/92 (05/28/2023 14:25) Pulse: 72 (05/28/2023 14:17) Temperature: 96.5 F [35.8 C] (05/28/2023 14:17) Weight: 275.6 lb [125.01 kg] (05/28/2023 14:17) Body Mass Index: 39.6 Kidney Function: Creatinine: CREATININE 1.1 (04/09/23) Liver Panel: Alk Phosphatase ALK PHOSPHATASE 75 (04/09/23) ALT/SGPT: SGPT 29 (04/09/23) AST/SGOT: SGOT 26 (04/09/23) Bilirubin: BILIRUBIN, TOTAL 0.7 (04/09/23) Metabolic: LAB TESTS SELECTED Collection DT Specimen Test Name Result Units Ref Range 10/08/2022 09:54 BLOOD !! HEMOGLOBIN A1C 5.8 % 4.0 - 6.0 !! Indicates COMMENTS AVAILABLE...Refer to Interim Lab Report. GLUCOSE 112 H (04/09/23) Lipid Panel: Cholesterol: CHOLESTEROL 135 (04/09/23) Triglyceride: TRIGLYCERIDE____ HDL: HDL 37 L (04/09/23) LDL-C: LDL CALCULATION 78 (04/09/23) IDENTIFICATION: 72 yo retired male who sought care for anxiety and depression. ACTIVE PROBLEMS: Active problems - Computerized Problem List is the source for the followin. HTN - Hypertension ([facility] [id number]) 2. GERD - Gastro-Esophageal Reflux Disease ([facility] [id number]) 3. Anxiety ([facility] [id number] 4. Benign Prostatic Hypertrophy With Outflow Obstruction ([facility] [id number]) 5. Hepatitis B 6. Polyp of colon - 2mm TA 2017; due 2022 INTERVAL HISTORY: Patient was seen for 30-min in person for med management regarding depression and PTSD. Patient run out of venlafaxine xr 4 days ago and in hindsight he might have experienced mild withdrawal sxs. Pt reported venelafaxine did not work as good as sertraline and would like to go back on sertraline. He said that for the last month or so he's been feeling anhedonic and more depressed without any reasons. Currently he also takes prazosin 2 mg qhs for nightmares. Pt said he did not develop side effects from prazosin and has helped some in term of nightmares; still has at least once a week nightmare that wake him up. Pt also reported that he was diagnosed with severe MARILYN but is not wearing CPAP as he is having a hard time adjusting. He claimed he was not counseled on the medical consequences of untreated MARILYN. Pt has HTN,hyperlipidemia, and BMI 39.6 No psychosis, liz/hypomania or panic attacks. 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 Mood did not imrpove with venlafaxine and would like to try again sertraline 200 mg qd (good tolerability) which at least provide partial response. Tolerated prazosin 2 mg qhs with partial response. Re-start sertraline at 50 mg qam for 7 days, 100 mg qam for 7 days and then 200 mg qam. We briefly discussed options if sertraline only provides partial response. Continue prazosin to 4 mg qhs. F/U in 3 months or PRN phone /es/ DASIA KILGORE MD STAFF PHYSICIAN Signed: 11/05/2023 15:00 DASIA KILGORE [facility]
--- OUTSIDE RECORDS SUMMARY | 2024-01-16 15:54 | XMS_ITS | Encounter Summary ---
Author Name [facility] [place] Organization [facility] [place] Address [address] [place] [address] Care Team Providers Care Paralegal Specialist Name Role Phone NICANOR HUGHES Primary [...] Gross's Name Patient's Relationship to Policy Gross [facility] MEDICARE SUPPLEMEN AMANDA MEDIC ARE SUPPL EMENT Jun 03, 2018 [id number] [phone] ANALI SANCHEZ PATIENT BS [place] MEDICARE SUPPLEMEN AMANDA MEDIC ARE SUPPL EMENT Jun 03, 2018 [id number] [phone] ANALI SANCHEZ PATIENT MEDICARE (WNR) MEDICARE (M) PART B Nov 01, 2017 PART B [id number] ANALI SANCHEZ PATIENT MEDICARE (WNR) MEDICARE (M) PART B Nov 01, 2017 PART B [id number] ANALI SANCHEZ PATIENT MEDICARE (WNR) MEDICARE (M) PART A Mar 03, 2015 PART A [id number] ANALI SANCHEZ PATIENT MEDICARE (WNR) MEDICARE (M) PART A Mar 03, 2015 PART A [id number] ANALI SANCHEZ PATIENT MEDICARE PART D (WNR) MEDICARE (M) PART D Nov 01, 2017 PART D [id number] ANALI SANCHEZ PATIENT Selected Encounter This section includes the information on record at [place] for the Encounter. Date/Time Encounter Type Encounter Description Reason Provider Source October 25, 2023 03:26 PM HC PRO PHONE CALL 5-10 MIN TELEPHONE PRIMARY CARE ICD-10-CM N40.1 Benign prostatic hyperplasia with lower urinary tract symp ROSS LANDRY [facility] Encounter Template Text not used by [place] Assessments - Encounter Diagnoses This section includes the primary and secondary diagnoses documented for the Encounter. Date/Time Primary/Secondary Diagnosis Diagnosis Name Provider Source October 25, 2023 03:26 PM PRIMARY Benign prostatic hyperplasia with lower urinary tract symp ROSS LANDRY [facility] October 25, 2023 03:26 PM SECONDARY Other obstructive and reflux uropathy ROSS LANDRY [facility] Plan of Treatment: Future Appointments (+ 6 months) and Future Tests (+/- 45 days) The Plan of Treatment section includes future care activities for the [facility] [place] [facility] This section includes future appointments and future orders which are active, pending or scheduled. Future Appointments This section includes appointments that were scheduled to occur 6 months from the date of the Encounter, up to a maximum of 20 appointments. The data comes from all [place] treatment facilities. Appointment Date/Time Appointment Type Appointme nt Facility Name Nov 05, 2023 02:30 PM AMBULATORY - PSYCHIATRY [facility] Feb 11, 2024 02:30 PM AMBULATORY - PSYCHIATRY [facility] Apr 06, 2024 08:00 AM AMBULATORY - SURGERY [facility] Social History: Smoking Status (Most current) and Tobacco Use (All prior to encounter date) This section includes the most current, and the historical, smoking and tobacco- related health factors from the [place] facility where the Encounter took place. Current Smoking Status This section includes the most current smoking, or tobacco-related health factor, from the [place] facility where the Encounter took place. Date/Time Current Smoking Status Comment Facil ity Apr 08, 2023 09:00 AM VA-TOBACCO FORMER USER [facility] Tobacco Use History This section includes a history of the smoking, or tobacco-related health factors, that were collected on or before the date of the Encounter. The data comes from the [place] facility where the Encounter took place. Date/Time Smoking Status/Tobacco Use Comment F acility Apr 08, 2023 09:00 AM VA-TOBACCO QUIT 15 YRS OR MORE [facility] Mar 15, 2022 08:30 AM VA-TOBACCO FORMER USER [facility] Mar 15, 2022 08:30 AM VA-TOBACCO QUIT 15 YRS OR MORE [facility] Jan 24, 2021 10:00 AM VA-TOBACCO FORMER USER [facility] Jan 24, 2021 10:00 AM VA-TOBACCO QUIT 15 YRS OR MORE [facility] Aug 10, 2018 06:09 PM VA-TOBACCO FORMER USER [facility] Aug 10, 2018 06:09 PM [place]-TO[place]ACCO QUIT 15 YRS OR MORE [facility]
== END 2024-01-16 15:47 | disposition home or self-care (01) ==
PROVIDERS: PCP Family Medicine; Visit Provider Family Medicine
DX: Z01.818 Encounter for other preprocedural examination (principal); I10 Essential (primary) hypertension; N40.0 Benign prostatic hyperplasia without lower urinary tract symptoms; R73.03 Prediabetes
CPT/HCPCS: 80053; G0103

== ENCOUNTER 2024-02-11 10:48 | Day surgery (SDC) | payer MEDICARE, BC, SELFPAY ==
[2024-02-11] VITALS (23 sets, daily range): BP systolic 101–139; BP diastolic 56–98; PULSE 50–86; RESP 10–18; TEMP 35.8–36.8; O2SAT 90–97; BMI 39.7
[2024-02-11] MEDS: SODIUM CHLORIDE 0.9 % (FLUSH) 10 ML SYRINGE IVF (11:26)
[2024-02-11] MEDS: LACTATED RINGERS 1000 ML 1,000 ML 100 ML IV ×2 (11:26→13:15)
[2024-02-11] MEDS: CELECOXIB 200 MG CAPSULE PO (11:26)
[2024-02-11] MEDS: OXYCODONE (CR) 10 MG TAB.ER.12H PO (11:26)
[2024-02-11] MEDS: ACETAMINOPHEN 500 MG TABLET 1000 MG PO ×3 (11:26→23:36)
--- NOTE | 2024-02-11 11:27 | SUR.PREOP ---
TIME?OUT:?1127 PT/RN/MDA?VERIFICATION?OF?SURGICAL?SITE Left Knee,?PROCEDURE Nerve Blok,?AND?CONSENT OBTAINED?PRIOR?TO?INVASIVE?PROCEDURE.
[2024-02-11] MEDS: CEFAZOLIN 2 GM INJ IVP (11:45)
[2024-02-11] MEDS: TRANEXAMIC ACID 100 MG/ML INJ 1000 MG IV (11:50)
--- NOTE | 2024-02-11 12:09 | P.NB_ITS ---
Nerve Block Nerve Block Time Seen by Provider: 11:34 Date Seen: 02/11/24 Type of block requested by surgeon for post-operative analgesia: geniculars Side: left Time out performed: Yes Verification of patient name: Yes Verification of date of : Yes Site marking: site marked Name of person performing procedure: Rainer Continuous monitoring Was continuous monitoring of O2 sat, B/P, public service director, recorded every 15 minutes?: Yes Procedure Checklist: sterile prep, needles and gloves Medications given in 5ml increments after negative aspiration: Ropivicaine %: 0.5 mL: 9 Needle gauge: 25 Patient tolerated procedure well: Yes Block Charges Block Charge (with Pro Fee): Genicular Nerve Block Use of Ultrasound Machine for Block: No
--- NOTE | 2024-02-11 12:09 | W.PM.NB ---
Nerve Block Nerve Block Time Seen by Provider: 11:34 Date Seen: 02/11/24 Type of block requested by surgeon for post-operative analgesia: adductor canal Side: left Time out performed: Yes Verification of patient name: Yes Verification of date of : Yes Site marking: site marked Name of person performing procedure: Rainer Continuous monitoring Was continuous monitoring of O2 sat, B/P, electrical engineering professor, recorded every 15 minutes?: Yes Procedure Checklist: sterile prep, needles and gloves Ultrasound guided. Images saved: Yes Medications given in 5ml increments after negative aspiration: Ropivicaine %: 0.5 mL: 20 Needle gauge: 20 Decadron (mg): 10 Precedex (mcg): 25 Patient tolerated procedure well: Yes Additional comments: Needle noted adjacent to nerve Block Charges Block Charge (with Pro Fee): Femoral Nerve Use of Ultrasound Machine for Block: Yes- US Guidance/pain block
--- NOTE | 2024-02-11 12:10 | W.ANESCHARGE ---
Anesthesia Charges Start Date/Time Anesthesia Start Date: 02/11/24 Anesthesia Start Time: 11:37 Stop Date/Time Anesthesia Stop Date: 02/11/24 Anesthesia Stop Time: 14:06 Summary Extremes of Age - Over 70 or under 1: MDA
--- NOTE | 2024-02-11 13:43 | CRLHL7_ITS ---
For Patients: As a result of the Century Cures Act, medical imaging exams and procedure reports are released immediately into your electronic medical record. You may view this report before your referring provider. If you have questions, please contact your health care provider. INDICATION: Postop TKA. TECHNIQUE: Two views of the left knee. FINDINGS: There is a new left TKA. Components appear well-seated. Expected postop soft tissue air. Dictated by Davis Acharya MD @ 02/12/2024 8:09:59 AM (Electronically Signed)
--- NOTE | 2024-02-11 13:46 | P.ORPRC_ITS ---
Procedure Note Date of procedure: 02/11/24 Procedure: PREOPERATIVE DIAGNOSIS: Left knee osteoarthritis POSTOPERATIVE DIAGNOSIS: Left knee osteoarthritis NAME OF OPERATION: Left total knee arthroplasty SURGEON: Timbo Santacruz MD PRESS MACHINE FEEDER: SADI Ronquillo ANESTHESIA: Spinal ESTIMATED BLOOD LOSS: 0 mL COMPLICATIONS: None SPECIMENS: None DRAINS: None PREOPERATIVE ANTIBIOTICS: Ancef 3 grams, antibiotic impregnated cement IMPLANTS: 1. J&J Attune revision CRS # 7 posterior stabilized femur, with a 14 mm x 50 mm cemented stem 2. #6 revision CRS fixed-bearing tibia, with a 14 mm x 50 mm cemented stem 3. # 7 posterior stabilized, 7 mm fixed-bearing polyethylene 4. 41 patella INDICATIONS: The patient is a 73-year-old with a longstanding history of severe, unrelenting left knee pain secondary to end-stage (grade IV) left knee osteoarthritis. Despite appropriate nonoperative management, including activity modification, anti-inflammatories, gaiz-zej-cqrilcu pain medication, bracing, physical therapy, and injections they continue to have pain and disability. Operative intervention was offered. The risks, benefits and expected outcomes were discussed in detail. These included but were not limited to: Infection, bleeding, injury to blood vessel or nerve, venous thromboembolism. All questions were answered to their satisfaction. Use of an bacteriology research assistant was necessary throughout the case for patient positioning and safety, soft tissue retraction, and closure. A modifier 22 should be added to this case. The patient's weight of 126 kg and a BMI of 40 made the dissection more difficult. Additionally, to reduce the risk of aseptic loosening stemmed components were used. Both of these factors added time and cost to complete the case. PROCEDURE: Spinal anesthesia was administered. The patient was placed supine on the operating table. The bacteriology research assistant made sure the patient was positioned appropriately. The lower extremity was prepped and draped in the usual sterile fashion. The limb was exsanguinated with the Mac bandage. The pneumatic tourniquet was inflated to 300 mmHg. A standard anterior incision was made with the knee in flexion. Subcutaneous dissection was sharply taken through fascial layer #1. Full-thickness medial and lateral flaps were elevated. The bacteriology research assistant retracted the soft tissues and protected them throughout the case. A standard subvastus approach was made. The patella was subluxed. The infrapatellar fat pad was debrided. The menisci and cruciate ligaments were sharply d?brided. Marginal osteophytes were d?brided with the rongeur. The drill was used to penetrate the femoral canal. The canal was aspirated and irrigated with pulse lavage. The intramedullary femoral guide was placed for a 5-degree valgus cut, removing 10 mm off the distal femur. The saw was used to make the cut. Whitesides line and the trans epicondylar axis were marked. The femoral sizing guide was pinned onto the distal femur. Three degrees of external rotation nicely parallels the transepicondylar axis. Pins were placed for posterior referencing. The four-in-one cutting guide was pinned onto the distal femur. The anterior, posterior, and chamfer cuts were made. The bacteriology research assistant protected the collateral ligaments. The revision trial was placed. The box cuts were made. The drill was used x2. The stemmed, boxed trial was placed and was an excellent fit. Attention was then turned to the proximal tibia. The extramedullary tibial guide was placed for a neutral varus/valgus cut with 5 degrees of posterior slope, removing 2 mm based off the medial tibial surface. The bacteriology research assistant protected the collateral ligaments and the neurovascular bundle. The saw was used to make the cut. Trial components were placed. The knee was nicely balanced in both flexion and extension. The trial components were removed. The tray was placed in appropriate rotation, parallel to our tibial cutting pins. It was pinned by the bacteriology research assistant and the drill x2 was used. The stemmed tibial trial was placed. The punch was used. The tray was removed. The punch was used again. Attention was then turned to the patella. [place] patellar thickness was 26 mm. The lobster claw resection guide was used with the 9.5 mm daron. The saw was used to make the cut. Drill holes were made by the bacteriology research assistant. The trial was placed and was an excellent fit. Cancellous surfaces were irrigated with pulse lavage and thoroughly dried by the bacteriology research assistant. We cemented the tibial component, then the femoral component. We impacted the 7 mm polyethylene onto the tibial tray. The knee was brought into full extension. We then cemented the patellar component. Excessive cement was removed. The cement was allowed to harden. The knee was taken through a range of motion and was found to be nicely balanced in both flexion and extension. The patella tracks centrally. The bacteriology research assistant did a three minute dilute Betadine solution soak. The bacteriology research assistant irrigated the wound with 3 liters of normal saline via pulse lavage. The bacteriology research assistant reapproximated the extensor mechanism with #1 Vicryl in an interrupted uyfigu-wa-igbjb fashion. The bacteriology research assistant then ran the extensor mechanism with a #1 PDO Stratafix. The bacteriology research assistant closed the subcutaneous tissues with a 3-0 Stratafix and the skin with a running 3-0 Stratafix in a subcuticular fashion. Glue was used to seal the skin. The bacteriology research assistant placed a dry dressing. Sponge and needle counts were correct x2. The patient tolerated the procedure well. There were no apparent complications. They were carefully transferred to the hospital bed and taken to the postanesthesia care unit in satisfactory condition. PLAN: The patient will be mobilized with physical therapy. Aspirin will be used for DVT prophylaxis. They will be discharged to home once medically appropriate.
--- NOTE | 2024-02-11 14:07 | P.ANES_ITS ---
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
--- NOTE | 2024-02-11 14:34 | SUR.PHASEI ---
Able not able to wiggle toes yet, cannot feel my touch on feet. Feet warm to touch, foot compressions on feet. Patient stated he is tired.
--- NOTE | 2024-02-11 14:44 | SUR.PHASEI ---
Patient meets anesthesia discharge criteria from PACU
--- NOTE | 2024-02-11 15:28 | PC.NURSE ---
Nursing Care Hours: 1450 Pt arrived to floor from PACU alert and oriented. No c/o pain, wiggles toes. Bandage CDI. Tolerating popsicle. VSS. Report given to oncoming nurse.
[2024-02-11] MEDS: LACTATED RINGERS 1000 ML 1,000 ML 75 ML IV (16:13)
[2024-02-11] MEDS: HYDROmorphone 0.5 mg/0.5 ml inj IVP ×2 (17:19→20:02)
[2024-02-11] MEDS: CEFAZOLIN 3 GM in 0.9 % SODIUM CHLORIDE Mini-bag 100 ML IVPB (17:30)
--- NOTE | 2024-02-11 19:28 | P.IMCN_ITS ---
Date of Consult Patient: [facility] Patient Consult date: 02/11/24 Primary Care Provider: Ilan Atwood MD Consult Narrative Reason for consult: Medical management Narrative: Timbo Spear is a 73 year old male with past medical history of hypertension, MARILYN not on CPAP, BPH, obesity, PTSD and anxiety who presents as an elective surgery patient d/t Left knee osteoarthritis , currently is s/p Left total knee arthroplasty. Patient is hemodynamically stable, pain is controlled with medications. Pt denies CP, SOB or abdominal pain. N.B previously there was a mistake diagnosing the patient with AFib but he followed up with a asbestos textile supervisor who states that the patient does not have AFib with he might have had a wandering pacemaker. Review of Systems Status of ROS: Reports: 6 or more systems reviewed and unremarkable except as noted in History and below [facility] Medical History (Updated 02/11/24 @ 19:45 by Agustina Garcia MD) Obesity ?E66.9 - Obesity, unspecified (ICD-10) Hyperlipidemia ?E78.5 - Hyperlipidemia, unspecified (ICD-10) MARILYN (obstructive sleep apnea) ?G47.33 - Obstructive sleep apnea (adult) (pediatric) (ICD-10) PTSD (post-traumatic stress disorder) ?F43.10 - Post-traumatic stress disorder, unspecified (ICD-10) Bilateral primary osteoarthritis of knee ?M17.0 - Bilateral primary osteoarthritis of knee (ICD-10) Complicated urinary tract infection ?N39.0 - Urinary tract infection, site not specified (ICD-10) Benign prostatic hyperplasia ?N40.0 - Benign prostatic hyperplasia without lower urinary tract symptoms (ICD-10) Tubular adenoma ?D36.9 - Benign neoplasm, unspecified site (ICD-10) Peptic ulcer associated with Helicobacter pylori infection ?K27.9 - Peptic ulcer, site unspecified, unspecified as acute or chronic, without hemorrhage or perforation (ICD-10) ?B96.81 - Helicobacter pylori [H. pylori] as the cause of diseases classified elsewhere (ICD-10) Lipoma of abdominal wall ?D17.1 - Benign lipomatous neoplasm of skin and subcutaneous tissue of trunk (ICD-10) History of renal calculi ?Z87.442 - Personal history of urinary calculi (ICD-10) Hepatitis B virus infection ?B19.10 - Unspecified viral hepatitis B without hepatic coma (ICD-10) Anxiety and depression ?F41.9 - Anxiety disorder, unspecified (ICD-10) ?F32.A - Depression, unspecified (ICD-10) Allergic rhinitis ?J30.9 - Allergic rhinitis, unspecified (ICD-10) Abscess or cellulitis of shoulder Surgical History (Updated 02/11/24 @ 19:41 by Agustina Garcia MD) S/P trigger finger release (04/19/22) ?Z98.890 - Other specified postprocedural states (ICD-10) H/O arthroscopy of left knee (04/17/13) ?Z98.890 - Other specified postprocedural states (ICD-10) History of repair of right rotator cuff (03/14/18) ?Z98.890 - Other specified postprocedural states (ICD-10) Trigger finger, left little finger (06/20/21) ?M65.352 - Trigger finger, left little finger (ICD-10) History of total right hip replacement (02/24/13) ?Z96.641 - Presence of right artificial hip joint (ICD-10) History of total left hip replacement (08/27/14) ?Z96.642 - Presence of left artificial hip joint (ICD-10) History of tonsillectomy and adenoidectomy ?Z90.89 - Acquired absence of other organs (ICD-10) History of colonoscopy with polypectomy ?Z98.890 - Other specified postprocedural states (ICD-10) ?Z86.010 - Personal history of colonic polyps (ICD-10) History of arthroscopy of right shoulder (04/18/18) ?Z98.890 - Other specified postprocedural states (ICD-10) History of arthroscopy of right knee (06/21/17) ?Z98.890 - Other specified postprocedural states (ICD-10) Family History Mother Ovarian cancer Father Pancreatic cancer Uncle Testicular cancer Social History Narrative: alcohol ingestion, 1-4 drinks/week does not use illicit drugs nonsmoker What is your current living situation?: I presently have a place to live Problems where you live: no known problems Problems where you live details: NA In the past 12 months, utilities in danger of being shut off: no In past 12 months, lack of transportation kept you from medical appts, meetings, work, or getting things needed for daily living: no In the past 12 mos, have been you worried that your food would run out before you had money to buy more?: never true In the past 12 mos, the food you bought just didn't last and you didn't have money to buy more?: never true Highest level of school completed/degree received: Associate degree: occupational, technical, vocational program Smoking Status: Never smoker Do you use any of these nicotine containing products: None Second hand tobacco smoke exposure: No How often do you have a drink containing alcohol: 2-3 times a week How many standard drinks containing alcohol do you have on a typical day: 3 or 4 How often do you have six or more drinks on one occasion: Never AUDIT-C Alcohol total score: 4 Non-prescribed substance use: denies use Caffeine: No How often does anyone, including family, friends and others, physically hurt you : never How often does anyone, including family, friends and others, insult or talk down to you: never How often does anyone, including family, friends and others, threaten you with harm: never How often does anyone, including family, friends and others, scream or curse at you: never Little interest or pleasure in doing things: more than half the days Feeling down, depressed, or hopeless: more than half the days service: Yes Meds Home Medications and Allergies Home Medications ?Medication ?Instructions ?Recorded ?Confirmed ?Type lisinopril 20 mg tablet 20 mg PO DAILY 03/15/22 02/11/24 History metoprolol succinate 50 mg 50 mg PO DAILY 03/15/22 02/11/24 History tablet,extended release 24 hr omeprazole 20 mg capsule,delayed 20 mg PO DAILY 03/15/22 01/16/24 History release tamsulosin 0.4 mg capsule 0.4 mg PO DAILY 03/15/22 02/11/24 History sertraline 100 mg tablet 200 mg PO DAILY 12/14/22 02/11/24 History prazosin 2 mg capsule 4 mg PO QHS 02/11/24 02/11/24 History Allergies Allergy/AdvReac Type Severity Reaction Status Date / Time doxycycline Allergy Severe Itching Verified 02/11/24 11:02 codeine Allergy Unknown Verified 02/11/24 11:02 Exam Narrative: Exam Narrative: Physical exam GENERAL: Comfortable, no acute distress. HEAD AND NECK: Atraumatic, normocephalic CARDIOVASCULAR: RRR. Normal S1, S2. No murmurs. RESPIRATORY: Clear to auscultation B/L. Good air entry B/L. No wheezes or r honchi. GASTROINTESTINAL: obese, not tender to palpation. NEUROLOGY: Alert, awake, oriented X 3. Normal speech. PSYCH: Normal mood, normal affect. Const: Vital Signs, click to edit/add: Vital Signs - 24 hr 02/11/24 11:08 02/11/24 11:27 02/11/24 11:30 Temperature 98.1 F Pulse Rate 86 73 75 Respiratory Rate 16 16 16 Blood Pressure 139/98 H 124/73 125/85 Pulse Oximetry 93 93 93 Oxygen Delivery Me thod Room Air Nasal Cannula Nasal Cannula Oxygen Flow Rate 2 2 02/11/24 14:02 02/11/24 14:07 02/11/24 14:12 Temperature 98.3 F Pulse Rate 60 60 57 L Respiratory Rate 10 L 10 L 10 L Blood Pressure 101/63 115/71 111/71 Pulse Oximetry 92 90 96 Oxygen Delivery Me thod Room Air Room Air Room Air Oxygen Flow Rate 02/11/24 14:17 02/11/24 14:24 02/11/24 14:29 Temperature 98.1 F Pulse Rate 56 L 63 61 Respiratory Rate 10 L 16 16 Blood Pressure 119/71 106/72 105/83 Pulse Oximetry 92 94 95 Oxygen Delivery Me thod Room Air Room Air Room Air Oxygen Flow Rate 02/11/24 14:31 02/11/24 14:36 02/11/24 15:00 Temperature 98.1 F Pulse Rate 56 L 52 L Respiratory Rate 16 16 14 Blood Pressure 105/83 107/79 Pulse Oximetry 96 96 93 Oxygen Delivery Me thod Room Air Room Air Room Air Oxygen Flow Rate 02/11/24 15:00 02/11/24 15:06 02/11/24 15:15 Temperature 96.7 F L Pulse Rate 63 59 L 50 L Respiratory Rate 14 Blood Pressure 119/83 122/81 119/82 Pulse Oximetry 93 Oxygen Delivery Me thod Room Air Oxygen Flow Rate 02/11/24 15:30 02/11/24 15:45 02/11/24 16:15 Temperature 97.3 F L 97.1 F L Pulse Rate 54 L 55 L 60 Respiratory Rate 14 14 Blood Pressure 127/96 H 125/78 136/89 Pulse Oximetry 95 97 Oxygen Delivery Me thod Room Air Room Air Oxygen Flow Rate 02/11/24 16:45 02/11/24 18:00 02/11/24 19:00 Temperature 96.5 F L 96.7 F L 96.8 F L Pulse Rate 64 59 L 63 Respiratory Rate 14 14 16 Blood Pressure 127/89 106/56 L 107/73 Pulse Oximetry 95 94 94 Oxygen Delivery Me thod Room Air Room Air Room Air Oxygen Flow Rate Assessment and Plan Assessment and plan (1) S/P total knee replacement: Problem comment: -left total knee replacement today 02/11/2024 -orthopedic surgeon following -early mobilization -P.T./OT -Will start Aspirin 81 mg BID tonight for DVT prophylaxis -patient needs to follow up with PCP and Orthopedics on discharge Status: Acute (2) Hypertension: Problem comment: -patient is on metoprolol succinate 50 mg daily and lisinopril 20 mg daily at home. -patient took both metoprolol and lisinopril today morning -Patient needs to resume both medications on discharge Status: Acute (3) MARILYN (obstructive sleep apnea): Problem comment: -not on CPAP, patient states that he cannot tolerate it. Status: Acute (4) Benign prostatic hyperplasia: Problem comment: -continue tamsulosin 0.4 mg daily Status: Acute (5) Obesity: Status: Acute (6) PTSD (post-traumatic stress disorder): Problem comment: -continue prazosin, home dose is 4 mg q.h.s. but tonight because of his soft blood pressure we will give only 2 mg. -patient of his sertraline 200 mg this morning, will resume tomorrow. Status: Acute (7) Bilateral primary osteoarthritis of knee: Status: Acute Plan -as above Total Time Spent Total Time Spent: Time spent: Today I spent 75 minutes seeing the patient, discussing the patient with ER staff, reviewing Expanse and EPIC notes/diagnostics, discussing the care plan with our care time that includes PT/OT, pharmacy, RT, long-term and documenting my impressions and plan in the medical record.
[2024-02-11] MEDS: ATORVASTATIN CALCIUM 40 MG TABLET PO (20:36)
[2024-02-11] MEDS: ASPIRIN 81 MG TABLET EC PO (20:36)
[2024-02-11] MEDS: SENNOSIDES 1 TAB TABLET 2 TAB PO (20:37)
[2024-02-11] MEDS: PRAZOSIN HCL 1 MG CAPSULE 2 MG PO (21:29)
--- NOTE | 2024-02-11 22:33 | PC.NURSE ---
End of Shift: Patient pleasant and cooperative, A&O. VSS, afebrile. Patient reports pain on his left knee this shift, managed with PRN medication, see AUG. Dressing on left knee C/D/I. Ice applied to left knee this shift. Tolerating SCD's. Patient got up to bathroom this shift with assist of 2 with walker and gait belt.
[2024-02-12] MEDS: OXYCODONE 5 MG TABLET PO ×3 (00:39→08:44)
[2024-02-12] MEDS: CEFAZOLIN 3 GM in 0.9 % SODIUM CHLORIDE Mini-bag 100 ML IVPB (02:21)
[2024-02-12 03:05] VITALS: BP 112/67; PULSE 88; RESP 18; TEMP 36.3; O2SAT 94
[2024-02-12] MEDS: ACETAMINOPHEN 500 MG TABLET 1000 MG PO (05:37)
--- NOTE | 2024-02-12 06:32 | PC.NURSE ---
End of shift [id number]: A&O pleasant and cooperative. Pt reporting 2-5/10 pain in left knee. See eMAR for interventions. Up with SBA walker and GB. Tolerating well. Denies n/v. VSS. Positive CMS, strong plantar/dorsi flexion. Dressing to knee c/d/i. Tolerating regular diet. Voiding adequate amounts. Using call light appropriately.
[2024-02-12 06:43] LABS: Basophils Percent Auto 0.1 % (0.0-3.0); Hematocrit 39.8 % (37.0-53.0); Hemoglobin* 12.8 gm/dL (13.5-17.5); Immature Granulocytes Pct Auto 0.3 %; Lymphocytes Percent Auto 10.9 % (20-44); Mean Corpuscular HGB Conc 32 gm/dL (32-36); Mean Corpuscular Hemoglobin 30 pg (26-34); Mean Corpuscular Volume 94 fL (80-100); Monocytes Percent Auto 7.5 % (0.0-11.0); Neutrophils Percent Auto 81.2 % (42.0-72.0); Platelet Count* 178 K/uL (140-440); RDW Coefficient of Variation % 14.2 % (11.5-15.5); Red Blood Count 4.24 m/uL (4.30-5.90); White Blood Count* 11.99 K/uL (4.50-11.00)
[2024-02-12 06:44] LABS: Slide Review Reflex No
[2024-02-12 06:58] LABS: Sodium* 137 mmol/L (135-149)
[2024-02-12 06:59] LABS: INR 1.19 (0.91-1.10); Potassium* 4.2 mmol/L (3.6-5.1); Prothrombin Time 15.8 Seconds
[2024-02-12 07:01] LABS: Est. Creatinine Clearance* 66.92; Estimated Glomerular Filt Rate 79 ml/min
[2024-02-12 07:02] LABS: Blood Urea Nitrogen* 24 mg/dL (7-30)
--- NOTE | 2024-02-12 08:29 | PM.ORPN ---
Subjective Subjective Time Seen by Provider: 08:00 Date Seen: 02/12/24 Principal diagnosis: Status post left knee replaced Interval history: Rony is comfortable this morning. He will be discharging to home today. He did not sleep last night. Ortho Exam Narrative Exam Narrative: Alert and oriented x3. Patient is in no acute distress. Converses without labored breathing. Hearing is grossly intact. Ambulates with a walker. Examination of the left lower extremity shows the dressing is intact. Subcutaneous blood collection is present. CMS intact left lower extremity. He is able to straight leg raise. Calf is soft and nontender. Const Vital Signs, click to edit/add: Vital Signs - 24 hr 02/11/24 11:08 02/11/24 11:27 02/11/24 11:30 Temperature 98.1 F Pulse Rate 86 73 75 Pulse Rate [Pulse Oximeter] Respiratory Rate 16 16 16 Blood Pressure 139/98 H 124/73 125/85 Blood Pressure [Left Arm] Pulse Oximetry 93 93 93 Oxygen Delivery Method Room Air Nasal Cannula Nasal Cannula Oxygen Flow Rate 2 2 02/11/24 14:02 02/11/24 14:07 02/11/24 14:12 Temperature 98.3 F Pulse Rate 60 60 57 L Pulse Rate [Pulse Oximeter] Respiratory Rate 10 L 10 L 10 L Blood Pressure 101/63 115/71 111/71 Blood Pressure [Left Arm] Pulse Oximetry 92 90 96 Oxygen Delivery Method Room Air Room Air Room Air Oxygen Flow Rate 02/11/24 14:17 02/11/24 14:24 02/11/24 14:29 Temperature 98.1 F Pulse Rate 56 L 63 61 Pulse Rate [Pulse Oximeter] Respiratory Rate 10 L 16 16 Blood Pressure 119/71 106/72 105/83 Blood Pressure [Left Arm] Pulse Oximetry 92 94 95 Oxygen Delivery Method Room Air Room Air Room Air Oxygen Flow Rate 02/11/24 14:31 02/11/24 14:36 02/11/24 15:00 Temperature 98.1 F Pulse Rate 56 L 52 L Pulse Rate [Pulse Oximeter] Respiratory Rate 16 16 14 Blood Pressure 105/83 107/79 Blood Pressure [Left Arm] Pulse Oximetry 96 96 93 Oxygen Delivery Method Room Air Room Air Room Air Oxygen Flow Rate 02/11/24 15:00 02/11/24 15:06 02/11/24 15:15 Temperature 96.7 F L Pulse Rate 63 59 L 50 L Pulse Rate [Pulse Oximeter] Respiratory Rate 14 Blood Pressure 119/83 122/81 119/82 Blood Pressure [Left Arm] Pulse Oximetry 93 Oxygen Delivery Method Room Air Oxygen Flow Rate 02/11/24 15:30 02/11/24 15:45 02/11/24 16:15 Temperature 97.3 F L 97.1 F L Pulse Rate 54 L 55 L 60 Pulse Rate [Pulse Oximeter] Respiratory Rate 14 14 Blood Pressure 127/96 H 125/78 136/89 Blood Pressure [Left Arm] Pulse Oximetry 95 97 Oxygen Delivery Method Room Air Room Air Oxygen Flow Rate 02/11/24 16:45 02/11/24 18:00 02/11/24 19:00 Temperature 96.5 F L 96.7 F L 96.8 F L Pulse Rate 64 59 L 63 Pulse Rate [Pulse Oximeter] Respiratory Rate 14 14 16 Blood Pressure 127/89 106/56 L 107/73 Blood Pressure [Left Arm] Pulse Oximetry 95 94 94 Oxygen Delivery Method Room Air Room Air Room Air Oxygen Flow Rate 02/11/24 20:00 02/11/24 23:35 02/11/24 23:54 Temperature 97.1 F L 97.1 F L Pulse Rate 72 Pulse Rate [Pulse Oximeter] 68 Respiratory Rate 16 18 18 Blood Pressure 114/69 Blood Pressure [Left Arm] 111/73 Pulse Oximetry 93 93 93 Oxygen Delivery Method Room Air Room Air Room Air Oxygen Flow Rate 02/12/24 03:05 Temperature 97.4 F L Pulse Rate Pulse Rate [Pulse Oximeter] 88 Respiratory Rate 18 Blood Pressure Blood Pressure [Left Arm] 112/67 Pulse Oximetry 94 Oxygen Delivery Method Room Air Oxygen Flow Rate Documenting provider has reviewed patient's vital signs: yes Assessment and Plan Assessment and plan (1) S/P total knee replacement: Problem details: -left total knee replacement today 02/11/2024 -orthopedic surgeon following -early mobilization -P.T./OT -Will start Aspirin 81 mg BID tonight for DVT prophylaxis -patient needs to follow up with PCP and Orthopedics on discharge Status: Acute Assessment and Plan: Plan for discharge is today to home if they meet discharge criteria. DVT prophylaxis includes aspirin 81 mg twice daily x1 month, Compression stockings as needed for swelling. Frequent ambulation, every hour throughout the day. Remove dressing in 1 week. Observe wound and phone Orthopedics with any questions or concerns Return to clinic in 1 week for a wound check Return to clinic in 6 weeks with surgeon Minimize narcotic use. Wean off and discontinue soon as possible. Activities as tolerated. No strenuous activity. Outpatient physical therapy as scheduled. Ice and elevate the operative extremity. No restriction on ice.
[2024-02-12 08:42] VITALS: BP 121/63; PULSE 76; RESP 18; TEMP 36.6; O2SAT 98
[2024-02-12] MEDS: SERTRALINE 100 MG TABLET 200 MG PO (08:44)
[2024-02-12] MEDS: SENNOSIDES 1 TAB TABLET 2 TAB PO (08:44)
[2024-02-12] MEDS: TAMSULOSIN HCL 0.4 MG CAPSULE PO (08:44)
[2024-02-12] MEDS: ASPIRIN 81 MG TABLET EC PO (08:45)
== END 2024-02-12 10:30 | disposition home or self-care (01) ==
LOC: OR 10:49 → MEDSURG 10:51
PROVIDERS: PCP Family Medicine; Visit Provider Orthopaedic Surgery
PROC: (CPT 27447; principal; 2024-02-11 12:15)
DX: M17.12 Unilateral primary osteoarthritis, left knee (principal); G89.18 Other acute postprocedural pain; I10 Essential (primary) hypertension; G47.33 Obstructive sleep apnea (adult) (pediatric); E66.9 Obesity, unspecified; Z68.41 Body mass index [BMI] 40.0-44.9, adult; N40.0 Benign prostatic hyperplasia without lower urinary tract symptoms; F43.10 Post-traumatic stress disorder, unspecified; F41.9 Anxiety disorder, unspecified; F32.A Depression, unspecified; Z96.641 Presence of right artificial hip joint; Z96.642 Presence of left artificial hip joint; E78.5 Hyperlipidemia, unspecified; I48.0 Paroxysmal atrial fibrillation; Z79.01 Long term (current) use of anticoagulants
CPT/HCPCS: 27447; 01402; 36415; 64447; 64454; 73560; 76942; 82565; 84132; 84295; 84520; 85025; 85610; 97110; 97116; 97161; 97165; 99100; A9270; C1776; J0690; J1100; J1170; J2405; J2704; J2795; J7120

== ENCOUNTER 2024-04-02 13:00 | Outpatient (RCR) | payer MEDICARE, BC, SELFPAY ==
--- NOTE | 2024-01-29 15:33 | PT.OPE ---
PT [facility] Outpatient Eval PT [facility] Outpatient Eval Start: 01/29/24 11:05 Freq: Status: Active Protocol: Document 01/29/24 15:32 CJT (Rec: 01/29/24 15:33 CJT [id number]) E-signed By Darryn Aguero PT Physical Therapy Outpatient Evaluation Insurance Information Recert Due Date 04/28/24 Insurance Name Medicare B Medical Diagnosis S/P L TKA Treating Diagnosis S/P L TKA Referring Timbo Acosta MD Subjective Preferred Name Rony Subjective Pt presents for pre-op L TKA appointment. Pt reports he is ready for surgery and excited, but not excited at the same time. Has had both hips replaced by Dr. Chapman. Pt feels he has lost flexibility. Pt reports he would like to lose weight, wants to improve flexibility, and wants to be able to walk for pleasure/ exercise. Pt and his winter in [place] and will be leaving shortly after [place]. Pt and his live in a [facility] with elevator so does not need to be able to ascend/descend steps to enter home. Pain Comments 10/10 Date of Last Physician Visit 01/17/24 Date of Surgery (If applicable) 02/11/24 Current Work Status Retired Precautions Therapy Limitations/Systems Review Not Limited Objective Other/Pertinent Objective R knee AROM: 0-3-120 L knee AROM: 2-0-114 R quad: 5/5 MMT R hamstrin/5 MMT L quad: 5/5 MMT L hamstrin/5 MMT Assessment Assessment/Impression Patient presents for their pre -op therapy visit for L TKA scheduled for 02/11/24. Pre- surgical consultation was completed including education on expected post-surgical swelling/bruising/pain, appropriate use of pain medication, icing to reduce pain/swelling, exercises following surgery, therapy outcomes and safety in and outside his home. Pt completed several reps of each of the exercises issued in his post- TKA folder and shows good understanding of these. I did encourage the patient to practice all of these exercises at least two more times prior to surgery as well as read each of the pages on post-surgical expectations and safety and ambulation expectations following their surgery. All questions were answered to the patient's satisfaction. Skilled PT services are medically necessary to address deficits and return patient to highest level of function. Recommend physical therapy sessions 2 reducing to week for 12 weeks, beginning 02/13/2024. Pt agrees with this plan. Printout of HEP was given for I completion and pt gives verbal understanding of each exercise. Primary Functional Limitations Walking, stairs, standing, squatting Plan of Care Rehabilitation Potential Excellent Physical Therapy Goals STG - To be completed in 2-3 weeks: 1. Pt will report consistent use of ice as well as elevation of surgical limb while resting to reduce inflammation and swelling. 2. Pt will demonstrate 90 degrees of knee flexion on surgical limb to reduce risk of contracture development and progress through rehabilitation as expected. 3. Pt to show appropriate use of all AD's with minimal gait deviations and no LOB with all ambulation to reduce risk of falls and restore normal gait mechanics. 4. Pt will demo full knee extension to reduce risk of contracture in posterior knee and allow for ease of ambulation. LTG - To be completed in 8-12 weeks: 1. Pt to be I with HEP so that they may I manage progression of symptoms. 2. Pt will demonstrate 120 degrees knee flexion on surgical limb so that they may descend steps without restrictions in ROM. 3. Pt will perform 10+ squats of full depth with good control over medial/lateral deviation of knees to show improved functional strength to assist with transfers. 4. Pt will demonstrate 5/5 MMT knee flexion/extension of surgical limb to provide greater support to knee joint and allow for ease of ambulation. 5. Pt will ambulate with no AD and minimal gait deviations so that they may return to walking safely and comfortably for exercise and pleasure. Treatment Plan/Direct Interventions Electrical Stimulation,Gait Training,Ice/Cold/ Vasopneumatic,Joint Mobilization,Manual Therapy, Neuromuscular Re-ed,Self-Care/ Home Management,Therapeutic Activities,Therapeutic Exercises Frequency/Duration 2 reducing to 1/week for 10-12 weeks Patient Will Be Discharged From Therapy Completion of LTG(s),Skills Plateau,Independent w/HEP, Independently Progressing Evaluation Billing Untimed Code Treatment Minutes 50 PT Eval No Charge No Complexity Low Certification Information Initial Certification Date 01/29/24 Ending Certification Date 04/28/24 Provider Signature Required Yes Provider Signature Shows Agreement With POC & Medical Necessity Physician NPI Number Write NPI# Here Physician Comment/Change : Physician Signature & Date Requested Please Sign/Date Here
--- NOTE | 2024-02-13 12:21 | PT.OPDN ---
PT [facility] Daily Note PT [facility] Out[facility] Daily Note Start: 01/29/24 11:05 Freq: Status: Active Protocol: Document 02/13/24 11:03 CJT (Rec: 02/13/24 12:20 CJT [id number]) E-signed By Darryn Aguero, PT PT OP Daily Progress Note Visit Information Note Type Daily Note Visit Number 1 Insurance Authorized Visits tbd Physician Authorized Visits eval and treat Insurance Information Recert Due Date 04/28/24 Insurance Name Medicare B Medical Diagnosis S/P L TKA Treating Diagnosis S/P L TKA Referring Timbo Acosta MD Subjective Preferred Name Rony Subjective Pt doing well. Presents without AD this date. Managing his pain (06/12 currently) with oxy and Tylenol. Has not been performing his exercises at home yet. Pain Comments 10/10 Date of Last Physician Visit 01/17/24 Date of Surgery (If applicable) 02/11/24 Home Exercise Home Exercise Comments Pre-Op TKA Objective Other/Pertinent Objective L knee AROM: 1-0-101 Quad set: excellent Skin Inspection: pts dressing remains in place, showing no signs of bleeding and drainage ; skin is appropriately warm at this time wit abundant swelling over patella; skin is red at medial border of incision Gait: no deviations noted, pt ambulating w/o AD this date Patient Instructed in Risks/Benefits Yes Therapeutic Exercise Therapeutic Exercise Minutes (minutes) 25 Therapeutic Exercise: To Restore NuStep - 8 minutes, level 4, Functional Status seat 13 SLR 2 x 10 Ankle pumps 2 x 15 SAQ 2 x 10 HS sets 2 x 10, 5 hold Kazakh ball triple flexion x 20 TG Squats x 20 Manual Therapy Techniques Manual Therapy Minutes (minutes) 15 Manual Therapy Techniques Decongestive massage to entire L LE to reduce swelling. Gentle STM to L gastroc, soleus to reduce tissue tension. Grade I mobilizations to L patella and knee to reduce pain and facilitate motion. Other Interventions Provided Other Interventions Provided Vasopneumatic: GameReady - 15 minutes, L knee, pt in supine with legs elevated Other Interventions Untimed Minutes 15 Treatment Minutes Untimed Code Treatment Minutes 15 Timed Code Treatment Minutes 40 Total Treatment Time 55 Billing Units Manual Therapy Units 1 Therapeutic Exercise Units 2 Vasopneumatic Device Units 1 Assessment/Impression Assessment/Impression Rony is doing exceptionally well for 2 days post-op L TKA. He is ambulating without an assistive device and rates his pain as 1/10. Managing his pain currently with oxy and Tylenol. L knee AROM today measures 1-0-101 degrees. Pt is able to complete SLR for multiple sets of 10 reps without extension lag. I am a little concerned that Rony's nerve block may not have worn off and the worst of his pain is yet to come. While his presentation today is excellent, this is very unusual this early after surgery. Today i informed Rony that his pain may greatly increase over the next few days, but to keep taking his pain meds, icing, elevating, and performing his exercises, which he reports he has not been doing. Rony is due to return to our clinic on Saturday at 11:00am. We will re -evaluate his knee at that time and progress exercises and treatment as appropriate. Recommend continued PT services to address deficits and return pt to highest level of function. Plan of Care Physical Therapy Goals STG - To be completed in 2-3 weeks: 1. Pt will report consistent use of ice as well as elevation of surgical limb while resting to reduce inflammation and swelling. MET 2. Pt will demonstrate 90 degrees of knee flexion on surgical limb to reduce risk of contracture development and progress through rehabilitation as expected. MET 3. Pt to show appropriate use of all AD's with minimal gait deviations and no LOB with all ambulation to reduce risk of falls and restore normal gait mechanics. MET 4. Pt will demo full knee extension to reduce risk of contracture in posterior knee and allow for ease of ambulation. LTG - To be completed in 8-12 weeks: 1. Pt to be I with HEP so that they may I manage progression of symptoms. 2. Pt will demonstrate 120 degrees knee flexion on surgical limb so that they may descend steps without restrictions in ROM. 3. Pt will perform 10+ squats of full depth with good control over medial/lateral deviation of knees to show improved functional strength to assist with transfers. 4. Pt will demonstrate 5/5 MMT knee flexion/extension of surgical limb to provide greater support to knee joint and allow for ease of ambulation. 5. Pt will ambulate with no AD and minimal gait deviations so that they may return to walking safely and comfortably for exercise and pleasure. Daily Plan of Care Continue per POC
--- NOTE | 2024-03-23 14:00 | PT.OPDN ---
PT [facility] Daily Note PT [facility] Outpatient Daily Note Start: 01/29/24 11:05 Freq: Status: Active Protocol: Document 03/23/24 13:01 RACHAELT (Rec: 03/23/24 13:56 CJT [id number]) E-signed By Darryn Aguero, PT PT OP Daily Progress Note Visit Information Note Type Recert/Progress Note Visit Number 10 Insurance Authorized Visits no auth required - 99 Physician Authorized Visits eval and treat Insurance Information Recert Due Date 04/28/24 Insurance Name Medicare B Medical Diagnosis S/P L TKA Treating Diagnosis S/P L TKA Referring Timbo Acosta MD Subjective Preferred Name Rony Subjective [place] pain remains primary concern for pt. Last night his pain was constant and kept him from sleeping. Pts knee has been feeling fine and he continues to have no pain. Date of Last Physician Visit 01/17/24 Date of Surgery (If applicable) 02/11/24 Home Exercise Home Exercise Comments Access Code: [email or web address] URL: [email or web address] Date: 02/17/2024 Prepared by: Darryn Aguero Exercises - Supine Active Straight Leg Raise - 2 x daily - 7 x weekly - 2 sets - 15 reps - Supine Bridge - 2 x daily - 7 x weekly - 2 sets - 15 reps - Seated Long Arc Quad - 2 x daily - 7 x weekly - 2 sets - 15-20 reps - Standing March with Counter Support - 2 x daily - 7 x weekly - 2 sets - 10-15 reps - Standing Hip Abduction with Counter Support - 2 x daily - 7 x weekly - 2 sets - 10-15 reps - Standing Hip Extension with Counter Support - 2 x daily - 7 x weekly - 2 sets - 10-15 reps - Heel Raises with Counter Support - 2 x daily - 7 x weekly - 2 sets - 10-15 reps - Mini Squat with Counter Support - 2 x daily - 7 x weekly - 2 sets - 10-15 reps - Gastroc Stretch on Wall - 2 x daily - 7 x weekly - 1 sets - 45 seconds hold Objective Other/Pertinent Objective L knee AROM (initial, final): 0-0-115, 0-0-123 L quad: 5/5 MMT L hamstrin/5 MMT Patient Instructed in Risks/Benefits Yes Therapeutic Exercise Therapeutic Exercise Minutes (minutes) 20 Therapeutic Exercise: To Restore Bike - 10 minutes, Seat 10->5, Functional Status level 8 Leg Press, 100# x 10, 170# x 8 , 200# x 6, 220# x 4 Gastroc stretch on 20 deg slant board x 60 HS curl machine 70# x 8, 80# x 8, 90# x 8 Knee extension machine 30# x 8 , 40# x 8, 50# x 8 Arm bar stretch 2 x 60 Manual Therapy Techniques Manual Therapy Minutes (minutes) 24 Manual Therapy Techniques Decongestive massage to L LE to reduce swelling. Gentle STM/MFR across all aspects of L leg to reduce nerve sensitivity. Other Interventions Provided Other Interventions Provided Vasopneumatic: GameReady - 15 minutes, L knee, pt in supine with legs elevated; high pressure Other Interventions Untimed Minutes 15 Treatment Minutes Untimed Code Treatment Minutes 15 Timed Code Treatment Minutes 44 Total Treatment Time 59 Billing Units Manual Therapy Units 2 Therapeutic Exercise Units 1 Vasopneumatic Device Units 1 Assessment/Impression Assessment/Impression Rony has progressed very well during his time in physical therapy. His L LE strength is full and pain free and his ROM was measured as 0-0-115 at the beginning of today's session, 0-0-123 following stretching. Rony's primary concern at this time is nerve pain in his L knapp. This has kept him up at night and is very painful to the touch. Pt has often described his hair follicles as being very sensitive and painful to any stimulation. Today I performed gentle STM across pts entire leg to assist in the habituation of these nerves and this seems to have helped while here in the clinic. I've asked Rony to work on this I at home and he gives verbal understanding. Rony and I have agreed to discharge from therapy when he measures 0-0- 120+ degrees knee AROM without warm-up and stretching. Recommend continued PT services to address deficits and return pt to highest level of function. Plan of Care Physical Therapy Goals STG - To be completed in 2-3 weeks: 1. Pt will report consistent use of ice as well as elevation of surgical limb while resting to reduce inflammation and swelling. MET 2. Pt will demonstrate 90 degrees of knee flexion on surgical limb to reduce risk of contracture development and progress through rehabilitation as expected. MET 3. Pt to show appropriate use of all AD's with minimal gait deviations and no LOB with all ambulation to reduce risk of falls and restore normal gait mechanics. MET 4. Pt will demo full knee extension to reduce risk of contracture in posterior knee and allow for ease of ambulation. MET LTG - To be completed in 8-12 weeks: 1. Pt to be I with HEP so that they may I manage progression of symptoms. NOT MET 2. Pt will demonstrate 120 degrees knee flexion on surgical limb so that they may descend steps without restrictions in ROM. MET 3. Pt will perform 10+ squats of full depth with good control over medial/lateral deviation of knees to show improved functional strength to assist with transfers. 4. Pt will demonstrate 5/5 MMT knee flexion/extension of surgical limb to provide greater support to knee joint and allow for ease of ambulation. MET 5. Pt will ambulate with no AD and minimal gait deviations so that they may return to walking safely and comfortably for exercise and pleasure. MET Daily Plan of Care Continue per POC
== END 2024-06-10 15:55 | disposition home or self-care (01) ==
PROVIDERS: PCP Family Medicine; Visit Provider Orthopaedic Surgery
DX: M17.12 Unilateral primary osteoarthritis, left knee (principal); Z96.652 Presence of left artificial knee joint; Z51.89 Encounter for other specified aftercare
CPT/HCPCS: 97016; 97110; 97140; 97161; 97535

== ENCOUNTER 2024-04-20 09:56 | Outpatient (CLI) | payer MEDICARE, BC, SELFPAY ==
--- NOTE | 2024-04-20 10:15 | MR_ITS ---
[address] [address] Phone:?[phone] Fax:?[phone] Referring Physician Information: Timbo Santacruz M.D. [address] [place] [id number] Phone:?[phone] Fax:?[phone] Patient:?Timbo Spear D.O.B:?1950 Sex:?Male Phone:?[phone] [facility] MRN:?[id number] Exam Date:?04/20/2024 EXAM: MRI OF THE LEFT SHOULDER CLINICAL INFORMATION: The patient is a 73-year-old with left shoulder pain. Evaluate rotator cuff. PRIOR SURGERY: None reported. COMPARISON STUDIES: There are no prior studies available for comparison. TECHNICAL INFORMATION: Imaging was performed on a high-field, 1.5 Maria Dolores MR scanner. Axial, coronal, and sagittal proton-density and T2 imaging of the left shoulder was performed in addition to coronal STIR imaging. FINDINGS: Articular/Extraarticular collections: Effusion: Mild to moderate. Subacromial/subdeltoid: Moderate fluid is seen within the subacromial/subdeltoid bursa, in keeping with changes of bursitis. Subcoracoid: No evidence for bursitis. Osseous structures: Proximal humerus: Cortical irregularity and subcortical cystic change can be seen involving the greater tuberosity region, in keeping with the rotator cuff pathology discussed below. There is no evidence for greater or lesser tuberosity fracture. No Hill-Sachs or reverse Hill-Sachs lesion is identified. Glenoid: No acute bony abnormality of the glenoid fossa or glenoid neck can be seen. Acromioclavicular joint: Moderate changes of acromioclavicular joint arthrosis are present and can be seen on coronal series 10 image 13 and on sagittal series 8 image 20. Coracoacromial arch: Acromion morphology: Type II. No evidence for os acromiale. Acromiohumeral space: Mildly narrowed. Coracohumeral space: Within normal limits. Rotator cuff and deltoid: Supraspinatus: Moderate changes of supraspinatus tendinosis can be seen with intrasubstance tearing of the distal tendon fibers. No full-thickness tearing or retraction is seen. No atrophic changes of the supraspinatus muscle belly are identified. Infraspinatus: Moderate infraspinatus tendinosis can be seen. There is no evidence for full or partial-thickness tearing. No atrophic changes of the infraspinatus muscle belly are present. Teres minor: No evidence for injury to the teres minor tendon can be seen. Atrophic changes of the teres minor muscle belly are seen on sagittal series 9 image 24. Subscapularis: Moderate subscapularis tendinosis can be seen with intrasubstance linear tearing. No full-thickness tearing or retraction is seen. No atrophic changes of the subscapularis muscle belly are noted. Deltoid: No evidence for strain or tearing. Biceps tendon: The intra-articular and biceps sulcus portions of the biceps tendon are normal. There is no evidence for rupture, dislocation, or subluxation. Glenohumeral joint and labrum: Articular Cartilage: No definite chondral injuries along the articular surfaces of the glenohumeral articulation can be seen. No osteoarthritic changes are identified. Labrum: Degeneration and tearing of the anterior and posterior portions of the glenoid labrum can be seen with additional poorly defined tearing and degeneration of the superior labrum. No paralabral ganglion cyst formation is identified. Capsular Soft Tissues: No definite capsular abnormalities of the glenohumeral joint are seen. No evidence for capsular tearing is present and there are no MR signs of adhesive capsulitis. CONCLUSION: 1. Moderate supraspinatus, infraspinatus, and subscapularis tendinosis with intrasubstance splitting of the supraspinatus and subscapularis tendon fibers. No full-thickness tearing or retraction is seen. 2. 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 3. Degeneration and tearing of the glenoid labrum. 4. The long head of the biceps tendon appears intact. 5. No osteoarthritic changes of the glenohumeral articulation are seen. 6. Glenohumeral joint effusion and subacromial/subdeltoid bursitis. AEC Electronically signed on 04/20/2024 1:05:00 PM by Kwabena Heredia M.D.
== END 2024-04-20 09:57 | disposition home or self-care (01) ==
LOC: MRI 09:58
PROVIDERS: PCP Family Medicine; Visit Provider Orthopaedic Surgery
DX: M25.512 Pain in left shoulder (principal); M19.012 Primary osteoarthritis, left shoulder; M25.412 Effusion, left shoulder; M75.52 Bursitis of left shoulder
CPT/HCPCS: 73221

== ENCOUNTER 2024-09-25 06:42 | Outpatient (CLI) | payer MEDICARE, BC, SELFPAY ==
--- NOTE | 2024-09-25 07:15 | MR_ITS ---
[address] [address] Phone:?[phone] Fax:?[phone] Referring Physician Information: Timbo Santacruz M.D. [address] [facility] [address] Phone:?[phone] Fax:?[phone] Patient:?Timbo Spear D.O.B:?1950 Sex:?Male Phone:?[phone] [facility] MRN:?[id number] Exam Date:?09/25/2024 EXAM: MRI OF THE RIGHT ELBOW, WITHOUT CONTRAST CLINICAL: Right elbow pain. Evaluate for distal biceps tear. COMPARISONS: None available. TECHNICAL: Multiplanar multisequence MRI of the right elbow was obtained. SEDATION: None. CONTRAST: None. FINDINGS: No evidence of the sagittal sequences is relatively limited by artifact. Elbow joint: Effusion: Physiologic. Radiohumeral plica: No pathologic thickening or enlargement. Osteochondral surfaces: No osteochondral abnormality. Bones: No suspicious marrow signal alteration, fracture line, subluxation or dislocation. Myotendinous structures: Biceps: There is complete full-thickness rupture of the distal biceps tendon from the radial attachment with proximal retraction of the torn biceps tendon by approximately 10 cm. Brachialis: No strain/tear. Triceps: Intact posterior tendinous and anterior muscular insertions. No significant tendinosis. Forearm extensors: There is mild partial tearing of the common extensor tendon with a small enthesophyte also seen to involve the lateral humeral epicondyle attachment of the common extensor tendon. Forearm flexors: No tear or tendinopathy. Ligaments: Medial ulnar collateral: Normal. Radial collateral proper: Normal. Lateral ulnar collateral: Normal. Nerves: Ulnar: Normal. Median: Normal. Radial: Normal. IMPRESSION: 1. Complete full-thickness rupture of the distal biceps tendon from the radial attachment with proximal retraction of the torn tendon by approximately 10 cm. 2. Mild partial tearing of the common extensor tendon with a small enthesophyte involving the lateral humeral epicondyle attachment of the common extensor tendon. 3. No additional internal derangement. JCZ Electronically signed on 09/25/2024 9:37:00 AM by Kamari Deleon D.O.
== END 2024-09-25 06:43 | disposition home or self-care (01) ==
LOC: MRI 06:43
PROVIDERS: PCP Family Medicine; Visit Provider Orthopaedic Surgery
DX: M25.521 Pain in right elbow (principal); S46.211A Strain of muscle, fascia and tendon of other parts of biceps, right arm, initial encounter; S56.511A Strain of other extensor muscle, fascia and tendon at forearm level, right arm, initial encounter
CPT/HCPCS: 73221

== ENCOUNTER 2025-02-04 06:51 | Outpatient (CLI) | payer MEDICARE, BC, SELFPAY ==
--- NOTE | 2025-02-04 06:59 | MR_ITS ---
[address] [address] Phone:?[phone] Fax:?[phone] Referring Physician Information: Timbo Santacruz M.D. [address] [facility] [address] Phone:?[phone] Fax:?[phone] Patient:?Timbo Spear D.O.B:?1950 Sex:?Male Phone:?[phone] [facility] MRN:?[id number] Exam Date:?02/04/2025 EXAM: MRI of the RIGHT SHOULDER WITHOUT CONTRAST CLINICAL HISTORY: Right shoulder pain. Evaluate for rotator cuff tear. COMPARISONS: Radiographs dated 12/23/2024 TECHNICAL: MRI sequences of the right shoulder: Axials: PD, T2 Coronals: PD, T2, STIR Sagittals: PD, T2 CONTRAST: None FINDINGS: Bones: No fracture or suspicious bone marrow signal abnormality. Coracoacromial arch: Acromion: No os acromiale. Type I-II acromion. Acromiohumeral space: The osseous distance is unremarkable. Coracohumeral space: The osseous distance is unremarkable. Acromioclavicular joint: Widening of the acromioclavicular joint is noted status post distal clavicular resection and subacromial decompression. Coracoclavicular ligament: The coracoclavicular ligament is intact. Rotator cuff muscles/tendons: Supraspinatus: Full-thickness, near full width tearing of the anterior fibers of the supraspinatus with 2.1 cm retraction of the tendon fibers. The tear measures up to 1.8 cm in cross-section. Infraspinatus: There is moderate tendinosis of the distal infraspinatus with high-grade partial-thickness articular sided tearing of the infraspinatus extending to the footprint with subjacent cystic changes noted along the footprint. Teres minor: The teres minor tendon is intact and unremarkable. Subscapularis: The subscapularis tendon is intact and unremarkable. Rotator cuff muscles: Grade 2 Goutallier fatty atrophy of the supraspinatus. There is a 2.4 x 1.4 x 1.7 cm ovoid area of fat signal along the inferior aspect of the subscapularis (coronal 16, sagittal 26). 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 There is also grade 2 Goutallier fatty atrophy of the teres minor. This is nonspecific; however, can be seen with chronic quadrilateral space syndrome. Labrum and glenohumeral joint: Evaluation of the labrum is suboptimal on this nonarthrographic study. There is heterogeneous signal noted throughout the labrum, most consistent with degenerative type tearing. Physiologic amount of joint fluid. No discrete chondral defect or subchondral bone marrow edema/cystic change is seen. No convincing evidence of capsular edema or thickening although evaluation is suboptimal because of lack of joint distention. Proximal biceps tendon, long head and short heads: The long and short heads of the proximal biceps tendon are intact. Bursae: Subacromial/subdeltoid: Moderate amount of fluid is noted within the subacromial, subdeltoid bursa which freely communicates with the glenohumeral joint. Subcoracoid: No convincing subcoracoid bursal thickening/bursitis. IMPRESSION: 1. Full-thickness, near full width tearing of the anterior fibers of the supraspinatus with 2.1 cm retraction of the tendon fibers. There is also high- grade partial-thickness articular sided tearing of the infraspinatus extending to the footprint on the background of moderate distal infraspinatus tendinosis. There is grade 2 Goutallier fatty atrophy of the supraspinatus. 2. Grade 2 Goutallier fatty atrophy of the teres minor is also noted. This is nonspecific; however, can be seen with chronic quadrilateral space syndrome. 3. Evaluation of the labrum is suboptimal on this nonarthrographic study. There is heterogeneous signal noted throughout the labrum, most consistent with degenerative type tearing. 4. Postsurgical changes are noted of the acromioclavicular joint status post subacromial decompression. 5. Long head of the biceps is intact and is unremarkable. AW Electronically signed on 02/04/2025 11:58:[address] BAY BONILLA M.D.
== END 2025-02-04 06:52 | disposition home or self-care (01) ==
LOC: MRI 06:53
PROVIDERS: PCP Family Medicine; Visit Provider Orthopaedic Surgery
DX: M25.511 Pain in right shoulder (principal); M75.101 Unspecified rotator cuff tear or rupture of right shoulder, not specified as traumatic; S43.401A Unspecified sprain of right shoulder joint, initial encounter; M12.811 Other specific arthropathies, not elsewhere classified, right shoulder
CPT/HCPCS: 73221

== ENCOUNTER 2025-02-18 08:21 | Outpatient (CLI) | payer MEDICARE, BC, SELFPAY ==
[2025-02-18 14:32] LABS: PSA Screen* 3.57 ng/mL (0.10-4.00)
== END 2025-02-18 08:22 | disposition home or self-care (01) ==
LOC: NFLDREF 08:55
PROVIDERS: PCP Family Medicine; Visit Provider Family Medicine
DX: Z01.818 Encounter for other preprocedural examination (principal)
CPT/HCPCS: G0103

== ENCOUNTER 2025-03-01 11:11 | Emergency (ER) | payer MEDICARE, BC, SELFPAY ==
--- OUTSIDE RECORDS SUMMARY | 2025-03-01 11:14 | XMS_ITS | Clinical Summary ---
Author Organization [employer] Address [address] [place] [address] Care Team Providers Care Ethylbenzene Converter Operator Name Role Phone Unassigned, Provider Primary Care Provider Unava ilable Source Comments You are receiving this document as you are listed as the primary care provider,follow-up provider, or the patient has been referred to you for consultation.This is in compliance with the Medicare and[facility] EHR Incentive Program,which states Providers who transition their patient to another setting of careor provider of care or refers their patient to another provider of care shouldprovide summary care record for each transition of care or referral. 10Six Allergies Active Allergy Reactions Criticality Noted Date Comments Prednisone 08/05/2009 Medications EPINEPHrine (EPIPEN) 0.3 MG/0.3ML injection Inject 1 Dose into the muscle as needed. LW Addl Instr:May repeat. Indicated for: Acute Allergic Reaction 1 3 9 Active Additional Information Patient not taking.Reported on 04/11/2016 unknown medication Indications: PN: 0 Active Glucosamine HCl-MSM (GLUCOSAMINE-M SM OR) Take 3 capsules by mouth daily (every 24 hours). 2 Active fluticasone (AKA FLONASE) 50 MCG/ACT nasal solution Place 2 sprays into each nostril 1-2 TIMES DAILY PRN. Dose is for each nostril. 2 Active guaiFENesin ([employer] MUCUS EXTENDED RELEASE) 600 MG 12 hour release tablet Take 1,200 mg by mouth 2 times daily. 1 Active omeprazole (PRILOSEC) 20 MG capsule Take 20 mg by mouth daily (every 24 hours). 1 Active fluoxetine (PROZAC) 40 MG capsule Take 40 mg by mouth daily (every 24 hours). Indications: DEPRESSION 1 Active lisinopril (ZESTRIL) 10 MG tablet Take 10 mg by mouth. 7 Active sildenafil (VIAGRA) 100 MG tablet Take 100 mg by mouth. 4 Active omeprazole (PRILOSEC) 20 MG capsule Take 20 mg by mouth daily. Take 1 hour before a meal. Active guaifenesin-co deine (ROBITUSSINAC) 100-10 MG/5ML solution Take 5 mL by mouth every 4 hours as needed. 118 mL 8 Active ALBUterol sulfate HFA 108 (90 Base) MCG/ACT inhaler Inhale 1-2 Puffs every 4 hours as needed for Wheezing. Pharmacy may substitute albuterol HFA inhalers based on insurance 1 Inhaler 8 Active dexamethasone (DECADRON) 2 MG tablet 10 mg today and in 4 days 10 Tab 8 Active [facility]S OMEPRAZOLE CPDR Take 20 mg by mouth daily (every 24 hours). 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) Immunizations Immunization Administration Dates Next Due Td 12/10/1997,08/19/1995 Tdap 10/12/2016 Social History Tobacco Use Types Packs/Day Years Used Date Smoking Tobacco: Never Comments:Quit smoking: Sex and Gender Information Value Date Recorded Sex Assigned at Not on file Legal Sex Male 4:43 AM CDT Gender Identity Not on file Sexual Orientation Not on file Last Filed Vital Signs Vital Sign Reading Time Taken Comments Blood Pressure 110/70 09/11/2017 4:03 PM CDT Pulse 88 09/11/2017 4:03 PM CDT Temperature 36.8 C (98.2 F) 09/11/2017 4:03 PM CDT Respiratory Rate 20 09/11/2017 4:03 PM CDT Oxygen Saturation 96% 09/11/2017 4:03 PM CDT Inhaled Oxygen Concentration - - Weight - - Height - - Body Mass Index - - Plan of Treatment Health Maintenance Due Date Last Done Comments Colon Cancer Screening Plan Due 1950 Hep C Screening (Preventive Services) 1950 Adult Preventive Visit 08/17/1967 Zoster/Shingles Vaccine (2 of 3) 04/03/2012 02/07/2012 Pneumococcal Vaccine 50+ Yrs (2 of 2 - PCV20 or PCV21) 02/15/2018 02/15/2017 RSV Vaccine (1 - 1-dose 75+ series) 2024 COVID-19 Vaccine (1 - 2023- season) 2025 Influenza Vaccine (#1) 2025 02/15/2017 DTaP/Tdap/Td Vaccine (3 - Tdap) 10/12/2026 10/12/2016, 06/18/2007, 12/10/1997, Additional history exists HepA Vaccine Aged Out No longer eligi ble based on patient's age to complete this topic HepB Vaccine Aged Out No longer eligi ble based on patient's age to complete this topic Hib Vaccine Aged Out No longer eligi ble based on patient's age to complete this topic IPV (Polio) Vaccine Aged Out No longe r eligible based on patient's age to complete this topic MCV4 Vaccine Aged Out No longer eligi ble based on patient's age to complete this topic Meningococcal B Vaccine Aged Out No l onger eligible based on patient's age to complete this topic Insurance [facility] Care Teams Ethylbenzene Converter Operator Relationship Specialty Start Date End Date Unassigned, Provider [address] [place] [address] PCP - General 05/10/00
--- OUTSIDE RECORDS SUMMARY | 2025-03-01 11:14 | XMS_ITS | Patient Health Record ---
Author Organization [facility] Address [address] [place] [address] Care Team Providers Care Mineral Wool Insulation Supervisor Name Role Phone Florentinrenea Willy Primary Care Provider Unavailab billy EPI Mcconnell Unavailable [phone] Reason For Referral No Information Medications Medication SIG (Take, Route, Fr equency, Duration) Notes Start Date End Date Status Flomax Active Unknown BP med Active FLUoxetine HCl Activ e Social History Tobacco Use: Social History Observation Description Date Details (start date - stop date) Never Smoker NA - NA Social History Alcohol Use: Social Info Question Answer Notes Recreational drugs Have you used drugs other than those for medical reasons in the past 12 months? No Alcohol Screen Did you have a drink containing alcohol in the past year? Yes How often did you have a drink containing alcohol in the past year? 4 or more times a week (4 points) How often did you have 6 or more drinks on one occasion in the past year? 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
[2025-03-01 11:19] VITALS: BP 148/85; PULSE 78; RESP 18; TEMP 36.4; O2SAT 95; BMI 39.5
--- NOTE | 2025-03-01 11:40 | CRLHL7_ITS ---
For Patients: As a result of the Cures Act, medical imaging exams and procedure reports are released immediately into your electronic medical record. You may view this report before your referring provider. If you have questions, please contact your health care provider. Indication: Crush injury Technique: Three views left hand Comparison: None Findings: No fracture. Soft tissue injury at the ulnar aspect. Scattered degenerative changes. Impression: No fracture. Dictated by Christopher Us MD @ 03/01/2025 12:18:38 PM (Electronically Signed)
--- NOTE | 2025-03-01 11:58 | ED.GENADULT ---
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 The lawnmower slipped pinching his hand between the lawnmower in the bed of the truck. Denies other injury. Tetanus shot is up-to-date. Related Data Home Medications ?Medication ?Instructions ?Recorded ?Confirmed lisinopril 20 mg tablet 20 mg PO DAILY 03/15/22 03/01/25 metoprolol succinate 50 mg 50 mg PO DAILY 03/15/22 03/01/25 tablet,extended release 24 hr omeprazole 20 mg capsule,delayed 20 mg PO DAILY 03/15/22 03/01/25 release tamsulosin 0.4 mg capsule 0.4 mg PO DAILY 03/15/22 03/01/25 sertraline 100 mg tablet 200 mg PO DAILY 12/14/22 03/01/25 prazosin 2 mg capsule 4 mg PO QHS 02/11/24 03/01/25 Previous Rx's ?Medication ?Instructions ?Recorded amlodipine 5 mg tablet 5 mg PO QDAY #90 tabs 02/16/25 tirzepatide 2.5 mg/0.5 mL 2.5 mg (0.5 mL) subcut QWEEK #2 mL 02/16/25 subcutaneous pen injector (Trell) cephalexin 500 mg capsule 500 mg PO TID 5 days #15 caps 03/01/25 Allergies Allergy/AdvReac Type Severity Reaction Status Date / Time doxycycline Allergy Severe Itching Verified 03/01/25 11:25 codeine Allergy Unknown Verified 03/01/25 11:25 Review of Systems Status of ROS: Reports: 6 or more systems reviewed and unremarkable except as noted in History and below [facility] Medical History Fatty liver ?K76.0 - Fatty (change of) liver, not elsewhere classified (ICD-10) Prediabetes ?R73.03 - Prediabetes (ICD-10) Obesity ?E66.9 - Obesity, unspecified (ICD-10) Hyperlipidemia ?E78.5 - Hyperlipidemia, unspecified (ICD-10) MARILYN (obstructive sleep apnea) ?G47.33 - Obstructive sleep apnea (adult) (pediatric) (ICD-10) PTSD (post-traumatic stress disorder) ?F43.10 - Post-traumatic stress disorder, unspecified (ICD-10) Bilateral primary osteoarthritis of knee ?M17.0 - Bilateral primary osteoarthritis of knee (ICD-10) Complicated urinary tract infection ?N39.0 - Urinary tract infection, site not specified (ICD-10) Benign prostatic hyperplasia ?N40.0 - Benign prostatic hyperplasia without lower urinary tract symptoms (ICD-10) Tubular adenoma ?D36.9 - Benign neoplasm, unspecified site (ICD-10) Peptic ulcer associated with Helicobacter pylori infection ?K27.9 - Peptic ulcer, site unspecified, unspecified as acute or chronic, without hemorrhage or perforation (ICD-10) ?B96.81 - Helicobacter pylori [H. pylori] as the cause of diseases classified elsewhere (ICD-10) Lipoma of abdominal wall ?D17.1 - Benign lipomatous neoplasm of skin and subcutaneous tissue of trunk (ICD-10) History of renal calculi ?Z87.442 - Personal history of urinary calculi (ICD-10) Hepatitis B virus infection ?B19.10 - Unspecified viral hepatitis B without hepatic coma (ICD-10) Anxiety and depression ?F41.9 - Anxiety disorder, unspecified (ICD-10) ?F32.A - Depression, unspecified (ICD-10) Allergic rhinitis ?J30.9 - Allergic rhinitis, unspecified (ICD-10) Abscess or cellulitis of shoulder Surgical History History of total left knee replacement (02/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) ?Z96.652 - Presence of left artificial knee joint (ICD-10) S/P trigger finger release (04/19/22) ?Z98.890 - Other specified postprocedural states (ICD-10) H/O arthroscopy of left knee (04/17/13) ?Z98.890 - Other specified postprocedural states (ICD-10) History of repair of right rotator cuff (03/14/18) ?Z98.890 - Other specified postprocedural states (ICD-10) Trigger finger, left little finger (06/20/21) ?M65.352 - Trigger finger, left little finger (ICD-10) History of total right hip replacement (02/24/13) ?Z96.641 - Presence of right artificial hip joint (ICD-10) History of total left hip replacement (08/27/14) ?Z96.642 - Presence of left artificial hip joint (ICD-10) History of tonsillectomy and adenoidectomy ?Z90.89 - Acquired absence of other organs (ICD-10) History of colonoscopy with polypectomy ?Z98.890 - Other specified postprocedural states (ICD-10) ?Z86.010 - Personal history of colonic polyps (ICD-10) History of arthroscopy of right shoulder (04/18/18) ?Z98.890 - Other specified postprocedural states (ICD-10) History of arthroscopy of right knee (06/21/17) ?Z98.890 - Other specified postprocedural states (ICD-10) Family History Mother Ovarian cancer Father Pancreatic cancer Uncle Testicular cancer Social History Narrative: alcohol ingestion, 1-4 drinks/week does not use illicit drugs nonsmoker What is your current living situation?: I presently have a place to live Problems where you live: no known problems Problems where you live details: NA In the past 12 months, utilities in danger of being shut off: no In past 12 months, lack of transportation kept you from medical appts, meetings, work, or getting things needed for daily living: no In the past 12 mos, have been you worried that your food would run out before you had money to buy more?: never true In the past 12 mos, the food you bought just didn't last and you didn't have money to buy more?: never true Highest level of school completed/degree received: Associate degree: occupational, technical, vocational program Smoking Status: Former smoker What tobacco products do you use: cigarettes Smoking quit date/years: >15 years ago Do you use any of these nicotine containing products: None Second hand tobacco smoke exposure: No How often do you have a drink containing alcohol: 2-3 times a week How many standard drinks containing alcohol do you have on a typical day: 3 or 4 How often do you have six or more drinks on one occasion: Never AUDIT-C Alcohol total score: 4 Non-prescribed substance use: denies use Caffeine: No How often does anyone, including family, friends and others, physically hurt you: never How often does anyone, including family, friends and others, insult or talk down to you: never How often does anyone, including family, friends and others, threaten you with harm: never How often does anyone, including family, friends and others, scream or curse at you: never service: Yes Exam Narrative: Exam Narrative: Well-nourished well-developed patient in no acute distress. Alert and oriented. Answers questions appropriately. Extremities: Patient has a laceration at the base of the pinky finger on the palmar surface that is approximately half an inch in length and extends into the subcutaneous tissue but does not penetrate through the subcutaneous tissue. On the dorsal surface of the medial hand he has 1 laceration that is approximately an inch in length, extends through the subcutaneous tissue where tendons are visible. Tendons are completely intact. Patient has full range of motion of all his fingers. He also has a couple of areas where the skin has been avulsed. He does have swelling of the 4th and 5th digits. Large wedding band stuck on the 4th digit. Const: Vital Signs, click to edit/add: Vital Signs - 24 hr 03/01/25 11:19 Temperature 97.6 F Pulse Rate [Right Pulse Oximeter] 78 Respiratory Rate 18 Blood Pressure [Ri ght Upper Arm] 148/85 H Pulse Oximetry 95 Oxygen Delivery Me thod Room Air Course Course ED Course: X-ray of the hand was obtained, read by me, does not show any acute fractures. The 2 lacerations were anesthetized with 2% lidocaine and wounds were irrigated and cleaned. One subcutaneous suture with 4 0 Vicryl was placed on the laceration on the dorsal surface. The skin was sutured with 6 sutures of 5.0 Ethilon. The laceration on the palmar surface was sutured with 4 sutures of 4-0 Ethilon. A ring cutter was used to remove the ring from the 4th digit. Vital Signs Vital signs: Initial Vital Signs Temperature 97.6 F 03/01/25 11:19 Temperature Source Temporal Artery Scan 03/01/25 11:19 Pulse Rate 78 03/01/25 11:19 Pulse Rhythm Regular 03/01/25 11:19 Pulse Strength 3+ Normal 03/01/25 11:19 Respiratory Rate 18 03/01/25 11:19 Blood Pressure 148/85 H 03/01/25 11:19 Blood Pressure Mean 106 H 03/01/25 11:19 Blood Pressure Position Sitting 03/01/25 11:19 Pulse Oximetry 95 03/01/25 11:19 Oxygen Delivery Method Room Air 03/01/25 11:19 Vital Signs Temperature 97.6 F 03/01/25 11:19 Pulse Rate 78 03/01/25 11:19 Respiratory Rate 18 03/01/25 11:19 Blood Pressure 148/85 H 03/01/25 11:19 Pulse Oximetry 95 03/01/25 11:19 Oxygen Delivery Method Room Air 03/01/25 11:19 Temperature 97.6 F 03/01/25 11:19 Pulse Rate 78 03/01/25 11:19 Respiratory Rate 18 03/01/25 11:19 Blood Pressure 148/85 H 03/01/25 11:19 Pulse Oximetry 95 03/01/25 11:19 Oxygen Delivery Method Room Air 03/01/25 11:19 Medical Decision Making MDM Narrative Medical decision making narrative: 74-year-old male multiple lacerations and swelling of the finger. Treated per above. Given the depth of the dorsal surface laceration we will put the patient on antibiotics at this time. Tetanus shot is up-to-date. Imaging Data X-ray hand: Attestation: I have reviewed the pertinent imaging results. Radiologist's impression: Technique: Three views left hand Comparison: None Findings: No fracture. Soft tissue injury at the ulnar aspect. Scattered degenerative changes. Impression: No fracture. Discharge Plan Discharge Clinical Impression: Laceration, Finger swelling Patient Disposition: Home, Self-Care Condition: Stable Additional Instructions: Keep wounds clean and dry. Do not soak such as taking baths, swimming or doing dishes. Follow-up in approximately 1 week for suture removal with your primary care provider. Watch for signs and symptoms of infection including increasing redness of the area, purulent drainage, or fever. If this occurs follow-up right away with your doctor or return to the ER. Take all antibiotics as prescribed. Prescriptions: New cephalexin 500 mg capsule 500 mg PO TID 5 Days Qty: 15 0RF No Action omeprazole 20 mg capsule,delayed release(DR/EC) 20 mg PO DAILY tamsulosin 0.4 mg capsule 0.4 mg PO DAILY lisinopril 20 mg tablet 20 mg PO DAILY metoprolol succinate 50 mg tablet extended release 24 hr 50 mg PO DAILY sertraline 100 mg tablet 200 mg PO DAILY amlodipine 5 mg tablet 5 mg PO QDAY Qty: 90 4RF Mounjaro 2.5 mg/0.5 mL pen injector 2.5 mg subcut QWEEK Qty: 2 0RF Rx Instructions: for 4 weeks prazosin 2 mg capsule 4 mg PO QHS Follow Up/Referrals: Ilan Atwood MD [Primary Care Provider, Family Practice] Stand Alone [facility]: [facility] Info Instructions
== END 2025-03-01 12:52 | disposition home or self-care (01) ==
PROVIDERS: Emergency Provider Family Medicine; PCP Family Medicine
DX: S61.412A Laceration without foreign body of left hand, initial encounter (principal); W23.0XXA Caught, crushed, jammed, or pinched between moving objects, initial encounter
CPT/HCPCS: 12001; 73130; 99283; 99284

== ENCOUNTER 2025-03-23 11:15 | Outpatient (CLI) | payer MEDICARE, BC, SELFPAY | END 2025-03-23 11:16 | disposition home or self-care (01) | PROVIDERS: PCP Family Medicine; Visit Provider Family Medicine | DX: Z01.818 Encounter for other preprocedural examination (principal); R97.20 Elevated prostate specific antigen [PSA] | CPT/HCPCS: 80048; 84153; 84154 ==